=== PATIENT | female | born 1965 | race Caucasian/White ===

== ENCOUNTER 2023-08-24 11:13 | Emergency (ER) | payer MEDICAID, SELFPAY ==
[2023-08-24 11:23] VITALS: BP 154/80; PULSE 85; O2SAT 91
--- NOTE | 2023-08-24 11:42 | ED.GENADULT ---
HPI - General Adult General Chief complaint: Dental/Oral Stated complaint: JAW PAIN Time Seen by Provider: 08/24/23 17:45 History of Present Illness HPI narrative: This is a 57-year-old woman with a past medical history of COPD (on 2 liters/minute supplemental oxygen at home), hypertension, chronic back pain who presents for evaluation of jaw pain and rash. Patient states that pain began 1-2 weeks ago while she was at rehab. She states no trauma. She states that she heard a ?pop in her jaw. She states noting a ?blister? on the right side of the tip of her tongue. She states over the last 1 week she has slowly developed a rash over her right ear, jaw and chin. She states no cough or sore throat. She states no eye pain or vision changes. She states no hearing changes. She states no fevers or chills. She states no chest pain, dyspnea, abdominal pain, nausea, vomiting, change in bowel habits, dysuria or urinary frequency/urgency. Related Data Previous Rx's ?Medication ?Instructions ?Recorded prednisone 20 mg tablet 60 mg (3 x 20 mg) PO DAILY 6 days 08/24/23 #18 tabs valacyclovir 500 mg tablet 1,000 mg (2 x 500 mg) PO TID 7 08/24/23 days #40 tabs Allergies Allergy/AdvReac Type Severity Reaction Status Date / Time bupropion Allergy Unknown Verified 08/24/23 11:50 codeine Allergy Unknown Verified 08/24/23 11:50 diclofenac Allergy Unknown Verified 08/24/23 11:50 divalproex sodium Allergy Unknown Verified 08/24/23 11:50 [From Depakote] doxepin [From Silenor] Allergy Unknown Verified 08/24/23 11:50 famotidine Allergy Unknown Verified 08/24/23 11:50 meloxicam Allergy Unknown Verified 08/24/23 11:50 naproxen Allergy Unknown Verified 08/24/23 11:50 nortriptyline Allergy Unknown Verified 08/24/23 11:50 oxycodone Allergy Unknown Verified 08/24/23 11:50 sertraline Allergy Unknown Verified 08/24/23 11:50 topiramate Allergy Unknown Verified 08/24/23 11:50 Review of Systems Review of Systems: ROS as per HPI [facility] Social History Social History Advance Directives: No Advance Directives Information Provided: No Physical Exam ED Vital Signs: Vital Signs - 24 hr 08/24/23 11:43 08/24/23 16:00 08/24/23 17:42 Temperature 98.3 F 99.9 F Pulse Rate 77 77 Respiratory Rate 18 Blood Pressure 126/74 121/78 Pulse Oximetry 95 91 L 91 L Oxygen Delivery Method Nasal Cannula Nasal Cannula Nasal Cannula Oxygen Flow Rate 2 2 BMI result Body Mass Index 46.2 Gen: NAD, AOx3 HEENT: NCAT, EOMI, normal conjunctiva, vesicular eruption with erythema to right superior auricle extending to right lower face over right V3 dermatome with vesicles to right lingual tip and associated yellow crusting to some of the lesions, external ear canal with mild cerumen without impaction and no appreciable vesicular eruption, TM with +light reflex and without erythema, no lesions to the nose, uvula midline without edema, no posterior oropharynx erythema or exudates, no sublingual edema, no anterior neck brawny appearance, ecchymosis or edema, neck is supple CV: RRR Pulm: CTAB, no increased work of breathing GI: Soft, NTND, no rebound, guarding or rigidity MSK: Full range of motion with active and passive neck flexion/extension Neuro: CN II-XII intact, gross nonfocal Course Course Course Narrative: This is an RME performed by Ben Jiang CNP: Additional HPI, ROS, PE not included below will be deferred to primary provider. Patient is a 57-year-old female who presents emergency department via EMS for evaluation of right jaw pain extending to ear, mouth, lateral neck x 2wks, began while at [facility] she reports no one did anything about it . She has a visible rash to the right lower portion of her face involving the right side of the lip crusting over the lesions. She states that the rash appeared ?just after my jaw popped 2 weeks ago . she is having difficulty eating due to her pain Exam: Vesicular eruption with erythematous face over right V3 dermatome, presence of crusting to some of the lesions, external ear canal with cerumen, possible vesicular eruption within the canal difficult to ascertain in triage, concern for Katerine Brown stindrome. Plan: Placed in waiting room pending bed availability, she reports inability to tolerate p.o. intake, will require to be medicated and p.o. trial Medications Administered Discontinued Medications Generic Name Dose Route Start Last Admin Trade Name Darwin PRN Reason Stop Dose Admin Fluorescein Sodium 1 strip 08/24/23 18:24 08/24/23 19:03 Fluorescein Sodium Strip EYE-BOTH 08/24/23 18:25 1 strip ONCE ONE Administration Fluorescein Sodium 1 strip 08/24/23 18:25 08/24/23 19:03 Fluorescein Sodium Strip EYE-RIGHT 08/24/23 18:26 1 strip ONCE ONE Administration Prednisone 60 mg 08/24/23 18:52 08/24/23 19:07 Prednisone 20 Mg Tablet PO 08/24/23 18:53 60 mg ONCE ONE Administration Tetracaine HCl 1 drop 08/24/23 18:24 08/24/23 19:03 Tetracaine Hcl/Pf 0.5% Oph Shirin 4 Ml Drops EYE-BOTH 08/24/23 18:25 1 drop ONCE ONE Administration Valacyclovir HCl 1,000 mg 08/24/23 18:52 08/24/23 19:07 Valacyclovir Hcl 1,000 Mg Tablet PO 08/24/23 18:53 1,000 mg ONCE ONE Administration Medical Decision Making Medical Decision Making MDM Narrative: Differential diagnosis includes, but is not limited to herpes zoster oticus, herpes zoster ophthalmicus. Patient is afebrile and hemodynamically stable on her home oxygen. Exam as above with notable vesicular eruption with associated faint erythema and yellow crusting. Lower suspicion for herpes zoster ophthalmicus given lack of ocular complaints and lack lesions to the nose and further with distribution of lesions in the V3 facial dermatome. Regardless, patient is examined with fluorescein and Wood's lamp, which demonstrates no dendritic lesions to suggest ocular involvement Considered other etiologies such as acute otitis media, acute otitis externa and cellulitis, but history and examination are much less suggestive of these etiologies and these reasons thought to be less likely. Given high clinical suspicion for herpes zoster ophthalmicus, I will treat it as such. Patient is provided 60 mg p.o. prednisone and 1 g p.o. valacyclovir here in the ED. Urinalysis unremarkable. On re-examination, patient is well-appearing and in no acute distress. ?There is no indication for further emergent evaluation. Patient and daughter at bedside are provided written and verbal instructions, educational materials, recommendations for outpatient follow-up, strict return precautions, prescription for prednisone and valacyclovir, and teach back is performed. ?Patient and daughter state understanding and agreement with plan of care. ?Patient is discharged home in stable and improved condition with her daughter. Lab Data MDM Lab Attestation statement: I reviewed the patient's lab results. Labs: Lab Results 08/24/23 Range/Units 18:07 Urine Color Yellow Urine Appearance Clear Urine pH 6.0 (5.0-9.0) Ur Specific [place] 1.015 (1.005-1.025) Urine Protein Negative (Neg-Trace) mg/dL Urine Glucose (UA) 500 H (Negative) mg/dL Urine Ketones Negative (Negative) mg/dL Urine Blood Negative (Negative) Urine Nitrite Negative (Negative) Ur Leukocyte Esterase Negative (Negative) Discharge Plan Discharge Clinical Impression: Herpes zoster virus infection of face and ear nerves Patient Disposition: Home, Self-Care Instructions: Shingles (ED) Additional Instructions: You were seen and evaluated in the emergency room. You were diagnosed with shingles and started on treatment. You are given a prescription for an antiviral, which he be taken 3 times a day for a total of 7 days. Your next dose of antiviral should be taken tomorrow morning. You were also given a prescription for prednisone, which should be taken once a day for a total of 7 days. Your next dose of prednisone should be taken tomorrow evening. Please follow-up with your primary care doctor in the next 5-7 days. ? Please return to the emergency room if you develop any worsening symptoms including, but not limited to fever, worsening pain, vision changes, hearing changes, chest pain or difficulty breathing. Prescriptions: New prednisone 20 mg tablet 60 mg PO DAILY 6 Days Qty: 18 0RF valacyclovir 500 mg tablet 1,000 mg PO TID 7 Days Qty: 40 0RF Referrals: [facility] [place] [facility]Provider Group] Print Language: Thai
[2023-08-24 11:43] VITALS: BP 126/74; PULSE 77; RESP 18; TEMP 36.8; O2SAT 95; BMI 46.2
[2023-08-24 16:00] VITALS: BP 121/78; PULSE 77; TEMP 37.7; O2SAT 91
[2023-08-24 17:42] VITALS: O2SAT 91
[2023-08-24 18:22] LABS: Appearance Urine Clear; Color Urine Yellow; Glucose Urine UA 500 mg/dL (Negative); Leukocyte Esterase Urine Negative (Negative); Nitrite Urine Negative (Negative); Specific Gravity - Urine 1.015 (1.005-1.025); Urine Blood Negative (Negative); Urine Ketones Negative (Negative); Urine Protein Negative (Neg-Trace)
[2023-08-24] MEDS: Fluorescein Sodium STRIP 1 STRIP EYE-BOTH (19:03)
[2023-08-24] MEDS: Fluorescein Sodium STRIP 1 STRIP EYE-RIGHT (19:03)
[2023-08-24] MEDS: Tetracaine HCl/PF 0.5% Oph Sol 4 ML DROPS 1 DROP EYE-BOTH (19:03)
[2023-08-24] MEDS: valACYclovir HCL 1,000 MG TABLET 1000 MG PO (19:07)
[2023-08-24] MEDS: predniSONE 20 MG TABLET 60 MG PO (19:07)
[2023-08-24 20:00] VITALS: BP 128/65; PULSE 80; TEMP 36.3; O2SAT 95
[2023-08-24 21:03] VITALS: BP 128/65; PULSE 80; RESP 18; TEMP 36.3; O2SAT 95
== END 2023-08-24 22:07 | disposition home or self-care (01) ==
PROVIDERS: Emergency Provider Emergency Medicine
DX: B02.8 Zoster with other complications (principal); R68.84 Jaw pain; J44.9 Chronic obstructive pulmonary disease, unspecified; Z99.81 Dependence on supplemental oxygen
CPT/HCPCS: 81003; 99283

== ENCOUNTER 2024-07-10 10:32 | Inpatient (IN) | payer MEDICAID, SELFPAY ==
[2024-07-10] VITALS (11 sets, daily range): BP systolic 109–162; BP diastolic 52–86; PULSE 70–103; RESP 15–22; TEMP 36.1–36.7; O2SAT 93–99; BMI 50.1
--- NOTE | ~2024-07-10 | CT_ITS ---
CLINICAL HISTORY: GI bleed pt intubated, best images at this timeC- images attached to CT C- Chest beto h[place]. CT abdomen and pelvis with and without contrast Comparison: None Findings: There is diffuse fatty infiltration of the liver. The spleen, adrenal glands, pancreas and kidneys are unremarkable. The gallbladder is absent. There is a enteric tube which terminates in the proximal stomach, side hole is at the GE junction. Stomach is distended with air. Proximal small bowel loops are fluid distended, measuring up to 4.9 cm in diameter. There is a collection of dependent high attenuation material within 1 of the loops of small bowel, within the pelvis, series 22, image 196 which does not change in appearance on multiple phases suggesting this is food material or clot, and not active bleeding. There is an acute transition point in the midline abdomen, within the proximal to mid small bowel, series 22, image 144. Distal small bowel is decompressed. The colon is decompressed. There is no pneumatosis or free air. No ascites. Urinary bladder is decompressed. Posterior fusion of the thoracolumbar spine is present. IMPRESSION: 1. Small-bowel obstruction with transition point in the midabdomen. 2. Enteric tube in the proximal stomach with side hole in the GE junction. Markedly distended stomach. Consider advancing 5-10 cm. 3. Intraluminal high density material in a dilated loop of small bowel is likely food material or clot, not acute hemorrhage given the lack of exchange floor manager time. 4. Hepatic steatosis. This document has been electronically signed by: Donnie Nino MD on 07/12/2024 00:36:27
--- NOTE | ~2024-07-10 | CT_ITS ---
CLINICAL HISTORY: VOMITING, HIGH LACTIC ACID CT chest without contrast Comparison: CR - XR CHEST 1V - 07/11/24 20:36 EDT Findings: The heart size is normal. The visualized thyroid and mediastinum are unremarkable. The tip of the endotracheal tube has advanced and is now 1 cm above the clay. In the right lung there is an ovoid 2.0 cm calcified appearing nodule in the right upper lobe. There also smaller calcified appearing nodules in the right middle lobe indeterminate nodules in the right lung base are difficult to evaluate due to motion artifact, largest appears 10 mm in diameter. There is a 11 mm nodule in the left lower lobe, which appears noncalcified. No focal infiltrate. No effusion or pneumothorax. Please same-day CT abdomen and pelvis for discussion of upper abdomen findings. The enteric tube courses into the stomach, tip not visualized on this study. Partially visualized posterior fusion of the thoracolumbar spine. IMPRESSION: 1. Endotracheal tube tip is 1 cm above the clay 2. Multiple bilateral pulmonary nodules, some of which are calcified. Evaluation of nodules is difficult due to respiratory motion. Largest noncalcified nodule is 11 mm. Consider further follow-up evaluation with chest CT when patient is able to hold breath in the future. This document has been electronically signed by: Donnie Nino MD on 07/11/2024 23:33:27
--- NOTE | ~2024-07-10 | XR_ITS ---
CLINICAL HISTORY: asp? 1 view chest x-ray Comparison: CR/LA/SR - XR CHEST 1V - 07/10/24 13:23 EDT Findings: No pleural effusion. No Consolidation. Multiple nodular densities of the right lung. Prominent interstitial lung markings. Heart size is normal. No acute fracture. Spinal fusion. IMPRESSION: No consolidation. Nodular densities of the right lung. Further evaluation by CT chest as indicated. This document has been electronically signed by: Mariposa Castaneda MD on 07/11/2024 18:44:39
--- NOTE | ~2024-07-10 | XR_ITS ---
CLINICAL HISTORY: NGT placement 1 view chest x-ray Comparison: CR/SR - XR CHEST 1V - 07/15/24 12:[address] - CT GI BLEED ABD PEL WO/W IVCON - 07/11/24 22:27 EDT Findings: Enteric tube courses below the diaphragm and appears to terminate in the proximal stomach. Extensive spinal fusion hardware. Prominence of the interstitium bilaterally with an area of nodularity in the right lower lobe better seen on the prior CT. IMPRESSION: 1. Enteric tube courses below the diaphragm and appears to terminate over the expected location of the proximal stomach. Distal side port not seen but likely at the level of the gastroesophageal junction. Advancement recommended. This document has been electronically signed by: Bessie Moncada MD on 07/16/2024 06:07:14
--- NOTE | ~2024-07-10 | XR_ITS ---
CLINICAL HISTORY: pain 1 view abdomen Comparison: CT - CT GI BLEED ABD PEL WO/W IVCON - 07/11/24 22:27 EDT Findings: No pneumoperitoneum or pneumatosis. There is gaseous distention of both large and small bowel. Small bowel does not appear to be dilated. There is marked gaseous distention of the stomach. No abnormal calcifications. There are spinal fusion rods. No acute fracture. IMPRESSION: 1. Extensive severe gaseous distention of bowel most likely secondary to ileus. 2. There is marked gaseous distention of the stomach. This document has been electronically signed by: Berkley Goddard MD on 07/20/2024 18:42:19
--- NOTE | ~2024-07-10 | XR_ITS ---
CLINICAL HISTORY: ETT OGT placement 1 view chest x-ray Comparison: CR - XR CHEST 1V - 07/11/24 17:54 EDT Findings: Multiple nodular densities in the right lung concerning for pulmonary nodules. Cervical spine fusion. There is an endotracheal tube terminating in the thoracic inlet, with tip located 10 cm above the clay. Heart size is normal. There is an enteric tube with tip seen overlying the lower esophagus. Tip is partially obscured by overlying spinal hardware in the thoracolumbar spine. IMPRESSION: 1. Tip of the endotracheal tube is 10 cm above the clay. Consider advancing 6-8 cm. 2. Enteric tube terminates in the distal esophagus, consider advancing 5-10 cm. 3. Multiple nodular densities again seen in the right lung concerning for pulmonary nodules. This document has been electronically signed by: Donnie Nino MD on 07/11/2024 21:20:31
--- NOTE | ~2024-07-10 | XR_ITS ---
EXAMINATION: XR CHEST CLINICAL INFORMATION: confirm NG tube placement COMPARISON: Chest x-ray 07/11/2024, and CT chest 07/11/2024. TECHNIQUE: Frontal view of the lower chest and upper abdomen was obtained. FINDINGS: NG tube extends into the stomach although the sidehole is likely at the GE junction or slightly above. Lower lungs demonstrate streaky opacities left base, and a right base nodule measuring 2.0 cm in diameter. Refer to the recent dedicated chest CT. Extensive spinal fixation rods noted thoracolumbar spine. XR/XR chest 1V IMPRESSION: 1. Limited exam. NG tube is present with the tip in the stomach although the sidehole is likely at or just above the GE junction. 2. Pulmonary nodule in the right lung base, and streaky opacities in the left lung base. Electronically signed by: Cristino Rodriguez MD 07/15/2024 02:44 PM EDT
--- NOTE | ~2024-07-10 | XR_ITS ---
EXAMINATION: XR CHEST CLINICAL INFORMATION: sob COMPARISON: None available. TECHNIQUE: Frontal view of the chest was obtained. FINDINGS: Prominence of the interstitial lung markings, bilaterally. Round opacity right lower hemithorax. No pneumothorax. No pleural effusion. Cardiomediastinal silhouette size is normal. Metallic hardware in the lower cervical and at the thoracolumbar spine not in the [id number]. Degenerative changes with calcifications in the joint capsule involving the left shoulder. XR/XR chest 1V IMPRESSION: Mild interstitial lung edema versus multifocal pneumonia. Nodular lesion right lower hemithorax. Consider benign versus malignant. Electronically signed by: Colt Watkins MD 07/10/2024 01:47 PM EDT
--- NOTE | ~2024-07-10 | FL_ITS ---
EXAMINATION: FL SMALL BOWEL SERIES CLINICAL INFORMATION: SBO COMPARISON: None available. TECHNIQUE: Following a yardage control clerk image of the abdomen, Gastrografin 50-50 contrast was administered orally, and interval abdominal radiographs were performed to assess for contrast progression through the small bowel. Following contrast transit through the small bowel and into the colon, the patient was placed on the fluoroscopy table, and multiple spot images were obtained. FINDINGS: Mud Mixer Operator image of the abdomen demonstrates there is a dilated colonic and small bowel gas.. There are Watts rods throughout the lumbar and lower dorsal spine as visualized for correction of scoliosis. There is normal transit time of contrast material through the small bowel, with contrast present in the colon by 1 hour 30 minutes. Small bowel loops are of normal caliber throughout the abdomen and pelvis. The jejunal and ileal fold patterns are normal, without evidence of abnormal thickening. No fixed regions of luminal narrowing are seen to suggest stricturing. The terminal ileum demonstrates a normal appearance. FLUOROSCOPY TIME: 0 DOSE AREA PRODUCT: There uGy-m2 (microgray-meter squared) FL/FL small bowel follow through IMPRESSION: Normal small bowel series. No indication for obstruction. Electronically signed by: Jeremie Bergeron MD 07/21/2024 12:56 PM EDT
--- NOTE | ~2024-07-10 | CT_ITS ---
EXAMINATION: CT HEAD WITHOUT CONTRAST (STROKE PROTOCOL) CLINICAL INFORMATION: Change in mental status. Speech disturbances. COMPARISON: None available. TECHNIQUE: Contiguous axial imaging was performed from the skull base to vertex without intravenous administration of contrast. This CT examination was performed using dose optimization techniques as appropriate, variously including the following: *Automated exposure control *Adjustment of mA and/or kV according to patient size (this includes techniques or standardized protocols for targeted exams where dose is matched to indication/reason for exam; i.e. extremities or head) *Use of iterative reconstruction technique DLP: 809 mGy centimeter. FINDINGS: Limited patient's positioning on the CT scanner. No gross intracranial hemorrhage, mass effect, midline shift, hydrocephalus or herniation. Sharp-white matter differentiation is normal. Bilateral multifocal patchy deep periventricular white matter hypodensity involving centrum semiovale and olmedo radiata. There is no dense MCA sign. Prominence of the extra-axial CSF spaces cerebral sulci and ventricles. No acute fracture in the bony calvarium. No air-fluid levels in the paranasal sinuses. Tympanic cavities and mastoid cells are aerated. Edentulous. CT/CT head for STROKE IMPRESSION: No intracranial hemorrhage or acute brain abnormality by CT. This critical result was discussed with Dr. Rasheed Fagan at 10:50 AM hours on July 10, 2024. It was ascertained that the content and urgency of the report was understood at the time of direct communication. Electronically signed by: Colt Watkins MD 07/10/2024 10:54 AM EDT
--- NOTE | ~2024-07-10 | XR_ITS ---
EXAMINATION: XR CHEST 1 VIEW HISTORY: tube placement COMPARISON: Comparison is made with the prior examination dated 07/20/2024. FINDINGS: A single AP portable view of the chest performed at 7:05 AM is submitted. The lung apices are excluded. A right-sided PICC line is unchanged in position. A nasogastric tube terminates below the diaphragm. The visualized portions of the lungs are clear. There is no pleural effusion. The heart is normal in size. Spinal stabilization rods are again noted. XR/XR chest 1V IMPRESSION: The nasogastric tube terminates in the stomach. Electronically signed by: Dano Cole MD 07/21/2024 08:16 AM EDT
--- NOTE | ~2024-07-10 | XR_ITS ---
CLINICAL HISTORY: SOB 1 view chest x-ray Comparison: CR - XR CHEST 1V - 07/16/24 02:[address] - CT CHEST WO IV CON - 07/11/24 22:25 EDT Findings: There are multiple nodular foci within the right lung without change. Small linear focus of atelectasis within the left lower lung. No consolidative process. Heart size is normal. There is a new right-sided PICC catheter within the superior vena cava. The nasogastric tube has been removed. Multifocal spinal fusion. No displaced fracture. IMPRESSION: Mild linear atelectasis within the left lower lung. Multiple right-sided pulmonary nodules without change. This document has been electronically signed by: Berkley Goddard MD on 07/20/2024 18:24:46
--- NOTE | 2024-07-10 10:38 | ED_ITS ---
HPI - General Adult General Chief complaint: Overdose Stated complaint: ?STROKE,LKWT 00:01,R WEAK/-COMMANDS/FAM STS THIN Time Seen by Provider: 07/10/24 10:36 History of Present Illness ED Provider: Rylan HOBSON narrative: The patient is a 58-year-old woman who was brought to the hospital this morning by ambulance after she was found to have an abnormal mental status by her family this morning. Paramedics were concerned that she might have a right facial droop and difficulty speaking and so called her in as a ?code stroke. According to paramedics the patient was last seen in her usual state of health at around 11 PM last night. Initially there was no other history available but the daughter later arrived and said that she had found a suicide note and the daughter believes the patient overdosed on olanzapine (the daughter's olanzapine). The daughter further said that the patient has a history of depression and anxiety. The daughter says that the patient has been on clonazepam [facility]. Additionally the patient has a history of opioid use disorder and is on a buprenorphine patch. The daughter further said that the patient had recently overused her clonazepam and had run out and had not been able to get a new prescription from her provider. The daughter says the the patient has stopped taking clonazepam about 7 days ago. Because the patient was complaining of a lot of anxiety after running out of clonazepam the daughter apparently was giving her olanzapine to try to help the patient's symptoms. The daughter had been prescribed olanzapine, not the patient.. This morning the daughter realized that the bottle of olanzapine was empty. The daughter is not certain how many pills might has been taken last night. The daughter says there were 30 pills in the bottle when she started giving the patient olanzapine 4 or 5 days ago. The daughter thinks the patient might has been taking 2 or 3 tablets per day over the last 5 days. Related Data Previous Rx's ?Medication ?Instructions ?Recorded prednisone 20 mg tablet 60 mg (3 x 20 mg) PO DAILY 6 days 08/24/23 #18 tabs valacyclovir 500 mg tablet 1,000 mg (2 x 500 mg) PO TID 7 08/24/23 days #40 tabs Allergies Allergy/AdvReac Type Severity Reaction Status Date / Time bupropion Allergy Unknown Verified 07/10/24 11:18 codeine Allergy Unknown Verified 07/10/24 11:18 diclofenac Allergy Unknown Verified 07/10/24 11:18 divalproex sodium Allergy Unknown Verified 07/10/24 11:18 [From Depakote] doxepin [From Silenor] Allergy Unknown Verified 07/10/24 11:18 famotidine Allergy Unknown Verified 07/10/24 11:18 meloxicam Allergy Unknown Verified 07/10/24 11:18 naproxen Allergy Unknown Verified 07/10/24 11:18 nortriptyline Allergy Unknown Verified 07/10/24 11:18 oxycodone Allergy Unknown Verified 07/10/24 11:18 sertraline Allergy Unknown Verified 07/10/24 11:18 topiramate Allergy Unknown Verified 07/10/24 11:18 Review of Systems 2 Review of Systems: Yes Unobtainable due to mental status [facility] Social History Social History Smoked in Last 30 Days: Yes Advance Directives: No Advance Directives Information Provided: Yes Physical Exam ED Vital Signs: Vital Signs - 24 hr 07/10/24 11:14 07/10/24 13:28 07/10/24 14:18 Temperature 97.9 F 97.3 F Pulse Rate 89 80 80 Respiratory Rate 20 15 20 Blood Pressure 117/63 120/79 Pulse Oximetry 93 96 Oxygen Delivery Method Room Air Room Air BMI result Body Mass Index 50.1 Const Other: The patient arrived awake but confused. Her speech was difficult to understand. She looks quite chronically ill. There was a suggestion of possible right- sided facial droop but this was not a definite finding. She seemed to be moving her extremities with symmetrical tone. HENMT Other: Possibly some slight facial asymmetry but no definite facial weakness. The tongue was midline. Eyes Other: Pupils are round equal, conjunctivae clear, extraocular movements intact. Neck Other: The neck was supple. No JVD. Resp Other: Mild wheezes and coarse air entry bilaterally. No definite increased work of breathing. Cardio Rate: regular rate Rhythm: regular rhythm Heart sounds: S1 normal heart sound present and S2 normal heart sound present GI Other: The patient has a large abdomen. The abdomen seemed soft and nontender. Skin Other: The skin was pale and dry Neuro Other: The patient was awake but confused. There was a vague suggestion of some facial asymmetry but this was not a definite finding. The tongue is midline. Speech was somewhat thick but not frankly dysarthric. She was confused so it was difficult to say if she was aphasic. She seemed to move her extremities symmetrically. Overall her presentation seemed most consistent with an encephalopathy. Extrem Other: Lower extremities seem chronically mildly edematous. No asymmetry. No pitting edema. Medications Administered Discontinued Medications Generic Name Dose Route Start Last Admin Trade Name Austinq PRN Reason Stop Dose Admin Albuterol/Ipratropium 3 ml 07/10/24 13:10 07/10/24 13:28 Albuterol/Iprat 2.5/0.5mg 3 Ml Ampul.Neb INHALE 07/10/24 13:11 3 ml ONCE ONE Administration Ceftriaxone Sodium 1 gm 07/10/24 14:26 07/10/24 14:57 Ceftriaxone Sodium 1 Gm Vial IVPUSH 07/10/24 14:27 1 gm ONCE ONE Administration Diazepam 2.5 mg 07/10/24 16:32 07/10/24 16:38 Diazepam 10 Mg/2 Ml Cartridge IVPUSH 07/10/24 16:33 2.5 mg STAT STA Administration Magnesium Sulfate/Dextrose 1 gm in 100 mls @ 300 mls/hr 07/10/24 13:19 07/10/24 14:03 Magnesium Sulfate/D5w IV 07/10/24 13:38 Infused ONCE ONE Infusion Lactated Ringer's 1,000 mls @ 999 mls/hr 07/10/24 13:45 07/10/24 14:44 Lr IV 07/10/24 14:45 0 mls/hr .Q1H1M ROBI Infusion Azithromycin 500 mg/ Sodium 250 mls @ 125 mls/hr 07/10/24 14:26 07/10/24 14:57 Chloride IV 07/10/24 16:25 125 mls/hr ONCE ONE Administration Nicotine 21 mg 07/10/24 14:19 07/10/24 14:32 Nicotine 21 Mg Patch.Td24 TRANSDERMA 07/10/24 14:20 21 mg ONCE ONE Administration Medical Decision Making Medical Decision Making MDM Narrative: The patient is a 58-year-old female who arrived by ambulance for concern about altered mental status and confusion. Paramedics had some concern that the patient might be having a stroke. The patient's medication list includes apixaban. The patient's last known well time was yesterday evening at around 11 PM. On arrival the patient's presentation seemed more consistent with an encephalopathic state than a definite acute stroke. Nevertheless the patient was sent for a stat head CT which fortunately showed no acute changes, particularly no acute intracranial hemorrhage. Not long after the patient had arrived in the emergency room her daughter arrived with the additional information that the patient had probably overdosed on olanzapine last night. The patient had left a suicide note. The details of this overdose are not clear. The daughter is quite vague about how many possible tablets the patient might have taken. The daughter says the patient recently ran out of clonazepam. She has been on chronic clonazepam for a long time. She seems to take 2.5 mg of clonazepam daily. This stopped abruptly 1 week ago because she had overused her medication and had finished her prescription ahead of schedule. The patient tests negative for salicylates, acetaminophen, and alcohol. Her urine tox screen is positive for marijuana. She has had several EKGs which did not show any significant interval changes. The poison Center was consulted. They requested that a lactate be checked and also a venous blood gas. Venous blood gas showed a pH of 7.47 with a pCO2 of 39. Lactate came back elevated at 3.0. The lactate has been ordered at the request of the poison Center, not because it seemed likely that the patient was septic. The patient is white count was 9.0 with a normal differential. A rectal temperature was 99.9. Despite the lack of fever elevated white count I ultimately felt it would be prudent to cover the patient with the antibiotics given that she has a history of chronic lung disease and she has some abnormal lung sounds and her chest x- ray had an equivocal reading of a possible multifocal pneumonia. Blood cultures were obtained and she was given ceftriaxone and azithromycin. The patient's mental status cleared slightly while in the emergency room and she intermittently was able to speak coherently. The patient's daughter was very worried that the patient would become anxious because the patient is often very anxious and agitated in hospitals. The patient's daughter was also worried that the patient still may be feeling the effects of benzodiazepine cessation. Therefore the patient was given 2.5 mg of IV diazepam. The poison Center recommended 24 hours of cardiac monitoring. The patient will be admitted to the hospitalist service. Lab Data 07/10/24 11:00 07/10/24 11:56 Labs: Lab Results 04/24/25 04/24/25 04/24/25 Range/Units 10:37 11:00 11:47 WBC 9.0 (4.8-10.8) X10*3/uL RBC 4.00 L (4.20-5.50) X10*6/uL Hgb 13.4 (12.0-16.0) g/dl Hct 40.0 (37.0-47.0) % MCV 100.0 H (80.0-98.0) fL MCH 33.5 H (27.0-33.0) pg MCHC 33.5 (31.0-35.0) g/dl RDW 12.8 (11.0-16.0) % Plt Count 269 (160-400) X10*3/uL MPV 9.1 L (9.4-12.3) fL Immature Gran % (Auto) 0.3 (0.0-0.4) % Neut % (Auto) 67.9 (45-73) % Lymph % (Auto) 23.3 (20-40) % Tate % (Auto) 7.0 (2-11) % Eos % (Auto) 0.9 (0-4) % Baso % (Auto) 0.6 (0-2) % Lymph # (Auto) 2.1 (1.2-4.9) X10*3/uL Tate # (Auto) 0.6 (0.1-1.2) X10*3/uL Eos # (Auto) 0.1 (0.0-0.4) X10*3/uL Baso # (Auto) 0.1 (0.0-0.2) X10*3/uL Abs Immat Gran (auto) 0.03 (0.00-0.03) X10*3/uL Absolute Neuts (auto) 6.1 (2.0-8.3) x10*3/uL Absolute Nucleated RBC 0.000 (0.0-0.012) X10*3/uL Nucleated RBC % (auto) 0.0 (0.0-0.2) /100WBC PT 11.3 (10.9-12.4) SEC Whole Blood PT 12.2 (11.1-13.5) sec INR 1.0 (0.9-1.1) Whole Blood INR 1.0 (0.9-1.1) APTT 24.8 L (26.0-36.8) SEC VBG pH (7.32-7.43) VBG pCO2 mmHg VBG pO2 mmHg VBG HCO3 (22-26) mmol/L VBG O2 Saturation % VBG Base Excess mmol/L Sodium (135-145) mmol/L Potassium (3.3-5.1) mmol/L Chloride (96-108) mmol/L Carbon Dioxide (22-29) mmol/L Anion Gap (12-20) BUN (9-16) mg/dL Creatinine (0.5-1.4) mg/dL Estim Creat Clear Calc Estimated GFR POC Glucose 137 H (60-115) mg/dL Random Glucose (60-115) mg/dL Lactic Acid (0.5-2.0) mmol/L Lactic Acid F/U @ 2Hr (0.5-2.0) mmol/L Calcium (8.4-10.2) mg/dL Magnesium (1.6-2.6) mg/dL Total Bilirubin (0.0-1.0) mg/dL Direct Bilirubin (0.0-0.5) mg/dL AST (5-31) U/L ALT (0-31) U/L Alkaline Phosphatase (39-117) U/L Troponin I High Sens < 2.7 (<3.5-17.0) ng/L B-Natriuretic Peptide 11 (<100) pg/mL Total Protein (6.5-8.0) g/dL Albumin (3.5-5.0) g/dL Triglycerides (<150) mg/dL Cholesterol (<200) mg/dL LDL Cholesterol, Calc (<100) mg/dL HDL Cholesterol (>40) mg/dL Urine Color Urine Appearance Urine pH (5.0-9.0) Ur Specific [place] (1.005-1.025) Urine Protein (Neg-Trace) mg/dL Urine Glucose (UA) (Negative) mg/dL Urine Ketones (Negative) mg/dL Urine Blood (Negative) Urine Nitrite (Negative) Ur Leukocyte Esterase (Negative) Urine RBC (0-2) /HPF Urine WBC (0-5) /HPF Ur Squamous Epith Cells (0-2) /HPF Urine Bacteria (None Seen) Hyaline Casts (0-2) /LPF Urine Test (NEGATIVE) Salicylates (15-30) mg/dL Urine Opiates Screen (Not Detect) Ur Buprenorphine Scrn (Not Detect) ng/mL Ur Oxycodone Screen (Not Detect) ng/mL Urine Methadone Screen (Not Detect) ng/mL Urine Fentanyl Screen (Not Detect) Acetaminophen (<30) mcg/mL Ur Barbiturates Screen (Not Detect) Ur Phencyclidine Scrn (Not Detect) Ur Amphetamines Screen (Not Detect) U Benzodiazepines Scrn (Not Detect) Urine Cocaine Screen (Not Detect) U Marijuana (THC) Screen (Not Detect) Ethyl Alcohol mg/dL 07/10/24 07/10/24 07/10/24 Range/Units 11:56 12:50 12:58 WBC (4.8-10.8) X10*3/uL RBC (4.20-5.50) X10*6/uL Hgb (12.0-16.0) g/dl Hct (37.0-47.0) % MCV (80.0-98.0) fL MCH (27.0-33.0) pg MCHC (31.0-35.0) g/dl RDW (11.0-16.0) % Plt Count (160-400) X10*3/uL MPV (9.4-12.3) fL Immature Gran % (Auto) (0.0-0.4) % Neut % (Auto) (45-73) % Lymph % (Auto) (20-40) % Tate % (Auto) (2-11) % Eos % (Auto) (0-4) % Baso % (Auto) (0-2) % Lymph # (Auto) (1.2-4.9) X10*3/uL Tate # (Auto) (0.1-1.2) X10*3/uL Eos # (Auto) (0.0-0.4) X10*3/uL Baso # (Auto) (0.0-0.2) X10*3/uL Abs Immat Gran (auto) (0.00-0.03) X10*3/uL Absolute Neuts (auto) (2.0-8.3) x10*3/uL Absolute Nucleated RBC (0.0-0.012) X10*3/uL Nucleated RBC % (auto) (0.0-0.2) /100WBC PT (10.9-12.4) SEC Whole Blood PT (11.1-13.5) sec INR (0.9-1.1) Whole Blood INR (0.9-1.1) APTT (26.0-36.8) SEC VBG pH 7.47 H (7.32-7.43) VBG pCO2 39 mmHg VBG pO2 72 mmHg VBG HCO3 28 H (22-26) mmol/L VBG O2 Saturation 97.0 % VBG Base Excess 4.9 mmol/L Sodium 141 (135-145) mmol/L Potassium 4.3 (3.3-5.1) mmol/L Chloride 106 (96-108) mmol/L Carbon Dioxide 27 (22-29) mmol/L Anion Gap 12 (12-20) BUN 9 (9-16) mg/dL Creatinine 0.60 (0.5-1.4) mg/dL Estim Creat Clear Calc 161.4 Estimated GFR > 60 POC Glucose (60-115) mg/dL Random Glucose 136 H (60-115) mg/dL Lactic Acid 3.0 H* (0.5-2.0) mmol/L Lactic Acid F/U @ 2Hr (0.5-2.0) mmol/L Calcium 9.1 (8.4-10.2) mg/dL Magnesium 1.8 (1.6-2.6) mg/dL Total Bilirubin 0.4 (0.0-1.0) mg/dL Direct Bilirubin 0.2 (0.0-0.5) mg/dL AST 31 (5-31) U/L ALT 26 (0-31) U/L Alkaline Phosphatase 59 (39-117) U/L Troponin I High Sens (<3.5-17.0) ng/L B-Natriuretic Peptide (<100) pg/mL Total Protein 6.4 L (6.5-8.0) g/dL Albumin 3.7 (3.5-5.0) g/dL Triglycerides 110 (<150) mg/dL Cholesterol 134 (<200) mg/dL LDL Cholesterol, Calc 57 (<100) mg/dL HDL Cholesterol 55 (>40) mg/dL Urine Color Urine Appearance Urine pH (5.0-9.0) Ur Specific [place] (1.005-1.025) Urine Protein (Neg-Trace) mg/dL Urine Glucose (UA) (Negative) mg/dL Urine Ketones (Negative) mg/dL Urine Blood (Negative) Urine Nitrite (Negative) Ur Leukocyte Esterase (Negative) Urine RBC (0-2) /HPF Urine WBC (0-5) /HPF Ur Squamous Epith Cells (0-2) /HPF Urine Bacteria (None Seen) Hyaline Casts (0-2) /LPF Urine Test (NEGATIVE) Salicylates < 5.0 L (15-30) mg/dL Urine Opiates Screen (Not Detect) Ur Buprenorphine Scrn (Not Detect) ng/mL Ur Oxycodone Screen (Not Detect) ng/mL Urine Methadone Screen (Not Detect) ng/mL Urine Fentanyl Screen (Not Detect) Acetaminophen < 3 (<30) mcg/mL Ur Barbiturates Screen (Not Detect) Ur Phencyclidine Scrn (Not Detect) Ur Amphetamines Screen (Not Detect) U Benzodiazepines Scrn (Not Detect) Urine Cocaine Screen (Not Detect) U Marijuana (THC) Screen (Not Detect) Ethyl Alcohol < 10 mg/dL 07/10/24 07/10/24 Range/Units 13:06 14:50 WBC (4.8-10.8) X10*3/uL RBC (4.20-5.50) X10*6/uL Hgb (12.0-16.0) g/dl Hct (37.0-47.0) % MCV (80.0-98.0) fL MCH (27.0-33.0) pg MCHC (31.0-35.0) g/dl RDW (11.0-16.0) % Plt Count (160-400) X10*3/uL MPV (9.4-12.3) fL Immature Gran % (Auto) (0.0-0.4) % Neut % (Auto) (45-73) % Lymph % (Auto) (20-40) % Tate % (Auto) (2-11) % Eos % (Auto) (0-4) % Baso % (Auto) (0-2) % Lymph # (Auto) (1.2-4.9) X10*3/uL Tate # (Auto) (0.1-1.2) X10*3/uL Eos # (Auto) (0.0-0.4) X10*3/uL Baso # (Auto) (0.0-0.2) X10*3/uL Abs Immat Gran (auto) (0.00-0.03) X10*3/uL Absolute Neuts (auto) (2.0-8.3) x10*3/uL Absolute Nucleated RBC (0.0-0.012) X10*3/uL Nucleated RBC % (auto) (0.0-0.2) /100WBC PT (10.9-12.4) SEC Whole Blood PT (11.1-13.5) sec INR (0.9-1.1) Whole Blood INR (0.9-1.1) APTT (26.0-36.8) SEC VBG pH (7.32-7.43) VBG pCO2 mmHg VBG pO2 mmHg VBG HCO3 (22-26) mmol/L VBG O2 Saturation % VBG Base Excess mmol/L Sodium (135-145) mmol/L Potassium (3.3-5.1) mmol/L Chloride (96-108) mmol/L Carbon Dioxide (22-29) mmol/L Anion Gap (12-20) BUN (9-16) mg/dL Creatinine (0.5-1.4) mg/dL Estim Creat Clear Calc Estimated GFR POC Glucose (60-115) mg/dL Random Glucose (60-115) mg/dL Lactic Acid (0.5-2.0) mmol/L Lactic Acid F/U @ 2Hr 3.3 H* (0.5-2.0) mmol/L Calcium (8.4-10.2) mg/dL Magnesium (1.6-2.6) mg/dL Total Bilirubin (0.0-1.0) mg/dL Direct Bilirubin (0.0-0.5) mg/dL AST (5-31) U/L ALT (0-31) U/L Alkaline Phosphatase (39-117) U/L Troponin I High Sens (<3.5-17.0) ng/L B-Natriuretic Peptide (<100) pg/mL Total Protein (6.5-8.0) g/dL Albumin (3.5-5.0) g/dL Triglycerides (<150) mg/dL Cholesterol (<200) mg/dL LDL Cholesterol, Calc (<100) mg/dL HDL Cholesterol (>40) mg/dL Urine Color Yellow Urine Appearance Turbid Urine pH 7.0 (5.0-9.0) Ur Specific [place] 1.010 (1.005-1.025) Urine Protein Trace (Neg-Trace) mg/dL Urine Glucose (UA) 500 H (Negative) mg/dL Urine Ketones Negative (Negative) mg/dL Urine Blood Small (1+) H (Negative) Urine Nitrite Negative (Negative) Ur Leukocyte Esterase Moderate (2+) H (Negative) Urine RBC 0-2 (0-2) /HPF Urine WBC 0-5 (0-5) /HPF Ur Squamous Epith Cells 11-20 (0-2) /HPF Urine Bacteria 3+ (None Seen) Hyaline Casts 0-2 (0-2) /LPF Urine Test NEGATIVE (NEGATIVE) Salicylates (15-30) mg/dL Urine Opiates Screen Not Detected (Not Detect) Ur Buprenorphine Scrn Not Detected (Not Detect) ng/mL Ur Oxycodone Screen Not Detected (Not Detect) ng/mL Urine Methadone Screen Not Detected (Not Detect) ng/mL Urine Fentanyl Screen Not Detected (Not Detect) Acetaminophen (<30) mcg/mL Ur Barbiturates Screen Not Detected (Not Detect) Ur Phencyclidine Scrn Not Detected (Not Detect) Ur Amphetamines Screen Not Detected (Not Detect) U Benzodiazepines Scrn Not Detected (Not Detect) Urine Cocaine Screen Not Detected (Not Detect) U Marijuana (THC) Screen POSITIVE H (Not Detect) Ethyl Alcohol mg/dL Critical Care Time Critical Care Time Critical Care Time: Yes Total Critical Care Time: 35 Attestation: The patient was critically ill with a high probability of imminent or life- threatening deterioration. ?I spent greater than 30 minutes of discontinuous time evaluating the patient, delivering critical care at the bedside, discussing evaluating data with consultants. ?Critical care time does not include time spent performing separately billable procedures or teaching. ?Time spent performing critical care with 35 minutes. Discharge Plan Discharge Clinical Impression: Intentional olanzapine overdose, Altered mental status Patient Disposition: Admitted As Inpatient Print Language: Azerbaijani
--- NOTE | 2024-07-10 10:39 | ECG_ITS ---
Test Reason : OD Blood Pressure : */* mmHG Vent. Rate : 82 BPM Atrial Rate : 82 BPM P-R Int : 140 ms QRS Dur : 82 ms QT Int : 384 ms P-R-T Axes : 42 55 92 degrees QTcB Int : 448 ms Normal sinus rhythm Normal ECG No previous ECGs available Referred By: Rasheed Fagan Electronically Signed By: NIKKI BUSTILLO
[2024-07-10 11:06] LABS: MANUAL DIFF FLAG NO
[2024-07-10 11:07] LABS: Basophils Absolute Auto 0.1 X10*3/uL (0.0-0.2); Basophils Percent Auto 0.6 % (0-2); Eosinophils Absolute Auto 0.1 X10*3/uL (0.0-0.4); Eosinophils Percent Auto 0.9 % (0-4); Hemoglobin 13.4 g/dl (12.0-16.0); Imm Gran Abs Auto 0.03 X10*3/uL (0.00-0.03); Imm Gran Pct Auto 0.3 % (0.0-0.4); Lymphocytes Absolute Auto 2.1 X10*3/uL (1.2-4.9); Lymphocytes Percent Auto 23.3 % (20-40); Mean Corpuscular HGB Conc 33.5 g/dl (31.0-35.0); Mean Corpuscular Hemoglobin 33.5 pg (27.0-33.0); Mean Platelet Volume 9.1 fL (9.4-12.3); Monocytes Absolute Auto 0.6 X10*3/uL (0.1-1.2); Neutrophils Absolute Auto 6.1 x10*3/uL (2.0-8.3); Neutrophils Percent Auto 67.9 % (45-73); Platelet Count 269 X10*3/uL (160-400); Red Cell Distribution Width 12.8 % (11.0-16.0)
[2024-07-10 11:14] LABS: Prothrombin Time 11.3 SEC (10.9-12.4)
[2024-07-10 11:16] LABS: Partial Thromboplastin Time 24.8 SEC (26.0-36.8)
[2024-07-10 11:22] LABS: Stroke Lab Use COMPLETE
[2024-07-10 11:32] LABS: Troponin-I High Sensitivity < 2.7 ng/L (<3.5-17.0)
[2024-07-10 11:51] LABS: Prothrombin Time Whole Bld POC 12.2 sec (11.1-13.5)
[2024-07-10 12:19] LABS: Acetaminophen LAB < 3 mcg/mL (<30); Salicylate < 5.0 mg/dL (15-30)
[2024-07-10 12:20] LABS: Anion Gap 12 (12-20); Blood Urea Nitrogen 9 mg/dL (9-16); Calcium 9.1 mg/dL (8.4-10.2); Carbon Dioxide 27 mmol/L (22-29); Chloride 106 mmol/L (96-108); Cholesterol 134 mg/dL (<200); Creatinine Clr Calc Pharmacy 161.4; Estimated Glomerular Filt Rate > 60; Ethanol < 10 mg/dL; Glucose Random 136 mg/dL (60-115); HDL Cholesterol 55 mg/dL (>40); LDL Cholesterol Calculated 57 mg/dL (<100); Potassium 4.3 mmol/L (3.3-5.1); Sodium 141 mmol/L (135-145); Triglycerides 110 mg/dL (<150)
[2024-07-10 12:49] LABS: Magnesium 1.8 mg/dL (1.6-2.6)
--- NOTE | 2024-07-10 12:51 | PC.NURSE ---
poison control contacted d/t ?overdose on medications per the daughter, recommend VBG and lactic acid, potassium to remain at a minimum of 4, mag at 2. for hypotension, recommend fluids - levo if needed. repeat EKG in q2hr x3. will return call, potentially observing overnight prior to medical clearance. labs obtained. patient incontinent of urine, linens changed. patient remains alert to verbal and painful stimuli, alert and oriented to self.
[2024-07-10 13:02] LABS: VBG Base Excess 4.9 mmol/L; VBG HCO3 28 mmol/L (22-26); VBG pCO2 39 mmHg; VBG pH 7.47 (7.32-7.43); VBG pO2 72 mmHg
[2024-07-10 13:04] LABS: Venous Blood Gas Refer to POC result
[2024-07-10 13:17] LABS: Appearance Urine Turbid; Color Urine Yellow; Glucose Urine UA 500 mg/dL (Negative); Leukocyte Esterase Urine Moderate (2+) (Negative); Nitrite Urine Negative (Negative); UMIC TRIGGER UACC YES; Urine Blood Small (1+) (Negative); Urine Ketones Negative (Negative); Urine Protein Trace mg/dL (Neg-Trace)
[2024-07-10 13:18] LABS: UPreg QC Valid YES; Urine Pregnancy NEGATIVE (NEGATIVE)
--- NOTE | 2024-07-10 13:23 | ECG_ITS ---
Test Reason : CHECK QT INTERVAL Blood Pressure : */* mmHG Vent. Rate : 73 BPM Atrial Rate : 73 BPM P-R Int : 144 ms QRS Dur : 78 ms QT Int : 400 ms P-R-T Axes : 36 27 75 degrees QTcB Int : 440 ms Normal sinus rhythm Normal ECG When compared with ECG of 10-Jul-2024 11:15, No significant change was found Referred By: Rasheed Fagan Electronically Signed By: NIKKI BUSTILLO
[2024-07-10 13:24] LABS: Amphetamine Screen Urine Not Detected (Not Detect); Barbiturates, Urine Not Detected (Not Detect); Benzodiazepines Screen Urine Not Detected (Not Detect); Buprenorphine Scr Not Detected (Not Detect); Cannabinoid Screen Urine POSITIVE (Not Detect); Cocaine Screen Urine Not Detected (Not Detect); Fentanyl, urine Not Detected (Not Detect); Methadone Screen, Urine Not Detected (Not Detect); Opiate Screen Urine Not Detected (Not Detect); Oxycodone Screen Urine Not Detected (Not Detect); Phencyclidine Screen Urine Not Detected (Not Detect)
[2024-07-10 13:24] LABS: Glucose, Whole Blood 137 mg/dL (60-115)
[2024-07-10] MEDS: Albuterol/Iprat 2.5/0.5MG 3 ML AMPUL.NEB INHALE (13:28)
[2024-07-10 13:40] LABS: Bacteria Urine 3+ (None Seen); Hyaline Casts Urine 0-2 /LPF (0-2); RBC Urine 0-2 /HPF (0-2); UACC Culture Trigger YES; WBC Urine 0-5 /HPF (0-5)
[2024-07-10] MEDS: Magnesium Sulfate/D5W 1 GM/100 ML PIGGYBACK IV (13:43)
[2024-07-10] MEDS: Lactated Ringers 1,000 ML 999 ML IV ×2 (13:44→19:57)
--- OUTSIDE RECORDS SUMMARY | 2024-07-10 14:11 | XMS_ITS | Patient Health Record ---
Author Organization [facility] Address [address] [place], [place] [id number] Care Team Providers Care Corporate Compliance Manager Name Role Phone Jyoti Sandoval Primary Care Provider Unavailmelia e Marley Hu Unavailable [phone] Jyoti Sandoval Unavailable Unavailable Allergies Allergen (clinical drug ingredient) Drug/Non Drug Allergy documented on EMR Reaction Allergy Type Onset Date Status valproate Divalproex Sodium suicidal ideation Drug Allergy Active doxepin Doxepin HCl coma like symptoms Drug Allergy Active meloxicam Meloxicam numbness Drug Allergy Active naproxen Naproxen GI distress Drug Allergy Activ e nortriptyline Nortriptyline HCl suicidal ideation Drug Allergy Active oxycodone Oxycodone HCl anxiety Drug Allergy Act la famotidine Pepcid GI distress Drug Allergy Acti ve Sertraline HCl GI distress Drug Allergy Active topiramate Topamax GI distress Drug Allergy Acti ve trimethoprim Trimethoprim migraine Drug Allergy A ctive sulfamethoxazole migraine Drug Allergy Active Diclofenac numbness Drug Allergy Active Reason For Referral No Information Medications Medication SIG (Take, Route, Frequency, Duration) Notes Start Date End Date Status Biotin Ultra Strength 00952 1 tab orally once a day Active Flaxseed Oil 1000 MG Orally Active Methocarbamol 500 MG 1 tablets Orally 3 times a day Active ZOLMitriptan 5 MG 1 tablet as needed o ne time Orally Once a day Active Tylenol 8 Hour Arthritis Pain 650 MG 2 tablets as needed Orally every 8 hrs Active Lyrica 300 MG 1 capsule Orally Thr ee times a day Active Flomax 0.4 MG 1 capsule Orally Onc e a day for 30 day(s) 12/23/2019 Not-Taking LaMICtal 100 MG 2 tablet Orally Once a day Active KlonoPIN 1 MG 1 tablet Orally Thre e times a day Active CPAP* DX: LEN G47.33 as directed SETTING S: SIG DATE: During sleep nightly for the treatment of sleep apnea for lifetime Active Krill Oil [place]-3 300 MG Orally Active Vitamin D 2000 UNIT 1 capsule Orally Onc e a day Not-Taking Furosemide 20 MG TAKE 1 TABLET BY CEDRICK TH EVERY DAY Oral for 30 Active traZODone HCl 100 MG 2 tablets at bedtim e Orally Once a day Active oxyBUTYnin Chloride 5 MG 1 tablet Orally Twice a day Active Cymbalta 60 MG 1 capsule Orally Twi ce a day Active Rexulti 1 MG 1 tablet Orally Once a day Active Flonase 50 MCG/ACT 1 spray in each nostril Nasally Once a day Active Immunizations Vaccine Route Administration Date Status Comme nts Flucelvax Quadrivelant (Medicare) Unknown 03/17/2020 Ad ministered PCP Problems Problem Type SNOMED Code ICD Code Onset Dates Problem Status W/U Status Risk Notes Problem 34945149 LEN (obstructive sleep apnea) (G47.33) Active confirmed Problem 92258017 Hypersomnia (G47.10) Active confirmed Problem 74651979 Tobacco dependence (F17.200) Active confirmed In early remission Problem 642510425 Insomnia, unspecified type (G47.00) Active confirmed Problem Obesity (487773780) Obesity, unspecified classification, unspecified obesity type, unspecified whether serious comorbidity present (E66.9) Active confirmed Plan Of Treatment No Information Insurance Providers Payer Name Payer Address Payer Phone Subscriber Number Group Number Insured Name Patient Relationship to Insured Coverage Start Date Coverage End Date Medicaid [address] [place] [phone] [id number] Zeenat Mcnamara Self - patient is the insured Medical (General) History Medical History History ICD Code Fibromyalgia Migraine headache Esophageal reflux Kyphosis Depression Surgical History Surgery Date(Month/Year) Spinal fusion
--- OUTSIDE RECORDS SUMMARY | 2024-07-10 14:11 | XMS_ITS | Data Portability ---
Author Organization [place] - 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 Plan of Treatment Reminders Order Date Submit Date Provider Last Modified By Organization Details Last Modified Time Details Appointments Follow up 2024 10:15A ALF WRIGHT Not available Not available Not available Follow up 2024 12:10P Kylie Thrasher MD Not available Not available Not available Lab None recorded. Referral None recorded. Procedures None recorded. Surgeries None recorded. Imaging None recorded. Medication Orders Neurontin 800 mg tablet 2024 025 [facility]armacy #[id number], [address] [place], [address], 06/25/2024 14:57:17 Butrans 20 mcg/hour transderm al patch 2024 025 [facility]/Pharmacy #0373, [address] [place], [address], 06/25/2024 14:57:18 tizanidin e 4 mg tablet 2024 025 [facility]/Pharmacy #0373, [address] [place], [address], 06/25/2024 14:57:17 Narcan 4 mg/actuat ion nasal spray 2024 025 [facility]/Pharmacy #0373, [address] [place], [address], 06/25/2024 15:24:53 Neurontin 800 mg tablet 2024 025 [facility]/Pharmacy #0373, [address] [place], [address], 06/03/2024 10:36:48 methocarb byron 750 mg tablet 2024 025 [facility]/Pharmacy #0373, [address] [place], [address], 06/03/2024 10:36:47 Belbuca 300 mcg buccal film 2024 025 [facility] [address] [place], [address], 06/03/2024 10:37:00 Neurontin 800 mg tablet 2024 025 [facility]/Pharmacy #0373, [address] [place], [address], 05/06/2024 09:07:33 Butrans 20 mcg/hour transderm al patch 2024 025 [facility]/Pharmacy #0373, [address] [place], [address], 05/06/2024 09:07:35 baclofen 10 mg tablet 2024 025 [facility]/Pharmacy #0373, [address] [place], [address], 05/06/2024 09:07:33 Neurontin 800 mg tablet 2023 024 [facility]/Pharmacy #0373, [address] [place], [address], 03/04/2024 10:23:38 Butrans 20 mcg/hour transderm al patch 122023 [facility]/Pharmacy #0373, [address] [place], [address], 03/04/2024 10:23:39 baclofen 10 mg tablet 2023 024 [facility]armacy #0373, [address] [place], [address], 03/04/2024 10:23:38 Patient TargetsNo targets recorded. Patient Instructions Encounter Date Encounter Id Patient Instructions Last Modified By Organization Details Last Modified Time 03/04/2024 [id number] 1. PHYSICAL THERAPY: pt encouraged to stay active. home exercises 2. BEHAVIORAL THERAPY: stable controlled depression/psych issues 3. MEDICATIONS: failed vicodin and celebrex . continue baclofen (will increase), butrans, cymbalta and neurontin 4. INTERVENTIONS: none 5. FUNCTION: pain moderately impairs her function- improved w meds 6. PAIN ASSESSMENT: some improvement w meds , recent flare up 7. COMPLIANCE: no issues. mpat verified. no signs of aberrant behavior 8. WEIGHT LOSS/DIET/SMOKING CESSATION: counseled 9. RADIOLOGY: 2019 L spine x rays reviewed . CT L spine - large left L4-5 disc osteophyte complex compressing the left L4 11. REFERRALS : none . surgery was not recommended . 10. FOLLOW UP: 8 weeks 12. OPIOID RISK ASSESSMENT: MOD to high -thc pt w chronic lower back pain radiating into left LE w difficulty walking and bl LE weakness. h/o [place] bob placement and L1-5 laminectomy w fusion from thoracic spine to S1 kkalava Not available 03/04/2024 10:23:55 05/06/2024 [id number] 1. PHYSICAL THERAPY: pt encouraged to stay active. home exercises 2. BEHAVIORAL THERAPY: stable controlled depression/psych issues 3. MEDICATIONS: failed vicodin and celebrex . continue baclofen, butrans, cymbalta and neurontin 4. INTERVENTIONS: none 5. FUNCTION: pain moderately impairs her function- improved w meds 6. PAIN ASSESSMENT: some improvement w current regimen 7. COMPLIANCE: no issues. mpat verified. no signs of aberrant behavior 8. WEIGHT LOSS/DIET/SMOKING CESSATION: counseled 9. RADIOLOGY: 2019 L spine x rays reviewed . CT L spine - large left L4-5 disc osteophyte complex compressing the left L4 11. REFERRALS : none . surgery was not recommended . 10. FOLLOW UP: 4 weeks 12. OPIOID RISK ASSESSMENT: MOD to high -thc pt w chronic lower back pain radiating into left LE w difficulty walking and bl LE weakness. h/o [place] bob placement and L1-5 laminectomy w fusion from thoracic spine to S1 i agree - kk kkalava Not available 05/06/2024 09:43:52 06/03/2024 [id number] 1. PHYSICAL THERAPY: pt encouraged to stay active. home exercises 2. BEHAVIORAL THERAPY: stable controlled depression/psych issues 3. MEDICATIONS: failed vicodin and celebrex , baclofen, try methocarbamol, d/c butrans try belbuca, cont cymbalta (Psych) and neurontin 4. INTERVENTIONS: none 5. FUNCTION: pain moderately impairs her function- improved w meds 6. PAIN ASSESSMENT: some improvement w current regimen 7. COMPLIANCE: no issues. mpat verified. no signs of aberrant behavior 8. WEIGHT LOSS/DIET/SMOKING CESSATION: counseled 9. RADIOLOGY: 2019 L spine x rays reviewed . CT L spine - large left L4-5 disc osteophyte complex compressing the left L4 UDS next visit, patient unable to provide sample today 11. REFERRALS : none . surgery was not recommended . 10. FOLLOW UP: 2 weeks 12. OPIOID RISK ASSESSMENT: MOD to high -thc pt w chronic lower back pain radiating into b/l LE w difficulty walking and bl LE weakness. h/o [place] bob placement and L1-5 laminectomy w fusion from thoracic spine to S1 i agree - kk kkalava Not available 06/03/2024 11:27:36 06/25/2024 [id number] 1. PHYSICAL THERAPY: pt encouraged to stay active. home exercises 2. BEHAVIORAL THERAPY: stable controlled depression/psych issues 3. MEDICATIONS: failed vicodin and celebrex , baclofen, try methocarbamol, plan to d/c butrans and try belbuca but insurance PA still pending and in progress for approval cont cymbalta (Psych) and neurontin 4. INTERVENTIONS: none 5. FUNCTION: pain moderately impairs her function- improved w meds 6. PAIN ASSESSMENT: some improvement w current regimen 7. COMPLIANCE: no issues. mpat verified. no signs of aberrant behavior 8. WEIGHT LOSS/DIET/SMOKING CESSATION: counseled 9. RADIOLOGY: 2019 L spine x rays reviewed . CT L spine - large left L4-5 disc osteophyte complex compressing the left L4 UDS next visit, patient unable to provide sample today 11. REFERRALS : none . surgery was not recommended . 10. FOLLOW UP: 4 weeks 12. OPIOID RISK ASSESSMENT: MOD to high -thc pt w chronic lower back pain radiating into b/l LE w difficulty walking and bl LE weakness. h/o [place] bob placement and L1-5 laminectomy w fusion from thoracic spine to S1 i agree - kk kkalava Not available 06/25/2024 15:25:00 Reason for Referral None Reported. Results Created Date Observation Date Name Description Value Unit Range Abnormal Flag Note LastModifiedBy Organization Detail LastModifiedTime 01/23/20 24 01/22/2024 XR, shoul jan, 2 or more view Greyson restrepo [facility] [address] [place] [address] XRay Report Signed Parveen t: Rhona Mcnamara MR#: [id number] : 1965 Acct:H [id number] Age/Se x: 58 / F ADM Date: Loc: [facility] R Attend ing Dr: Yadiel kumar PA-C Orderi Physic nemo: Yadiel kumar PA-C Date of Servic e: Proced ure(s) : XR should er RT min 2V Access ion Number (s): [id number] H cc: Yareli Desouza NP Study: XR should er RT min 2V HISTOR Y: pain in right should er Age: 58 years Gender : Female Compar monalisa: CT chest 022. Additi onal inform ation: 3 images . Specif ic views reques cornelius (if any): Findin gs: No acute fractu re is seen. No should er disloc ation. Serpen gabrielle sclero sis within the right rob l head, avascu lar necros is. Partia lly calcif ied nodula r opacit ies within the right lung. Please also refer to CT chest 022. Electr onical ly Signed in Taylor cribe By Janie in Fabricio leyva MD 054 XR/XR should er RT min 2V Impres doris: No fractu re seen. No right should er disloc ation. Avascu lar necros is within the right rob l head. See body of report . Dictat ed By: Janie in Fabricio leyva MD Signed By: 1148 DD/DT: 1022 TD/TT: 1022 Transc riptio nist: BF [email or web address] [facility] [address] [facility], [place], [address], 01/23/2024 14:19:09 01/23/2001/22/2024 XR, shoul jan, 2 or more view Heywoo d [facility] [address] [facility] [place] [address] XRay Report Signed Parveen t: Rhona Mcnamara J MR#: [id number] : 1965 Acct:H [id number] Age/Se x: 58 / F ADM Date: Loc: HE.[facility] R Attend ing Dr: Yadiel kumar PA-C Orderi Physic nemo: Yadiel kumar PA-C Date of Servic e: Proced ure(s) : XR should er LT min 2V Access ion Number (s): [id number] H cc: Yareli Desouza [employer]ILD[employer] DISM[employer] Study: XR should er LT min 2V HISTOR Y: pain in left should er Age: 58 years Gender : Female Compar monalisa: CT chest 022. Additi onal inform ation: 3 images . Specif ic views reques cornelius (if any): Findin gs: No acute fractu re is seen. No should er disloc ation. Serpen gabrielle sclero sis within the left rob l head, avascu lar necros is. Subjec tively modera te-sev ere osteoa rthrit ic change s within the left glenoh umeral joint. Calcif icatio n(s) superi or to the rob l head, most likely relate d to calcif ic tendin itis (depos ition of calciu m hydrox yapati te within tendon s). Partia lly calcif ied nodula r opacit ies within the right lung. Please also refer to CT chest 022. Electr onical ly Signed in [place] cribe By Janie leyva MD 055 XR/XR should er LT min 2V Impres doris: No fractu re seen. No should er disloc ation. Degene rative change s within the left should er joint. Avascu lar necros is within the rob l head. See body of report . Dictat ed By: Janie leyva MD Signed By: 1149 DD/DT: 1022 TD/TT: 1022 Transc riptio nist: BF [email or web address] [facility] [address] [place] [address], [address], 01/23/2024 14:19:09 01/24/20 24 01/22/2024 XR, shoul jan, 2 or more view No observ ation record ed. [facility] [address] [place] [address] [place], [address], 01/25/2024 08:00:34 01/24/20 24 01/22/2024 XR, shoul jan, 2 or more view No observ ation record ed. [facility] [address] [place] [address], [address], 01/25/2024 08:00:34 Result Notes None recorded. Problems Name Problem SNOMED Code Status Onset Date Resolution Date Notes Provider Name and Address Organization Details Recorded Time Anxiety 82385574 Active 2019 KARLO Gunderson, [facility] 0 12:18:59 Depressive disorder 85929976 Active 2019 KARLO Gunderson [facility] 0 12:19:05 Insomnia 108175636 Active 2019 KARLO Gunderson [facility] 0 12:19:21 Amnesia 97637067 Completed 201907/09/2019 ALF Robertson [address] [facility] [place], [address], [facility] 0 11:40:15 Low back pain 916362148 Active 2019 Zaynab Macias CMA null, [facility] 0 12:19:53 Headache 95534758 Completed 201903/24/2020 AL[facility] SOTELO [address] [facility] [place], [address], [facility] 1 15:56:50 Fibromyalgi a 263624356 Active 2019 Zaynab Macias CMA null, [facility] 0 12:20:18 Edema of lower extremity 864657796 Active 2019 Zaynab Macias CMA null, [facility] 0 13:33:17 Acquired kyphosis 452416924 Active 2019 Zaynab Macias CMA null, [facility] 0 13:35:10 Vaginal wall prolapse 702187277 Active 2019 Zaynab Macias CMA null, [facility] 0 13:35:25 Obstructive sleep apnea syndrome 06274015 Active 2019 [facility] Robertson [address] [place] [address] [place], [address], [facility] 0 13:40:41 Gastroesoph ageal reflux disease 081447676 Active 2019 [facility] Robertson [address] [place] [address] [place], [address], [facility] 0 13:40:46 Migraine 12391735 Active 2020 ALF SOTELO [address] [facility] [place], [address], [facility] 15:56:54 Tobacco dependence syndrome 48085101 Active 2020 [facility] [address] [facility] [place], [address], [facility] 16:10:14 Urinary incontinenc e 657150144 Active 2020 AL[facility] SOTELO [address] [place], [place] [address], [address], [facility] 16:12:53 Lumbar post-roselyn ctomy syndrome 495809415 Active 2021 Gisele Johansen MD [address] [place], [place] [address], [address], [facility] 2 10:24:12 Problem Notes None recorded. Procedures Surgical History Date Name Laterality Status Provider Name and Address Organization Details Recorded Time 01/22/20 24 Corticosteroid Injection - SHOULDER completed ALF PINA [address] [place], [place] [address], [address], [facility] 01/22/2024 17:04:04 02/23/20 23 Telemedicine Documentation completed Ahmet Holcomb MD [address] [place], [place] [address], [address], [facility] 02/22/2023 10:04:11 03/23/19 23 Telemedicine Documentation completed Ahmet Holcomb MD [address] [place], [place] [address], [address], [facility] 03/23/2022 10:17:12 12/23/19 22 Telemedicine Documentation completed Ahmet Holcomb MD [address] [place], [place] [address], [address], [facility] 12/22/2021 09:31:02 12/06/19 22 extraction of cataract completed Suellen Connelly CMA [facility] 05/18/2022 15:12:27 07/07/19 22 Date of Last Mammogram completed Vanessa lee MA [facility] 07/07/2021 08:57:38 04/29/19 22 PHQ-9 Patient Health Questionnaire completed Anastasiia Loernzo [facility] 04/29/2021 09:21:49 04/06/19 21 PHQ-9 Patient Health Questionnaire completed Dariana Diaz, [facility] 04/06/2020 12:21:57 04/06/19 21 Date of Last Pap Smear completed Diana Ferro [employer] [facility] 06/08/2021 10:00:57 07/09/19 20 PHQ-9 Patient Health Questionnaire completed Zaynab Macias [facility] 07/09/2019 11:33:45 cholectstectomy, lap completed Zaynab Macias [facility] 06/12/2019 12:14:08 bone graft completed Zaynab Macias [facility] 06/12/2019 12:15:37 Appendectomy completed Zaynab Macias [facility] 06/12/2019 13:31:46 cervical biopsy completed Zaynab Macias [facility] 06/12/2019 13:32:06 Imaging Results Imaging Date Name Status LastModified by Organiz ation Details LastModified Time 01/22/2024 XR, shoulder, 2 or more view completed [email or web address] [facility] [address] [place], [place] [address], [address], 01/23/2024 14:19:09 01/22/2024 XR, shoulder, 2 or more view completed [email or web address] [facility] [address] [place], [place] [address], [address], 01/23/2024 14:19:09 01/22/2024 XR, shoulder, 2 or more view completed [facility] [address] [place], [place] [address], [address], 01/25/2024 08:00:34 01/22/2024 XR, shoulder, 2 or more view completed [facility] [address] [place], [place] [address], [address], 01/25/2024 08:00:34 Procedure Notes None recorded. Medical Equipment None Reported. Allergies Allergen ID Allergen Name Allergen Category Reaction Reaction Severity Criticality Documentation Date Start Date Code Code System Note Provider Name and Address Organization Details Recorded Time [id number] diclofena c Not available Not available Not available Not available 06/12/2019 3355 RxNorm Zaynab Macias, KARLO null, [facility] 0 12:11:10 217848 nortripty line medicatio n Not available Not available Not available 06/12/2019 7531 RxNorm Zaynab Macias, INSTRUCTIONAL FACILITATOR null, [facility] 0 12:11:38 103181 Bactrim medicatio n Not available Not available Not available 06/12/2019 02623 9 RxNorm Zaynabursula Macias, KARLO null, [facility] 0 12:11:45 804721 meloxicam medicatio n Not available Not available Not available 06/12/2019 27909 RxNorm Zaynabursula Macias, KARLO null, [facility] 0 12:11:57 696266 acetamino phen / oxycodone medicatio n Not available Not available Not available 06/12/2019 94723 3 RxNorm Zaynabursula Macias, KARLO null, [facility] 0 12:12:06 456431 Topamax medicatio n Not available Not available Not available 06/12/2019 67919 3 RxNorm Zaynab Macias, KARLO null, [facility] 0 12:13:02 083917 Zoloft medicatio n Not available Not available Not available 06/12/2019 86511 RxNorm Zaynab Macias, INSTRUCTIONAL FACILITATOR null, [facility] 0 12:13:13 724451 Substance with sulfonami de structure and antibacte rial mechanism of action (substanc e) medicatio n Not available Not available Not available 06/12/2019 93145 8003 SNOMED Zaynab Macias, INSTRUCTIONAL FACILITATOR null, [facility] 0 12:13:22 098979 divalproe x sodium medicatio n Not available Not available Not available 06/12/2019 40255 6 RxNorm Zaynab Macias, KARLO null, [facility] 0 12:13:33 082290 Naprosyn medicatio n Not available Not available Not available 06/12/2019 2 RxNorm Zaynab Macias, KARLO null, [facility] 0 13:21:22 972236 Wellbutri n medicatio n Not available Not available Not available 06/12/2019 70195 RxNorm Zaynab Macias CMA null, [facility] 0 13:21:39 787690 doxepin medicatio n Not available Not available Not available 06/12/2019 3638 RxNorm Zaynab Macias CMA null, [facility] 0 13:21:59 346559 Pepcid medicatio n Not available Not available Not available 07/09/2019 00867 8 RxNorm Anastasiia Lorenzo, KARLO null, [facility] 0 11:48:02 007946 codeine medicatio n anaphylax is Not available Not available 04/29/2021 2670 RxNorm Anastasiia Lorenzo, KARLO null, [facility] 2 14:07:52 272495 Lidoderm medicatio n Not available Not available Not available 03/24/2022 23968 5 RxNorm blist ers, itchi ng, incre ased pain Kristina Iraheta RN null, [facility] 3 10:58:32 896676 gabapenti n medicatio n Not available Not available Not available 05/09/2022 70567 RxNorm incre ased pain, weak legs Kristina Iraheta RN null, [facility] 3 13:11:03 Medications Name Sig Start Date Stop Date Status Note LastModified by Organization Details LastModified Time Prescript ion - Renewal active Not Available Not Available Not Available Prescript ion - Prior Authoriza tion Request active added info to yamilka PA Not Available Not Available Not Available celecoxib 200 mg capsule Take 1 capsule twice a day by oral route as needed for 30 days. 04/29 completed Not Available Not Available Not Available cyclobenz aprine 10 mg tablet TAKE 1 TABLET BY MOUTH THREE TIMES DAILY 03/24 completed pt not taking Not Available Not Available Not Available methocarb byron 500 mg tablet TAKE 2 TABLETS BY MOUTH THREE TIMES DAILY 08/24 completed Not Available Not Available Not Available lamotrigi ne 150 mg tablet TAKE 1 TABLET BY MOUTH TWICE A DAY active Not Available Not Available No t Available gabapenti n 600 mg tablet Take 1 tablet twice a day by oral route as directed for 24 days. 11/17 completed mas pat verified Not Available Not Available Not Available doxycycli ne hyclate 100 mg capsule TAKE 1 CAPSULE BY MOUTH TWICE A DAY FOR 3 WEEKS active pt states no longer taking 11/13/23 CE Not Available Not Available Not Available atorvasta tin 20 mg tablet TAKE 1 TABLET BY MOUTH IN THE MORNING EVERY DAY active Not Available Not Available No t Available tizanidin e 2 mg tablet TAKE 1 TABLET BY MOUTH EVERY 12 HOURS FOR 7 DAYS active Not Available Not Available No t Available loperamid e 2 mg capsule PLEASE SEE ATTACHED FOR DETAILED DIRECTIO NS active Not Available Not Available No t Available oxybutyni n chloride ER 10 mg tablet,ex tended release 24 hr TAKE 1 TABLET BY MOUTH EVERY DAY active Not Available Not Available No t Available aspirin 325 mg tablet Take 1 tablet every day by oral route. 03/24 completed Pt is no longer taking.- DT Not Available Not Available Not Available ibuprofen 800 mg tablet TAKE 1 TABLET BY MOUTH EVERY 8 HOURS NEEDED FOR PAIN WITH FOOD 02/08 completed Not Available Not Available Not Available tizanidin e 4 mg tablet TAKE 1 TABLET BY MOUTH EVERY 6 HOURS FOR 30 DAYS active Not Available Not Available No t Available valacyclo vir 1 gram tablet TAKE 1 TABLET (1,000 MG) BY MOUTH 3 TIMES DAILY FOR 5 DAYS. active pt states no longer taking 11/13/23 CE Not Available Not Available Not Available ranitidin e 300 mg tablet TAKE 1/2 TABLET BY MOUTH TWICE DAILY 03/24 completed pt. not taking Not Available Not Available Not Available hydrocodo ne 5 mg-acetam inophen 325 mg tablet TAKE 1 TABLET BY MOUTH THREE TIMES DAILY FOR 5 DAYS NEEDED FOR PAIN 02/08 completed Not Available Not Available Not Available clotrimaz ole-betam ethasone 1 %-0.05 % lotion APPLY TO AFFECTED AREA TWICE A DAY active Not Available Not Available No t Available prednison e 20 mg tablet TAKE 2 TABLETS (40 MG) BY MOUTH ONCE PER DAY FOR 5 DAYS. active pt states not taking 06/03/24 JM Not Available Not Available Not Available clonazepa m 1 mg tablet TAKE 1 TABLET (1 MG) BY ORAL ROUTE 2 TIMES PER DAY AND 1/2 TABLET (0.5MG) AT NIGHT active Not Available Not Available No t Available niacin ER 500 mg tablet,ex tended release 24 hr TAKE 2 TABLETS BY MOUTH AT BEDTIME 03/24 completed Not Available Not Available Not Available Neurontin 800 mg tablet Take 1 tablet 3 times a day by oral route as directed for 30 days. 2024 active Not Available Not Available Not Avai lable clindamyc in HCl 150 mg capsule TAKE 3 CAPSULES BY MOUTH EVERY 8 HOURS FOR 5 DAYS active pt states no longer taking 11/13/23 CE Not Available Not Available Not Available acetamino phen 300 mg-codein e 30 mg tablet TAKE 1 TABLET BY MOUTH THREE TIMES DAILY NEEDED FOR PAIN FOR 7 DAYS 02/08 completed Not Available Not Available Not Available hydrocodo ne 10 mg-acetam inophen 325 mg tablet Take 1 tablet every 6 hours by oral route as needed for 21 days. 04/11 completed Not Available Not Available Not Available tramadol 50 mg tablet TAKE 1 TABLET BY MOUTH EVERY SIX HOURS 02/08 completed Not Available Not Available Not Available zolmitrip raya 5 mg tablet Take by oral route. 02/08 completed Not Available Not Available Not Available spironola ctone 25 mg tablet TAKE 1 TABLET BY MOUTH EVERY DAY active Not Available Not Available No t Available flaxseed oil 1,000 mg capsule Take by oral route. active pt states no longer taking 11/13/23 CE Not Available Not Available Not Available methocarb byron 750 mg tablet TAKE 1 TABLET BY MOUTH THREE TIMES A DAY FOR 30 DAYS INS WONT PAY FOR CERTAIN MANFR active Not Available Not Available No t Available aspirin 325 mg tablet,de layed release TAKE 1 TABLET BY MOUTH EVERY DAY 03/24 completed pt not taking Not Available Not Available Not Available Lidoderm 5 % topical patch APPLY 2 PATCH BY TOPICAL ROUTE ONCE DAILY (MAY WEAR UP TO 12 HOURS.) 03/24 completed Not Available Not Available Not Available tamsulosi n 0.4 mg capsule TAKE 1 CAPSULE (0.4 MG TOTAL) BY MOUTH AT BEDTIME. 03/24 completed not taking Not Available Not Available Not Available trazodone 100 mg tablet TAKE 2 AND 1/2 TABLETS BY MOUTH AT BEDTIME active pt states no longer taking 11/13/23 CE Not Available Not Available Not Available baclofen 10 mg tablet TAKE 1 TABLET BY MOUTH TWICE A DAY NEEDED active Not Available Not Available No t Available cephalexi n 500 mg capsule TAKE 1 CAPSULE BY MOUTH 4 TIMES A DAY FOR 5 DAYS active pt states no longer taking 11/13/23 CE Not Available Not Available Not Available ranitidin e 150 mg tablet TAKE 1 TABLET BY MOUTH TWICE DAILY 03/24 completed Not Available Not Available Not Available buspirone 10 mg tablet TAKE 1 TABLET BY MOUTH TWICE DAILY 06/09 completed Not Available Not Available Not Available clotrimaz ole-betam ethasone 1 %-0.05 % topical cream APPLY TOPICALL Y TO AFFECTED AREA 2 TIMES DAILY active pt states no longer taking 11/13/23 CE Not Available Not Available Not Available betametha sone dipropion ate 0.05 % topical cream APPLY SPARINGL Y TO REDDENED AREA & PERIWOUN D SKIN OF THE LEFT LEG WITH DRESSING CHANGES DIRECTED active Not Available Not Available No t Available omeprazol e 20 mg capsule,d elayed release TAKE 1 CAPSULE BY MOUTH EVERY DAY active Not Available Not Available No t Available ranitidin e 150 mg capsule Take 1 capsule every day by oral route. 03/24 completed Not Available Not Available Not Available lisinopri l 5 mg tablet TAKE 1 TABLET BY MOUTH EVERY DAY IN THE MORNING active Not Available Not Available No t Available furosemid e 20 mg tablet TAKE 1 TABLET BY MOUTH EVERY DAY active Not Available Not Available No t Available metoprolo l succinate ER 25 mg tablet,ex tended release 24 hr TAKE 2 TABLETS (50 MG) BY MOUTH ONCE PER DAY. DO NOT CRUSH OR CHEW. active Not Available Not Available No t Available estradiol 0.01% (0.1 mg/gram) vaginal cream Insert 2 g 3 times a week by vaginal route. 02/08 completed Not Available Not Available Not Available oxybutyni n chloride 5 mg tablet TAKE 1 TABLET BY MOUTH AT BEDTIME 2022 active pt states no longer taking 11/13/23 CE Not Available Not Available Not Available fluticaso ne propionat e 50 mcg/actua tion nasal spray,raul pension [place] 1 spray twice a day by intranas al route. active pt states no longer taking 11/13/23 CE Not Available Not Available Not Available clotrimaz ole 1 % topical cream APPLY TOPICALL Y 2 TIMES DAILY FOR 28 DAYS. active Not Available Not Available No t Available lamotrigi ne 100 mg tablet TAKE 2 AND 1/2 TABLETS BY MOUTH EVERY DAY 10/25 completed dose change apollo aguila to [facility] Desai [facility] med list fax. Not Available Not Available Not Available Ventolin HFA 90 mcg/actua tion aerosol inhaler INHALE 2 PUFFS BY MOUTH 4 TIMES A DAY NEEDED FOR WHEEZE active Not Available Not Available No t Available magnesium 250 mg (as magnesium oxide) tablet Take by oral route. 03/24 completed Pt is no longer taking.- DT Not Available Not Available Not Available duloxetin e 60 mg capsule,d elayed release TAKE 1 CAPSULE BY MOUTH TWICE A DAY active Not Available Not Available No t Available 8 Hour Pain Reliever 650 mg tablet,ex tended release TAKE 1 TABLET BY MOUTH EVERY 8 HOURS 11/04 completed Not Available Not Available Not Available pregabali n 300 mg capsule pt states she takes BID 06/17 completed Not Available Not Available Not Available biotin 06/09 completed Not Available Not Available Not Available zolmitrip raya active pt states no longer taking 11/13/23 CE Not Available Not Available Not Available loperamid e active Not Available Not Available Not Available Vitamin D3 2,000 unit capsule 1 x daily 03/24 completed Not Available Not Available Not Available cholecalc iferol (vitamin D3) 50 mcg (2,000 unit) capsule TAKE 1 CAPSULE BY MOUTH EVERY DAY active Not Available Not Available No t Available Calmosept ine 0.44 %-20.6 % topical ointment Apply 1 applicat ion every day by topical route as needed for 30 days. 2022 active pt states not taking 01/08/24 JM Not Available Not Available Not Available Butrans 10 mcg/hour transderm al patch Apply 1 patch every week by transder mal route as directed for 28 days. 03/24 completed Not Available Not Available Not Available buprenorp corrie 20 mcg/hour weekly transderm al patch APPLY 1 PATCH TO THE SKIN EVERY WEEK DIRECTED FOR 28 DAYS active Not Available Not Available No t Available krill oil 500 mg capsule Take by oral route. active pt states no longer taking 11/13/23 CE Not Available Not Available Not Available niacin ER 500 mg tablet,ex tended release Take 2 tablets every day by oral route at bedtime. 11/30 completed unsure if taking Not Available Not Available Not Available Eliquis 5 mg tablet TAKE 1 TABLET BY MOUTH TWICE A DAY active Not Available Not Available No t Available Bifidobac terium infantis 1.5 billion cell capsule Take by oral route. active pt unsure 11/13/23 CE Not Available Not Available Not Available Butrans 15 mcg/hour transderm al patch Apply 1 patch every week by transder mal route as needed for 28 days. 03/24 completed Not Available Not Available Not Available Farxiga 10 mg tablet TAKE 1 TABLET BY MOUTH ONCE DAILY active Not Available Not Available No t Available Anoro Ellipta 62.5 mcg-25 mcg/actua tion powder for inhalatio n INHALE 1 PUFF BY MOUTH DAILY active Not Available Not Available No t Available Rexulti 1 mg tablet TAKE 1.5 TABLET BY MOUTH EVERY DAY active Not Available Not Available No t Available Belbuca [address] 1 film twice a day by buccal route for 7 days. 2024 active Not Available Not Available Not Avai lable naloxone 4 mg/actuat ion nasal spray USE DIRECTED IF NEEDED active Not Available Not Available No t Available baclofen 5 mg tablet TAKE 1 TABLET BY MOUTH THREE TIMES A DAY NEEDED FOR 30 DAYS active pt states not taking 06/03/24 JM Not Available Not Available Not Available Vitals Date Recorded Body height Heart rate Systolic blood pressure Diastolic blood pressure Provider Name and Address Organization Details Last Updated DateTime 03/04/2024 161.29 cm 76 /min 117 mm[Hg] 77 mm[Hg] Dorothea Chávez CNA [facility] 03/04/2024 10:03:01 Date Recorded Body height Heart rate Systolic blood pressure Diastolic blood pressure Provider Name and Address Organization Details Last Updated DateTime 05/06/2024 161.29 cm 65 /min 132 mm[Hg] 84 mm[Hg] Dorothea Chávez CNA [facility] 05/06/2024 08:30:17 Date Recorded Body height Systolic blood pressure Diastolic blood pressure Provider Name and Address Organization Details Last Updated DateTime 06/03/2024 161.29 cm 126 mm[Hg] 82 mm[Hg] Samantha Singh [facility] 06/03/2024 10:09:57 Date Recorded Body height Heart rate Systolic blood pressure Diastolic blood pressure Provider Name and Address Organization Details Last Updated DateTime 06/25/2024 161.29 cm 71 /min 120 mm[Hg] 79 mm[Hg] Ruma Romero [facility] 06/25/2024 14:22:03 Social History Question Answer Notes LastModified by Organizat ion Details LastModified Time Tobacco Smoking Status Current Every Day Smoker KARLO Gunderson, [facility] 06/12/2019 13:57:48 Do You Have An Advance Directive? Yes HCP: Olayinka Gates Information not available 07/09/2019 What Is Your Level Of Alcohol Consumption? None Once Or Twice A Year [email or web address] Information not available 04/06/2020 What Is Your Level Of Caffeine Consumption? Heavy 1-5 Cups Of Coffee Daily Information not available 07/09/2019 How Much Tobacco Do You Chew? None Information not available 07/09/2019 What Type Of Diet Are You Following? DIABETIC Information not available 06/12/2019 Which Illicit Or Recreational Drugs Have You Used? Denies Smokes MJ Information not available 07/09/2019 Do You Or Have You Ever Used E-cigarettes Or Vape? Never Used Electronic Cigarettes Information not available 07/09/2019 What Is Your Occupation? Disabled Information not available 06/12/2019 Which Of Your Hands Is Dominant? Right Information not available 06/12/2019 Tobacco Use (smoking, Smokeless Tobacco) Yes Information not available 07/09/2019 Date Of Tobacco Screen 04/06/2020 Information not available 04/06/2020 Members Of Household 2 Information not available 07/09/2019 [employer] Information no t available 06/12/2019 Marital Status Domestic Partner Information not available 06/12/2019 What Was The Date Of Your Most Recent Tobacco Screening? 04/06/2020 Information not available 04/06/2020 How Many Children Do You Have? 2 Information not available 07/09/2019 At What Age Did You Start Smoking Tobacco? 11 Information not available 06/12/2019 Do You Or Have You Ever Used Smokeless Tobacco? Never Used Smokeless Tobacco Information not available 07/09/2019 How Much Tobacco Do You Smoke? 1 PPD [email or web address] Information not available 04/06/2020 How Many Years Have You Smoked Tobacco? 42 Information not available 06/12/2019 Sex: Unknown Functional Status Question Answer Note LastModified by Organizat ion Details LastModified Time What is your exercise level? Moderate 2-3 x week Information not available 06/12/2019 Mental Status None recorded. Family History Relationship Description Onset Age of this Age Resolved Age Notes LastModified by Organization Details LastModified Time Unspecified Relation Asthma 2 childr en Not available 06/12/2019 14:16:58 Unspecified Relation Mental disorder Child x 2 Not available 07/09/2019 11:24:14 Unspecified Relation Sleep apnea child Not available 05/18 14:26:21 Paternal Grandfather Malignant tumor of colon Not available 2019 14:17:17 Maternal Grandmother Family history of malignant neoplasm of ovary Not available 2019 14:17:51 Maternal Grandmother Family history of malignant neoplasm Not available 2019 14:18:17 Father Family history of malignant neoplasm Not available 2019 14:18:17 Maternal Grandfather Diabetes mellitus Not available 2019 14:18:35 Mother Disorder of eye Not available 2019 14:25:11 Paternal Grandmother Disorder of eye Not available 2019 14:25:11 Sister Mental disorder Not available 2019 11:24:08 Maternal Uncle Mental disorder Not available 2019 14:25:59 Medical History Condition Response arthritis Y other chickenpox Y anxiety disorder Y blood transfusion(s) Y frequent headaches/migraines Y problems with eyes/vision Y depression Y chronic or recurrent skin problems (acne /eczema) Y Gynecological History Statement/Question Response Breast Biopsy N Gynecologic procedures/surgery yes - cer vical biopsy 2000 Date of Last Mammogram 07/06/2021 Date of LMP Term births 2 Living children 2 History of abnormal pap yes in 2000 Ovarian Cysts N D & C N History of STD N Menopause yes at age 51 Age at Menarche 15 3 Abortions none Contraception None Genital Herpes N Fibroids N Para 2 Gonorrhea/Chlamydia N Date of Last Pap Smear 04/06/2020 Obstetrics History GPAL:G 3 P 2 0 1 2 Type Value Full Term 2 Spontaneous 1 Living 2 Total 3 Immunizations Vaccine Type Date Status Note Provider Nam e and Address Organization Details Recorded Time Tdap 9 completed CHINYERE GEORGE NP [address] [place] [address] [place], [address], [facility] 12/07/2021 19:51:16 influenza, intradermal, quadrivalent, preservative free 0 completed CHINYERE GEORGE NP [address] [place] [address] [place], [address], [facility] 12/07/2021 19:51:05 COVID-19, mRNA, LNP-S, PF, 30 mcg/0.3 mL dose 1 completed CHINYERE GEORGE NP [address] [facility] [place], [address], [facility] 12/07/2021 19:51:16 COVID-19, mRNA, LNP-S, PF, 30 mcg/0.3 mL dose 1 completed CHINYERE GEORGE NP [address] [place] [address] [place], [address], [facility] 12/07/2021 19:51:16 MMR 9 completed CHINYERE ARIEL, [employer] [address] [facility], [place], [address], [facility] 12/07/2021 19:51:16 Influenza, split virus, quadrivalent, PF 0 completed CHINYERE GEORGE, [employer]ILDING [employer] [address] [facility], [place], [address], [facility] 12/07/2021 19:51:16 Influenza, split virus, trivalent, preservative 0 completed CHINYEREPRESTON GEORGE, [employer]ILD[employer]ER [address] [facility], [place], [address], [facility] 12/07/2021 19:51:16 Influenza, split virus, trivalent, preservative 9 completed CHINYEREPRESTON GEORGE, BUILDING [employer] [address] [facility], [place], [address], [facility] 12/07/2021 19:51:16 Influenza, split virus, trivalent, preservative 2 completed CHINYERE GEORGE, [employer]ILD[employer] [address] [facility], [place], [address], [facility] 12/07/2021 19:51:16 Influenza, split virus, quadrivalent, preservative 9 completed CHINYERE GEORGE, [employer]ILDING [employer] [address] [facility], [place], [address], [facility] 12/07/2021 19:51:16 Tdap 1 completed CHINYERE GEORGE, BUILDING [employer] [address] [facility], [place], [address], [facility] 12/07/2021 19:51:16 Influenza, split virus, quadrivalent, PF 6 completed CHINYERE GEORGE, BUILDING [employer] [address] [facility], [place], [address], [facility] 12/07/2021 19:51:16 Influenza, split virus, quadrivalent, preservative 8 completed CHINYERE GEORGE NP [address] [facility], [place], [address], [facility] 12/07/2021 19:51:16 Past Encounters Encounter ID Performer Location Encounter Start Date Encounter Closed Date Diagnosis/Indication Diagnosis SNOMED-CT Code Diagnosis ICD10 Code Diagnosis Note [id number] Gisele Johansen MD [facility] [address] [address] 07/09/2019 11:10:19 07/10/2019 11:05:39 Anxiety 91534051 F41.[address] Heart and therapist Luisana Dorsey [facility] ; Zeenat feels symptoms are well managed with duloxetine , brexpipraz ole, klonopin, lamictal, trazodone for sleep. Denies SI. Depressive disorder 8428 9007 F32.9 see above Low back pain 834580127 M54.5 Hx of several surgeries at [facility]; uses flexeril and lyrica for her fibromyalg ia and chronic back pain; she reports these are prescribed by her neurologis t (below). Has been using tramadol at one point PRN but reports she is no longer taking this. Headache 13837226 R51 Followed by neurology Mary Ramos for her migraines , fibro and RLS. Migraines are well managed with zolmitipta n PRN. Urinary incontinence 165 709675 R32 Followed by [facility]; pt reports she is RX'ed furosemide , oxybutinin and spironolac tone all for her incontinen ce. Denies CHF or HTN. Past medical records indicate no HTN. She does have some edema on exam. Records from prev PCP indicate that lasix was started for edema after she has US of LLE to r/o clot and echo. Echo demonstrat ed: EF 55% LV normal size and thickness. Gastroesop hageal reflux disease 493226556 K21.9 Zeenat is a 53 YO F with hx of anxiety, depression , low back pain, fibromyalg ia, migraines, chronic urinary incontinen ce, and GERD here today to establish care. Using ranitidine daily for GERD; tolerating well; rare symptoms . Recent ranitidine recall. Pt reports she cannot tolerate cimetidine or famotidine d/t vomiting. Will send omeprazole Edema of cortney ower extremity [id number] R60.0 See above. She declines labs today but will have them done next month at her CPE Memory impairment 821265 006 R41.3 Zeenat has had some issues with short term memory which were investigat ed by her previous PCP with labs including B12, TSH, RPR, VIOLET. Pt was started on B12 with noticeable improvemen t; no longer taking. Needs B12 checked Hyperlipidemia 45098253 E78.5 Needs lipid pannel at upcoming CPE; managed with niacin in the past which she questions if she did not tolerate d/t itching but unsure if still taking; bring meds to next appt [id number] Gisele Johansen MD [facility] [address] [place] [address] [place] [address] 12/01/2019 11:32:03 12/01/2019 12:51:21 Pruritic rash 10547099 L28.2 Keep skin clean and dry; as well cream Rx and See if better with Tx monitor s/s ;let us know Low back pain 841723034 M54.5 PT with Hx of back problems Will Do Xray and MEds trial Rx Pt agreed for PT tx and monitor s.s. ; call clinic of any question or concerns [id number] Gisele Johansen MD [facility] [address] [place] [address] [place] [address] 01/20/2020 15:16:30 01/20/2020 15:48:08 Low back pain 651961856 M54.5 will cont care and cont PT Tx Pt aware we have spec available if needed NO overuse meds; take pRN only and MOnitor sympotsm ; better with current regiment Immunization due 8684103 08 Z28.3 Interested in FLu shot Nicotine dependence 5629 4008 F17.200 NO smoking advised Cutting down on her own [id number] Gisele Johansen MD [facility] [address] [place] [address] [place] [address] 03/24/2020 15:35:44 03/24/2020 16:11:01 Administration of diphtheria and tetanus vaccine 61865116 Z23 TDAP vaccine administer ed in office. Fibromyalgia 096186396 M 79.7 Fibromyalg ia managed well with medication s as below: Pregabalin 300mg TID Methocarba mol 1,000mg every 8 hours Tylenol arthritis 650mg TID prn Refills provided today. Follow up as scheduled for CPE. Tobacco de pendence syndrome 47443895 F17.200 Patient has cut down to 1-1.5 packs per day. We have discussed tobacco use in detail today and we have reviewed the health benefits of quitting. We have also reviewed a variety of strategies to help with quitting. After discussion , our plan for today is: attempting to cut down on her own. She has trialed Chantix and patches w/o effects. Unable to take Wellbutrin d/t side effects. [id number] Gisele Johansen MD [facility] [address] [place] [address] 04/06/2020 12:00:54 04/06/2020 13:21:15 Adult health examination 751473956 Z00.00 Patient should discuss medical decisions with [facility]. Recommende d screenings included colonoscop y screening age 50, earlier based on family history/ri sk factors; annual mammogram age 50, unless earlier based on risk factors and discussion with patient; bone density age 65, unless risk factors for earlier screening; one time screen for hepatitis C if born between 6837-6387 or has risk factors. Reviewed vaccines and current recommenda tions. Basic health topics include aerobic exercise, importance of healthy/ba lanced diet and minimizing caffeine and alcohol. Check labs: CBC, CMP, Lipids, and UA w/ reflex culture and follow up with results. Screening mammography 24 721213 Z12.31 Due for mammo. Screening for malignant neoplasm of colon 389243813 Z12.11 Patient declines colonoscop y at this time although she is agreeable to FOBT x3. Stool cards given. Decreased estrogen level 326289512 E28.39 Check bone density and treat based on results. Screening for malignant neoplasm of cervix 530028210 Z12.4 Pap smear done in office today - patient tolerated well. Will contact with results. Viral screening 48289188 4 Z11.59 One time screen based on date between 9414-1463 and/or high risk for disease. Smoking mo nitoring status 429691872 Z87.891 Recommend annual low-dose CT scan screening for high-risk individual s ages 55 to 77 years with 30 pack-year history of smoking and current smoker or quit within past 15 years. I have used a decision aid to share decision making with the patient about interventi ons to reduce the risk of dying from lung cancer, including quitting smoking and annual lung cancer screening. The patient is eligible for screening based on age, smoking history, and the absence of signs of symptoms of lung cancer. We discussed the potential harms of screening, including: false positives, follow-up diagnostic testing, overtreatm ent, and total radiation exposure. We provided the patient informatio n about the importance of adherence to annual LDCT screening, the impact of comorbidit ies, and the ability/wi llingness to undergo diagnosis and treatment. After considerin g the patient's unique circumstan nighat, and the pros and cons of the alternativ es, the patient has decided {{to be screened* not to be screened}} . Tobacco de pendence syndrome 90413146 F17.200 Patient has cut down to 1 PPD. We have discussed tobacco use in detail today and we have reviewed the health benefits of quitting. We have also reviewed a variety of strategies to help with quitting. After discussion , our plan for today is: working hard at cutting down on her own w/o assistance . She has trialed Chantix and patches w/o effects. Unable to take Wellbutrin d/t side effects. Body mass index 40+ - severely obese 672717553 Z68.42 BMI 45.3. We have discussed the adverse health consequenc es of obesity today as well the benefits of weight loss. We have focused on both diet and exercise management strategies in our discussion today. Will continue to monitor and assess. Check TSH and A1c and f/u with results. Onychomyco sis of toenails 877721740 B35.1 Noted onychomyco sis of toenails - will refer to podiatry for proper treatment. Vitamin D deficiency 347 46189 E55.9 History of Vitamin D deficiency managed on Vitamin D3 2,000 Units daily. Will check levels today and provide refills as indicated. Depression screening 171 696652 Z13.31 PHQ-9 Score: 8 - consistent with mild depression . Denies any SI/HI. Managed on Rexulti 1mg tab daily and Lamotrigin e 250mg daily. [facility] with [facility] in [place], [place] with Dr. Siegel who prescribes psych meds. Also receiving counseling 1x/month. Fibromyalgia 430093637 M 79.7 Fibromyalg ia/low back pain managed well with medication s as below: Pregabalin 300mg TID Methocarba mol 1,000mg every 8 hours Tylenol arthritis 650mg TID prn Refills provided today. Candidal intertrigo 2661 60508 B37.2 Managed well with topical antifungal - refill provided. [id number] Reza Thrasher MD [facility] [address] [place] [address] [place] [address] 02/08/2021 10:59:38 02/08/2021 11:52:10 Chronic pain 67887165 G89.29 Lumbar spondylosis 02362 0009 M47.896 Lumbar post-laminectomy syndrome 710027354 M96.1 Lumbar radiculopathy 128 883851 M54.16 Prolapsed lumbar intervertebral disc 713208404 M51.26 left L4-5 [id number] Reza Thrasher MD [facility] [address] [place] [address] [place] [address] 04/11/2021 10:01:58 04/11/2021 11:08:29 Chronic pain 69298591 G89.29 Lumbar spondylosis 47729 0009 M47.896 Lumbar post-laminectomy syndrome 043361770 M96.1 Lumbar radiculopathy 128 530619 M54.16 Prolapsed lumbar intervertebral disc 137373573 M51.26 left L4-5 [id number] Gisele Johansen MD [facility] [address] [place] [address] 04/29/2021 13:47:31 04/29/2021 14:31:43 Abnormality of nail of toe 810899046 L60.8 PT interested in to talk to Podiatry - no acute issues Ophthalmic examination and evaluation 97107695 Z01.00 due for Eye Gynecologtom c examination 77387162 Z01.419 due for GLUE MAKER alexander Body mass index 40+ - severely obese 608059024 Z68.42 reviewed healhty meal and hydration and portion cotroillPt staying trying on her own to cut does on sweets & fatty food Nicotine dependence 5626 2768 F17.200 NO smoking advised Cutting down on her own Smoking mo nitoring status 939610721 Z87.891 Recommend annual low-dose CT scan screening for high-risk individual s ages 55 to 77 years with 30 pack-year history of smoking and current smoker or quit within past 15 years. I have used a decision aid to share decision making with the patient about interventi ons to reduce the risk of dying from lung cancer, including quitting smoking and annual lung cancer screening. The patient is eligible for screening based on age, smoking history, and the absence of signs of symptoms of lung cancer. We discussed the potential harms of screening, including: false positives, follow-up diagnostic testing, overtreatm ent, and total radiation exposure. We provided the patient informatio n about the importance of adherence to annual LDCT screening, the impact of comorbidit ies, and the ability/wi llingness to undergo diagnosis and treatment. After considerin g the patient's unique circumstan nighat, and the pros and cons of the alternativ es, the patient has decided {{to be screened n ot to be screened}} . [id number] Reza Thrasher MD [facility] [address] [place], [place] [address] 05/06/2021 10:54:13 05/06/2021 11:26:31 Chronic pain 03864206 G89.29 Lumbar spondylosis 31839 0009 M47.896 Lumbar post-laminectomy syndrome 613419537 M96.1 Lumbar radiculopathy 128 176295 M54.16 b/l Prolapsed lumbar intervertebral disc 570410447 M51.26 left L4-5 [id number] Darryn Beltran MD [facility] [address], [address] [place], [place] [address] 06/09/2021 13:44:10 06/09/2021 14:45:24 Specialized medical examination [id number] Z01.419 Reinforced healthy diet, lifestyle, and exercise Patient reminded to report postmenopa usal bleeding Patient counseled regarding self breast exams Patient counseled regarding osteoporos is prevention Patient counseled regarding need for screening colonoscop y and recommende d pt contact PCP regarding referral for colonoscop y. Patient counseled regarding Sexual health Screening mammography 24 [id number] Z12.31 [id number] Reza Thrasher MD [facility] [address] [place] [address] [address] 06/29/2021 10:41:33 06/29/2021 11:44:54 Chronic pain 84367754 G89.29 Lumbar spondylosis 51530 0009 M47.896 Lumbar post-laminectomy syndrome 078167844 M96.1 Lumbar radiculopathy 128 619875 M54.16 b/l Prolapsed lumbar intervertebral disc 782668764 M51.26 left L4-5 [id number] Gisele Johansen MD [facility] [address] [place] [address] 08/02/2021 11:53:20 08/02/2021 12:46:52 Low back pain 687231332 M54.50 has care teamadvise d on PT Tx;will try wheelchair Rxlet us know if any issues Edema of l ower extremity 935506859 R60.0 Pt has B/L LE swellingel evated advised = does not like itwill try 40 lasix for 3 x week Urinary incontinence 165 621115 R32 worries with urine incontinen ce with lasix increase trialwill take 10 mg oxybutynin Pt gets meds PRN constipati onwell hydratedmo nitor [id number] Reza Thrasher MD [facility] [address] [place] [address] [address] 08/24/2021 09:56:42 08/24/2021 10:27:11 Chronic pain 34224901 G89.29 Lumbar spondylosis 91107 0009 M47.896 Lumbar post-laminectomy syndrome 337199165 M96.1 Lumbar radiculopathy 128 360414 M54.16 b/l Prolapsed lumbar intervertebral disc 640902045 M51.26 left L4-5 [id number] Ahmet Holcomb MD [facility] [address] [facility] [address] [place] [address] 11/04/2021 14:13:29 11/04/2021 15:33:41 Overactive urinary bladder 507017441 N32.81 [id number] Gisele Johansen MD [facility] [address] [place] [address] 11/07/2021 09:58:16 11/07/2021 10:27:30 Pre-surgery evaluation 814812503 Z01.818 NO acute C/O / Pt stableLabs EKG orderedF/u p report Lumbar post-laminectomy syndrome 912875290 M96.1 Pt no drivingask ed for RMV form disability filled [id number] MD [facility] [address] [address] 11/25/2021 11:41:52 11/25/2021 12:29:44 Chronic pain 05012083 G89.29 Lumbar spondylosis 66162 0009 M47.896 Lumbar post-laminectomy syndrome 046468862 M96.1 Lumbar radiculopathy 128 540090 M54.16 b/l Prolapsed lumbar intervertebral disc 430862853 M51.26 left L4-5 [id number] Gisele Johansen MD [facility] [address] [place] [address] 11/30/2021 09:00:46 11/30/2021 09:40:23 Pain in lower limb 98413014 M79.669 Per PT on PO Antib from ERlocal care revieweddo ing legs elevated at homewould care opinion advisednadine Powell has meds local care Meds list given to talk about cut back [facility] [id number] MD [facility] [address] [facility] [address] [place] [address] 12/22/2021 07:56:02 12/22/2021 10:59:45 Mixed urinary incontinence 629695656 N39.46 [id number] MD [facility] [address] [place] [address] [address] 01/20/2022 11:30:36 01/20/2022 12:54:25 Chronic pain 37455405 G89.29 Lumbar spondylosis 17880 0009 M47.896 Lumbar post-laminectomy syndrome 606706611 M96.1 Lumbar radiculopathy 128 390325 M54.16 b/l Prolapsed lumbar intervertebral disc 933448311 M51.26 left L4-5 [id number] MD [facility] [address] [place] [address] [place] [address] 02/16/2022 11:01:50 02/16/2022 11:35:42 Chronic pain 16190379 G89.29 Lumbar spondylosis 54417 0009 M47.896 Lumbar post-laminectomy syndrome 443314213 M96.1 Lumbar radiculopathy 128 188407 M54.16 b/l Prolapsed lumbar intervertebral disc 874585538 M51.26 left L4-5 [id number] MD [facility] [address] [place] [address] 03/23/2022 07:27:46 03/23/2022 12:49:42 Overactive urinary bladder 189684889 N32.81 [id number] MD [facility] [address] [place] [address] [place] [address] 03/16/2022 11:22:37 03/16/2022 12:40:17 Chronic pain 37849765 G89.29 Lumbar spondylosis 20868 0009 M47.896 Lumbar post-laminectomy syndrome 656041742 M96.1 Lumbar radiculopathy 128 273556 M54.16 b/l Prolapsed lumbar intervertebral disc 200612234 M51.26 left L4-5 [id number] MD [facility] [address] [place] [address] [place] [address] 05/29/2022 14:29:59 05/29/2022 15:40:39 Chronic pain 69638257 G89.29 Lumbar spondylosis 04608 0009 M47.896 Lumbar post-laminectomy syndrome 023889100 M96.1 Lumbar radiculopathy 128 940677 M54.16 b/l Prolapsed lumbar intervertebral disc 228185629 M51.26 left L4-5 Open wound 345223415 T14 .8XXD [id number] MD [facility] [address] [place] [address] 104 [place] [address] 11/17/2022 10:54:12 11/17/2022 11:33:13 Overactive urinary bladder 079252350 N32.81 [id number] MD [facility] [address] [place] [address] [place] [address] 09/22/2022 16:03:15 09/22/2022 16:26:30 Chronic pain 11522730 G89.29 Lumbar spondylosis 20668 0009 M47.896 Lumbar post-laminectomy syndrome 681828912 M96.1 Lumbar radiculopathy 128 580826 M54.16 b/l Prolapsed lumbar intervertebral disc 517960228 M51.26 left L4-5 [id number] MD [facility] [address] [place] [address] [place] [address] 11/17/2022 11:31:31 11/17/2022 12:30:34 Chronic pain 75613095 G89.29 Lumbar spondylosis 05615 0009 M47.896 Lumbar post-laminectomy syndrome 336734771 M96.1 Lumbar radiculopathy 128 452260 M54.16 b/l Prolapsed lumbar intervertebral disc 783337108 M51.26 left L4-5 [id number] MD [facility] [address] [place] [address] [place] [address] 04/24/2023 13:03:09 04/24/2023 14:00:40 Chronic pain 39777256 G89.29 Lumbar spondylosis 51887 0009 M47.896 Lumbar post-laminectomy syndrome 175478545 M96.1 Lumbar radiculopathy 128 384519 M54.16 b/l Prolapsed lumbar intervertebral disc 451434884 M51.26 left L4-5 Thoracic post-laminectomy syndrome 619084799 M96.1 [id number] MD [facility] - [address] [place] [address] 02/22/2023 08:26:15 02/22/2023 10:26:57 Increased frequency of urination 841787234 R35.0 [id number] MD [facility] [address] [place] [address] [place] [address] 09/18/2023 13:00:23 09/18/2023 13:40:14 Chronic pain 06802280 G89.29 Lumbar spondylosis 02356 0009 M47.896 Lumbar post-laminectomy syndrome 396118184 M96.1 Lumbar radiculopathy 128 163905 M54.16 b/l Prolapsed lumbar intervertebral disc 988253495 M51.26 left L4-5 Thoracic post-laminectomy syndrome 042645570 M96.1 [id number] Reza Thrasher MD [facility] [address] [place] [address] [place] [address] 11/13/2023 11:12:44 11/13/2023 12:23:21 Chronic pain 04630942 G89.29 Lumbar spondylosis 20087 0009 M47.896 Lumbar post-laminectomy syndrome 057409901 M96.1 Lumbar radiculopathy 128 832947 M54.16 b/l Prolapsed lumbar intervertebral disc 656862907 M51.26 left L4-5 Thoracic post-laminectomy syndrome 780496318 M96.1 [id number] Reza Thrasher MD [facility] [address] [place] [address] [place] [address] 01/08/2024 10:04:41 01/08/2024 11:11:08 Chronic pain 80354646 G89.29 Lumbar spondylosis 46324 0009 M47.896 Lumbar post-laminectomy syndrome 930301165 M96.1 Lumbar radiculopathy 128 361234 M54.16 b/l Prolapsed lumbar intervertebral disc 696298949 M51.26 left L4-5 Thoracic post-laminectomy syndrome 698824055 M96.1 Bilateral shoulder joint pain 1808150919 7089746 M25.511 M25.380 [id number] [facility] [address], [address] [place] [address] 01/22/2024 09:59:52 01/22/2024 10:57:58 Osteoarthritis of joint of left shoulder region 1456092900 07016 M19.012 58-year-ol d right-hand -dominant female smoker presents today with chronic left shoulder pain. X-rays demonstrat e glenohumer al and AC joint DJD, calcific foci adjacent to the humeral head, and ?AVN. Range of motion is limited to roughly 120 degrees of forward flexion. She has discomfort with all provocativ e shoulder movements with GH crepitus. She underwent spine surgery and does not want to have shoulder surgery at this time. We agreed to proceed with a glenohumer al cortisone injection today. She will monitor symptoms and follow-up on an as-needed basis. Calcific t endinitis of left shoulder 8766088547 95753 M75.32 [id number] Reza Thrasher MD [facility] [address] [place] [address] [place] [address] 03/04/2024 09:30:34 03/04/2024 10:24:28 Chronic pain 93137058 G89.29 Lumbar spondylosis 50276 0009 M47.896 Lumbar post-laminectomy syndrome 037792053 M96.1 Lumbar radiculopathy 128 M54.16 b/l Prolapsed lumbar intervertebral disc 594301259 M51.26 left L4-5 Thoracic post-laminectomy syndrome 640365255 M96.1 [id number] Reza Thrasher MD [facility] [address] [place] [address] [place] [address] 05/06/2024 08:14:46 05/06/2024 09:35:01 Chronic pain 43165307 G89.29 Lumbar spondylosis 59690 0009 M47.896 Lumbar post-laminectomy syndrome 800334486 M96.1 Lumbar radiculopathy 128 M54.16 b/l Prolapsed lumbar intervertebral disc 351696340 M51.26 left L4-5 Thoracic post-laminectomy syndrome 648201349 M96.1 [id number] Reza Thrasher MD [facility] [address] [place] [address] [place] [address] 06/03/2024 09:55:14 06/03/2024 10:42:32 Chronic pain 24294926 G89.29 Lumbar spondylosis 64363 0009 M47.896 Lumbar post-laminectomy syndrome 042801064 M96.1 Lumbar radiculopathy 128 482594 M54.16 b/l Prolapsed lumbar intervertebral disc 465333638 M51.26 left L4-5 Thoracic post-laminectomy syndrome 702055862 M96.1 [id number] Reza Thrasher MD [facility] [address] [place] [address] in Entrance [place] [address] 06/25/2024 14:06:31 06/25/2024 15:08:07 Chronic pain 27593816 G89.29 Lumbar spondylosis 43862 0009 M47.896 Lumbar post-laminectomy syndrome 955156176 M96.1 Lumbar radiculopathy 128 827188 M54.16 b/l Prolapsed lumbar intervertebral disc 116804320 M51.26 left L4-5 Thoracic post-laminectomy syndrome 915142228 M96.1 Health Concerns Section Related Observation LastModified by Organization Detai ls LastModified Time None Recorded Concern Status LastModified by Organization Details LastModified Time None Recorded Advance Directives Directive Y: HCP: Olayinka Gates Payers Encounter Date Sequence Insurance Name Policy Number Policy Jennings Covered Member ID Jennings Member ID Guarantor Name 01/22/2024 1 [place] Zeenat J Mcnamara [id number] Zeenat Mcnamara 03/04/2024 1 [place] Zeenat J Mcnamara [id number] Zeenta Mcnamara 05/06/2024 1 [place] Zeenat J Mcnamara [id number] Zeenat Mcnamara 06/03/2024 1 [place] Zeenat J Mcnamara [id number] Zeenat Mcnamara 06/25/2024 1 [place] Zeenat J Mcnamara [id number] Zeenat Mcnamara Notes Date Note Type Note Provider Name and Address Organization Details Recorded Time text/html OrthopedicsReported bypatient.Location:[facility]; Shoulder Quality:Constant;Throbbi ng Severity:Mild-Moderate Onset/Timing:Gradual Duration:months Context:No change Aggravating Factors:Worse at Night;Activity ImagingX-ray (01/22/24) [facility] [address] [place] [address], [place], [address], [facility] 01/22/2024 17:07:36 4 text/html Pain Management: Follow-upReported bypatient.Location:lower back radiates down into Lt leg -same pain right low back pain flared up recently , no precipitating event Quality:shooting;throbbi ng; intense Severity:what number on the pain scale best describe your pain right now?: 9; what number on the pain scale best describes your least pain? : 7; what number on the pain scale best describes your worst pain?: 10 worst pain; what number on the pain scale best describes your averge pain over the last month?: 8 Duration:present for >12 months (over 20 years) Timing:constant Progression:increased (getting worse) Alleviating Factors:nothing helps Aggravating Factors:standing; sitting (worse); walking; just hurts no matter what Associated Symptoms:no fever; no weak limbs; no tingling; no numbness of the legs/feet; no incontinence ADL (Activities of Daily Living):improve with medication Pain Relief With Current Medications:(<25%); no side effects from medication; butrans, baclofen, neurontin Reza Thrasher MD [address] [place], [address], [facility] 03/04/2024 10:24:12 5 text/html Pain Management: Follow-upReported bypatient.Location:chron ic lower back pain radiating into left LE Quality:shooting;throbbi ng; intense Severity:what number on the pain scale best describe your pain right now?: 6; what number on the pain scale best describes your least pain? : 7; what number on the pain scale best describes your worst pain?: 10 worst pain; what number on the pain scale best describes your averge pain over the last month?: 5 Duration:present for >12 months (over 20 years) Timing:constant Progression:no change Alleviating Factors:ice, tiger balm Aggravating Factors:standing; sitting; walking Associated Symptoms:no fever; no weak limbs; no tingling; no numbness of the legs/feet; no incontinence Pain Relief With Current Medications:50%; no side effects from medication; butrans, baclofen, neurontinNotes:no changes or concerns Reza Thrasher MD [address] [facility] [place], [address], [facility] 05/06/2024 09:43:59 5 text/html Pain Management: Follow-upReported bypatient.Location:chron ic lower back pain radiating into b/l LE Quality:stabbing;spasms; throbbing; agonizing Severity:what number on the pain scale best describe your pain right now?: 8; what number on the pain scale best describes your least pain? : 0 no pain; what number on the pain scale best describes your worst pain?: 10 worst pain; what number on the pain scale best describes your averge pain over the last month?: 8 Duration:present for >12 months Timing:constant Progression:no change Alleviating Factors:medication; ice packs Aggravating Factors:standing; sitting; walking; lying down (sleeping on left side will make left leg numb); movement Associated Symptoms:numbness of the legs/feet ADL (Activities of Daily Living):improve with medication Pain Relief With Current Medications:50%; no side effects from medicationNotes:b/l low back pain flare up Reza Tharsher MD [address] [facility] [place], [address], [facility] 06/03/2024 11:27:40 5 text/html Pain Management: Follow-upReported bypatient.Location:chron ic lower back pain radiating into b/l LE Quality:stabbing;spasms; throbbing; agonizing Severity:what number on the pain scale best describe your pain right now?: 4; what number on the pain scale best describes your least pain? : 0 no pain; what number on the pain scale best describes your worst pain?: 10 worst pain; what number on the pain scale best describes your averge pain over the last month?: 5 Duration:present for >12 months Timing:constant Progression:no change Alleviating Factors:medication; ice packs Aggravating Factors:standing; sitting; walking; lying down (sleeping on left side will make left leg numb); movement ADL (Activities of Daily Living):improve with medication; methocarbamol, belbuca, neurontin Pain Relief With Current Medications:50%; no side effects from medication; methocarbamol, belbuca, neurontinNotes:no changes Reza Thrasher MD [address] [place] [address], [phone], [facility] 06/25/2024 15:25:05 OBGyn Episode No OBEpisode recorded.
--- NOTE | 2024-07-10 14:13 | PC.NURSE ---
Poison control called and spoke with MERI Andujar and poison control was updated on patients current status with no further recommendations and will check back again later.
[2024-07-10 14:21] LABS: Alanine Aminotransferase 26 U/L (0-31); Albumin Level 3.7 g/dL (3.5-5.0); Alkaline Phosphatase 59 U/L (39-117); Aspartate Amino Transferase 31 U/L (5-31); Bilirubin Direct 0.2 mg/dL (0.0-0.5); Bilirubin Total 0.4 mg/dL (0.0-1.0); Total Protein 6.4 g/dL (6.5-8.0)
[2024-07-10] MEDS: Nicotine 21 MG PATCH.TD24 TRANSDERMA (14:32)
[2024-07-10 14:39] LABS: B Type Natriuretic Peptide 11 pg/mL (<100)
--- NOTE | 2024-07-10 14:53 | PC.NURSE ---
patient difficult stick, blood cultures obtained at this time and being sent to the lab. patient continues to be altered, awake, responding to verbal.
[2024-07-10 14:55] LABS: Reflex Lactate? Lactic Acid Added
[2024-07-10] MEDS: cefTRIAXone sodium 1 GM VIAL IVPUSH (14:57)
[2024-07-10] MEDS: Azithromycin 500 MG in 0.9 % Sodium Chloride 250 ML 125 MG IV (14:57)
[2024-07-10 15:28] LABS: ~Lactic Acid-LAB USE ONLY 3.3 mmol/L (0.5-2.0)
--- NOTE | 2024-07-10 15:31 | ECG_ITS ---
Test Reason : CHECK QT INTERVALS Blood Pressure : */* mmHG Vent. Rate : 80 BPM Atrial Rate : 80 BPM P-R Int : 146 ms QRS Dur : 82 ms QT Int : 394 ms P-R-T Axes : 31 32 66 degrees QTcB Int : 454 ms Normal sinus rhythm Normal ECG When compared with ECG of 10-Jul-2024 13:37, No significant change was found Referred By: Rasheed Fagan Electronically Signed By: NIKKI BUSTILLO
[2024-07-10] MEDS: diazePAM 10 MG/2 ML CARTRIDGE 2.5 MG IVPUSH (16:38)
[2024-07-10 17:10] LABS: Reflex Lactate? 2 Y
--- NOTE | 2024-07-10 17:18 | ECG_ITS ---
Test Reason : QT INTERVAL Blood Pressure : */* mmHG Vent. Rate : 79 BPM Atrial Rate : 79 BPM P-R Int : 142 ms QRS Dur : 84 ms QT Int : 402 ms P-R-T Axes : 44 44 69 degrees QTcB Int : 460 ms Normal sinus rhythm Normal ECG When compared with ECG of 10-Jul-2024 16:09, No significant change was found Referred By: Rasheed Fagan Electronically Signed By: NIKKI BUSTILLO
--- NOTE | 2024-07-10 17:18 | PC.NURSE ---
IV infiltrated, new 18IV placed in LAC. patient observer at bedside, intermittently sleeping and calling out for help. multiple episodes of incontinence, multiple bed changes. patient remains confused, alert to self - alert to verbal however cannot follow commands.
--- NOTE | 2024-07-10 17:37 | PM.IMHP ---
History of Present Illness Date of Service: 07/10/24 Attending physician on admission: Kamari Cox Chief Complaint: Intentional overdose Pt is a 58-year-old female with a PMH significant for?PE on Eliquis, chronic hypercarbic respiratory failure on home 2 L O2 at night, HTN, chronic back pain, fibromyalgia, venous insufficiency, current smoker with 40 year pack hx, opioid use disorder on buprenorphine, anxiety and depression who presents to the ED for evaluation of altered mental status after presumed intentional olanzapine overdose. Pt is acutely altered and agitated at time of interview and exam. HPI is instead obtained from chart and provider review. Pt was found by family this morning at 09:00 with altered mental status, difficulty speaking, with her walker knocked over and laying sideways in bed. EMS arrived and initially called a stroke alert upon presentation to the ED out of concern for right-sided facial droop and difficulty speaking. Daughter reports pt ran out of clonazepam approximately 1 week ago due to overuse. Daughter had a prescription for olanzapine which she was not using, so provided to the pt with 2-3 tablets per day for the past 5 days to alleviate pt's anxiety. This morning daughter noticed her mother had left a suicide note and the olazapine bottle was empty. She estimates the pt could have taken 15-20 tablets of olazapine sometime last night. ED clinician contacted poison control Center who requested lactic acid and suggested pt being admitted for 24 hour cardiac monitoring. In the ED pt's vitals stable and WNL, satting at 96% on RA.. Labs were significant for lactic acid 3.0 with repeat 3.3, otherwise grossly unremarkable and around baseline for pt. No leukocytosis. Stable H&H. No significant electrolyte abnormalities. Renal and hepatic function WNL. Troponin negative. BNP 11. Lipid panel WNL. CXR showed mild interstitial lung edema vs multifocal pneumonia with nodular lesion of right lower hemithorax, consider benign vs malignant. CT of head without intracranial hemorrhage or acute brain abnormality. EKG x3 showing normal sinus rhythm without significant ischemic changes and QTc WNL. Pt was treated in the ED with DuoNebs, Mag sulfate, IVF, nicotine, diazepam, ceftriaxone, and azithromycin. Pt is admitted to the hospital for treatment and further evaluation of acute metabolic encephalopathy in the setting of increasing depression with suicide attempt from intentional olanzapine overdose. Review of Systems Review of Systems: Negative except for that which is stated in the HPI. PMFSH Social History Smoked in Last 30 Days: Yes Advance Directives: No Advance Directives Information Provided: Yes Meds Allergies Allergy/AdvReac Type Severity Reaction Status Date / Time bupropion Allergy Unknown Verified 07/10/24 11:18 codeine Allergy Unknown Verified 07/10/24 11:18 diclofenac Allergy Unknown Verified 07/10/24 11:18 divalproex sodium Allergy Unknown Verified 07/10/24 11:18 [From Depakote] doxepin [From Silenor] Allergy Unknown Verified 07/10/24 11:18 famotidine Allergy Unknown Verified 07/10/24 11:18 meloxicam Allergy Unknown Verified 07/10/24 11:18 naproxen Allergy Unknown Verified 07/10/24 11:18 nortriptyline Allergy Unknown Verified 07/10/24 11:18 oxycodone Allergy Unknown Verified 07/10/24 11:18 sertraline Allergy Unknown Verified 07/10/24 11:18 topiramate Allergy Unknown Verified 07/10/24 11:18 Home Medications ?Medication ?Instructions ?Recorded ?Confirmed ?Last Taken ?Type albuterol sulfate 90 mcg/actuation 2 puff inhalation QID PRN wheezing 07/10/24 Unknown History aerosol inhaler (Ventolin HFA) apixaban 5 mg tablet (Eliquis) 5 mg PO BID 07/10/24 Unknown History atorvastatin 20 mg tablet 20 mg PO QAM 07/10/24 Unknown History baclofen 10 mg tablet 10 mg PO BID PRN Pain 07/10/24 Unknown History brexpiprazole 1 mg tablet (Rexulti) 1.5 mg PO DAILY 07/10/24 Unknown History buprenorphine 20 mcg/hour weekly 1 patch topical QWEEK 07/10/24 Unknown History transdermal patch clonazepam 1 mg tablet 0.5 mg PO BEDTIME 07/10/24 Unknown History clonazepam 1 mg tablet 1 mg PO BID 07/10/24 Unknown History clotrimazole 1 % topical cream appl topical BID 07/10/24 Unknown History duloxetine 60 mg capsule,delayed 60 mg PO BID 07/10/24 Unknown History release furosemide 20 mg tablet 20 mg PO DAILY 07/10/24 Unknown History gabapentin 800 mg tablet 800 mg PO TID 07/10/24 Unknown History lamotrigine 150 mg tablet 150 mg PO BID 07/10/24 Unknown History lisinopril 5 mg tablet 5 mg PO QAM 07/10/24 Unknown History methocarbamol 750 mg tablet 750 mg PO TID 07/10/24 Unknown History metoprolol succinate 25 mg mg PO 07/10/24 Unknown History tablet,extended release 24 hr naloxone 4 mg/actuation nasal spray intranasal 07/10/24 Unknown History omeprazole 20 mg capsule,delayed 20 mg PO DAILY 07/10/24 Unknown History release oxybutynin chloride 10 mg 10 mg PO DAILY 07/10/24 Unknown History tablet,extended release 24 hr tizanidine 2 mg tablet 2 mg PO Q12H 07/10/24 Unknown History tizanidine 4 mg tablet 4 mg PO Q6H 07/10/24 Unknown History umeclidinium 62.5 mcg-vilanterol 1 ea inhalation DAILY 07/10/24 Unknown History 25 mcg/actuation powdr for inhalation (Anoro Ellipta) Physical Exam Vital Signs and Narrative: Vital Signs: Last Vital Signs Temp 97.3 F 07/10/24 14:18 Pulse 80 07/10/24 14:18 Resp 20 07/10/24 14:18 BP 120/79 07/10/24 14:18 Pulse Ox 96 07/10/24 14:18 O2 Del Method Room Air 07/10/24 14:18 BMI result Body Mass Index 50.1 General: Awake and alert to person only, not to place, time, or situation. Not following all commands or answering appropriately. In no acute distress Resp: Coarse and rhonchus breath sounds CVS: S1, S2, RRR GI: +BS, NT, no distention Skin: Warm, dry Neuro: Motor grossly intact bilaterally. Slurred speech, difficult to understand. No clear unilateral deficits noted. Extremities: No edema. Bilateral chronic venous stasis dermatitis. See picture below. Psych: Confused and occasionally agitated. Results Labs 07/10/24 11:00 07/10/24 11:56 Labs: Laboratory Results - last 24 hr 07/10/24 07/10/24 07/10/24 10:37 11:00 11:47 MCV 100.0 H MCH 33.5 H MCHC 33.5 RDW 12.8 Plt Count 269 MPV 9.1 L Immature Gran % (Auto) 0.3 Neut % (Auto) 67.9 Lymph % (Auto) 23.3 Graves % (Auto) 7.0 Eos % (Auto) 0.9 Baso % (Auto) 0.6 Lymph # (Auto) 2.1 Graves # (Auto) 0.6 Eos # (Auto) 0.1 Baso # (Auto) 0.1 Abs Immat Gran (auto) 0.03 Absolute Neuts (auto) 6.1 Absolute Nucleated RBC 0.000 Nucleated RBC % (auto) 0.0 PT 11.3 Whole Blood PT 12.2 INR 1.0 Whole Blood INR 1.0 APTT 24.8 L VBG pH VBG pCO2 VBG pO2 VBG HCO3 VBG O2 Saturation VBG Base Excess Anion Gap Estim Creat Clear Calc Estimated GFR POC Glucose 137 H Random Glucose Lactic Acid Lactic Acid F/U @ 2Hr Calcium Magnesium Total Bilirubin Direct Bilirubin AST ALT Alkaline Phosphatase B-Natriuretic Peptide 11 Total Protein Albumin Triglycerides Cholesterol LDL Cholesterol, Calc HDL Cholesterol Urine Color Urine Appearance Urine pH Ur Specific [place] Urine Protein Urine Glucose (UA) Urine Ketones Urine Blood Urine Nitrite Ur Leukocyte Esterase Urine RBC Urine WBC Ur Squamous Epith Cells Urine Bacteria Hyaline Casts Urine Test Salicylates Urine Opiates Screen Ur Buprenorphine Scrn Ur Oxycodone Screen Urine Methadone Screen Urine Fentanyl Screen Acetaminophen Ur Barbiturates Screen Ur Phencyclidine Scrn Ur Amphetamines Screen U Benzodiazepines Scrn Urine Cocaine Screen U Marijuana (THC) Screen Ethyl Alcohol 07/10/24 07/10/24 07/10/24 11:56 12:50 12:58 MCV MCH MCHC RDW Plt Count MPV Immature Gran % (Auto) Neut % (Auto) Lymph % (Auto) Graves % (Auto) Eos % (Auto) Baso % (Auto) Lymph # (Auto) Graves # (Auto) Eos # (Auto) Baso # (Auto) Abs Immat Gran (auto) Absolute Neuts (auto) Absolute Nucleated RBC Nucleated RBC % (auto) PT Whole Blood PT INR Whole Blood INR APTT VBG pH 7.47 H VBG pCO2 39 VBG pO2 72 VBG HCO3 28 H VBG O2 Saturation 97.0 VBG Base Excess 4.9 Anion Gap 12 Estim Creat Clear Calc 161.4 Estimated GFR > 60 POC Glucose Random Glucose 136 H Lactic Acid 3.0 H* Lactic Acid F/U @ 2Hr Calcium 9.1 Magnesium 1.8 Total Bilirubin 0.4 Direct Bilirubin 0.2 AST 31 ALT 26 Alkaline Phosphatase 59 B-Natriuretic Peptide Total Protein 6.4 L Albumin 3.7 Triglycerides 110 Cholesterol 134 LDL Cholesterol, Calc 57 HDL Cholesterol 55 Urine Color Urine Appearance Urine pH Ur Specific [place] Urine Protein Urine Glucose (UA) Urine Ketones Urine Blood Urine Nitrite Ur Leukocyte Esterase Urine RBC Urine WBC Ur Squamous Epith Cells Urine Bacteria Hyaline Casts Urine Test Salicylates < 5.0 L Urine Opiates Screen Ur Buprenorphine Scrn Ur Oxycodone Screen Urine Methadone Screen Urine Fentanyl Screen Acetaminophen < 3 Ur Barbiturates Screen Ur Phencyclidine Scrn Ur Amphetamines Screen U Benzodiazepines Scrn Urine Cocaine Screen U Marijuana (THC) Screen Ethyl Alcohol < 10 07/10/24 07/10/24 13:06 14:50 MCV MCH MCHC RDW Plt Count MPV Immature Gran % (Auto) Neut % (Auto) Lymph % (Auto) Graves % (Auto) Eos % (Auto) Baso % (Auto) Lymph # (Auto) Graves # (Auto) Eos # (Auto) Baso # (Auto) Abs Immat Gran (auto) Absolute Neuts (auto) Absolute Nucleated RBC Nucleated RBC % (auto) PT Whole Blood PT INR Whole Blood INR APTT VBG pH VBG pCO2 VBG pO2 VBG HCO3 VBG O2 Saturation VBG Base Excess Anion Gap Estim Creat Clear Calc Estimated GFR POC Glucose Random Glucose Lactic Acid Lactic Acid F/U @ 2Hr 3.3 H* Calcium Magnesium Total Bilirubin Direct Bilirubin AST ALT Alkaline Phosphatase B-Natriuretic Peptide Total Protein Albumin Triglycerides Cholesterol LDL Cholesterol, Calc HDL Cholesterol Urine Color Yellow Urine Appearance Turbid Urine pH 7.0 Ur Specific [place] 1.010 Urine Protein Trace Urine Glucose (UA) 500 H Urine Ketones Negative Urine Blood Small (1+) H Urine Nitrite Negative Ur Leukocyte Esterase Moderate (2+) H Urine RBC 0-2 Urine WBC 0-5 Ur Squamous Epith Cells 11-20 Urine Bacteria 3+ Hyaline Casts 0-2 Urine Test NEGATIVE Salicylates Urine Opiates Screen Not Detected Ur Buprenorphine Scrn Not Detected Ur Oxycodone Screen Not Detected Urine Methadone Screen Not Detected Urine Fentanyl Screen Not Detected Acetaminophen Ur Barbiturates Screen Not Detected Ur Phencyclidine Scrn Not Detected Ur Amphetamines Screen Not Detected U Benzodiazepines Scrn Not Detected Urine Cocaine Screen Not Detected U Marijuana (THC) Screen POSITIVE H Ethyl Alcohol Imaging Radiologist's Impressions: Impressions Head CT 07/10/24 10:36 IMPRESSION: No intracranial hemorrhage or acute brain abnormality by CT. This critical result was discussed with Dr. Rasheed Fagan at 10:50 AM hours on July 10, 2024. It was ascertained that the content and urgency of the report was understood at the time of direct communication. Electronically signed by: Cotl Watkins MD 07/10/2024 10:54 AM EDT RP Chest X-Ray 07/10/24 13:20 IMPRESSION: Mild interstitial lung edema versus multifocal pneumonia. Nodular lesion right lower hemithorax. Consider benign versus malignant. Electronically signed by: Colt Watkins MD 07/10/2024 01:47 PM EDT RP Assessment and Plan (1) Intentional olanzapine overdose: Status: Acute (2) Altered mental status: Status: Acute Plan Pt is a 58-year-old female with a PMH significant for?COPD on home 2 L O2 p.r.n., HTN, chronic back pain, opioid use disorder on buprenorphine, anxiety and depression who presents to the ED for evaluation of altered mental status after presumed intentional olanzapine overdose. Pt is admitted to the hospital for treatment and further evaluation of acute metabolic encephalopathy in the setting of increasing depression with suicide attempt from intentional olanzapine overdose. Acute metabolic encephalopathy in the setting of intentional olanzapine overdose Pt confused, agitated, not following all commands or responding appropriately to all questions Pt left suicide note and likely ingested 15-20 olanzapine tablets Poison center contacted, suggested supportive care and cardiac monitoring Pt received IVF in the ED Monitor on telemetry One-to-one sitter Care team consult once medically cleared Concern for aspiration pneumonia Pt altered, breath sounds course/rhonchus CXR showing mild interstitial lung edema vs multifocal pneumonia No sepsis: Tachycardia secondary to agitation; no fever or leukocytosis Pt was given IVF and started on broad-spectrum antibiotics in the ED Will treat with Zosyn, started 07/11/2024 Monitor respiratory status Acute lactic acidosis Initial lactic acid 3.0 with repeat 3.3 Pt being treated with IVF and broad-spectrum abx We will give additional 1 L IVF Follow lactic acid Abnormal CXR Incidental finding of nodular lesion in right lower hemithorax Concerning for benign vs malignant etiologies Follow up outpatient HTN Continue lisinopril, metoprolol Hx of PE Continue Eliquis Mood disorder Continue home mood stabilizers Full Code Attending:?Dr. Cox DVT Prophylaxis: On Eliquis Pt will require a hospitalization of at least two nights for treatment of?acute metabolic encephalopathy in the setting of intentional olanzapine overdose as well as concern for aspiration pneumonia. Pt will require close cardiac monitoring and administration of IV antibiotics. Quality Stroke Does the patient have a stroke diagnosis?: No VTE Prior VTE?: No VTE Risk Level:: Medical - moderate - high VTE Device Contraindication: Treatment Not Indicated VTE Drug Contraindication: N/A - Med Ordered
--- NOTE | 2024-07-10 19:10 | PC.NURSE ---
temp sensing shea in place at this time w/ 400mL output upon insertion. patient tolerated well. patient observer remains at bedside. patient remains altered, unable to follow directions. hospitalist at bedside previously for admission
--- NOTE | 2024-07-10 20:05 | MHC.EDTECH ---
This pct assumed care of Patient at 1900 ,vitals taken ,Patient was change into green gown and Patient belongings list done ,Patient Observer at bedside ,Per Provider Anmol not to draw repeated lactic acid until fluid is given .RN aware .
--- NOTE | 2024-07-10 20:54 | PC.NURSE ---
per ALF Robbins, draw next lactic when LR bolus finishes
--- NOTE | 2024-07-10 21:15 | PHA.MEDREC ---
Addendum entered by Rios Durant [facility] 07/10/24 22:54: MED REC CHECKED BY [facility] Original Note: Pharmacy Consult ? Medication Reconciliation Pharmacy has completed the medication reconciliation. Spoke to patients daughter to confirm med list. Daughter states patient is not taking Baclofen 10 mg, Methocarbamol 750, Prednisone. Patient states patient takes Rexulti 1 mg ,even though patient is suppose to take 1.5 mg. Daughter states patient can cut pills in half. daughter confirmed Buprenorphine 20 mcg ever Sunday, last change was yesterday. Daughter states patient ran out of clonazapam . Patient should be taking Clonazepam 1 mg BID and 0.5 mg at bedtime however patient has been taking up to 4 tablets per day due to her increase in anxiety. Daughter says patient was taking to her dr to increase her done.
[2024-07-10] MEDS: Piperacillin Sodium/Tazobactam 4.5 GM in 0.9 % Sodium Chloride 100 ML IV (23:15)
[2024-07-10] MEDS: diazePAM 10 MG/2 ML CARTRIDGE 5 MG IVPUSH (23:53)
[2024-07-11] VITALS (22 sets, daily range): BP systolic 94–176; BP diastolic 58–101; PULSE 81–149; RESP 18–37; TEMP 32–38.8; O2SAT 65–100; BMI 49.6
--- NOTE | 2024-07-11 | ECG_ITS ---
Test Reason : tachycardia Blood Pressure : */* mmHG Vent. Rate : 152 BPM Atrial Rate : 152 BPM P-R Int : 112 ms QRS Dur : 76 ms QT Int : 332 ms P-R-T Axes : 62 72 78 degrees QTcB Int : 527 ms Sinus tachycardia Nonspecific ST and T wave abnormality Abnormal ECG When compared with ECG of 10-Jul-2024 17:44, Vent. rate has increased by 73 bpm Referred By: Renata Bonds Electronically Signed By: NIKKI BUSTILLO
--- NOTE | 2024-07-11 01:56 | PC.NURSE ---
patient trying to remove rings and swallow them, all 8 rings removed from hands and placed in sealed cup and placed with belongings, sitter remains at bedside
[2024-07-11] MEDS: diazePAM 10 MG/2 ML CARTRIDGE 5 MG IVPUSH (02:56)
[2024-07-11] MEDS: 0.9 % Sodium Chloride Flush 3 ML SYRINGE IVFLUSH ×2 (02:59→09:31)
[2024-07-11] MEDS: Acetaminophen Supp 650 MG SUPP.RECT PR (03:17)
[2024-07-11] MEDS: Piperacillin Sodium/Tazobactam 4.5 GM in 0.9 % Sodium Chloride 100 ML IV ×3 (04:14→14:53)
[2024-07-11 04:27] LABS: Lactic Acid 4.3 mmol/L (0.5-2.0)
[2024-07-11] MEDS: Lactated Ringers 1,000 ML 150 ML IVCONT ×2 (04:48→14:56)
[2024-07-11 05:42] LABS: Reflex Lactate? Lactic Acid Added
[2024-07-11] MEDS: Lactated Ringers 1,000 ML 999 ML IV (06:20)
[2024-07-11] MEDS: Albuterol/Iprat 2.5/0.5MG 3 ML AMPUL.NEB INHALE (06:33)
[2024-07-11 07:17] LABS: Hematocrit 40.1 % (37.0-47.0); Hemoglobin 13.7 g/dl (12.0-16.0); Mean Corpuscular HGB Conc 34.2 g/dl (31.0-35.0); Mean Corpuscular Hemoglobin 33.3 pg (27.0-33.0); Mean Corpuscular Volume 97.6 fL (80.0-98.0); Platelet Count 284 X10*3/uL (160-400); Red Blood Count 4.11 X10*6/uL (4.20-5.50); Red Cell Distribution Width 12.9 % (11.0-16.0); White Blood Count 11.2 X10*3/uL (4.8-10.8)
[2024-07-11 07:21] LABS: Alanine Aminotransferase 29 U/L (0-31); Alkaline Phosphatase 62 U/L (39-117); Anion Gap 16 (12-20); Aspartate Amino Transferase 47 U/L (5-31); Bilirubin Total 0.8 mg/dL (0.0-1.0); Blood Urea Nitrogen 10 mg/dL (9-16); Calcium 9.5 mg/dL (8.4-10.2); Carbon Dioxide 26 mmol/L (22-29); Chloride 104 mmol/L (96-108); Creatinine Clr Calc Pharmacy 143.6; Estimated Glomerular Filt Rate > 60; Glucose Random 134 mg/dL (60-115); Potassium 3.9 mmol/L (3.3-5.1); Sodium 142 mmol/L (135-145)
[2024-07-11 07:29] LABS: ~Lactic Acid-LAB USE ONLY 3.1 mmol/L (0.5-2.0)
[2024-07-11 07:35] LABS: Cancel Lactic Acid Canceled
[2024-07-11] MEDS: ondansetron HCL 4 MG/2 ML VIAL IVPUSH ×2 (07:44→16:48)
--- NOTE | 2024-07-11 08:49 | MHC.CM.PN ---
S/P OD 1:[address] Lives on 1st floor of 2 family house. Dtr lives upstairs. She requires assistance with all functional mobility. 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 DME cane walker O2 NOC 2L [facility] CARE Team, Addiction medicine and Psych eval are pending medical clearance. DP pending Psych eval + PT eval [facility] vs STR vs home with services. Patient will arrange for transportation home.
[2024-07-11] MEDS: diazePAM 10 MG/2 ML CARTRIDGE 2.5 MG IVPUSH ×2 (09:36→18:31)
[2024-07-11] MEDS: Metoprolol Tartrate 5 MG/5 ML VIAL IVPUSH (09:41)
[2024-07-11] MEDS: diphenhydrAMINE HCL 50 MG/ML VIAL 25 MG IVPUSH (09:52)
--- NOTE | 2024-07-11 09:52 | P.PNIM_ITS ---
Subjective Subjective Date of Service: 07/11/24 Interval History: n/v, fever overnight Physical Exam 2 Vital Signs: Vital Signs: Last Vital Signs Temp 98.3 F 07/11/24 07:29 Pulse 123 H 07/11/24 08:51 Resp 20 07/11/24 08:51 BP 150/90 H 07/11/24 09:41 Pulse Ox 93 07/11/24 08:51 O2 Del Method Nasal Cannula 07/11/24 08:51 O2 Flow Rate 2 07/11/24 08:51 BMI result Body Mass Index 49.6 lethargic, oriented times 3, ill appearing, nauseous, abd soft, diminshed lung sounds, suicidal Objective Data Active Medications Acetaminophen (Acetaminophen 325 Mg Tablet) 650 mg PO Q6H PRN PRN Reason: Pain, Mild 1-3,fever,headache Albuterol Sulfate (Albuterol Sulfate 90 Mcg 8 Gm Inhaler) 2 puff INHALE QID PRN PRN Reason: wheezing Albuterol/Ipratropium (Albuterol/Iprat 2.5/0.5mg 3 Ml Ampul.Neb) 3 ml INHALE RQ4H WHILE AWAKE PRN PRN Reason: Shortness of Breath Last Admin: 07/11/24 06:33 Dose: 3 ml Documented By: ARACELIS Apixaban (Apixaban 5 Mg Tablet) 5 mg PO BID [facility] Last Admin: 07/11/24 09:47 Dose: Not Given Documented By: MARYURI Non-Admin Reason: vomitting Atorvastatin Calcium (Atorvastatin Calcium 20 Mg Tablet) 20 mg PO DAILY [facility] Last Admin: 07/11/24 09:47 Dose: Not Given Documented By: MARYURI Non-Admin Reason: vomitting Brexpiprazole (Brexpiprazole 1 Mg Tablet) 1 mg PO DAILY [facility] Last Admin: 07/11/24 09:47 Dose: Not Given Documented By: MARUYRI Non-Admin Reason: vomitting Calcium Carbonate (Calcium Carbonate 750 Mg Tab.Chew) 750 mg PO Q4H PRN PRN Reason: Heartburn Clonazepam (Clonazepam 0.5 Mg Tablet) 0.5 mg PO BEDTIME [facility] Clonazepam (Clonazepam 1 Mg Tablet) 1 mg PO BID [facility] Last Admin: 07/11/24 09:47 Dose: Not Given Documented By: MARYURI Non-Admin Reason: vomitting Diazepam (Diazepam 10 Mg/2 Ml Cartridge) 2.5 mg IVPUSH Q8H PRN PRN Reason: Anxiety Last Admin: 07/11/24 09:36 Dose: 2.5 mg Documented By: MARYURI Duloxetine HCl (Duloxetine Hcl 60 Mg Capsule.Dr) 60 mg PO BID [facility] Last Admin: 07/11/24 09:48 Dose: Not Given Documented By: MARYURI Non-Admin Reason: vomitting Furosemide (Furosemide 20 Mg Tablet) 20 mg PO DAILY [facility]; Protocol Last Admin: 07/11/24 09:48 Dose: Not Given Documented By: MARYURI Non-Admin Reason: vomitting Gabapentin (Gabapentin 400 Mg Capsule) 800 mg PO TID [facility] Last Admin: 07/11/24 09:48 Dose: Not Given Documented By: MARYURI Non-Admin Reason: vomitting Piperacillin Sod/Tazobactam (Sod 4.5 gm/ Sodium Chloride) 100 mls @ 200 mls/hr IV Q6H ROBI Last Admin: 07/11/24 09:23 Dose: 200 mls/hr Documented By: MARYURI Lactated Ringer's (Lr) 1,000 mls @ 150 mls/hr IVCONT .Q6H40M [facility] Last Infusion: 07/11/24 07:31 Dose: 150 mls/hr Documented By: JANEY Lamotrigine (Lamotrigine 25 Mg Tablet) 150 mg PO BID [facility] Last Admin: 07/11/24 09:48 Dose: Not Given Documented By: MARYURI Non-Admin Reason: vomitting Lisinopril (Lisinopril 5 Mg Tablet) 5 mg PO DAILY [facility]; Protocol Last Admin: 07/11/24 09:48 Dose: Not Given Documented By: MARYURI Non-Admin Reason: vomitting Magnesium Hydroxide (Milk Of Magnesia 30 Ml Oral.Susp) 30 ml PO DAILY PRN PRN Reason: Constipation Melatonin (Melatonin 3 Mg Tablet) 6 mg PO BEDTIME PRN PRN Reason: Insomnia Metoprolol Succinate (Metoprolol Succinate Er 50 Mg Tab.Er.24h) 50 mg PO DAILY [facility]; Protocol Last Admin: 07/11/24 09:48 Dose: Not Given Documented By: MARYURI Non-Admin Reason: vomitting Metoprolol Tartrate (Metoprolol Tartrate 5 Mg/5 Ml Vial) 5 mg IVPUSH Q6H PRN; Protocol PRN Reason: hr>90 Last Admin: 07/11/24 09:41 Dose: 5 mg Documented By: MARYURI Non-Formulary Medication (Umeclidinium-Vilanterol [Anoro Ellipta]) 1 each INHALE DAILY [facility] Omeprazole (Omeprazole 20 Mg Capsule.Dr) 20 mg PO DAILY@0630 [facility] Last Admin: 07/11/24 04:52 Dose: Not Given Documented By: JANEY Non-Admin Reason: NPO Ondansetron HCl (Ondansetron Hcl 4 Mg/2 Ml Vial) 4 mg IVPUSH Q8H PRN PRN Reason: Nausea and Vomiting Last Admin: 07/11/24 07:44 Dose: 4 mg Documented By: MARYURI Oxybutynin Chloride (Oxybutynin Chloride Er 5 Mg Tab.Er.24) 10 mg PO DAILY [facility] Last Admin: 07/11/24 09:48 Dose: Not Given Documented By: MARYURI Non-Admin Reason: vomitting Sodium Chloride (0.9 % Sodium Chloride Flush 3 Ml Syringe) 3 ml IVFLUSH QSHIFT [facility] Last Admin: 07/11/24 09:31 Dose: 3 ml Documented By: MARYURI Tizanidine HCl (Tizanidine Hcl 4 Mg Tablet) 4 mg PO Q6H [facility] Last Admin: 07/11/24 04:18 Dose: Not Given Documented By: JANEY Non-Admin Reason: NPO Labs 07/11/24 06:53 07/11/24 06:53 Labs: Laboratory Results - last 24 hr 07/10/24 07/10/24 07/10/24 10:37 11:00 11:47 MCV 100.0 H MCH 33.5 H MCHC 33.5 RDW 12.8 Plt Count 269 MPV 9.1 L Immature Gran % (Auto) 0.3 Neut % (Auto) 67.9 Lymph % (Auto) 23.3 [place] % (Auto) 7.0 Eos % (Auto) 0.9 Baso % (Auto) 0.6 Lymph # (Auto) 2.1 [place] # (Auto) 0.6 Eos # (Auto) 0.1 Baso # (Auto) 0.1 Abs Immat Gran (auto) 0.03 Absolute Neuts (auto) 6.1 Absolute Nucleated RBC 0.000 Nucleated RBC % (auto) 0.0 PT 11.3 Whole Blood PT 12.2 INR 1.0 Whole Blood INR 1.0 APTT 24.8 L VBG pH VBG pCO2 VBG pO2 VBG HCO3 VBG O2 Saturation VBG Base Excess Anion Gap Estim Creat Clear Calc Estimated GFR POC Glucose 137 H Random Glucose Lactic Acid Lactic Acid F/U @ 2Hr Calcium Magnesium Total Bilirubin Direct Bilirubin AST ALT Alkaline Phosphatase B-Natriuretic Peptide 11 Total Protein Albumin Triglycerides Cholesterol LDL Cholesterol, Calc HDL Cholesterol Urine Color Urine Appearance Urine pH Ur Specific [place] Urine Protein Urine Glucose (UA) Urine Ketones Urine Blood Urine Nitrite Ur Leukocyte Esterase Urine RBC Urine WBC Ur Squamous Epith Cells Urine Bacteria Hyaline Casts Urine Test Salicylates Urine Opiates Screen Ur Buprenorphine Scrn Ur Oxycodone Screen Urine Methadone Screen Urine Fentanyl Screen Acetaminophen Ur Barbiturates Screen Ur Phencyclidine Scrn Ur Amphetamines Screen U Benzodiazepines Scrn Urine Cocaine Screen U Marijuana (THC) Screen Ethyl Alcohol 07/10/24 07/10/24 07/10/24 11:56 12:50 12:58 MCV MCH MCHC RDW Plt Count MPV Immature Gran % (Auto) Neut % (Auto) Lymph % (Auto) [place] % (Auto) Eos % (Auto) Baso % (Auto) Lymph # (Auto) [place] # (Auto) Eos # (Auto) Baso # (Auto) Abs Immat Gran (auto) Absolute Neuts (auto) Absolute Nucleated RBC Nucleated RBC % (auto) PT Whole Blood PT INR Whole Blood INR APTT VBG pH 7.47 H VBG pCO2 39 VBG pO2 72 VBG HCO3 28 H VBG O2 Saturation 97.0 VBG Base Excess 4.9 Anion Gap 12 Estim Creat Clear Calc 161.4 Estimated GFR > 60 POC Glucose Random Glucose 136 H Lactic Acid 3.0 H* Lactic Acid F/U @ 2Hr Calcium 9.1 Magnesium 1.8 Total Bilirubin 0.4 Direct Bilirubin 0.2 AST 31 ALT 26 Alkaline Phosphatase 59 B-Natriuretic Peptide Total Protein 6.4 L Albumin 3.7 Triglycerides 110 Cholesterol 134 LDL Cholesterol, Calc 57 HDL Cholesterol 55 Urine Color Urine Appearance Urine pH Ur Specific [place] Urine Protein Urine Glucose (UA) Urine Ketones Urine Blood Urine Nitrite Ur Leukocyte Esterase Urine RBC Urine WBC Ur Squamous Epith Cells Urine Bacteria Hyaline Casts Urine Test Salicylates < 5.0 L Urine Opiates Screen Ur Buprenorphine Scrn Ur Oxycodone Screen Urine Methadone Screen Urine Fentanyl Screen Acetaminophen < 3 Ur Barbiturates Screen Ur Phencyclidine Scrn Ur Amphetamines Screen U Benzodiazepines Scrn Urine Cocaine Screen U Marijuana (THC) Screen Ethyl Alcohol < 10 07/10/24 07/10/24 07/11/24 13:06 14:50 03:39 MCV MCH MCHC RDW Plt Count MPV Immature Gran % (Auto) Neut % (Auto) Lymph % (Auto) [place] % (Auto) Eos % (Auto) Baso % (Auto) Lymph # (Auto) [place] # (Auto) Eos # (Auto) Baso # (Auto) Abs Immat Gran (auto) Absolute Neuts (auto) Absolute Nucleated RBC Nucleated RBC % (auto) PT Whole Blood PT INR Whole Blood INR APTT VBG pH VBG pCO2 VBG pO2 VBG HCO3 VBG O2 Saturation VBG Base Excess Anion Gap Estim Creat Clear Calc Estimated GFR POC Glucose Random Glucose Lactic Acid 4.3 H* Lactic Acid F/U @ 2Hr 3.3 H* Calcium Magnesium Total Bilirubin Direct Bilirubin AST ALT Alkaline Phosphatase B-Natriuretic Peptide Total Protein Albumin Triglycerides Cholesterol LDL Cholesterol, Calc HDL Cholesterol Urine Color Yellow Urine Appearance Turbid Urine pH 7.0 Ur Specific [place] 1.010 Urine Protein Trace Urine Glucose (UA) 500 H Urine Ketones Negative Urine Blood Small (1+) H Urine Nitrite Negative Ur Leukocyte Esterase Moderate (2+) H Urine RBC 0-2 Urine WBC 0-5 Ur Squamous Epith Cells 11-20 Urine Bacteria 3+ Hyaline Casts 0-2 Urine Test NEGATIVE Salicylates Urine Opiates Screen Not Detected Ur Buprenorphine Scrn Not Detected Ur Oxycodone Screen Not Detected Urine Methadone Screen Not Detected Urine Fentanyl Screen Not Detected Acetaminophen Ur Barbiturates Screen Not Detected Ur Phencyclidine Scrn Not Detected Ur Amphetamines Screen Not Detected U Benzodiazepines Scrn Not Detected Urine Cocaine Screen Not Detected U Marijuana (THC) Screen POSITIVE H Ethyl Alcohol 07/11/24 07/11/24 06:51 06:53 MCV 97.6 MCH 33.3 H MCHC 34.2 RDW 12.9 Plt Count 284 MPV 9.0 L Immature Gran % (Auto) Neut % (Auto) Lymph % (Auto) [place] % (Auto) Eos % (Auto) Baso % (Auto) Lymph # (Auto) [place] # (Auto) Eos # (Auto) Baso # (Auto) Abs Immat Gran (auto) Absolute Neuts (auto) Absolute Nucleated RBC 0.000 Nucleated RBC % (auto) 0.0 PT Whole Blood PT INR Whole Blood INR APTT VBG pH VBG pCO2 VBG pO2 VBG HCO3 VBG O2 Saturation VBG Base Excess Anion Gap 16 Estim Creat Clear Calc 143.6 Estimated GFR > 60 POC Glucose Random Glucose 134 H Lactic Acid Lactic Acid F/U @ 2Hr 3.1 H* Calcium 9.5 Magnesium Total Bilirubin 0.8 Direct Bilirubin AST 47 H ALT 29 Alkaline Phosphatase 62 B-Natriuretic Peptide Total Protein 7.0 Albumin 4.0 Triglycerides Cholesterol LDL Cholesterol, Calc HDL Cholesterol Urine Color Urine Appearance Urine pH Ur Specific [place] Urine Protein Urine Glucose (UA) Urine Ketones Urine Blood Urine Nitrite Ur Leukocyte Esterase Urine RBC Urine WBC Ur Squamous Epith Cells Urine Bacteria Hyaline Casts Urine Test Salicylates Urine Opiates Screen Ur Buprenorphine Scrn Ur Oxycodone Screen Urine Methadone Screen Urine Fentanyl Screen Acetaminophen Ur Barbiturates Screen Ur Phencyclidine Scrn Ur Amphetamines Screen U Benzodiazepines Scrn Urine Cocaine Screen U Marijuana (THC) Screen Ethyl Alcohol Assessment and Plan (1) Intentional olanzapine overdose: Status: Acute Plan 58F PMH chronic hypoxic and hypercapnic respiratory failure on 2 L due to COPD, hypertension, chronic back pain, opiate dependence, mood disorder presented with altered mental status after intentional olanzapine overdose Acute toxic metabolic encephalopathy due to intentional olanzapine overdose due to mood disorder with suicide ideation Monitoring on tele, mental status slowly improving, Valium p.r.n. Care team once medically cleared Continue 1:1 Sepsis and acute hypoxic respiratory failure due to aspiration pneumonia Not severe sepsis, acute lactic acidosis due to drug overdose not infection Continue Zosyn, follow up cultures Wean O2 as tolerated Nodular lesion on chest x-ray Outpatient follow up Hypertension Lisinopril, metoprolol History of PE Continue Eliquis Full Code reason for continued hospitalization: Hypoxia, fevers Quality Stroke Does the patient have a stroke diagnosis?: No VTE Prior VTE?: No VTE Risk Level:: Medical - moderate - high VTE Device Contraindication: Treatment Not Indicated VTE Drug Contraindication: N/A - Med Ordered
--- NOTE | 2024-07-11 11:06 | MHC.SLORD ---
Addendum entered and electronically signed by Britta Henry MA, CCC-FOLEY ARTIST 07/11/24 16:48: Per RN, still not appropriate for swallow eval at this time. Original Note: Addendum entered and electronically signed by Britta eHnry MA, CCC-FOLEY ARTIST 07/11/24 13:56: Per RN, patient continues to vomit. FOLEY ARTIST to check in again before the end of shift. Original Note: Speech Language Pathology Order Status: FOLEY ARTIST arrived for bedside swallow. RN reports patient is not appropriate at this time as she is constantly vomiting. Plan to re-attempt later this afternoon.
[2024-07-11 18:15] LABS: ABG Base Excess 0.8 mmol/L; ABG HCO3 27 mmol/L (22-26); ABG pCO2 52 mmHg (32-45); ABG pH 7.32 (7.35-7.45); ABG pO2 111 mmHg (83-108)
--- NOTE | 2024-07-11 18:41 | P.EN_ITS ---
Event Note Date of Service: 07/11/24 Event Note: A stat RN call was made for the patient who experienced an episode of vomiting followed by hematemesis and a significant drop in oxygen saturation into the 60s?70s. She was noted to have new stridor and increased work of breathing. Her oxygen support was increased to the maximum setting, resulting in improvement in oxygen saturation to the high 90s and return of normal skin color.A stat chest X-ray showed interstitial edema versus pneumonia, with no significant change from earlier imaging. The patient is currently on antibiotics for possible aspiration. She remains confused and encephalopathic, likely due to a toxic overdose of Zyprexa and possibly other sedating medications. Her medication regimen includes multiple CONSTRUCTION SAFETY CONSULTANT depressants such as Klonopin, Valium, Gabapentin, Flexeril, and Benadryl.She is started on IV Protonix for coffee-ground emesis. Repeat CBC and BNP are ordered. One dose of IV Lasix was given as she is currently 3.6 liters fluid positive. Some psychiatric medications have been reduced due to concern for over-sedation. After discussion with the skein winding operator, given the concern for aspiration events, increased work of breathing, and high risk for decompensation, the decision was made to transfer the patient to the ICU for close monitoring. She has otherwise been hemodynamically stable. Time Spent With Patient Time: Total time managing care of this patient today _55___ minutes.
[2024-07-11 19:06] LABS: Hematocrit 44.4 % (37.0-47.0); Mean Corpuscular HGB Conc 33.8 g/dl (31.0-35.0); Mean Corpuscular Hemoglobin 33.4 pg (27.0-33.0); Mean Corpuscular Volume 98.9 fL (80.0-98.0); Mean Platelet Volume 9.2 fL (9.4-12.3); Platelet Count 328 X10*3/uL (160-400); Red Blood Count 4.49 X10*6/uL (4.20-5.50); White Blood Count 19.4 X10*3/uL (4.8-10.8)
--- NOTE | 2024-07-11 19:10 | PC.NURSE ---
Pt had been vomiting light brown/bile throughout the day. At 1730 while assessing patient, pt had another episode of vomiting- noted to now be a coffee ground emesis, junky cough was increased, foamy emesis coming out, RN attempting to suction out but pt fighting it. Pt sounded like she was choking. notified and provider to room to assess pt. Pt was on 2 L O2 today - pt was then satting 60s on pulseox (other VSS) - turned up o2 resp called to room- maxed out on oxymask then sat 90s. CXR taken. ABGS taken. (see results). Pt RR 30. Hear rate increasing to 130s. Pt uncooperative, very confused, talking nonsensical. Increased effort but sat 90s. Able to turn O2 down to 8L oxymask mantaining sat 90s. Pt still increased resp effort, gasping at times. HR still increased 130s. ICU called and accepted patient. Transfered to ICU. PRN Valium given in ICU to gas fitter helper patient while getting additional IV access. Reported off to JOB DEVELOPER
[2024-07-11 19:27] LABS: B Type Natriuretic Peptide 79 pg/mL (<100)
[2024-07-11] MEDS: dexmedeTOMIDine HCL/NS 400 MCG/100 ML PLAST..BAG 38.08 MCG IVCONT ×2 (19:55→22:00)
[2024-07-11] MEDS: propofoL 200 MG/20 ML VIAL IVPUSH (20:20)
[2024-07-11] MEDS: propofoL 1,000 MG/100 ML VIAL 45.69 MG IVCONT ×2 (20:20→22:01)
--- NOTE | 2024-07-11 20:50 | W.PM.CCHP ---
Procedures Date of Service Date of Service: 07/11/24 Intubation Intubation Comments: Began vomiting large amount brown liquid emesis. She likely aspirated. She became tachypneic with respiratory rate mid to high 40s, heart rate 140s, BP 170s/100s. Once intubated, voluminous dark brown secretions filled the ET tube and were removed with a suction catheter. Large volume was also suctioned through the OG tube. Consent for Procedure: Emergent-no informed consent obtained Time out performed: Yes Sedative: propofol Mg given: 200 Laryngoscope: fiber optic video scope ET tube size: 7.5 ET tube uncuffed: Yes Tube secured depth (cm): 23 Tube secured location: lips Tube placement confirmation: visualized tube passing through cords, equal breath sounds bilaterally, no breath sounds over epigastrium and confirmation by capnometry Patient tolerated procedure: well and no complications Intubation complications: none
[2024-07-11] MEDS: Furosemide 40 MG/4 ML VIAL IVPUSH (20:55)
[2024-07-11] MEDS: Pantoprazole Sodium 40 MG/10 ML VIAL IVPUSH (20:55)
[2024-07-11 21:23] LABS: Hematocrit 43.9 % (37.0-47.0); Hemoglobin 14.5 g/dl (12.0-16.0); Mean Corpuscular Volume 99.8 fL (80.0-98.0); Mean Platelet Volume 9.1 fL (9.4-12.3); Platelet Count 274 X10*3/uL (160-400); Red Cell Distribution Width 13.1 % (11.0-16.0); White Blood Count 19.1 X10*3/uL (4.8-10.8)
[2024-07-11 21:32] LABS: VBG pH 7.47 (7.32-7.43)
[2024-07-11 21:33] LABS: VBG Base Excess 1.3 mmol/L; VBG HCO3 24 mmol/L (22-26); VBG pCO2 32 mmHg; VBG pO2 71 mmHg
[2024-07-11 21:43] LABS: Acetaminophen LAB < 3 mcg/mL (<30)
[2024-07-11 21:50] LABS: Reflex Lactate? Lactic Acid Added
[2024-07-11 22:35] LABS: ~Lactic Acid-LAB USE ONLY 3.5 mmol/L (0.5-2.0)
[2024-07-11] MEDS: iohexoL 350 MG/ML 100 ML INFUS..BTL 80 ML IV (22:59)
[2024-07-12] VITALS (41 sets, daily range): BP systolic 92–140; BP diastolic 39–75; PULSE 45–102; RESP 18–27; TEMP 32–38; O2SAT 91–99
[2024-07-12] MEDS: Piperacillin Sodium/Tazobactam 4.5 GM in 0.9 % Sodium Chloride 100 ML IV ×5 (00:01→23:52)
[2024-07-12] MEDS: Norepinephrine Bitartrate/D5W 8 MG/250 ML PLAST..BAG 14.28 MG IVCONT (00:02)
[2024-07-12 00:09] LABS: Venous Blood Gas Refer to POC result
[2024-07-12] MEDS: propofoL 1,000 MG/100 ML VIAL 45.69 MG IVCONT ×12 (00:09→23:43)
[2024-07-12] MEDS: 0.9 % Sodium Chloride Flush 3 ML SYRINGE IVFLUSH ×4 (00:13→23:47)
[2024-07-12 00:14] LABS: Reflex Lactate? 2 Y
[2024-07-12 00:34] LABS: Hematocrit 39.3 % (37.0-47.0); Hemoglobin 13.5 g/dl (12.0-16.0); Mean Corpuscular HGB Conc 34.4 g/dl (31.0-35.0); Mean Corpuscular Hemoglobin 34.3 pg (27.0-33.0); Mean Corpuscular Volume 99.7 fL (80.0-98.0); Mean Platelet Volume 9.2 fL (9.4-12.3); Platelet Count 273 X10*3/uL (160-400); Red Blood Count 3.94 X10*6/uL (4.20-5.50)
[2024-07-12 00:49] LABS: ~Lactic Acid-LAB USE ONLY 1.9 mmol/L (0.5-2.0)
[2024-07-12] MEDS: dexmedeTOMIDine HCL/NS 400 MCG/100 ML PLAST..BAG 38.08 MCG IVCONT ×6 (00:55→14:41)
[2024-07-12 05:21] LABS: VBG Base Excess 11.5 mmol/L; VBG HCO3 35 mmol/L (22-26); VBG pCO2 43 mmHg; VBG pH 7.52 (7.32-7.43); VBG pO2 55 mmHg
[2024-07-12 05:22] LABS: Venous Blood Gas Refer to POC result
[2024-07-12 05:36] LABS: Basophils Absolute Auto 0.1 X10*3/uL (0.0-0.2); Basophils Percent Auto 0.3 % (0-2); Hematocrit 40.2 % (37.0-47.0); Hemoglobin 13.8 g/dl (12.0-16.0); Imm Gran Pct Auto 0.6 % (0.0-0.4); Lymphocytes Absolute Auto 1.6 X10*3/uL (1.2-4.9); Lymphocytes Percent Auto 8.9 % (20-40); MANUAL DIFF FLAG SCAN; Mean Corpuscular HGB Conc 34.3 g/dl (31.0-35.0); Mean Corpuscular Hemoglobin 33.3 pg (27.0-33.0); Mean Corpuscular Volume 97.1 fL (80.0-98.0); Monocytes Absolute Auto 1.8 X10*3/uL (0.1-1.2); Monocytes Percent Auto 10.2 % (2-11); Neutrophils Absolute Auto 14.2 x10*3/uL (2.0-8.3); PLT CLUMP 1; Red Blood Count 4.14 X10*6/uL (4.20-5.50); Red Cell Distribution Width 13.1 % (11.0-16.0); SCAN SMEAR FLAG 1
[2024-07-12 05:39] LABS: White Blood Count 17.7 X10*3/uL (4.8-10.8)
[2024-07-12 05:48] LABS: Albumin Level 3.8 g/dL (3.5-5.0); Anion Gap 19 (12-20); Blood Urea Nitrogen 22 mg/dL (9-16); Carbon Dioxide 26 mmol/L (22-29); Chloride 103 mmol/L (96-108); Estimated Glomerular Filt Rate 48; Glucose Random 188 mg/dL (60-115); Phosphorus 4.3 mg/dL (2.7-4.5); Potassium 4.1 mmol/L (3.3-5.1); Sodium 144 mmol/L (135-145)
[2024-07-12 05:59] LABS: Mean Platelet Volume 9.9 fL (9.4-12.3); Platelet Count 200 X10*3/uL (160-400)
[2024-07-12 06:00] LABS: SLIDE REVIEW VERIFIED
[2024-07-12] MEDS: Pantoprazole Sodium 40 MG/10 ML VIAL IVPUSH ×2 (06:25→15:53)
--- NOTE | 2024-07-12 07:19 | PC.NURSE ---
Neuro: Patient agitated at begining of shift pulling at lines and attempting to eat medical devices, sitter at bedside, redirectable at times Resp: increased respiratory effort and unable to follow commands, intubated at 2019, tolerated well with 200mg total of propofol, 7.5 ETT placed at 23 at the lip, later advanced to 26 at the lip, 50% Fio2 able to decrease to 40% later in shift, desats with repositioning.? Cardiac: ST to SR, Levophed started for decreased BP and MAP per provider, titrated per provider x1, see [facility]/: Alexsander NPO, OG placed per provider, drained total of 2250 this shift, dark brown emesis Integumentary/Musculoskeletal: bruising to arms bilaterally, redness to legs noted bilaterally, small gluteal slit tear noted, blanchable redness to buttocks noted
[2024-07-12] MEDS: Chlorhexidine Gluc Oral Rinse 15 ML MOUTHWASH BUCCAL ×3 (08:19→19:56)
--- NOTE | 2024-07-12 10:30 | P.CONGS_ITS ---
History of Present Illness Consult details Consult date: 07/12/24 Narrative: 58-year-old female with multiple medical problems including chronic hypercarbic respiratory failure, on home O2, anxiety, fibromyalgia, admitted on 07/10/2024 because of intentional olanzapine overdose. She was being managed the hospitalist service. However, yesterday she had worsening confusion and was seen to be trying to ingest foreign bodies in the room. She then had vomiting and became short of breath thereafter and hypoxic. She was therefore transferred to the intensive care unit and was intubated. She has been on the ventilator since last night therefore. She had been diagnosed to have aspiration pneumonia as well. She had a CAT scan last night because of her vomiting and this showed some dilated small bowel loops in the mid abdomen with an area suggestive of partial small-bowel obstruction She had an NG-tube since intubated last night and apparently had about 2 L of output overnight. According to the hospitalist service so was take care of her in the med surge unit, she did not complain of any abdominal pain. She remains on the ventilator and is currently sedated. Review of Systems 2 Review of Systems: Yes unobtainable due to endotracheal tube PMFSH Past Medical History Medical History (Updated 07/12/24 @ 11:49 by Dov Simpson MD) Partial small bowel obstruction Social History Social History Household Members: Children Housing: Apartment Comment: 1:1 supervision at bedside Patient Tobacco Use Status: Tobacco use Unknown service: No Meds Allergies Allergy/AdvReac Type Severity Reaction Status Date / Time bupropion Allergy Unknown Verified 07/10/24 11:18 codeine Allergy Unknown Verified 07/10/24 11:18 diclofenac Allergy Unknown Verified 07/10/24 11:18 divalproex sodium Allergy Unknown Verified 07/10/24 11:18 [From Depakote] doxepin [From Silenor] Allergy Unknown Verified 07/10/24 11:18 famotidine Allergy Unknown Verified 07/10/24 11:18 meloxicam Allergy Unknown Verified 07/10/24 11:18 naproxen Allergy Unknown Verified 07/10/24 11:18 nortriptyline Allergy Unknown Verified 07/10/24 11:18 oxycodone Allergy Unknown Verified 07/10/24 11:18 sertraline Allergy Unknown Verified 07/10/24 11:18 topiramate Allergy Unknown Verified 07/10/24 11:18 Active Medications: Current Medications Chlorhexidine Gluconate (Chlorhexidine Gluc Oral Rinse 15 Ml Mouthwash) 15 ml BUCCAL TID [facility] Last Admin: 07/12/24 08:19 Dose: 15 ml Dexmedetomidine HCl (Precedex) 400 mcg in 100 mls @ 0 mls/hr IVCONT .Q0M [facility]; Protocol Last Admin: 07/12/24 09:09 Dose: 1 mcg/kg/hr, 38.08 mls/hr Propofol (Diprivan) 1,000 mg in 100 mls @ 0 mls/hr IVCONT .Q0M [facility]; Protocol Last Admin: 07/12/24 08:28 Dose: 50 mcg/kg/min, 45.69 mls/hr Norepinephrine Bitartrate (Levophed) 8 mg in 250 mls @ 0 mls/hr IVCONT .Q0M [facility]; Protocol Last Titration: 07/12/24 05:20 Dose: 0.02 mcg/kg/min, 5.71 mls/hr Piperacillin Sod/Tazobactam (Sod 4.5 gm/ Sodium Chloride) 100 mls @ 200 mls/hr IV Q6H [facility] Last Infusion: 07/12/24 05:55 Dose: Infused Melatonin (Melatonin 3 Mg Tablet) 6 mg PO BEDTIME PRN PRN Reason: Insomnia Metoprolol Tartrate (Metoprolol Tartrate 5 Mg/5 Ml Vial) 5 mg IVPUSH Q6H PRN; Protocol PRN Reason: hr>90 Last Admin: 07/11/24 09:41 Dose: 5 mg Non-Formulary Medication (Umeclidinium-Vilanterol [Anoro Ellipta]) 1 each INHALE DAILY [facility] Ondansetron HCl (Ondansetron Hcl 4 Mg/2 Ml Vial) 4 mg IVPUSH Q8H PRN PRN Reason: Nausea and Vomiting Last Admin: 07/11/24 16:48 Dose: 4 mg Pantoprazole Sodium (Pantoprazole Sodium 40 Mg/10 Ml Vial) 40 mg IVPUSH BID@0630,1630 [facility] Last Admin: 07/12/24 06:25 Dose: 40 mg Sodium Chloride (0.9 % Sodium Chloride Flush 3 Ml Syringe) 3 ml IVFLUSH QSHIFT [facility] Last Admin: 07/12/24 08:19 Dose: 3 ml Home Medications ?Medication ?Instructions ?Recorded ?Confirmed ?Last Taken ?Type Lactobacillus rhamnosus GG 10 1 cap PO DAILY 07/10/24 07/10/24 Unknown History billion cell capsule (Culturelle) acetaminophen 325 mg tablet 650 mg PO BID PRN Pain 07/10/24 07/10/24 Unknown History albuterol sulfate 90 mcg/actuation 2 puff inhalation QID PRN wheezing 07/10/24 07/10/24 Unknown History aerosol inhaler (Ventolin HFA) apixaban 5 mg tablet (Eliquis) 5 mg PO BID 07/10/24 07/10/24 Unknown History atorvastatin 20 mg tablet 20 mg PO DAILY 07/10/24 07/10/24 Unknown History brexpiprazole 1 mg tablet (Rexulti) 1 mg PO DAILY 07/10/24 07/10/24 Unknown History buprenorphine 20 mcg/hour weekly 1 patch topical WE 07/10/24 07/10/24 07/09/24 History transdermal patch clonazepam 1 mg tablet 0.5 mg PO BEDTIME 07/10/24 07/10/24 Unknown History clonazepam 1 mg tablet 1 mg PO BID 07/10/24 07/10/24 Unknown History clotrimazole 1 % topical cream 1 appl topical BID PRN Rash 07/10/24 07/10/24 Unknown History dapagliflozin propanediol 10 mg 10 mg PO DAILY 07/10/24 07/10/24 Unknown History tablet (Farxiga) docusate calcium 240 mg capsule 480 mg PO BID 07/10/24 07/10/24 Unknown History (Kaopectate (docusate calcium)) duloxetine 60 mg capsule,delayed 60 mg PO BID 07/10/24 07/10/24 Unknown History release furosemide 20 mg tablet 20 mg PO DAILY 07/10/24 07/10/24 Unknown History gabapentin 800 mg tablet 800 mg PO TID 07/10/24 07/10/24 Unknown History lamotrigine 150 mg tablet 150 mg PO BID 07/10/24 07/10/24 Unknown History lisinopril 5 mg tablet 5 mg PO DAILY 07/10/24 07/10/24 Unknown History metoprolol succinate 25 mg 50 mg PO DAILY 07/10/24 07/10/24 Unknown History tablet,extended release 24 hr omeprazole 20 mg capsule,delayed 20 mg PO DAILY@0630 07/10/24 07/10/24 Unknown History release oxybutynin chloride 10 mg 10 mg PO DAILY 07/10/24 07/10/24 Unknown History tablet,extended release 24 hr tizanidine 4 mg tablet 4 mg PO Q6H 07/10/24 07/10/24 Unknown History umeclidinium 62.5 mcg-vilanterol 1 ea inhalation DAILY 07/10/24 07/10/24 Unknown History 25 mcg/actuation powdr for inhalation (Anoro Ellipta) Physical Exam 2 Vital Signs: Vital Signs: Last Vital Signs Temp 99.9 F 07/12/24 10:00 Pulse 61 07/12/24 10:00 Resp 25 H 07/12/24 10:00 BP 106/55 L 07/12/24 10:00 Pulse Ox 96 07/12/24 10:00 O2 Del Method Mechanical Ventil ation 07/12/24 10:00 O2 Flow Rate 9 07/11/24 19:00 FiO2 50 07/12/24 10:00 BMI result Body Mass Index 49.6 Const: Other: Morbidly obese, intubated, on ventilator support Resp: Other: On ventilator with adequate O2 sats currently Cardio: Rate: regular rate GI: Palpation (GI): Soft to palpation, not firm, no guarding and not rigid Results Labs 07/15/24 05:09 07/15/24 05:09 Labs: Abnormal lab results 07/11/24 07/11/24 07/11/24 Range/Units 18:12 18:52 19:40 WBC 19.4 H (4.8-10.8) X10*3/uL RBC (4.20-5.50) X10*6/uL MCV 98.9 H (80.0-98.0) fL MCH 33.4 H (27.0-33.0) pg MPV 9.2 L (9.4-12.3) fL Immature Gran % (Auto) (0.0-0.4) % Neut % (Auto) (45-73) % Lymph % (Auto) (20-40) % Carbon # (Auto) (0.1-1.2) X10*3/uL Abs Immat Gran (auto) (0.00-0.03) X10*3/uL Absolute Neuts (auto) (2.0-8.3) x10*3/uL ABG pH at Pt Temp 7.32 L (7.35-7.45) ABG pCO2 at Pt Temp 52 H (32-45) mmHg ABG pO2 at Pt Temp 111 H (83-108) mmHg ABG HCO3 27 H (22-26) mmol/L VBG pH (7.32-7.43) VBG HCO3 (22-26) mmol/L BUN (9-16) mg/dL Random Glucose (60-115) mg/dL Lactic Acid 7.0 H* (0.5-2.0) mmol/L Lactic Acid F/U @ 2Hr (0.5-2.0) mmol/L 07/11/24 07/11/24 07/12/24 Range/Units 21:15 22:10 00:28 WBC 19.1 H 21.0 H (4.8-10.8) X10*3/uL RBC 3.94 L (4.20-5.50) X10*6/uL MCV 99.8 H 99.7 H (80.0-98.0) fL MCH 34.3 H (27.0-33.0) pg MPV 9.1 L 9.2 L (9.4-12.3) fL Immature Gran % (Auto) (0.0-0.4) % Neut % (Auto) (45-73) % Lymph % (Auto) (20-40) % Carbon # (Auto) (0.1-1.2) X10*3/uL Abs Immat Gran (auto) (0.00-0.03) X10*3/uL Absolute Neuts (auto) (2.0-8.3) x10*3/uL ABG pH at Pt Temp (7.35-7.45) ABG pCO2 at Pt Temp (32-45) mmHg ABG pO2 at Pt Temp (83-108) mmHg ABG HCO3 (22-26) mmol/L VBG pH 7.47 H (7.32-7.43) VBG HCO3 (22-26) mmol/L BUN (9-16) mg/dL Random Glucose (60-115) mg/dL Lactic Acid (0.5-2.0) mmol/L Lactic Acid F/U @ 2Hr 3.5 H* (0.5-2.0) mmol/L 07/12/24 Range/Units 05:18 WBC 17.7 H (4.8-10.8) X10*3/uL RBC 4.14 L (4.20-5.50) X10*6/uL MCV (80.0-98.0) fL MCH 33.3 H (27.0-33.0) pg MPV (9.4-12.3) fL Immature Gran % (Auto) 0.6 H (0.0-0.4) % Neut % (Auto) 80.0 H (45-73) % Lymph % (Auto) 8.9 L (20-40) % Carbon # (Auto) 1.8 H (0.1-1.2) X10*3/uL Abs Immat Gran (auto) 0.10 H (0.00-0.03) X10*3/uL Absolute Neuts (auto) 14.2 H (2.0-8.3) x10*3/uL ABG pH at Pt Temp (7.35-7.45) ABG pCO2 at Pt Temp (32-45) mmHg ABG pO2 at Pt Temp (83-108) mmHg ABG HCO3 (22-26) mmol/L VBG pH 7.52 H (7.32-7.43) VBG HCO3 35 H (22-26) mmol/L BUN 22 H (9-16) mg/dL Random Glucose 188 H (60-115) mg/dL Lactic Acid (0.5-2.0) mmol/L Lactic Acid F/U @ 2Hr (0.5-2.0) mmol/L Short CBC 07/11/24 07/11/24 07/12/24 Range/Units 18:52 21:15 00:28 WBC 19.4 H 19.1 H 21.0 H (4.8-10.8) X10*3/uL Hgb 15.0 14.5 13.5 (12.0-16.0) g/dl Hct 44.4 43.9 39.3 (37.0-47.0) % Plt Count 328 274 273 (160-400) X10*3/uL 07/12/24 Range/Units 05:18 WBC 17.7 H (4.8-10.8) X10*3/uL Hgb 13.8 (12.0-16.0) g/dl Hct 40.2 (37.0-47.0) % Plt Count 200 D (160-400) X10*3/uL BMP 07/12/24 05:18 Sodium 144 Potassium 4.1 Chloride 103 Carbon Dioxide 26 BUN 22 H Creatinine 1.16 Calcium 9.0 Liver Function 07/12/24 Range/Units 05:18 Albumin 3.8 (3.5-5.0) g/dL Urine 07/10/24 Range/Units 13:06 Urine Color Yellow Urine Appearance Turbid Urine pH 7.0 (5.0-9.0) Ur Specific [place] 1.010 (1.005-1.025) Urine Protein Trace (Neg-Trace) mg/dL Urine Glucose (UA) 500 H (Negative) mg/dL Urine Test NEGATIVE (NEGATIVE) All other labs normal. Imaging Abdomen CT scan report/results: report reviewed and image reviewed CT scan - pelvis: report reviewed and image reviewed Additional studies: IMPRESSION: 1. Small-bowel obstruction with transition point in the midabdomen. 2. Enteric tube in the proximal stomach with side hole in the GE junction. Markedly distended stomach. Consider advancing 5-10 cm. 3. 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 4. Hepatic steatosis. Assessment and Plan (1) Partial small bowel obstruction: Status: Acute She was admitted for intentional overdose of olanzapine. She vomited last night and had to be intubated. She was now being treated for aspiration pneumonia I have reviewed her CAT scan and this does show some dilated small bowel loops proximally with a transition point in the mid abdomen. It was suggestive of partial small-bowel obstruction . This is likely from adhesions from a previous abdominal surgery as she has a long laparotomy scar in the midline. She has an NG tube in place. Her abdominal exam is benign at this time. According to nursing staff, she was distended last night and this seems to have resolved with the NG tube in place I would recommend keeping the NG tube in place for now. She may need a Gastrografin study down the line to define this. She is currently being treated for respiratory failure with aspiration pneumonia. I will follow along closely. Procedures Date of Service Date of Service: 07/15/24
--- NOTE | 2024-07-12 11:33 | P.PNCC_ITS ---
Subjective Subjective Date of Service: 07/12/24 Interval History: 58-year-old lady with underlying P on apixaban, obesity with likely obesity hypoventilation syndrome, substance abuse admitted on 07/11/2024 with alteration of mental status deemed to be secondary to intentional olanzapine overdose patient was admitted to telemetry who cruise monitoring. Hospital course significant for development of emesis and pulmonary aspiration resulting in respiratory distress requiring transfer to the intensive care unit and intubation. After placement of OG tube are paroxysmally 2 L drained from patient's stomach. Follow-up CT chest/abdomen/pelvis demonstrated small bowel obstruction. General surgery was consulted and elected to proceed with conservative nonoperative management. Events overnight as above. Critical Care Time (minutes): 60 Physical Exam 2 Vital Signs: Vital Signs: Last Vital Signs Temp 99.9 F 07/12/24 10:00 Pulse 61 07/12/24 10:00 Resp 25 H 07/12/24 10:00 BP 106/55 L 07/12/24 10:00 Pulse Ox 96 07/12/24 10:00 O2 Del Method Mechanical Ventil ation 07/12/24 10:00 O2 Flow Rate 9 07/11/24 19:00 FiO2 50 07/12/24 10:53 BMI result Body Mass Index 49.6 Const: General: no acute distress and other (Sedated on ventilatory support) Nutritional Appearance: obese Eyes: Sclerae: sclerae normal EOM: EOMs intact bilaterally Neck: Neck: Yes no lymphadenopathy, Yes trachea midline and Yes supple Resp: Effort & Inspection: normal respiratory effort and no respiratory distress Auscultation: clear to auscultation bilaterally Cardio: Rate: regular rate Rhythm: regular rhythm Heart sounds: no gallops, no murmurs and no rubs GI: Palpation (GI): Soft to palpation and nontender Auscultation: H ypoactive bowel sounds present Extrem: Other: Bilateral venous stasis dermatitis General: No clubbing, No cyanosis and Yes edema (Trace bilateral) Objective Data Labs 07/12/24 05:18 07/12/24 05:18 Labs: Laboratory Results - last 24 hr 07/11/24 07/11/24 07/11/24 18:12 18:52 18:53 WBC 19.4 H RBC 4.49 Hgb 15.0 Hct 44.4 MCV 98.9 H MCH 33.4 H MCHC 33.8 RDW 13.0 Plt Count 328 MPV 9.2 L Immature Gran % (Auto) Neut % (Auto) Lymph % (Auto) [place] % (Auto) Eos % (Auto) Baso % (Auto) Lymph # (Auto) [place] # (Auto) Eos # (Auto) Baso # (Auto) Abs Immat Gran (auto) Absolute Neuts (auto) Absolute Nucleated RBC 0.000 Nucleated RBC % (auto) 0.0 Smear Tech's Comments O2 Saturation 98.0 ABG pH at Pt Temp 7.32 L ABG pCO2 at Pt Temp 52 H ABG pO2 at Pt Temp 111 H ABG HCO3 27 H ABG Base Excess (Actual) 0.8 VBG pH VBG pCO2 VBG pO2 VBG HCO3 VBG O2 Saturation VBG Base Excess Sodium Potassium Chloride Carbon Dioxide Anion Gap BUN Creatinine Estim Creat Clear Calc Estimated GFR Random Glucose Lactic Acid Lactic Acid F/U @ 2Hr Lactic Acid F/U @ 4Hr Calcium Phosphorus Magnesium B-Natriuretic Peptide 79 Albumin Acetaminophen Blood Type A Negative Antibody Screen NEGATIVE 07/11/24 07/11/24 07/11/24 19:40 21:15 21:16 WBC 19.1 H RBC 4.40 Hgb 14.5 Hct 43.9 MCV 99.8 H MCH 33.0 MCHC 33.0 RDW 13.1 Plt Count 274 MPV 9.1 L Immature Gran % (Auto) Neut % (Auto) Lymph % (Auto) [place] % (Auto) Eos % (Auto) Baso % (Auto) Lymph # (Auto) [place] # (Auto) Eos # (Auto) Baso # (Auto) Abs Immat Gran (auto) Absolute Neuts (auto) Absolute Nucleated RBC 0.000 Nucleated RBC % (auto) 0.0 Smear Tech's Comments O2 Saturation ABG pH at Pt Temp ABG pCO2 at Pt Temp ABG pO2 at Pt Temp ABG HCO3 ABG Base Excess (Actual) VBG pH 7.47 H VBG pCO2 32 VBG pO2 71 VBG HCO3 24 VBG O2 Saturation 94.0 VBG Base Excess 1.3 Sodium Potassium Chloride Carbon Dioxide Anion Gap BUN Creatinine Estim Creat Clear Calc Estimated GFR Random Glucose Lactic Acid 7.0 H* Lactic Acid F/U @ 2Hr Lactic Acid F/U @ 4Hr Calcium Phosphorus Magnesium B-Natriuretic Peptide Albumin Acetaminophen < 3 Blood Type Antibody Screen 07/11/24 07/12/24 07/12/24 22:10 00:28 05:18 WBC 21.0 H 17.7 H RBC 3.94 L 4.14 L Hgb 13.5 13.8 Hct 39.3 40.2 MCV 99.7 H 97.1 MCH 34.3 H 33.3 H MCHC 34.4 34.3 RDW 13.0 13.1 Plt Count 273 200 D MPV 9.2 L 9.9 Immature Gran % (Auto) 0.6 H Neut % (Auto) 80.0 H Lymph % (Auto) 8.9 L [place] % (Auto) 10.2 Eos % (Auto) 0.0 Baso % (Auto) 0.3 Lymph # (Auto) 1.6 [place] # (Auto) 1.8 H Eos # (Auto) 0.0 Baso # (Auto) 0.1 Abs Immat Gran (auto) 0.10 H Absolute Neuts (auto) 14.2 H Absolute Nucleated RBC 0.000 0.000 Nucleated RBC % (auto) 0.0 0.0 Smear Tech's Comments VERIFIED O2 Saturation ABG pH at Pt Temp ABG pCO2 at Pt Temp ABG pO2 at Pt Temp ABG HCO3 ABG Base Excess (Actual) VBG pH 7.52 H VBG pCO2 43 VBG pO2 55 VBG HCO3 35 H VBG O2 Saturation 85.0 VBG Base Excess 11.5 Sodium 144 Potassium 4.1 Chloride 103 Carbon Dioxide 26 Anion Gap 19 BUN 22 H Creatinine 1.16 Estim Creat Clear Calc 83.0 Estimated GFR 48 Random Glucose 188 H Lactic Acid Lactic Acid F/U @ 2Hr 3.5 H* Lactic Acid F/U @ 4Hr 1.9 Calcium 9.0 Phosphorus 4.3 Magnesium 2.0 B-Natriuretic Peptide Albumin 3.8 Acetaminophen Blood Type Antibody Screen Microbiology Microbiology Results: Microbiology 07/10/24 Unknown Urine clean catch - Clean Catch Midstream Urine Culture - Final 07/10/24 14:50 Blood - Venous Blood Culture - Preliminary No growth after 24 hours. 07/10/24 14:50 Blood - Venous Blood Culture - Preliminary No growth after 24 hours. Progress Note: A&P Assessment and plan (1) Intentional olanzapine overdose: Status: Acute (2) Acute respiratory failure: Status: Acute (3) Pulmonary aspiration of gastric contents: Status: Acute (4) Small bowel obstruction: Status: Acute (5) Toxic encephalopathy: Status: Acute Plan Assessment: 58-year-old lady admitted with intentional olanzapine overdose with hospital course complicated by small-bowel obstruction in in aspiration of gastric content with acute hypoxic respiratory failure requiring intubation and ventilatory support Plan: Neuro: Toxic encephalopathy likely secondary to olanzapine overdose. Cardiac: No acute issues. Pulmonary: Acute hypoxic respiratory failure secondary to pulmonary aspiration of gastric content on the background of small bowel obstruction now requiring ventilatory support. Continue to titrate off as tolerated. Renal: Acute renal failure on background of small bowel obstruction with elevated lactate, likely secondary to intra-abdominal sequestering of fluids. Non oliguric. Continue to monitor renal indices and urine output. Endo: No acute issues. GI: CT abdomen with small-bowel obstruction. Evaluated by General surgery with plans for conservative nonoperative management at this time with OG tube decompression. ID: Empiric coverage for pulmonary aspiration pneumonitis versus pneumonia. Heme/Onc: No acute issues. Psych: No acute issues. Miscellaneous: No acute issues. Prophylaxis: Heparin, ppi Diet: NPO Critical care time spent: 60 minute Quality Stroke Does the patient have a stroke diagnosis?: No VTE Prior VTE?: No VTE Risk Level:: Medical - moderate - high VTE Device Contraindication: Treatment Not Indicated VTE Drug Contraindication: N/A - Med Ordered
--- NOTE | 2024-07-12 17:20 | PM.EVENT ---
Event Note Date of Service: 07/12/24 Event Note: Seen on afternoon rounds Remains on the ventilator Abdomen is soft, benign, does not appear distended NG tube output has decreased significantly since last night Keep NG tube in place ICU care Abdominal exam remains benign We will continue to follow Discussed with nursing staff Time Spent With Patient Time: Total time managing care of this patient today ____ minutes.
--- NOTE | 2024-07-12 17:36 | PC.NURSE ---
Addendum entered by Nikolai Mcqueen RN 07/12/24 18:05: at 1800, pt opened eyes, had purposeful movements, but was unable to follow commands. made aware. Versed administered per MAY. Original Note: Assumed care at 0700. Pt intubated and sedated, placed in bariatric bed overnight. Sitter in room for patient safety; order subsequently changed such that sitter is not needed when pt is intubated and sedated. At approx 1500, HR decreased. made aware; precedex drip titrated appropriately. NG remains on low intermittent suction. See MAR for medication details. Pt repositioned q2hr. Bed locked and in lowest position.
[2024-07-12] MEDS: Midazolam HCl 2 MG/2 ML VIAL 4 MG IVPUSH (18:00)
[2024-07-12 18:26] LABS: VBG Base Excess 11.7 mmol/L; VBG HCO3 35 mmol/L (22-26); VBG pCO2 43 mmHg; VBG pH 7.52 (7.32-7.43); VBG pO2 39 mmHg
[2024-07-12 18:29] LABS: Venous Blood Gas Refer to POC result
[2024-07-12 18:47] LABS: Anion Gap 17 (12-20); Blood Urea Nitrogen 24 mg/dL (9-16); Calcium 8.8 mg/dL (8.4-10.2); Carbon Dioxide 27 mmol/L (22-29); Chloride 105 mmol/L (96-108); Creatinine Clr Calc Pharmacy 76.3; Estimated Glomerular Filt Rate 43; Glucose Random 136 mg/dL (60-115); Potassium 4.1 mmol/L (3.3-5.1); Sodium 145 mmol/L (135-145)
[2024-07-12] MEDS: Heparin Sodium,Porcine 5,000 UNIT/ML VIAL 5000 UNIT SUBCUT (19:56)
[2024-07-12] MEDS: Midazolam HCl 2 MG/2 ML VIAL IVPUSH (20:26)
--- NOTE | 2024-07-12 22:33 | HO.SKINPHOTO ---
Location: Buttocks/ Gluteal Fold Category: Stage: Length: Width: Depth: cm
--- NOTE | 2024-07-12 22:39 | HO.SKINPHOTO ---
Location: Buttocks Category: Stage: Length: Width: Depth: cm
[2024-07-12] MEDS: Nystatin Powder 15 GM BOTTLE 1 APPL TOPICAL (23:46)
[2024-07-13] VITALS (43 sets, daily range): BP systolic 98–147; BP diastolic 43–84; PULSE 69–114; RESP 14–22; TEMP 32–38.2; O2SAT 89–98; BMI 50.4
[2024-07-13] MEDS: Midazolam HCl 2 MG/2 ML VIAL IVPUSH (00:45)
[2024-07-13] MEDS: propofoL 1,000 MG/100 ML VIAL 45.69 MG IVCONT ×10 (01:43→22:59)
[2024-07-13] MEDS: fentaNYL citrate/NS 1,000 MCG/100 ML PLAST..BAG 2.5 MCG IVCONT (03:07)
[2024-07-13] MEDS: Heparin Sodium,Porcine 5,000 UNIT/ML VIAL 5000 UNIT SUBCUT ×3 (03:13→19:39)
--- NOTE | 2024-07-13 04:29 | PC.NURSE ---
Assumed care of pt at 2300. Pt intubated on ventilator ACVC+ settings. No respiratory complications. Sedated on Propofol but started to wake up and restless, trying to reach up to ETT. Provider aware and Fentanyl drip ordered and titrated as necessary to maintain RASS -2 to -3. Vital signs stable. Monitor: SR-ST, 90's-115, no ectopy. OGT to low intermittent suction draining dark brown colored output. Urine via shea is concentrated zen colored.
[2024-07-13 05:19] LABS: VBG Base Excess 8.5 mmol/L; VBG HCO3 29 mmol/L (22-26); VBG pCO2 29 mmHg; VBG pH 7.61 (7.32-7.43); VBG pO2 74 mmHg
[2024-07-13] MEDS: Piperacillin Sodium/Tazobactam 4.5 GM in 0.9 % Sodium Chloride 100 ML IV ×4 (05:26→23:03)
[2024-07-13 05:38] LABS: Venous Blood Gas Refer to POC result
[2024-07-13 05:42] LABS: MANUAL DIFF FLAG NO
[2024-07-13] MEDS: Pantoprazole Sodium 40 MG/10 ML VIAL IVPUSH ×2 (05:52→16:14)
[2024-07-13 06:01] LABS: Alanine Aminotransferase 37 U/L (0-31); Albumin Level 3.8 g/dL (3.5-5.0); Alkaline Phosphatase 54 U/L (39-117); Anion Gap 18 (12-20); Aspartate Amino Transferase 76 U/L (5-31); Bilirubin Total 0.5 mg/dL (0.0-1.0); Blood Urea Nitrogen 19 mg/dL (9-16); Calcium 8.9 mg/dL (8.4-10.2); Carbon Dioxide 29 mmol/L (22-29); Chloride 103 mmol/L (96-108); Creatinine Clr Calc Pharmacy 96.2; Estimated Glomerular Filt Rate 57; Glucose Random 124 mg/dL (60-115); Magnesium 1.9 mg/dL (1.6-2.6); Phosphorus 3.2 mg/dL (2.7-4.5); Potassium 3.2 mmol/L (3.3-5.1); Sodium 147 mmol/L (135-145); Total Protein 6.9 g/dL (6.5-8.0)
[2024-07-13 06:02] LABS: Basophils Absolute Auto 0.1 X10*3/uL (0.0-0.2); Basophils Percent Auto 0.4 % (0-2); Eosinophils Absolute Auto 0.3 X10*3/uL (0.0-0.4); Hemoglobin 13.7 g/dl (12.0-16.0); Imm Gran Abs Auto 0.05 X10*3/uL (0.00-0.03); Imm Gran Pct Auto 0.3 % (0.0-0.4); Lymphocytes Absolute Auto 2.4 X10*3/uL (1.2-4.9); Lymphocytes Percent Auto 15.6 % (20-40); Mean Corpuscular HGB Conc 32.6 g/dl (31.0-35.0); Mean Corpuscular Hemoglobin 33.2 pg (27.0-33.0); Mean Corpuscular Volume 101.7 fL (80.0-98.0); Mean Platelet Volume 9.5 fL (9.4-12.3); Monocytes Absolute Auto 1.4 X10*3/uL (0.1-1.2); Monocytes Percent Auto 9.2 % (2-11); Neutrophils Absolute Auto 11.1 x10*3/uL (2.0-8.3); Neutrophils Percent Auto 72.5 % (45-73); Platelet Count 259 X10*3/uL (160-400); Red Blood Count 4.13 X10*6/uL (4.20-5.50); Red Cell Distribution Width 13.3 % (11.0-16.0); White Blood Count 15.3 X10*3/uL (4.8-10.8)
[2024-07-13] MEDS: Potassium Chloride/H20 10 MEQ/100 ML PIGGYBACK 100 MEQ IV ×4 (06:44→10:10)
[2024-07-13] MEDS: 0.9 % Sodium Chloride Flush 3 ML SYRINGE IVFLUSH ×3 (07:31→20:13)
[2024-07-13] MEDS: Nystatin Powder 15 GM BOTTLE 1 APPL TOPICAL ×3 (08:05→20:11)
[2024-07-13] MEDS: Chlorhexidine Gluc Oral Rinse 15 ML MOUTHWASH BUCCAL ×3 (08:05→20:12)
--- NOTE | 2024-07-13 09:00 | MHC.CLN ---
NUTRITION PATIENT IS INTUBATED/SEDATED AND HAS SMALL BOWEL OBSTRUCTION. REQUIRES NUTRITION AND HYDRATION VIA PPN. REVIEWED LABS. COMMUNICATED WITH PHARMACY. RECOMMEND START PPN TODAY AT 40 ML PER HOUR, 41 G PROTEIN, 96 G DEXTROSE, 490 KCALS. REPLETE LYTES NEEDED, CHECK TRIGLYCERIDES. PPN WITH SEDATION PROVIDES 1696 KCALS (25.7 KCALS/KG IBW). FOLLOW FOR PPN TOLERANCE, LYTES, PLAN OF CARE. SEE CLINICAL NUTRITION ASSESSMENT 07/13/24.
[2024-07-13] MEDS: fentaNYL citrate/NS 1,000 MCG/100 ML PLAST..BAG 15 MCG IVCONT ×3 (09:49→19:21)
--- NOTE | 2024-07-13 10:28 | PM.CCPN ---
Subjective Subjective Date of Service: 07/13/24 Interval History: 58-year-old lady with underlying PE on apixaban, obesity with likely obesity hypoventilation syndrome, substance abuse admitted on 07/11/2024 with alteration of mental status deemed to be secondary to intentional olanzapine overdose patient was admitted to telemetry who cruise monitoring. Hospital course significant for development of emesis and pulmonary aspiration resulting in respiratory distress requiring transfer to the intensive care unit and intubation. After placement of OG tube are paroxysmally 2 L drained from patient's stomach. Follow-up CT chest/abdomen/pelvis demonstrated small bowel obstruction. General surgery was consulted and elected to proceed with conservative nonoperative management. No events overnight. OG-tube output decreased significantly. Critical Care Time (minutes): 45 Physical Exam Vital Signs: Vital Signs: Last Vital Signs Temp 100.4 F 07/13/24 10:00 Pulse 107 H 07/13/24 10:00 Resp 18 07/13/24 10:00 BP 112/63 07/13/24 10:00 Pulse Ox 94 07/13/24 10:00 O2 Del Method Mechanical Ventil ation 07/13/24 10:00 O2 Flow Rate 9 07/11/24 19:00 FiO2 30 07/13/24 10:00 BMI result Body Mass Index 50.4 Const: General: no acute distress and other (Sedated on ventilatory support) Nutritional Appearance: obese Eyes: Sclerae: sclerae normal EOM: EOMs intact bilaterally Neck: Neck: Yes no lymphadenopathy, Yes trachea midline and Yes supple Resp: Auscultation: clear to auscultation bilaterally Cardio: Rate: tachycardic Rhythm: regular rhythm Heart sounds: no gallops, no murmurs and no rubs GI: Palpation (GI): Soft to palpation and nontender Auscultation: Hypoactive bowel sounds present Extrem: General: Yes no pedal edema, No clubbing and No cyanosis Objective Data Labs 07/13/24 05:20 07/13/24 05:20 Labs: Laboratory Results - last 24 hr 07/12/24 07/12/24 07/13/24 18:21 18:22 05:15 WBC RBC Hgb Hct MCV MCH MCHC RDW Plt Count MPV Immature Gran % (Auto) Neut % (Auto) Lymph % (Auto) [place] % (Auto) Eos % (Auto) Baso % (Auto) Lymph # (Auto) [place] # (Auto) Eos # (Auto) Baso # (Auto) Abs Immat Gran (auto) Absolute Neuts (auto) Absolute Nucleated RBC Nucleated RBC % (auto) VBG pH 7.52 H 7.61 H* VBG pCO2 43 29 VBG pO2 39 74 VBG HCO3 35 H 29 H VBG O2 Saturation 61.0 97.0 VBG Base Excess 11.7 8.5 Sodium 145 Potassium 4.1 Chloride 105 Carbon Dioxide 27 Anion Gap 17 BUN 24 H Creatinine 1.26 Estim Creat Clear Calc 76.3 Estimated GFR 43 Random Glucose 136 H Calcium 8.8 Phosphorus Magnesium Total Bilirubin AST ALT Alkaline Phosphatase Total Protein Albumin 07/13/24 05:20 WBC 15.3 H RBC 4.13 L Hgb 13.7 Hct 42.0 MCV 101.7 H MCH 33.2 H MCHC 32.6 RDW 13.3 Plt Count 259 D MPV 9.5 Immature Gran % (Auto) 0.3 Neut % (Auto) 72.5 Lymph % (Auto) 15.6 L [place] % (Auto) 9.2 Eos % (Auto) 2.0 Baso % (Auto) 0.4 Lymph # (Auto) 2.4 [place] # (Auto) 1.4 H Eos # (Auto) 0.3 Baso # (Auto) 0.1 Abs Immat Gran (auto) 0.05 H Absolute Neuts (auto) 11.1 H Absolute Nucleated RBC 0.000 Nucleated RBC % (auto) 0.0 VBG pH VBG pCO2 VBG pO2 VBG HCO3 VBG O2 Saturation VBG Base Excess Sodium 147 H Potassium 3.2 L D Chloride 103 Carbon Dioxide 29 Anion Gap 18 BUN 19 H Creatinine 1.00 Estim Creat Clear Calc 96.2 Estimated GFR 57 Random Glucose 124 H Calcium 8.9 Phosphorus 3.2 Magnesium 1.9 Total Bilirubin 0.5 AST 76 H ALT 37 H Alkaline Phosphatase 54 Total Protein 6.9 Albumin 3.8 Microbiology Microbiology Results: Microbiology 07/11/24 21:16 Blood - Venous Blood Culture - Preliminary No growth after 24 hours. 07/11/24 21:16 Blood - Venous Blood Culture - Preliminary No growth after 24 hours. 07/10/24 14:50 Blood - Venous Blood Culture - Preliminary No growth after 48 hours. 07/10/24 14:50 Blood - Venous Blood Culture - Preliminary No growth after 48 hours. 07/10/24 Unknown Urine clean catch - Clean Catch Midstream Urine Culture - Final Progress Note: A&P Assessment and plan (1) Small bowel obstruction: Status: Acute (2) Pulmonary aspiration of gastric contents: Status: Acute (3) Intentional olanzapine overdose: Status: Acute Plan Assessment: 58-year-old lady admitted with intentional olanzapine overdose with hospital course complicated by small-bowel obstruction in in aspiration of gastric content with acute hypoxic respiratory failure requiring intubation and ventilatory support Plan: Neuro: Toxic encephalopathy likely secondary to olanzapine overdose. Cardiac: No acute issues. Pulmonary: Acute hypoxic respiratory failure secondary to pulmonary aspiration of gastric content on the background of small bowel obstruction now requiring ventilatory support. Continue to titrate off as tolerated. Renal: Acute renal failure on background of small bowel obstruction with elevated lactate, likely secondary to intra-abdominal sequestering of fluids. Non oliguric. Continue to monitor renal indices and urine output. Endo: No acute issues. GI: CT abdomen with small-bowel obstruction. Evaluated by General surgery with plans for conservative nonoperative management at this time with OG tube decompression. Now with significantly improved her OG-tube output. ID: Empiric coverage for pulmonary aspiration pneumonitis versus pneumonia. Heme/Onc: No acute issues. Psych: Intentional olanzapine overdose, psychiatry evaluation after extubation and 1:1 sitter. Miscellaneous: No acute issues. Prophylaxis: Heparin, ppi Diet: PPN Critical care time spent: 60 minute Quality Stroke Does the patient have a stroke diagnosis?: No VTE Prior VTE?: No VTE Risk Level:: Medical - moderate - high VTE Device Contraindication: Treatment Not Indicated VTE Drug Contraindication: N/A - Med Ordered
[2024-07-13 12:15] LABS: VBG HCO3 34 mmol/L (22-26); VBG pCO2 50 mmHg; VBG pH 7.44 (7.32-7.43); VBG pO2 50 mmHg
[2024-07-13 12:30] LABS: Anion Gap 15 (12-20); Blood Urea Nitrogen 16 mg/dL (9-16); Calcium 8.5 mg/dL (8.4-10.2); Carbon Dioxide 29 mmol/L (22-29); Chloride 105 mmol/L (96-108); Creatinine Clr Calc Pharmacy 105.6; Estimated Glomerular Filt Rate > 60; Glucose Random 107 mg/dL (60-115); Potassium 3.5 mmol/L (3.3-5.1); Sodium 145 mmol/L (135-145)
--- NOTE | 2024-07-13 13:24 | PM.PNGS ---
Subjective Subjective Date of Service: 07/13/24 Interval history: Remains on the ventilator but appears to have shown improvement NG tube output has decreased significantly Patient remained sedated Urine output borderline Physical Exam Vital Signs: Vital Signs: Last Vital Signs Temp 100.2 F 07/13/24 12:00 Pulse 102 H 07/13/24 12:00 Resp 18 07/13/24 12:00 BP 114/66 07/13/24 12:00 Pulse Ox 92 07/13/24 12:00 O2 Del Method Mechanical Ventil ation 07/13/24 12:00 O2 Flow Rate 9 07/11/24 19:00 FiO2 30 07/13/24 12:00 BMI result Body Mass Index 50.4 Const: Other: Sedated, on ventilator Resp: Other: On ventilator Cardio: Rate: tachycardic GI: Other: No apparent tenderness Inspection: No distended Palpation (GI): Soft to palpation, not firm and no guarding Objective Data Active Medications Albuterol Sulfate (Albuterol Sulfate (0.083%) 2.5 Mg/3 Ml Vial.Neb) 2.5 mg INHALE RQ4H PRN PRN Reason: Wheezing Chlorhexidine Gluconate (Chlorhexidine Gluc Oral Rinse 15 Ml Mouthwash) 15 ml BUCCAL TID [facility] Last Admin: 07/13/24 08:05 Dose: 15 ml Documented By: TERRY Heparin Sodium (Porcine) (Heparin Sodium,Porcine 5,000 Unit/Ml Vial) 5,000 unit SUBCUT Q8H [facility] Last Admin: 07/13/24 11:47 Dose: 5,000 unit Documented By: TERRY Dexmedetomidine HCl (Precedex) 400 mcg in 100 mls @ 0 mls/hr IVCONT .Q0M [facility]; Protocol Last Titration: 07/12/24 19:59 Dose: Infused Documented By: GARLAND Propofol (Diprivan) 1,000 mg in 100 mls @ 0 mls/hr IVCONT .Q0M [facility]; Protocol Last Admin: 07/13/24 12:32 Dose: 50 mcg/kg/min, 45.69 mls/hr Documented By: TERRY Norepinephrine Bitartrate (Levophed) 8 mg in 250 mls @ 0 mls/hr IVCONT .Q0M [facility]; Protocol Last Titration: 07/13/24 07:29 Dose: Infused Documented By: TERRY Piperacillin Sod/Tazobactam (Sod 4.5 gm/ Sodium Chloride) 100 mls @ 200 mls/hr IV Q6H [facility] Last Infusion: 07/13/24 11:47 Dose: Infused Documented By: TERRY Fentanyl (Sublimaze/Ns) 1,000 mcg in 100 mls @ 0 mls/hr IVCONT .Q0M [facility]; Protocol Last Admin: 07/13/24 09:49 Dose: 150 mcg/hr, 15 mls/hr Documented By: TERRY Nutrition (Parenteral) (Parenteral Nutrition) 960 mls @ 40 mls/hr IV .Q24H [facility]; Protocol Stop: 07/14/24 20:59 Melatonin (Melatonin 3 Mg Tablet) 6 mg PO BEDTIME PRN PRN Reason: Insomnia Metoprolol Tartrate (Metoprolol Tartrate 5 Mg/5 Ml Vial) 5 mg IVPUSH Q6H PRN; Protocol PRN Reason: hr>90 Last Admin: 07/11/24 09:41 Dose: 5 mg Documented By: MARYURI Naloxone HCl (Naloxone Hcl 0.4 Mg/Ml Vial) 0.2 mg IVPUSH Q2M PRN PRN Reason: Excessive sedation or RR < 8 Non-Formulary Medication (Umeclidinium-Vilanterol [Anoro Ellipta]) 1 each INHALE DAILY [facility] Nystatin (Nystatin Powder 15 Gm Bottle) 1 appl TOPICAL TID [facility]; Protocol Last Admin: 07/13/24 08:05 Dose: 1 appl Documented By: TERRY Ondansetron HCl (Ondansetron Hcl 4 Mg/2 Ml Vial) 4 mg IVPUSH Q8H PRN PRN Reason: Nausea and Vomiting Last Admin: 07/11/24 16:48 Dose: 4 mg Documented By: MARYURI Pantoprazole Sodium (Pantoprazole Sodium 40 Mg/10 Ml Vial) 40 mg IVPUSH BID@0630,1630 [facility] Last Admin: 07/13/24 05:52 Dose: 40 mg Documented By: ASYA Pharmacy Consult (Consult Rx Parenteral Nutrition Ordering) 1 each MISCELLANE DAILY PRN PRN Reason: Consult order Sodium Chloride (0.9 % Sodium Chloride Flush 3 Ml Syringe) 3 ml IVFLUSH QSHIFT [facility] Last Admin: 07/13/24 07:31 Dose: 3 ml Documented By: TERRY Labs 07/13/24 05:20 07/13/24 12:10 Labs: Laboratory Results - last 24 hr 07/12/24 07/12/24 07/13/24 18:21 18:22 05:15 MCV MCH MCHC RDW Plt Count MPV Immature Gran % (Auto) Neut % (Auto) Lymph % (Auto) [place] % (Auto) Eos % (Auto) Baso % (Auto) Lymph # (Auto) [place] # (Auto) Eos # (Auto) Baso # (Auto) Abs Immat Gran (auto) Absolute Neuts (auto) Absolute Nucleated RBC Nucleated RBC % (auto) VBG pH 7.52 H 7.61 H* VBG pCO2 43 29 VBG pO2 39 74 VBG HCO3 35 H 29 H VBG O2 Saturation 61.0 97.0 VBG Base Excess 11.7 8.5 Anion Gap 17 Estim Creat Clear Calc 76.3 Estimated GFR 43 Random Glucose 136 H Calcium 8.8 Phosphorus Magnesium Total Bilirubin AST ALT Alkaline Phosphatase Total Protein Albumin 07/13/24 07/13/24 07/13/24 05:20 12:10 12:11 MCV 101.7 H MCH 33.2 H MCHC 32.6 RDW 13.3 Plt Count 259 D MPV 9.5 Immature Gran % (Auto) 0.3 Neut % (Auto) 72.5 Lymph % (Auto) 15.6 L [place] % (Auto) 9.2 Eos % (Auto) 2.0 Baso % (Auto) 0.4 Lymph # (Auto) 2.4 [place] # (Auto) 1.4 H Eos # (Auto) 0.3 Baso # (Auto) 0.1 Abs Immat Gran (auto) 0.05 H Absolute Neuts (auto) 11.1 H Absolute Nucleated RBC 0.000 Nucleated RBC % (auto) 0.0 VBG pH 7.44 H VBG pCO2 50 VBG pO2 50 VBG HCO3 34 H VBG O2 Saturation 77.0 VBG Base Excess 9.0 Anion Gap 18 15 Estim Creat Clear Calc 96.2 105.6 Estimated GFR 57 > 60 Random Glucose 124 H 107 Calcium 8.9 8.5 Phosphorus 3.2 Magnesium 1.9 Total Bilirubin 0.5 AST 76 H ALT 37 H Alkaline Phosphatase 54 Total Protein 6.9 Albumin 3.8 Microbiology Microbiology Results: Microbiology 07/11/24 21:16 Blood Culture - Preliminary Blood - Venous No growth after 24 hours. 07/11/24 21:16 Blood Culture - Preliminary Blood - Venous No growth after 24 hours. 07/10/24 14:50 Blood Culture - Preliminary Blood - Venous No growth after 48 hours. 07/10/24 14:50 Blood Culture - Preliminary Blood - Venous No growth after 48 hours. 07/10/24 Unknown Urine Culture - Final Urine clean catch - Clean Catch Midstream Procedures Date of Service Date of Service: 07/13/24 Progress Note: A&P Assessment and plan (1) Partial small bowel obstruction: Status: Acute Assessment and Plan: NG tube output has decreased markedly Abdomen is soft, nondistended, benign Keep NG tube in place Vent management as per ICU On antibiotics for pneumonia Seems to be improving overall Time Spent With Patient Time: Total time managing care of this patient today ____ minutes. Quality Stroke Does the patient have a stroke diagnosis?: No VTE Prior VTE?: No VTE Risk Level:: Medical - moderate - high VTE Device Contraindication: Treatment Not Indicated VTE Drug Contraindication: N/A - Med Ordered
[2024-07-13 14:54] LABS: Venous Blood Gas Refer to POC result
--- NOTE | 2024-07-13 16:12 | MHC.CM.PN ---
Pt continues care in ICU: on ventilatory support: no plans to extubate at this time . CM to follow
--- NOTE | 2024-07-13 17:38 | PC.NURSE ---
Assumed care at 0700. Pt intubated and sedated with fentanyl and propofol. Due to sedation, 1:1 sitter not required at this time. Pt will occasionally CEBALLOS, pulling at restraints reaching for ET tube. Sedation adjusted per protocols. OG tube connected to low intermittent wall suction. Temperature elevated; ice packs applied with positive effect. Per discussion with daughter Carmen, pt would prefer to have a family member present when extubation is performed due to history of extreme anxiety/panic attack. Daughter also noted that pt has previous self-extubated on multiple occasions. At approx 1200 MD made aware of significant decrease in urine output. Abdomen remains soft. No further urine output noted. Pt bladder scanned at approx 1700 for 150mL. MD made aware. MOLST form found in bundle of documents pt?s daughter brought in. MOLST indicates code status of DNR/DNI. MD made aware. Per MD, will attempt extubation tomorrow. See MAR and various assessments for details. Pt repositioned q2hrs. Bed locked and in lowest position.
[2024-07-13] MEDS: Parenteral Nutrition 960 ML 40 ML IV (20:12)
[2024-07-13] MEDS: propofoL 1,000 MG/100 ML VIAL 53.91 MG IVCONT (21:12)
[2024-07-13 21:13] LABS: MANUAL DIFF FLAG NO
[2024-07-13 21:13] LABS: VBG Base Excess 7.4 mmol/L; VBG HCO3 32 mmol/L (22-26); VBG pCO2 45 mmHg; VBG pH 7.45 (7.32-7.43); VBG pO2 72 mmHg
[2024-07-13 21:14] LABS: Basophils Absolute Auto 0.1 X10*3/uL (0.0-0.2); Basophils Percent Auto 0.5 % (0-2); Eosinophils Absolute Auto 0.6 X10*3/uL (0.0-0.4); Eosinophils Percent Auto 5.2 % (0-4); Hematocrit 35.9 % (37.0-47.0); Hemoglobin 11.7 g/dl (12.0-16.0); Imm Gran Abs Auto 0.04 X10*3/uL (0.00-0.03); Imm Gran Pct Auto 0.4 % (0.0-0.4); Lymphocytes Absolute Auto 2.7 X10*3/uL (1.2-4.9); Lymphocytes Percent Auto 24.4 % (20-40); Mean Corpuscular HGB Conc 32.6 g/dl (31.0-35.0); Mean Corpuscular Hemoglobin 33.5 pg (27.0-33.0); Mean Corpuscular Volume 102.9 fL (80.0-98.0); Mean Platelet Volume 9.2 fL (9.4-12.3); Monocytes Absolute Auto 1.2 X10*3/uL (0.1-1.2); Neutrophils Absolute Auto 6.4 x10*3/uL (2.0-8.3); Neutrophils Percent Auto 58.5 % (45-73); Platelet Count 198 X10*3/uL (160-400); Red Blood Count 3.49 X10*6/uL (4.20-5.50); Red Cell Distribution Width 13.4 % (11.0-16.0)
[2024-07-13 21:28] LABS: Lactic Acid 1.1 mmol/L (0.5-2.0)
[2024-07-13 21:31] LABS: Anion Gap 18 (12-20); Blood Urea Nitrogen 14 mg/dL (9-16); Calcium 8.3 mg/dL (8.4-10.2); Carbon Dioxide 24 mmol/L (22-29); Chloride 107 mmol/L (96-108); Creatinine Clr Calc Pharmacy 124.5; Estimated Glomerular Filt Rate > 60; Glucose Random 129 mg/dL (60-115); Potassium 3.4 mmol/L (3.3-5.1); Sodium 146 mmol/L (135-145)
[2024-07-14] VITALS (37 sets, daily range): BP systolic 111–150; BP diastolic 56–80; PULSE 70–102; RESP 14–18; TEMP 34–37.7; O2SAT 93–100; BMI 50.9
[2024-07-14] MEDS: propofoL 1,000 MG/100 ML VIAL 45.69 MG IVCONT ×12 (00:58→23:55)
[2024-07-14] MEDS: fentaNYL citrate/NS 1,000 MCG/100 ML PLAST..BAG 15 MCG IVCONT ×2 (01:54→07:46)
[2024-07-14 04:21] LABS: VBG Base Excess 8.9 mmol/L; VBG HCO3 33 mmol/L (22-26); VBG pCO2 43 mmHg; VBG pH 7.48 (7.32-7.43); VBG pO2 56 mmHg
[2024-07-14] MEDS: Heparin Sodium,Porcine 5,000 UNIT/ML VIAL 5000 UNIT SUBCUT ×3 (04:29→20:07)
[2024-07-14 04:55] LABS: MANUAL DIFF FLAG NO
[2024-07-14 04:57] LABS: Basophils Absolute Auto 0.1 X10*3/uL (0.0-0.2); Basophils Percent Auto 0.7 % (0-2); Eosinophils Absolute Auto 0.7 X10*3/uL (0.0-0.4); Eosinophils Percent Auto 7.4 % (0-4); Hematocrit 36.1 % (37.0-47.0); Hemoglobin 11.4 g/dl (12.0-16.0); Imm Gran Abs Auto 0.02 X10*3/uL (0.00-0.03); Imm Gran Pct Auto 0.2 % (0.0-0.4); Lymphocytes Absolute Auto 2.4 X10*3/uL (1.2-4.9); Lymphocytes Percent Auto 27.7 % (20-40); Mean Corpuscular HGB Conc 31.6 g/dl (31.0-35.0); Mean Corpuscular Hemoglobin 32.7 pg (27.0-33.0); Mean Corpuscular Volume 103.4 fL (80.0-98.0); Mean Platelet Volume 9.6 fL (9.4-12.3); Monocytes Percent Auto 10.8 % (2-11); Neutrophils Absolute Auto 4.7 x10*3/uL (2.0-8.3); Neutrophils Percent Auto 53.2 % (45-73); Platelet Count 218 X10*3/uL (160-400); Red Blood Count 3.49 X10*6/uL (4.20-5.50); Red Cell Distribution Width 13.5 % (11.0-16.0); White Blood Count 8.8 X10*3/uL (4.8-10.8)
[2024-07-14 05:10] LABS: Venous Blood Gas Refer to POC result
[2024-07-14 05:15] LABS: Alanine Aminotransferase 46 U/L (0-31); Albumin Level 3.3 g/dL (3.5-5.0); Alkaline Phosphatase 46 U/L (39-117); Anion Gap 16 (12-20); Aspartate Amino Transferase 66 U/L (5-31); Bilirubin Total 0.4 mg/dL (0.0-1.0); Blood Urea Nitrogen 12 mg/dL (9-16); Calcium 8.4 mg/dL (8.4-10.2); Carbon Dioxide 27 mmol/L (22-29); Chloride 105 mmol/L (96-108); Creatinine Clr Calc Pharmacy 130.4; Estimated Glomerular Filt Rate > 60; Glucose Random 129 mg/dL (60-115); Phosphorus 3.5 mg/dL (2.7-4.5); Potassium 3.3 mmol/L (3.3-5.1); Sodium 145 mmol/L (135-145); Triglycerides 392 mg/dL (<150)
[2024-07-14] MEDS: Piperacillin Sodium/Tazobactam 4.5 GM in 0.9 % Sodium Chloride 100 ML IV ×2 (05:24→11:35)
[2024-07-14] MEDS: Pantoprazole Sodium 40 MG/10 ML VIAL IVPUSH ×2 (05:32→16:11)
[2024-07-14] MEDS: Potassium Chloride/H20 10 MEQ/100 ML PIGGYBACK 100 MEQ IV ×4 (05:41→09:00)
--- NOTE | 2024-07-14 06:18 | PC.NURSE ---
CARE ASSUMED 7PM..REMAINS INTUBATED...VCV VENT SUPPORT..SEDATED WITH PROPOFOL 50 MCG/KG/MIN AND FENTANYL 150 MCG/HR...SEDATE BUT PERIODICALLY CEBALLOS SPONTANEOUSLY BUT NOT TO COMMAND..(+) COUGH/GAG..PER SHIFT REPORT PATIENT HAS HAD SELF-EXTUBATION EVENTS ON PRIOR ADMITS..BILATERAL SOFT WRIST RESTRAINTS MAINTAINED FOR AIRWAY SAFETY....CARRILLO DRAINED 825ml URINE OVERNIGHT..OG-TUBE 400ml BILIOUS DRAINAGE...ABDOMEN SOFT BUT SILENT..STARTED PERIPHERAL TPN 40 CC/HR...NSR..NO ECTOPY...VSS...KCL 10MEQ/100ml X4 BAGS STARTED THIS AM..PATIENT CODE STATUS CHANGED TO DNR/DNI BY PROVIDER
--- NOTE | 2024-07-14 07:20 | P.PNGS_ITS ---
Subjective Subjective Date of Service: 07/14/24 <Bassem Mathew PA-C - Last Filed: 07/14/24 09:08> 07/15/24 <Jim Osuna MD - Last Filed: 07/15/24 08:22> Interval history: Patient remains on ventilator. She is still sedated. OG tube drained about 400cc overnight, a small increase from yesterday <Bassem Mathew PA-C - Last Filed: 07/14/24 09:08> Physical Exam 2 Vital Signs: Vital Signs: Last Vital Signs Temp 97.9 F 07/14/24 07:00 Pulse 70 07/14/24 07:00 Resp 16 07/14/24 07:00 BP 122/60 07/14/24 07:00 Pulse Ox 96 07/14/24 07:00 O2 Del Method Mechanical Ventil ation 07/14/24 07:00 O2 Flow Rate 2 07/14/24 02:00 FiO2 30 07/14/24 07:00 BMI result Body Mass Index 50.9 <Bassem Mathew PA-C - Last Filed: 07/14/24 09:08> Const: Other: patient on ventilator, sedated. <Bassem Mathew PA-C - Last Filed: 07/14/24 09:08> GI: Palpation (GI): Soft to palpation, nontender and no guarding <Bassem Mathew PA-C - Last Filed: 07/14/24 09:08> Objective Data Active Medications Albuterol Sulfate (Albuterol Sulfate (0.083%) 2.5 Mg/3 Ml Vial.Neb) 2.5 mg INHALE RQ4H PRN PRN Reason: Wheezing Chlorhexidine Gluconate (Chlorhexidine Gluc Oral Rinse 15 Ml Mouthwash) 15 ml BUCCAL TID [facility] Last Admin: 07/13/24 20:12 Dose: 15 ml Documented By: RODNEY Heparin Sodium (Porcine) (Heparin Sodium,Porcine 5,000 Unit/Ml Vial) 5,000 unit SUBCUT Q8H [facility] Last Admin: 07/14/24 04:29 Dose: 5,000 unit Documented By: RODNEY Dexmedetomidine HCl (Precedex) 400 mcg in 100 mls @ 0 mls/hr IVCONT .Q0M [facility]; Protocol Last Titration: 07/12/24 19:59 Dose: Infused Documented By: GARLAND Propofol (Diprivan) 1,000 mg in 100 mls @ 0 mls/hr IVCONT .Q0M [facility]; Protocol Last Admin: 07/14/24 06:52 Dose: 50 mcg/kg/min, 45.69 mls/hr Documented By: RODNEY Norepinephrine Bitartrate (Levophed) 8 mg in 250 mls @ 0 mls/hr IVCONT .Q0M [facility]; Protocol Last Titration: 07/13/24 07:29 Dose: Infused Documented By: TERRY Piperacillin Sod/Tazobactam (Sod 4.5 gm/ Sodium Chloride) 100 mls @ 200 mls/hr IV Q6H [facility] Last Infusion: 07/14/24 05:56 Dose: Infused Documented By: RODNEY Fentanyl (Sublimaze/Ns) 1,000 mcg in 100 mls @ 0 mls/hr IVCONT .Q0M [facility]; Protocol Last Admin: 07/14/24 01:54 Dose: 150 mcg/hr, 15 mls/hr Documented By: RODNEY Nutrition (Parenteral) (Parenteral Nutrition) 960 mls @ 40 mls/hr IV .Q24H [facility]; Protocol Stop: 07/14/24 20:59 Last Admin: 07/13/24 20:12 Dose: 40 mls/hr Documented By: RODNEY Potassium Chloride (Potassium Chloride/H20) 10 meq in 100 mls @ 100 mls/hr IV Q1H [facility] Stop: 07/14/24 09:29 Last Admin: 07/14/24 06:51 Dose: 100 mls/hr Documented By: RODNEY Melatonin (Melatonin 3 Mg Tablet) 6 mg PO BEDTIME PRN PRN Reason: Insomnia Metoprolol Tartrate (Metoprolol Tartrate 5 Mg/5 Ml Vial) 5 mg IVPUSH Q6H PRN; Protocol PRN Reason: hr>90 Last Admin: 07/11/24 09:41 Dose: 5 mg Documented By: MARYURI Naloxone HCl (Naloxone Hcl 0.4 Mg/Ml Vial) 0.2 mg IVPUSH Q2M PRN PRN Reason: Excessive sedation or RR < 8 Non-Formulary Medication (Umeclidinium-Vilanterol [Anoro Ellipta]) 1 each INHALE DAILY [facility] Nystatin (Nystatin Powder 15 Gm Bottle) 1 appl TOPICAL TID [facility]; Protocol Last Admin: 07/13/24 20:11 Dose: 1 appl Documented By: RODNEY Ondansetron HCl (Ondansetron Hcl 4 Mg/2 Ml Vial) 4 mg IVPUSH Q8H PRN PRN Reason: Nausea and Vomiting Last Admin: 07/11/24 16:48 Dose: 4 mg Documented By: MARYURI Pantoprazole Sodium (Pantoprazole Sodium 40 Mg/10 Ml Vial) 40 mg IVPUSH BID@0630,1630 [facility] Last Admin: 07/14/24 05:32 Dose: 40 mg Documented By: RODNEY Pharmacy Consult (Consult Rx Parenteral Nutrition Ordering) 1 each MISCELLANE DAILY PRN PRN Reason: Consult order Sodium Chloride (0.9 % Sodium Chloride Flush 3 Ml Syringe) 3 ml IVFLUSH QSHIFT [facility] Last Admin: 07/13/24 20:13 Dose: 3 ml Documented By: RODNEY <Bassem Mathew PA-C - Last Filed: 07/14/24 09:08> Labs CBC & Chem 7: 07/15/24 05:09 07/15/24 05:09 <Bassem Mathew PA-C - Last Filed: 07/14/24 09:08> Labs: Laboratory Results - last 24 hr 07/13/24 07/13/24 07/13/24 12:10 12:11 21:07 MCV 102.9 H MCH 33.5 H MCHC 32.6 RDW 13.4 Plt Count 198 MPV 9.2 L Immature Gran % (Auto) 0.4 Neut % (Auto) 58.5 Lymph % (Auto) 24.4 [place] % (Auto) 11.0 Eos % (Auto) 5.2 H Baso % (Auto) 0.5 Lymph # (Auto) 2.7 [place] # (Auto) 1.2 Eos # (Auto) 0.6 H Baso # (Auto) 0.1 Abs Immat Gran (auto) 0.04 H Absolute Neuts (auto) 6.4 Absolute Nucleated RBC 0.000 Nucleated RBC % (auto) 0.0 VBG pH 7.44 H VBG pCO2 50 VBG pO2 50 VBG HCO3 34 H VBG O2 Saturation 77.0 VBG Base Excess 9.0 Anion Gap 15 18 Estim Creat Clear Calc 105.6 124.5 Estimated GFR > 60 > 60 Random Glucose 107 129 H Lactic Acid 1.1 Calcium 8.5 8.3 L Phosphorus Magnesium Total Bilirubin AST ALT Alkaline Phosphatase Total Protein Albumin Triglycerides 07/13/24 07/14/24 07/14/24 21:10 04:14 04:16 MCV 103.4 H MCH 32.7 MCHC 31.6 RDW 13.5 Plt Count 218 MPV 9.6 Immature Gran % (Auto) 0.2 Neut % (Auto) 53.2 Lymph % (Auto) 27.7 [place] % (Auto) 10.8 Eos % (Auto) 7.4 H Baso % (Auto) 0.7 Lymph # (Auto) 2.4 [place] # (Auto) 1.0 Eos # (Auto) 0.7 H Baso # (Auto) 0.1 Abs Immat Gran (auto) 0.02 Absolute Neuts (auto) 4.7 Absolute Nucleated RBC 0.000 Nucleated RBC % (auto) 0.0 VBG pH 7.45 H 7.48 H VBG pCO2 45 43 VBG pO2 72 56 VBG HCO3 32 H 33 H VBG O2 Saturation 92.0 87.0 VBG Base Excess 7.4 8.9 Anion Gap 16 Estim Creat Clear Calc 130.4 Estimated GFR > 60 Random Glucose 129 H Lactic Acid Calcium 8.4 Phosphorus 3.5 Magnesium 2.0 Total Bilirubin 0.4 AST 66 H ALT 46 H Alkaline Phosphatase 46 Total Protein 6.0 L Albumin 3.3 L Triglycerides 392 H <Bassem Mathew PA-C - Last Filed: 07/14/24 09:08> Microbiology Microbiology Results: Microbiology 07/11/24 21:16 Blood Culture - Preliminary Blood - Venous No growth after 48 hours. 07/11/24 21:16 Blood Culture - Preliminary Blood - Venous No growth after 48 hours. 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 General surgery consult for partial SBO. Patient remains on a ventilator and is sedated. There was minimal response during the exam. Abdominal exam unremarkable. OG tube output overnight was 400 cc, slightly more than yesterday. continue antibiotics for pneumonia continue ventilator per ICU Will continue to monitor OG output <Bassem Mathew PA-C - Last Filed: 07/14/24 09:08> Time Spent With Patient Time: Total time managing care of this patient today ____ minutes. <Bassem Mathew PA-C - Last Filed: 07/14/24 09:08> Quality Stroke Does the patient have a stroke diagnosis?: No <Bassem Mathew PA-C - Last Filed: 07/14/24 09:08> VTE Prior VTE?: No <Bassem Mathew PA-C - Last Filed: 07/14/24 09:08> VTE Risk Level:: Medical - moderate - high <Bassem Mathew PA-C - Last Filed: 07/14/24 09:08> VTE Device Contraindication: Treatment Not Indicated <Bassem Mathew PA-C - Last Filed: 07/14/24 09:08> VTE Drug Contraindication: N/A - Med Ordered <Bassem Mathew PA-C - Last Filed: 07/14/24 09:08>
[2024-07-14] MEDS: 0.9 % Sodium Chloride Flush 3 ML SYRINGE IVFLUSH ×3 (07:47→20:29)
[2024-07-14] MEDS: Chlorhexidine Gluc Oral Rinse 15 ML MOUTHWASH BUCCAL ×3 (07:48→21:15)
[2024-07-14] MEDS: Nystatin Powder 15 GM BOTTLE 1 APPL TOPICAL ×3 (07:49→21:15)
--- NOTE | 2024-07-14 11:08 | P.CDIM_ITS ---
PROVIDER RESPONSE TEXT: To clarify, the appropriate diagnosis supported by the clinical indicators: After study Sepsis has been ruled out QUERY TEXT: PHYSICIAN'S DOCUMENTATION REQUEST Date of Query: 07/14/2024 08:54 AM EDT Patient Name: Zeenat Mcnamara Admit Date: 07/10/2024 Dear Dov Simpson MD, A review of the medical record indicates additional documentation may be needed. Please review below and update the documentation accordingly. Clinical indicators: Progress note dated 07/11/24: Sepsis and acute hypoxic respiratory failure due to aspiration pneumonia. Not severe sepsis, acute lactic acidosis due to drug overdose not infection. Continue Zosyn. H&P 07/10/24: Concern for aspiration pneumonia, pt altered, breath sounds course/rhonchus. No Sepsis: Tachycardia secondary to aspiration' no fever or leukocytosis. Patient was given IVF and started on broad spectrum antibiotics in ED. Sepsis Systemic manifestations of infection, with 2 or more SIRS criteria which include: Fever > 100.4?F or hypothermia < 96.8?F Leukocytosis - WBC > 12,000 or leukopenia, WBC < 4,000, or > 10% bands Tachycardia- > 90 beats/minute Tachypnea- RR > 20 breaths/minute or PaCO2 < 32mmHg Based on the above information consistency and clarity of a diagnosis within the medical record: Sepsis is/was present and is a clinical diagnosis based on After study Sepsis has been ruled out Other (explain) Clinically unable to determine (explain) Thank you, Hilda Cummings, CCS, CDIS Use of terms such as suspected, likely, concern for, or probable (associated with a specific diagnosi s that is being evaluated, monitored, or treated as if it exists) are acceptable and can be coded in the inpatient se tting, when documented at the time of discharge. Please use your independent medical judgment in providing your response. THIS QUERY IS PART OF THE PERMANENT MEDICAL RECORD
--- NOTE | 2024-07-14 11:28 | MHC.CLN ---
F/U PATIENT IS INTUBATED/SEDATED AND HAS SMALL BOWEL OBSTRUCTION. REQUIRES NUTRITION AND HYDRATION VIA PPN. REVIEWED LABS. COMMUNICATED WITH PHARMACY. RECOMMEND ADVANCE PPN TODAY TO 65 ML PER HOUR, 66 G PROTEIN (1 G/KG IBW, 156 G DEXTROSE, 796 KCALS. REPLETE LYTES NEEDED. PPN WITH SEDATION PROVIDES 2002 KCALS (30 KCALS/KG IBW). FOLLOW FOR PPN TOLERANCE, LYTES, PLAN OF CARE.
--- NOTE | 2024-07-14 12:17 | P.PNCC_ITS ---
Subjective Subjective Date of Service: 07/14/24 Interval History: 58-year-old lady with underlying PE on apixaban, obesity with likely obesity hypoventilation syndrome, substance abuse admitted on 07/11/2024 with alteration of mental status deemed to be secondary to intentional olanzapine overdose patient was admitted to telemetry who cruise monitoring. Hospital course significant for development of emesis and pulmonary aspiration resulting in respiratory distress requiring transfer to the intensive care unit and intubation. After placement of OG tube are paroxysmally 2 L drained from patient's stomach. Follow-up CT chest/abdomen/pelvis demonstrated small bowel obstruction. General surgery was consulted and elected to proceed with conservative nonoperative management. No events overnight. Overnight OG output of approximately 400 cc. Critical Care Time (minutes): 45 Physical Exam 2 Vital Signs: Vital Signs: Last Vital Signs Temp 98.6 F 07/14/24 12:00 Pulse 90 07/14/24 12:00 Resp 16 07/14/24 12:00 BP 122/74 07/14/24 12:00 Pulse Ox 97 07/14/24 12:00 O2 Del Method Mechanical Ventil ation 07/14/24 12:00 O2 Flow Rate 2 07/14/24 02:00 FiO2 30 07/14/24 12:00 BMI result Body Mass Index 50.9 Const: General: no acute distress Nutritional Appearance: obese and other (Sedated on ventilatory support) Eyes: Sclerae: sclerae normal EOM: EOMs intact bilaterally Neck: Neck: Yes no lymphadenopathy, Yes trachea midline and Yes supple Resp: Auscultation: clear to auscultation bilaterally Cardio: Rate: regular rate Rhythm: regular rhythm Heart sounds: no gallops, no murmurs and no rubs GI: Palpation (GI): Soft to palpation and Other GI palpation findings present ( Nontender) Auscultation: normal bowel sounds Extrem: General: Yes no pedal edema, No clubbing and No cyanosis Objective Data Labs 07/14/24 04:14 07/14/24 04:14 Labs: Laboratory Results - last 24 hr 07/13/24 07/13/24 07/13/24 12:10 21:07 21:10 WBC 11.0 H RBC 3.49 L Hgb 11.7 L Hct 35.9 L MCV 102.9 H MCH 33.5 H MCHC 32.6 RDW 13.4 Plt Count 198 MPV 9.2 L Immature Gran % (Auto) 0.4 Neut % (Auto) 58.5 Lymph % (Auto) 24.4 [place] % (Auto) 11.0 Eos % (Auto) 5.2 H Baso % (Auto) 0.5 Lymph # (Auto) 2.7 [place] # (Auto) 1.2 Eos # (Auto) 0.6 H Baso # (Auto) 0.1 Abs Immat Gran (auto) 0.04 H Absolute Neuts (auto) 6.4 Absolute Nucleated RBC 0.000 Nucleated RBC % (auto) 0.0 VBG pH 7.45 H VBG pCO2 45 VBG pO2 72 VBG HCO3 32 H VBG O2 Saturation 92.0 VBG Base Excess 7.4 Sodium 145 146 H Potassium 3.5 3.4 Chloride 105 107 Carbon Dioxide 29 24 Anion Gap 15 18 BUN 16 14 Creatinine 0.92 0.78 Estim Creat Clear Calc 105.6 124.5 Estimated GFR > 60 > 60 Random Glucose 107 129 H Lactic Acid 1.1 Calcium 8.5 8.3 L Phosphorus Magnesium Total Bilirubin AST ALT Alkaline Phosphatase Total Protein Albumin Triglycerides 07/14/24 07/14/24 04:14 04:16 WBC 8.8 RBC 3.49 L Hgb 11.4 L Hct 36.1 L MCV 103.4 H MCH 32.7 MCHC 31.6 RDW 13.5 Plt Count 218 MPV 9.6 Immature Gran % (Auto) 0.2 Neut % (Auto) 53.2 Lymph % (Auto) 27.7 [place] % (Auto) 10.8 Eos % (Auto) 7.4 H Baso % (Auto) 0.7 Lymph # (Auto) 2.4 [place] # (Auto) 1.0 Eos # (Auto) 0.7 H Baso # (Auto) 0.1 Abs Immat Gran (auto) 0.02 Absolute Neuts (auto) 4.7 Absolute Nucleated RBC 0.000 Nucleated RBC % (auto) 0.0 VBG pH 7.48 H VBG pCO2 43 VBG pO2 56 VBG HCO3 33 H VBG O2 Saturation 87.0 VBG Base Excess 8.9 Sodium 145 Potassium 3.3 Chloride 105 Carbon Dioxide 27 Anion Gap 16 BUN 12 Creatinine 0.75 Estim Creat Clear Calc 130.4 Estimated GFR > 60 Random Glucose 129 H Lactic Acid Calcium 8.4 Phosphorus 3.5 Magnesium 2.0 Total Bilirubin 0.4 AST 66 H ALT 46 H Alkaline Phosphatase 46 Total Protein 6.0 L Albumin 3.3 L Triglycerides 392 H Microbiology Microbiology Results: Microbiology 07/11/24 21:16 Blood - Venous Blood Culture - Preliminary No growth after 48 hours. 07/11/24 21:16 Blood - Venous Blood Culture - Preliminary No growth after 48 hours. 07/10/24 14:50 Blood - Venous Blood Culture - Preliminary No growth after 48 hours. 07/10/24 14:50 Blood - Venous Blood Culture - Preliminary No growth after 48 hours. 07/10/24 Unknown Urine clean catch - Clean Catch Midstream Urine Culture - Final Progress Note: A&P Assessment and plan (1) Intentional olanzapine overdose: Status: Acute (2) Small bowel obstruction: Status: Acute (3) Pulmonary aspiration of gastric contents: Status: Acute Plan Assessment: 58-year-old lady admitted with intentional olanzapine overdose with hospital course complicated by small-bowel obstruction in in aspiration of gastric content with acute hypoxic respiratory failure requiring intubation and ventilatory support Plan: Neuro: Toxic encephalopathy likely secondary to olanzapine overdose. Cardiac: No acute issues. Pulmonary: Acute hypoxic respiratory failure secondary to pulmonary aspiration of gastric content on the background of small bowel obstruction now requiring ventilatory support. Continue to titrate off as tolerated. Renal: Acute renal failure, improved. Non oliguric. Continue to monitor renal indices and urine output. Endo: No acute issues. GI: CT abdomen with small-bowel obstruction. Evaluated by General surgery with plans for conservative nonoperative management at this time with OG tube decompression. ID: Will monitor off antibiotics. Heme/Onc: No acute issues. Psych: Intentional olanzapine overdose, psychiatry evaluation after extubation and 1:1 sitter. Miscellaneous: No acute issues. Prophylaxis: Heparin, ppi Diet: PPN Critical care time spent: 45 minute Quality Stroke Does the patient have a stroke diagnosis?: No VTE Prior VTE?: No VTE Risk Level:: Medical - moderate - high VTE Device Contraindication: Treatment Not Indicated VTE Drug Contraindication: N/A - Med Ordered
--- NOTE | 2024-07-14 12:36 | MHC.SLORD ---
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
[2024-07-14] MEDS: fentaNYL citrate/NS 1,000 MCG/100 ML PLAST..BAG 20 MCG IVCONT ×3 (13:06→22:34)
--- NOTE | 2024-07-14 14:39 | MHC.CM.PN ---
PER REVIEW OF EMR, PT REMAINS IN ICU ON VENTILATORY SUPPORT, OG TUBE FOR DECOMPRESSION, SBO. CM WILL CONTINUE TO FOLLOW FOR PLAN.
--- NOTE | 2024-07-14 19:15 | PC.NURSE ---
Neuro: patient sedated but opens eyes at times, unable to follow commands, nods yes and no but not always appropriately. Resp: Vented on AC/VC+, O2 sat 93-96%, stacking breaths at times, Fentanyl increased to max and still stacking breaths at times, MD aware to maintain on current sedation now.? Cardiac: SR to ST, BP stable GI/: Strick NPO, OG in place, drained 125ml light brown emesis this shift. Stevens in place draining green urine, decreased urine output noted towards end of shift MD aware. Integumentary/Musculoskeletal: bruising to arms bilaterally, redness to legs noted bilaterally, small gluteal slit tear noted, blanchable redness to buttocks noted, pink foam in place
[2024-07-14] MEDS: Parenteral Nutrition 1,560 ML 65 ML IV (20:23)
[2024-07-14 20:42] LABS: Anion Gap 19 (12-20); Blood Urea Nitrogen 8 mg/dL (9-16); Calcium 8.4 mg/dL (8.4-10.2); Carbon Dioxide 22 mmol/L (22-29); Chloride 105 mmol/L (96-108); Creatinine Clr Calc Pharmacy 139.7; Estimated Glomerular Filt Rate > 60; Glucose Random 135 mg/dL (60-115); Magnesium 1.9 mg/dL (1.6-2.6); Phosphorus 3.2 mg/dL (2.7-4.5); Potassium 3.8 mmol/L (3.3-5.1); Sodium 142 mmol/L (135-145)
[2024-07-14] MEDS: Midazolam HCl 2 MG/2 ML VIAL IVPUSH (21:15)
[2024-07-15] VITALS (29 sets, daily range): BP systolic 97–153; BP diastolic 53–86; PULSE 58–123; RESP 11–30; TEMP 34.7–38.5; O2SAT 89–100; BMI 50.7
[2024-07-15] MEDS: Midazolam HCl 2 MG/2 ML VIAL IVPUSH ×2 (02:13→06:11)
[2024-07-15] MEDS: propofoL 1,000 MG/100 ML VIAL 45.69 MG IVCONT ×4 (02:16→08:49)
[2024-07-15] MEDS: fentaNYL citrate/NS 1,000 MCG/100 ML PLAST..BAG 17.5 MCG IVCONT ×2 (03:06→08:49)
[2024-07-15] MEDS: Heparin Sodium,Porcine 5,000 UNIT/ML VIAL 5000 UNIT SUBCUT ×3 (04:12→19:43)
[2024-07-15 05:19] LABS: VBG Base Excess 5.9 mmol/L; VBG HCO3 30 mmol/L (22-26); VBG pCO2 40 mmHg; VBG pH 7.47 (7.32-7.43); VBG pO2 72 mmHg
[2024-07-15 05:34] LABS: Basophils Percent Auto 0.5 % (0-2); Eosinophils Absolute Auto 0.6 X10*3/uL (0.0-0.4); Eosinophils Percent Auto 8.3 % (0-4); Hematocrit 35.2 % (37.0-47.0); Hemoglobin 11.3 g/dl (12.0-16.0); Imm Gran Abs Auto 0.04 X10*3/uL (0.00-0.03); Imm Gran Pct Auto 0.5 % (0.0-0.4); Lymphocytes Absolute Auto 1.9 X10*3/uL (1.2-4.9); MANUAL DIFF FLAG NO; Mean Corpuscular HGB Conc 32.1 g/dl (31.0-35.0); Mean Corpuscular Hemoglobin 32.8 pg (27.0-33.0); Mean Corpuscular Volume 102.3 fL (80.0-98.0); Mean Platelet Volume 9.3 fL (9.4-12.3); Monocytes Absolute Auto 0.8 X10*3/uL (0.1-1.2); Neutrophils Absolute Auto 4.3 x10*3/uL (2.0-8.3); Neutrophils Percent Auto 55.7 % (45-73); Platelet Count 216 X10*3/uL (160-400); Red Blood Count 3.44 X10*6/uL (4.20-5.50); Red Cell Distribution Width 13.2 % (11.0-16.0); White Blood Count 7.7 X10*3/uL (4.8-10.8)
[2024-07-15 06:00] LABS: Albumin Level 3.3 g/dL (3.5-5.0); Anion Gap 14 (12-20); Blood Urea Nitrogen 6 mg/dL (9-16); Calcium 8.6 mg/dL (8.4-10.2); Carbon Dioxide 25 mmol/L (22-29); Chloride 107 mmol/L (96-108); Creatinine Clr Calc Pharmacy 145.9; Estimated Glomerular Filt Rate > 60; Glucose Random 152 mg/dL (60-115); Phosphorus 3.2 mg/dL (2.7-4.5); Potassium 3.5 mmol/L (3.3-5.1); Sodium 142 mmol/L (135-145)
[2024-07-15] MEDS: Pantoprazole Sodium 40 MG/10 ML VIAL IVPUSH ×2 (06:15→16:20)
[2024-07-15 06:38] LABS: Venous Blood Gas Refer to POC result
--- NOTE | 2024-07-15 06:42 | PC.NURSE ---
Patient remains sedated and intubated, continue to require high doses of Prop and Fent for sedation and pain management. Despite of maximum doses on drips, patient remains mostly -1 to -2 RASS, having eye openings to minimal stimuli and making spontaneous movements. Patient does not follow any commands and does not seem to have any understanding of her surroundings or conditions. Patient would often have periods of breath stacking that may or may not go away naturally, improved with PRN midazolam IV push. Patient initially had minimal urine output, but soon resolved after irrigation. Repositioning and hygiene care as tolerated.
--- NOTE | 2024-07-15 07:16 | PM.PNGS ---
Subjective Subjective Date of Service: 07/15/24 <Bassem Mathew PA-C - Last Filed: 07/15/24 08:04> 07/17/24 <Jim Osuna MD - Last Filed: 07/17/24 09:13> Interval history: Patient remains intubated. Patient sedated during evaluation. No major changes overnight. OG tube draining 325 cc. <Bassem Mathew PA-C - Last Filed: 07/15/24 08:04> Physical Exam Vital Signs: Vital Signs: Last Vital Signs Temp 99.1 F 07/15/24 06:00 Pulse 89 07/15/24 06:00 Resp 15 07/15/24 06:00 BP 117/54 L 07/15/24 06:00 Pulse Ox 94 07/15/24 06:00 O2 Del Method Mechanical Ventil ation 07/15/24 06:00 O2 Flow Rate 2 07/14/24 02:00 FiO2 26 07/15/24 06:00 BMI result Body Mass Index 50.9 <Bassem Mathew PA-C - Last Filed: 07/15/24 08:04> Const: Other: Patient is intubated and sedated. <Bassem Mathew PA-C - Last Filed: 07/15/24 08:04> GI: Other: OG tube present <Bassem Mathew PA-C - Last Filed: 07/15/24 08:04> Inspection: Yes normal to inspection and No distended <Bassem Mathew PA-C - Last Filed: 07/15/24 08:04> Palpation (GI): Soft to palpation, nontender and no guarding <Bassem Mathew PA-C - Last Filed: 07/15/24 08:04> Objective Data Active Medications Albuterol Sulfate (Albuterol Sulfate (0.083%) 2.5 Mg/3 Ml Vial.Neb) 2.5 mg INHALE RQ4H PRN PRN Reason: Wheezing Chlorhexidine Gluconate (Chlorhexidine Gluc Oral Rinse 15 Ml Mouthwash) 15 ml BUCCAL TID [facility] Last Admin: 07/14/24 21:15 Dose: 15 ml Documented By: AYSE Heparin Sodium (Porcine) (Heparin Sodium,Porcine 5,000 Unit/Ml Vial) 5,000 unit SUBCUT Q8H [facility] Last Admin: 07/15/24 04:12 Dose: 5,000 unit Documented By: AYSE Dexmedetomidine HCl (Precedex) 400 mcg in 100 mls @ 0 mls/hr IVCONT .Q0M ROBI; Protocol Last Titration: 07/12/24 19:59 Dose: Infused Documented By: GARLAND Propofol (Diprivan) 1,000 mg in 100 mls @ 0 mls/hr IVCONT .Q0M ROBI; Protocol Last Admin: 07/15/24 06:29 Dose: 50 mcg/kg/min, 45.69 mls/hr Documented By: AYSE Norepinephrine Bitartrate (Levophed) 8 mg in 250 mls @ 0 mls/hr IVCONT .Q0M ROBI; Protocol Last Titration: 07/13/24 07:29 Dose: Infused Documented By: TERRY Fentanyl (Sublimaze/Ns) 1,000 mcg in 100 mls @ 0 mls/hr IVCONT .Q0M ROBI; Protocol Last Admin: 07/15/24 03:06 Dose: 175 mcg/hr, 17.5 mls/hr Documented By: AYSE Nutrition (Parenteral) (Parenteral Nutrition) 1,560 mls @ 65 mls/hr IV .Q24H ROBI; Protocol Stop: 07/15/24 20:59 Last Admin: 07/14/24 20:23 Dose: 65 mls/hr Documented By: AYSE Potassium Chloride (Potassium Chloride/H20) 10 meq in 100 mls @ 100 mls/hr IV Q1H ROBI Stop: 07/15/24 11:59 Melatonin (Melatonin 3 Mg Tablet) 6 mg PO BEDTIME PRN PRN Reason: Insomnia Metoprolol Tartrate (Metoprolol Tartrate 5 Mg/5 Ml Vial) 5 mg IVPUSH Q6H PRN; Protocol PRN Reason: hr>90 Last Admin: 07/11/24 09:41 Dose: 5 mg Documented By: MARYURI Midazolam HCl (Midazolam Hcl 2 Mg/2 Ml Vial) 2 mg IVPUSH Q2H PRN PRN Reason: Ventilator synchrony Last Admin: 07/15/24 06:11 Dose: 2 mg Documented By: AYSE Naloxone HCl (Naloxone Hcl 0.4 Mg/Ml Vial) 0.2 mg IVPUSH Q2M PRN PRN Reason: Excessive sedation or RR < 8 Non-Formulary Medication (Umeclidinium-Vilanterol [Anoro Ellipta]) 1 each INHALE DAILY [facility] Nystatin (Nystatin Powder 15 Gm Bottle) 1 appl TOPICAL TID [facility]; Protocol Last Admin: 07/14/24 21:15 Dose: 1 appl Documented By: AYSE Ondansetron HCl (Ondansetron Hcl 4 Mg/2 Ml Vial) 4 mg IVPUSH Q8H PRN PRN Reason: Nausea and Vomiting Last Admin: 07/11/24 16:48 Dose: 4 mg Documented By: MARYURI Pantoprazole Sodium (Pantoprazole Sodium 40 Mg/10 Ml Vial) 40 mg IVPUSH BID@0630,1630 [facility] Last Admin: 07/15/24 06:15 Dose: 40 mg Documented By: AYSE Pharmacy Consult (Consult Rx Parenteral Nutrition Ordering) 1 each MISCELLANE DAILY PRN PRN Reason: Consult order Sodium Chloride (0.9 % Sodium Chloride Flush 3 Ml Syringe) 3 ml IVFLUSH QSHIFT [facility] Last Admin: 07/14/24 20:29 Dose: 3 ml Documented By: AYSE <Bassem Mathew PA-C - Last Filed: 07/15/24 08:04> Labs CBC & Chem 7: 07/16/24 05:14 07/16/24 05:14 <Bassem Mathew PA-C - Last Filed: 07/15/24 08:04> Labs: Laboratory Results - last 24 hr 07/14/24 07/15/24 07/15/24 20:06 05:09 05:15 MCV 102.3 H MCH 32.8 MCHC 32.1 RDW 13.2 Plt Count 216 MPV 9.3 L Immature Gran % (Auto) 0.5 H Neut % (Auto) 55.7 Lymph % (Auto) 25.0 [place] % (Auto) 10.0 Eos % (Auto) 8.3 H Baso % (Auto) 0.5 Lymph # (Auto) 1.9 [place] # (Auto) 0.8 Eos # (Auto) 0.6 H Baso # (Auto) 0.0 Abs Immat Gran (auto) 0.04 H Absolute Neuts (auto) 4.3 Absolute Nucleated RBC 0.000 Nucleated RBC % (auto) 0.0 VBG pH 7.47 H VBG pCO2 40 VBG pO2 72 VBG HCO3 30 H VBG O2 Saturation 95.0 VBG Base Excess 5.9 Anion Gap 19 14 Estim Creat Clear Calc 139.7 145.9 Estimated GFR > 60 > 60 Random Glucose 135 H 152 H Calcium 8.4 8.6 Phosphorus 3.2 3.2 Magnesium 1.9 2.0 Albumin 3.3 L <Bassem Mathew PA-C - Last Filed: 07/15/24 08:04> Procedures Date of Service Date of Service: 07/15/24 <Bassem Mathew PA-C - Last Filed: 07/15/24 08:04> 07/17/24 <Jim Osuna MD - Last Filed: 07/17/24 09:13> Progress Note: A&P Assessment and plan (1) Pulmonary aspiration of gastric contents: Status: Acute <Bassem Mathew PA-C - Last Filed: 07/15/24 08:04> Assessment and Plan: remains on the ventilator No significant changes Abdomen is soft, no guarding, no rebound 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, documented this 400 cc As per ICU, planned to attempt extubation tomorrow We will continue re-evaluate Should keep OG tube in -switch to NG-tube <Bassem Mathew PA-C - Last Filed: 07/15/24 08:04> (2) Small bowel obstruction: Status: Acute <Bassem Mathew PA-C - Last Filed: 07/15/24 08:04> Assessment and Plan: No significant changes to status Remains on ventilator Abdomen is soft, benign OG-tube output still elevated Would switch to NG-tube if the patient was to be extubated We will continue to follow closely Discussed with ICU staff Seen and examined independently <Jim Osuna MD - Last Filed: 07/17/24 09:13> Assessment and Plan: 58-year-old female admitted for aspiration pneumonia after an olanzapine overdose. General surgery consult for partial SBO. Patient remains on a ventilator and is sedated. There was minimal response during the exam. Abdominal exam unremarkable. OG tube output overnight was 325 cc, stable since yesterday. continue antibiotics for pneumonia continue ventilator per ICU Will continue to monitor OG output, switch to NG pending extubation. We will continue to follow this patient <Bassem Mathew PA-C - Last Filed: 07/15/24 08:04> Time Spent With Patient Time: Total time managing care of this patient today ____ minutes. <Bassem Mathew PA-C - Last Filed: 07/15/24 08:04> Quality Stroke Does the patient have a stroke diagnosis?: No <Bassem Mathew PA-C - Last Filed: 07/15/24 08:04> VTE Prior VTE?: No <Bassem Mathew PA-C - Last Filed: 07/15/24 08:04> VTE Risk Level:: Medical - moderate - high <Bassem Mathew PA-C - Last Filed: 07/15/24 08:04> VTE Device Contraindication: Treatment Not Indicated <Bassem Mathew PA-C - Last Filed: 07/15/24 08:04> VTE Drug Contraindication: N/A - Med Ordered <Bassem Mathew PA-C - Last Filed: 07/15/24 08:04>
[2024-07-15] MEDS: Potassium Chloride/H20 10 MEQ/100 ML PIGGYBACK 100 MEQ IV ×4 (07:41→12:55)
[2024-07-15] MEDS: 0.9 % Sodium Chloride Flush 3 ML SYRINGE IVFLUSH ×2 (07:41→16:22)
[2024-07-15] MEDS: Nystatin Powder 15 GM BOTTLE 1 APPL TOPICAL ×3 (07:42→19:56)
[2024-07-15] MEDS: Chlorhexidine Gluc Oral Rinse 15 ML MOUTHWASH BUCCAL (07:42)
--- NOTE | 2024-07-15 10:00 | P.PNCC_ITS ---
Subjective Subjective Date of Service: 07/15/24 Interval History: 58-year-old lady with underlying PE on apixaban, obesity with likely obesity hypoventilation syndrome, substance abuse admitted on 07/11/2024 with alteration of mental status deemed to be secondary to intentional olanzapine overdose patient was admitted to telemetry who cruise monitoring. Hospital course significant for development of emesis and pulmonary aspiration resulting in respiratory distress requiring transfer to the intensive care unit and intubation. After placement of OG tube are paroxysmally 2 L drained from patient's stomach. Follow-up CT chest/abdomen/pelvis demonstrated small bowel obstruction. General surgery was consulted and elected to proceed with conservative nonoperative management. No events overnight. Overnight OG output of approximately 300 cc. Critical Care Time (minutes): 45 Physical Exam 2 Vital Signs: Vital Signs: Last Vital Signs Temp 99.9 F 07/15/24 09:00 Pulse 97 07/15/24 09:00 Resp 18 07/15/24 09:00 BP 124/79 07/15/24 09:00 Pulse Ox 96 07/15/24 09:00 O2 Del Method Mechanical Ventil ation 07/15/24 09:00 O2 Flow Rate 2 07/14/24 02:00 FiO2 26 07/15/24 09:00 BMI result Body Mass Index 50.7 Const: General: no acute distress and other (Sedated on ventilatory support) Nutritional Appearance: obese Eyes: Sclerae: sclerae normal EOM: EOMs intact bilaterally Neck: Neck: Yes no lymphadenopathy, Yes trachea midline and Yes supple Resp: Auscultation: clear to auscultation bilaterally Cardio: Rate: regular rate Rhythm: regular rhythm Heart sounds: no gallops, no murmurs and no rubs GI: Palpation (GI): Soft to palpation and Other GI palpation findings present ( Nontender) Auscultation: Hypoactive bowel sounds present Extrem: General: No clubbing, No cyanosis and Yes edema (1+ bilateral) Objective Data Labs 07/15/24 05:09 07/15/24 05:09 Labs: Laboratory Results - last 24 hr 07/14/24 07/15/24 07/15/24 20:06 05:09 05:15 WBC 7.7 RBC 3.44 L Hgb 11.3 L Hct 35.2 L MCV 102.3 H MCH 32.8 MCHC 32.1 RDW 13.2 Plt Count 216 MPV 9.3 L Immature Gran % (Auto) 0.5 H Neut % (Auto) 55.7 Lymph % (Auto) 25.0 [place] % (Auto) 10.0 Eos % (Auto) 8.3 H Baso % (Auto) 0.5 Lymph # (Auto) 1.9 [place] # (Auto) 0.8 Eos # (Auto) 0.6 H Baso # (Auto) 0.0 Abs Immat Gran (auto) 0.04 H Absolute Neuts (auto) 4.3 Absolute Nucleated RBC 0.000 Nucleated RBC % (auto) 0.0 VBG pH 7.47 H VBG pCO2 40 VBG pO2 72 VBG HCO3 30 H VBG O2 Saturation 95.0 VBG Base Excess 5.9 Sodium 142 142 Potassium 3.8 3.5 Chloride 105 107 Carbon Dioxide 22 25 Anion Gap 19 14 BUN 8 L 6 L Creatinine 0.70 0.67 Estim Creat Clear Calc 139.7 145.9 Estimated GFR > 60 > 60 Random Glucose 135 H 152 H Calcium 8.4 8.6 Phosphorus 3.2 3.2 Magnesium 1.9 2.0 Albumin 3.3 L Microbiology Microbiology Results: Microbiology 07/11/24 21:16 Blood - Venous Blood Culture - Preliminary No growth after 48 hours. 07/11/24 21:16 Blood - Venous Blood Culture - Preliminary No growth after 48 hours. 07/10/24 14:50 Blood - Venous Blood Culture - Preliminary No growth after 48 hours. 07/10/24 14:50 Blood - Venous Blood Culture - Preliminary No growth after 48 hours. 07/10/24 Unknown Urine clean catch - Clean Catch Midstream Urine Culture - Final Progress Note: A&P Assessment and plan (1) Intentional olanzapine overdose: Status: Acute (2) Small bowel obstruction: Status: Acute (3) Pulmonary aspiration of gastric contents: Status: Acute Plan Assessment: 58-year-old lady admitted with intentional olanzapine overdose with hospital course complicated by small-bowel obstruction in in aspiration of gastric content with acute hypoxic respiratory failure requiring intubation and ventilatory support Plan: Neuro: Toxic encephalopathy likely secondary to olanzapine overdose. Cardiac: No acute issues. Pulmonary: Acute hypoxic respiratory failure secondary to pulmonary aspiration of gastric content on the background of small bowel obstruction now requiring ventilatory support. Continue to titrate off as tolerated. Renal: Acute renal failure, resolved. Non oliguric. Continue to monitor renal indices and urine output. Endo: No acute issues. GI: CT abdomen with small-bowel obstruction. Evaluated by General surgery with plans for conservative nonoperative management at this time with OG tube decompression. ID: Will monitor off antibiotics. Heme/Onc: No acute issues. Psych: Intentional olanzapine overdose, psychiatry evaluation after extubation and 1:1 sitter. Miscellaneous: No acute issues. Prophylaxis: Heparin, ppi Diet: PPN Critical care time spent: 45 minute Quality Stroke Does the patient have a stroke diagnosis?: No VTE Prior VTE?: No VTE Risk Level:: Medical - moderate - high VTE Device Contraindication: Treatment Not Indicated VTE Drug Contraindication: N/A - Med Ordered
--- NOTE | 2024-07-15 10:13 | MHC.CLN ---
F/U DISCUSSED AT ROUNDS WITH MD PLAN TO EXTUBATE TODAY, BUT CONTINUE WITH PPN REVIEWED LABS DISCUSSED WITH PHARMACY CONTINUE PPN AT 65 ML/HR TO PROVIDE 796KCALS (1761 TOTAL KCALS WITH SEDATION; 27KCALS/KG BASED ON IBW), 66G PROTEIN (1 G/KG), 156G DEXTROSE REPLETE LYTES NEEDED
[2024-07-15] MEDS: ondansetron HCL 4 MG/2 ML VIAL IVPUSH (14:22)
[2024-07-15] MEDS: fentaNYL citrate/PF 100 MCG/2 ML VIAL IVPUSH (14:25)
--- NOTE | 2024-07-15 19:25 | PC.NURSE ---
Neuro: Patient taken off sedation this morning for extubation, alert and calm this afternoon, following most commands, sitter at bedside.? Resp: Extubated at 1130, on RA O2 Sat 88-92%, placed on 2L via nasal cannula this afternoon for desat to 78, placed back on RA 1hour later and maintaining sats 88-92%, spitting up thick clear sputum after extubation x2. Cardiac: SR to ST, BP stable GI/: Strict NPO, OG replaced with NG tube post extubation as per surgery, drained 50ml this shift light brown emesis this shift. Stevens in place draining green yellow urine. Integumentary/Musculoskeletal: bruising to arms bilaterally, redness to legs noted bilaterally, small gluteal slit tear noted, blanchable redness to buttocks noted, pink foam in place
[2024-07-15] MEDS: Parenteral Nutrition 1,560 ML 65 ML IV (19:53)
[2024-07-15] MEDS: fentaNYL citrate/PF 100 MCG/2 ML VIAL 50 MCG IVPUSH (21:40)
[2024-07-16] VITALS (18 sets, daily range): BP systolic 129–157; BP diastolic 43–92; PULSE 91–106; RESP 12–20; TEMP 36.3–37.9; O2SAT 92–97; BMI 50.7
[2024-07-16] MEDS: Pantoprazole Sodium 40 MG/10 ML VIAL IVPUSH ×2 (04:24→15:46)
[2024-07-16] MEDS: Heparin Sodium,Porcine 5,000 UNIT/ML VIAL 5000 UNIT SUBCUT ×3 (04:24→19:57)
[2024-07-16 05:23] LABS: VBG Base Excess 5.2 mmol/L; VBG HCO3 29 mmol/L (22-26); VBG pCO2 41 mmHg; VBG pH 7.46 (7.32-7.43); VBG pO2 34 mmHg
[2024-07-16 05:27] LABS: MANUAL DIFF FLAG NO
[2024-07-16 05:29] LABS: Basophils Absolute Auto 0.1 X10*3/uL (0.0-0.2); Basophils Percent Auto 0.7 % (0-2); Eosinophils Absolute Auto 0.4 X10*3/uL (0.0-0.4); Eosinophils Percent Auto 4.2 % (0-4); Hematocrit 40.1 % (37.0-47.0); Hemoglobin 13.3 g/dl (12.0-16.0); Imm Gran Abs Auto 0.07 X10*3/uL (0.00-0.03); Imm Gran Pct Auto 0.7 % (0.0-0.4); Lymphocytes Absolute Auto 1.6 X10*3/uL (1.2-4.9); Lymphocytes Percent Auto 15.5 % (20-40); Mean Corpuscular HGB Conc 33.2 g/dl (31.0-35.0); Mean Corpuscular Hemoglobin 33.3 pg (27.0-33.0); Mean Corpuscular Volume 100.3 fL (80.0-98.0); Mean Platelet Volume 9.4 fL (9.4-12.3); Neutrophils Percent Auto 68.9 % (45-73); Platelet Count 229 X10*3/uL (160-400); Red Cell Distribution Width 13.1 % (11.0-16.0); White Blood Count 10.1 X10*3/uL (4.8-10.8)
[2024-07-16 05:56] LABS: Alanine Aminotransferase 52 U/L (0-31); Albumin Level 3.6 g/dL (3.5-5.0); Anion Gap 15 (12-20); Aspartate Amino Transferase 64 U/L (5-31); Bilirubin Total 0.6 mg/dL (0.0-1.0); Blood Urea Nitrogen 7 mg/dL (9-16); Calcium 9.1 mg/dL (8.4-10.2); Carbon Dioxide 25 mmol/L (22-29); Chloride 106 mmol/L (96-108); Creatinine Clr Calc Pharmacy 141.3; Estimated Glomerular Filt Rate > 60; Glucose Random 186 mg/dL (60-115); Magnesium 1.9 mg/dL (1.6-2.6); Phosphorus 3.2 mg/dL (2.7-4.5); Sodium 142 mmol/L (135-145); Total Protein 6.7 g/dL (6.5-8.0)
[2024-07-16 06:09] LABS: Alkaline Phosphatase 50 U/L (39-117)
[2024-07-16 06:17] LABS: Venous Blood Gas Refer to POC result
[2024-07-16] MEDS: ondansetron HCL 4 MG/2 ML VIAL IVPUSH (07:55)
[2024-07-16] MEDS: 0.9 % Sodium Chloride Flush 3 ML SYRINGE IVFLUSH ×3 (07:55→21:11)
[2024-07-16] MEDS: fentaNYL citrate/PF 100 MCG/2 ML VIAL 50 MCG IVPUSH (07:55)
[2024-07-16] MEDS: Nystatin Powder 15 GM BOTTLE 1 APPL TOPICAL ×2 (07:56→15:46)
--- NOTE | 2024-07-16 07:57 | PM.PNGS ---
Subjective Subjective Date of Service: 07/16/24 Interval history: Patient is doing okay today. She has been extubated and is now able to communicate during evaluation. She has some mild abdominal pain and nausea. Endorses chronic back pain. She had a bowel movement overnight. Denies bloating Physical Exam Vital Signs: Vital Signs: Last Vital Signs Temp 99.3 F 07/16/24 07:00 Pulse 95 07/16/24 07:00 Resp 18 07/16/24 07:00 BP 146/43 H 07/16/24 07:00 Pulse Ox 97 07/16/24 07:00 O2 Del Method Nasal Cannula 07/16/24 07:00 O2 Flow Rate 1 07/16/24 07:00 FiO2 26 07/15/24 11:00 BMI result Body Mass Index 50.7 Const: General: no acute distress and awake Orientation/consciousness: patient oriented x3 GI: Other: NG tube present. Draining scant amount of fluid overnight Inspection: No distended and Yes obesity Palpation (GI): Soft to palpation, not firm, Tenderness to palpation present (GI) (mild generalized tenderness), no guarding and not rigid Neuro: General: patient oriented x3 Objective Data Active Medications Albuterol Sulfate (Albuterol Sulfate (0.083%) 2.5 Mg/3 Ml Vial.Neb) 2.5 mg INHALE RQ4H PRN PRN Reason: Wheezing Fentanyl (Fentanyl Citrate/Pf 100 Mcg/2 Ml Vial) 50 mcg IVPUSH Q2H PRN; Protocol PRN Reason: Pain, Severe (Pain Scale 7-10) Last Admin: 07/16/24 07:55 Dose: 50 mcg Documented By: TERRY Heparin Sodium (Porcine) (Heparin Sodium,Porcine 5,000 Unit/Ml Vial) 5,000 unit SUBCUT Q8H [facility] Last Admin: 07/16/24 04:24 Dose: 5,000 unit Documented By: CESAR Nutrition (Parenteral) (Parenteral Nutrition) 1,560 mls @ 65 mls/hr IV .Q24H [facility]; Protocol Stop: 07/16/24 20:59 Last Admin: 07/15/24 19:53 Dose: 65 mls/hr Documented By: SHAHZAD Melatonin (Melatonin 3 Mg Tablet) 6 mg PO BEDTIME PRN PRN Reason: Insomnia Metoprolol Tartrate (Metoprolol Tartrate 5 Mg/5 Ml Vial) 5 mg IVPUSH Q6H PRN; Protocol PRN Reason: hr>90 Last Admin: 07/11/24 09:41 Dose: 5 mg Documented By: MARYURI Midazolam HCl (Midazolam Hcl 2 Mg/2 Ml Vial) 2 mg IVPUSH Q2H PRN PRN Reason: Ventilator synchrony Last Admin: 07/15/24 06:11 Dose: 2 mg Documented By: AYSE Naloxone HCl (Naloxone Hcl 0.4 Mg/Ml Vial) 0.2 mg IVPUSH Q2M PRN PRN Reason: Excessive sedation or RR < 8 Non-Formulary Medication (Umeclidinium-Vilanterol [Anoro Ellipta]) 1 each INHALE DAILY [facility] Nystatin (Nystatin Powder 15 Gm Bottle) 1 appl TOPICAL TID [facility]; Protocol Last Admin: 07/16/24 07:56 Dose: 1 appl Documented By: TERRY Ondansetron HCl (Ondansetron Hcl 4 Mg/2 Ml Vial) 4 mg IVPUSH Q8H PRN PRN Reason: Nausea and Vomiting Last Admin: 07/16/24 07:55 Dose: 4 mg Documented By: TERRY Pantoprazole Sodium (Pantoprazole Sodium 40 Mg/10 Ml Vial) 40 mg IVPUSH BID@0630,1630 [facility] Last Admin: 07/16/24 04:24 Dose: 40 mg Documented By: CESAR Pharmacy Consult (Consult Rx Parenteral Nutrition Ordering) 1 each MISCELLANE DAILY PRN PRN Reason: Consult order Sodium Chloride (0.9 % Sodium Chloride Flush 3 Ml Syringe) [facility] Last Admin: 07/16/24 07:55 Dose: 3 ml Documented By: TERRY Labs 07/16/24 05:14 07/16/24 05:14 Labs: Laboratory Results - last 24 hr 07/16/24 07/16/24 05:14 05:16 MCV 100.3 H MCH 33.3 H MCHC 33.2 RDW 13.1 Plt Count 229 MPV 9.4 Immature Gran % (Auto) 0.7 H Neut % (Auto) 68.9 Lymph % (Auto) 15.5 L [place] % (Auto) 10.0 Eos % (Auto) 4.2 H Baso % (Auto) 0.7 Lymph # (Auto) 1.6 [place] # (Auto) 1.0 Eos # (Auto) 0.4 Baso # (Auto) 0.1 Abs Immat Gran (auto) 0.07 H Absolute Neuts (auto) 7.0 Absolute Nucleated RBC 0.000 Nucleated RBC % (auto) 0.0 VBG pH 7.46 H VBG pCO2 41 VBG pO2 34 VBG HCO3 29 H VBG O2 Saturation 53.0 VBG Base Excess 5.2 Anion Gap 15 Estim Creat Clear Calc 141.3 Estimated GFR > 60 Random Glucose 186 H Calcium 9.1 Phosphorus 3.2 Magnesium 1.9 Total Bilirubin 0.6 AST 64 H ALT 52 H Alkaline Phosphatase 50 Total Protein 6.7 Albumin 3.6 Microbiology Microbiology Results: Microbiology 07/10/24 14:50 Blood Culture - Final Blood - Venous No growth after 5 days. 07/10/24 14:50 Blood Culture - Final Blood - Venous No growth after 5 days. Procedures Date of Service Date of Service: 07/16/24 Progress Note: A&P Assessment and plan (1) Small bowel obstruction: Status: Acute Plan 58-year-old female seen for SBO. Patients condition is improving. Patient was extubated and is communicating. Exam shows mild tenderness to palpation throughout the abdomen patient is nondistended abdomen is soft. Patient passed a bowel movement last night. Will trial clamping NG tube 4 hours if patient remains asymptomatic and output is less than 100 cc we will remove the NG tube. If patient is tolerating this well we can begin to advance diet We will continue to monitor patient Time Spent With Patient Time: Total time managing care of this patient today ____ minutes. Quality Stroke Does the patient have a stroke diagnosis?: No VTE Prior VTE?: No VTE Risk Level:: Medical - moderate - high VTE Device Contraindication: Treatment Not Indicated VTE Drug Contraindication: N/A - Med Ordered
--- NOTE | 2024-07-16 09:57 | MHC.SLORD ---
Speech Language Pathology Order Status: Pt extubated this morning, has NG tube to drain emesis. MD consulted. COMPLAINT INVESTIGATOR to evaluate when indicated.
--- NOTE | 2024-07-16 09:58 | MHC.CM.PN ---
Pt has made clinical progress and will transfer to the medical floor today. Pt will need to see psych for INPT placement. CM to follow.
--- NOTE | 2024-07-16 10:14 | P.PNCC_ITS ---
Subjective Subjective Date of Service: 07/16/24 Interval History: 58-year-old lady with underlying PE on apixaban, obesity with likely obesity hypoventilation syndrome, substance abuse admitted on 07/11/2024 with alteration of mental status deemed to be secondary to intentional olanzapine overdose patient was admitted to telemetry who cruise monitoring. Hospital course significant for development of emesis and pulmonary aspiration resulting in respiratory distress requiring transfer to the intensive care unit and intubation. After placement of OG tube are paroxysmally 2 L drained from patient's stomach. Follow-up CT chest/abdomen/pelvis demonstrated small bowel obstruction. General surgery was consulted and elected to proceed with conservative nonoperative management. Extubated 07/15/2024 No events overnight. Continues with overnight OG output of approximately 300 cc. Critical Care Time (minutes): 0 Physical Exam 2 Vital Signs: Vital Signs: Last Vital Signs Temp 99.3 F 07/16/24 10:00 Pulse 94 07/16/24 10:00 Resp 20 07/16/24 10:00 BP 145/73 H 07/16/24 10:00 Pulse Ox 94 07/16/24 10:00 O2 Del Method Room Air 07/16/24 10:00 O2 Flow Rate 1 07/16/24 09:00 FiO2 26 07/15/24 11:00 BMI result Body Mass Index 50.7 Const: General: no acute distress, alert and awake Nutritional Appearance: obese Eyes: Sclerae: sclerae normal EOM: EOMs intact bilaterally Neck: Neck: Yes no lymphadenopathy, Yes trachea midline and Yes supple Resp: Effort & Inspection: normal respiratory effort and no respiratory distress Auscultation: clear to auscultation bilaterally Cardio: Rate: regular rate Rhythm: regular rhythm Heart sounds: no gallops, no murmurs and no rubs GI: Palpation (GI): Soft to palpation and Other GI palpation findings present ( Nontender) Auscultation: normal bowel sounds Extrem: General: No clubbing, No cyanosis and Yes edema (1+ bilateral) Objective Data Labs 07/16/24 05:14 07/16/24 05:14 Labs: Laboratory Results - last 24 hr 07/16/24 07/16/24 05:14 05:16 WBC 10.1 RBC 4.00 L Hgb 13.3 Hct 40.1 MCV 100.3 H MCH 33.3 H MCHC 33.2 RDW 13.1 Plt Count 229 MPV 9.4 Immature Gran % (Auto) 0.7 H Neut % (Auto) 68.9 Lymph % (Auto) 15.5 L [place] % (Auto) 10.0 Eos % (Auto) 4.2 H Baso % (Auto) 0.7 Lymph # (Auto) 1.6 [place] # (Auto) 1.0 Eos # (Auto) 0.4 Baso # (Auto) 0.1 Abs Immat Gran (auto) 0.07 H Absolute Neuts (auto) 7.0 Absolute Nucleated RBC 0.000 Nucleated RBC % (auto) 0.0 VBG pH 7.46 H VBG pCO2 41 VBG pO2 34 VBG HCO3 29 H VBG O2 Saturation 53.0 VBG Base Excess 5.2 Sodium 142 Potassium 4.0 Chloride 106 Carbon Dioxide 25 Anion Gap 15 BUN 7 L Creatinine 0.69 Estim Creat Clear Calc 141.3 Estimated GFR > 60 Random Glucose 186 H Calcium 9.1 Phosphorus 3.2 Magnesium 1.9 Total Bilirubin 0.6 AST 64 H ALT 52 H Alkaline Phosphatase 50 Total Protein 6.7 Albumin 3.6 Microbiology Microbiology Results: Microbiology 07/10/24 14:50 Blood - Venous Blood Culture - Final No growth after 5 days. 07/10/24 14:50 Blood - Venous Blood Culture - Final No growth after 5 days. 07/11/24 21:16 Blood - Venous Blood Culture - Preliminary No growth after 48 hours. 07/11/24 21:16 Blood - Venous Blood Culture - Preliminary No growth after 48 hours. 07/10/24 Unknown Urine clean catch - Clean Catch Midstream Urine Culture - Final Progress Note: A&P Assessment and plan (1) Intentional olanzapine overdose: Status: Acute (2) Small bowel obstruction: Status: Acute (3) Pulmonary aspiration of gastric contents: Status: Acute Plan Assessment: 58-year-old lady admitted with intentional olanzapine overdose with hospital course complicated by small-bowel obstruction in in aspiration of gastric content with acute hypoxic respiratory failure requiring intubation and ventilatory support Plan: Neuro: Toxic encephalopathy likely secondary to olanzapine overdose, resolved. Cardiac: No acute issues. Pulmonary: Acute hypoxic respiratory failure secondary to pulmonary aspiration of gastric content on the background of small bowel obstruction initially requiring ventilatory support. Extubated 07/15/2024. Renal: Acute renal failure, resolved. Non oliguric. Continue to monitor renal indices and urine output. Endo: No acute issues. GI: CT abdomen with small-bowel obstruction. Evaluated by General surgery with plans for conservative nonoperative management at this time with OG tube decompression. ID: Will monitor off antibiotics. Heme/Onc: No acute issues. Psych: Intentional olanzapine overdose, psychiatry evaluation. 1:1 sitter. Miscellaneous: No acute issues. Prophylaxis: Heparin Diet: PPN Quality Stroke Does the patient have a stroke diagnosis?: No VTE Prior VTE?: No VTE Risk Level:: Medical - moderate - high VTE Device Contraindication: Treatment Not Indicated VTE Drug Contraindication: N/A - Med Ordered
--- NOTE | 2024-07-16 10:23 | MHC.CLN ---
F/U DISCUSSED AT ROUNDS WITH PT EXTUBATED YESTERDAY, BUT CONTINUE WITH PPN REVIEWED LABS DISCUSSED WITH PHARMACY CONTINUE PPN AT 65 ML/HR PROVIDES 796KCALS, 66G PROTEIN (1 G/KG), 156G DEXTROSE REPLETE LYTES NEEDED
[2024-07-16 11:03] LABS: Triglycerides 269 mg/dL (<150)
--- NOTE | 2024-07-16 15:04 | PC.NURSE ---
Assumed care at 0700. 1:1 sitter in room for patient safety. Pt answers questions appropriately; soft-spoken, slow speech. Follows commands. Pt to be transferred to [email or web address]. Report given to Chelsi JEREZ at approx 1330. Per surgery, NG tube clamped from 1000 to 1400. Residual was checked: 40mL. MD Osuna aware. Stevens removed at 1400. Pt DTV at 2000. See MAR and assessments for details. Pt repositioned q2hr. Bed locked and in lowest position.
[2024-07-16] MEDS: Parenteral Nutrition 1,560 ML 65 ML IV (19:58)
[2024-07-17] MEDS: Heparin Sodium,Porcine 5,000 UNIT/ML VIAL 5000 UNIT SUBCUT ×3 (03:36→20:57)
[2024-07-17 03:41] VITALS: BP 141/73; PULSE 100; RESP 18; TEMP 37; O2SAT 94
[2024-07-17] MEDS: Nystatin Powder 15 GM BOTTLE 1 APPL TOPICAL ×3 (03:57→18:27)
--- NOTE | 2024-07-17 07:35 | PM.PNGS ---
Subjective Subjective Date of Service: 07/17/24 <Bassem Mathew PA-C - Last Filed: 07/17/24 07:47> 07/17/24 <Jim Osuna MD - Last Filed: 07/17/24 09:12> Patient reports: bowel movement and nausea <Bassem Mathew PA-C - Last Filed: 07/17/24 07:47> Interval history: Patient doing okay today. Complains of nausea. Denies abdominal pain at rest. States she passed a small bowel movement overnight. <Bassem Mathew PA-C - Last Filed: 07/17/24 07:47> Physical Exam Vital Signs: Vital Signs: Last Vital Signs Temp 98.6 F 07/17/24 03:41 Pulse 100 07/17/24 03:41 Resp 18 07/17/24 03:41 BP 141/73 H 07/17/24 03:41 Pulse Ox 94 07/17/24 03:41 O2 Del Method Room Air 07/17/24 03:41 O2 Flow Rate 1 07/16/24 09:00 FiO2 26 07/15/24 11:00 BMI result Body Mass Index 50.7 <Bassem Mathew PA-C - Last Filed: 07/17/24 07:47> Const: General: cooperative and no acute distress <GLADYS Mcgraw Last Filed: 07/17/24 07:47> Orientation/consciousness: patient oriented x3 <Bassem Mathew PA-C - Last Filed: 07/17/24 07:47> GI: Inspection: Yes distended (mild, difficult to discern due to body habitus) <Bassem Mathew PA-C - Last Filed: 07/17/24 07:47> Palpation (GI): Soft to palpation, Tenderness to palpation present (GI) (diffuse tenderness to ) and no guarding <Bassem Mathew PA-C - Last Filed: 07/17/24 07:47> Neuro: General: patient oriented x3 <GLADYS Mcgraw Last Filed: 07/17/24 07:47> Objective Data Active Medications Albuterol Sulfate (Albuterol Sulfate (0.083%) 2.5 Mg/3 Ml Vial.Neb) 2.5 mg INHALE RQ4H PRN PRN Reason: Wheezing Heparin Sodium (Porcine) (Heparin Sodium,Porcine 5,000 Unit/Ml Vial) 5,000 unit SUBCUT Q8H [facility] Last Admin: 07/17/24 03:36 Dose: 5,000 unit Documented By: DERICK Nutrition (Parenteral) (Parenteral Nutrition) 1,560 mls @ 65 mls/hr IV .Q24H [facility]; Protocol Stop: 07/17/24 20:59 Last Admin: 07/16/24 19:58 Dose: 65 mls/hr Documented By: DERICK Melatonin (Melatonin 3 Mg Tablet) 6 mg PO BEDTIME PRN PRN Reason: Insomnia Metoprolol Tartrate (Metoprolol Tartrate 5 Mg/5 Ml Vial) 5 mg IVPUSH Q6H PRN; Protocol PRN Reason: hr>90 Last Admin: 07/11/24 09:41 Dose: 5 mg Documented By: MARYURI Midazolam HCl (Midazolam Hcl 2 Mg/2 Ml Vial) 2 mg IVPUSH Q2H PRN PRN Reason: Ventilator synchrony Last Admin: 07/15/24 06:11 Dose: 2 mg Documented By: AYSE Naloxone HCl (Naloxone Hcl 0.4 Mg/Ml Vial) 0.2 mg IVPUSH Q2M PRN PRN Reason: Excessive sedation or RR < 8 Non-Formulary Medication (Umeclidinium-Vilanterol [Anoro Ellipta]) 1 each INHALE DAILY [facility] Nystatin (Nystatin Powder 15 Gm Bottle) 1 appl TOPICAL TID [facility]; Protocol Last Admin: 07/17/24 03:57 Dose: 1 appl Documented By: DERICK Ondansetron HCl (Ondansetron Hcl 4 Mg/2 Ml Vial) 4 mg IVPUSH Q8H PRN PRN Reason: Nausea and Vomiting Last Admin: 07/16/24 07:55 Dose: 4 mg Documented By: TERRY Pharmacy Consult (Consult Rx Parenteral Nutrition Ordering) 1 each MISCELLANE DAILY PRN PRN Reason: Consult order Sodium Chloride (0.9 % Sodium Chloride Flush 3 Ml Syringe) 3 ml IVFLUSH QSHIFT [facility] Last Admin: 07/16/24 21:11 Dose: 3 ml Documented By: DERICK <Bassem Mathew PA-C - Last Filed: 07/17/24 07:47> Labs CBC & Chem 7: 07/16/24 05:14 07/16/24 05:14 <Bassem Mathew PA-C - Last Filed: 07/17/24 07:47> Labs: Laboratory Results - last 24 hr 07/16/24 05:14 Triglycerides 269 H <Bassem Mathew PA-C - Last Filed: 07/17/24 07:47> Microbiology Microbiology Results: Microbiology 07/11/24 21:16 Blood Culture - Final Blood - Venous No growth after 5 days. 07/11/24 21:16 Blood Culture - Final Blood - Venous No growth after 5 days. <Bassem Mathew PA-C - Last Filed: 07/17/24 07:47> Procedures Date of Service Date of Service: 07/17/24 <Bassem Mathew PA-C - Last Filed: 07/17/24 07:47> 07/17/24 <Jim Osuna MD - Last Filed: 07/17/24 09:12> Progress Note: A&P Assessment and plan (1) Small bowel obstruction: Status: Acute <Bassem Mathew PA-C - Last Filed: 07/17/24 07:47> Assessment and Plan: Transferred to telemetry yesterday Some shortness of breath NG tube output removed the patient last night - output was low after clamping/unclamping trial yesterday Describes feeling ?queasy? No vomiting Passing flatus Has BMs Abdomen is soft, benign, no guarding, no rebound If no vomiting today, okay to start on clear liquids later on and see how she tolerates this Seen and examined independently <Jim Osuna MD - Last Filed: 07/17/24 09:12> Assessment and Plan: 58 year old female being followed for SBO. Per nursing, patient has removed her own NG tube at bedside. She is comfortable at rest, has diffuse abdominal pain to palpation. Passing small bowel movements overnight. Endorsing nausea Will hold off on replacing NG tube at this time, will continue to monitor for worsening of symptoms. If symtpoms worsening, will discuss repeat imaging or replacing NG tube. continue NPO recommend ambulation continue current pain regimen <Bassem Mathew PA-C - Last Filed: 07/17/24 07:47> Time Spent With Patient Time: Total time managing care of this patient today ____ minutes. <Bassem Mathew PA-C - Last Filed: 07/17/24 07:47> Quality Stroke Does the patient have a stroke diagnosis?: No <Bassem Mathew PA-C - Last Filed: 07/17/24 07:47> VTE Prior VTE?: No <Bassem Mathew PA-C - Last Filed: 07/17/24 07:47> VTE Risk Level:: Medical - moderate - high <Bassem Mathew PA-C - Last Filed: 07/17/24 07:47> VTE Device Contraindication: Treatment Not Indicated <Bassem Mathew PA-C - Last Filed: 07/17/24 07:47> VTE Drug Contraindication: N/A - Med Ordered <Bassem Mathew PA-C - Last Filed: 07/17/24 07:47>
[2024-07-17 07:51] VITALS: BP 156/84; PULSE 96; RESP 20; TEMP 37.1; O2SAT 93
[2024-07-17 09:39] LABS: MANUAL DIFF FLAG NO
[2024-07-17 09:47] LABS: Basophils Absolute Auto 0.1 X10*3/uL (0.0-0.2); Basophils Percent Auto 0.8 % (0-2); Eosinophils Absolute Auto 0.4 X10*3/uL (0.0-0.4); Eosinophils Percent Auto 3.6 % (0-4); Hematocrit 39.2 % (37.0-47.0); Hemoglobin 12.8 g/dl (12.0-16.0); Imm Gran Abs Auto 0.08 X10*3/uL (0.00-0.03); Imm Gran Pct Auto 0.7 % (0.0-0.4); Lymphocytes Absolute Auto 2.3 X10*3/uL (1.2-4.9); Lymphocytes Percent Auto 19.7 % (20-40); Mean Corpuscular HGB Conc 32.7 g/dl (31.0-35.0); Mean Corpuscular Hemoglobin 32.7 pg (27.0-33.0); Mean Corpuscular Volume 100.3 fL (80.0-98.0); Mean Platelet Volume 9.8 fL (9.4-12.3); Monocytes Absolute Auto 1.4 X10*3/uL (0.1-1.2); Monocytes Percent Auto 11.9 % (2-11); Neutrophils Absolute Auto 7.4 x10*3/uL (2.0-8.3); Neutrophils Percent Auto 63.3 % (45-73); Platelet Count 254 X10*3/uL (160-400); Red Blood Count 3.91 X10*6/uL (4.20-5.50); Red Cell Distribution Width 13.2 % (11.0-16.0); White Blood Count 11.6 X10*3/uL (4.8-10.8)
[2024-07-17 10:02] LABS: Albumin Level 3.6 g/dL (3.5-5.0); Anion Gap 14 (12-20); Blood Urea Nitrogen 11 mg/dL (9-16); Calcium 9.2 mg/dL (8.4-10.2); Carbon Dioxide 26 mmol/L (22-29); Chloride 104 mmol/L (96-108); Creatinine Clr Calc Pharmacy 139.2; Estimated Glomerular Filt Rate > 60; Glucose Random 164 mg/dL (60-115); Magnesium 1.9 mg/dL (1.6-2.6); Phosphorus 2.4 mg/dL (2.7-4.5); Sodium 140 mmol/L (135-145)
--- NOTE | 2024-07-17 10:10 | MHC.CLN ---
F/U PT TRANSFERRED TO MEDICAL FLOOR FROM ICU REVIEWED LABS-TRIGS REMAIN 269 DISCUSSED WITH PHARMACY CONTINUE PPN AT 65 ML/HR PROVIDES 796KCALS, 66G PROTEIN (1 G/KG), 156G DEXTROSE HOLD LIPIDS REPLETE LYTES NEEDED
[2024-07-17] MEDS: ondansetron HCL 4 MG/2 ML VIAL IVPUSH (11:33)
[2024-07-17] MEDS: 0.9 % Sodium Chloride Flush 3 ML SYRINGE IVFLUSH ×2 (11:33→18:28)
[2024-07-17 12:00] VITALS: BP 128/77; PULSE 112; RESP 22; TEMP 36.9; O2SAT 90
--- NOTE | 2024-07-17 12:38 | MHC.SL.SWA ---
Speech Pathologist Impression: Risk of Aspiration Due to: Medically Fragile History of Pneumonia Hx of Recent Extubation Dysphasia Diet Status: Liquid Consistency and Strategies for Safe Swallow: Liquid Intake Recommendation: Thin Liquid Intake Strategies: Small Sips Solid Food Consistency: Dietary Recommendations: Pureed (NDD1) Additional Modifications to Solid Foods: Recommend puree diet if patient cleared to start on solid foods by GI. However recommend consult with GI if Clear Liquid Diet more appropriate for patient at this time. Oral Medication Intake: Crushed with Puree Please contact the pharmacy regarding appropriate crushable or liquid drug formulations that are available whenever modified delivery is recommended. Compensatory Strategies and Precautions to be Taken for Safe Swallow: Sitting Upright (90 deg) Liquids from Cup Liquids from Spoon Small Bites and Sips Alternate Liquids/Solids Rate of Ingestion Change Supervision While Eating and Drinking for Safe Swallow: Total Assistance (1:1) Foods to Avoid: Please refer to GI recommendations. Swallowing Recommended Treatments: Compens. Strategy Educat. Recommendation for Speech: Inpatient Speech Therapy Comment: Patient presents with mild oral phase dysphagia secondary to edentulous state, but at risk for aspiration secondary to vulnerable respiratory status, medical frailty. Patient also with SBO, c/o abdominal pain, hx chronic vomiting. Recommend direct consult with GI regarding appropriate diet to start, if solid food recommended, patient appropriate to start on Puree (NDD1) with thin liquids, pills crushed in puree. Patient very weak, will need direct assistance with meals to start. MIXING MACHINE TENDER [employer] will continue to follow, re-assess for advancement of diet as warranted. MD/RD advised of recommendation by secure text, RN in person. Frequency/Duration: Date Range for Service Req: Timeline to reassess: Special Education Teachers Clinican/Clinical Fellow: No Supervisory Statement: I have reviewed and agree with the student/clinical fellow's documentation: N/A Speech Language Pathologist: Mago Gavin M.A., CCC-MIXING MACHINE TENDER [employer]
--- NOTE | 2024-07-17 15:06 | P.PNIM_ITS ---
Subjective Subjective Date of Service: 07/17/24 Interval History: Still somewhat nauseous overnight. No acute issues Review of Systems Denies chest pain Denies shortness of breath Admits nausea without vomiting or diarrhea Denies fever chills Physical Exam 2 Vital Signs: Vital Signs: Last Vital Signs Temp 98.4 F 07/17/24 12:00 Pulse 112 H 07/17/24 12:00 Resp 22 H 07/17/24 12:00 BP 128/77 07/17/24 12:00 Pulse Ox 90 L 07/17/24 12:00 O2 Del Method Room Air 07/17/24 12:00 O2 Flow Rate 1 07/16/24 09:00 FiO2 26 07/15/24 11:00 BMI result Body Mass Index 50.7 Const: Other: Awake alert no acute distress Resp: Other: Clear to auscultation bilaterally no rales rhonchi or wheezes Cardio: Other: No S4; positive S1-S2; no S3 murmurs rubs or gallops GI: Other: Soft nontender nondistended normoactive bowel sounds Extrem: Other: No edema bilaterally Objective Data Active Medications Albuterol Sulfate (Albuterol Sulfate (0.083%) 2.5 Mg/3 Ml Vial.Neb) 2.5 mg INHALE RQ4H PRN PRN Reason: Wheezing Heparin Sodium (Porcine) (Heparin Sodium,Porcine 5,000 Unit/Ml Vial) 5,000 unit SUBCUT Q8H [facility] Last Admin: 07/17/24 11:33 Dose: 5,000 unit Documented By: GAY Nutrition (Parenteral) (Parenteral Nutrition) 1,560 mls @ 65 mls/hr IV .Q24H [facility]; Protocol Stop: 07/17/24 20:59 Last Admin: 07/16/24 19:58 Dose: 65 mls/hr Documented By: DERICK Nutrition (Parenteral) (Parenteral Nutrition) 1,560 mls @ 65 mls/hr IV .Q24H [facility]; Protocol Stop: 07/18/24 20:59 Melatonin (Melatonin 3 Mg Tablet) 6 mg PO BEDTIME PRN PRN Reason: Insomnia Metoprolol Tartrate (Metoprolol Tartrate 5 Mg/5 Ml Vial) 5 mg IVPUSH Q6H PRN; Protocol PRN Reason: hr>90 Last Admin: 07/11/24 09:41 Dose: 5 mg Documented By: MARYURI Midazolam HCl (Midazolam Hcl 2 Mg/2 Ml Vial) 2 mg IVPUSH Q2H PRN PRN Reason: Ventilator synchrony Last Admin: 07/15/24 06:11 Dose: 2 mg Documented By: AYSE Naloxone HCl (Naloxone Hcl 0.4 Mg/Ml Vial) 0.2 mg IVPUSH Q2M PRN PRN Reason: Excessive sedation or RR < 8 Non-Formulary Medication (Umeclidinium-Vilanterol [Anoro Ellipta]) 1 each INHALE DAILY [facility] Nystatin (Nystatin Powder 15 Gm Bottle) 1 appl TOPICAL TID [facility]; Protocol Last Admin: 07/17/24 11:34 Dose: 1 appl Documented By: GAY Ondansetron HCl (Ondansetron Hcl 4 Mg/2 Ml Vial) 4 mg IVPUSH Q8H PRN PRN Reason: Nausea and Vomiting Last Admin: 07/17/24 11:33 Dose: 4 mg Documented By: GAY Pharmacy Consult (Consult Rx Parenteral Nutrition Ordering) 1 each MISCELLANE DAILY PRN PRN Reason: Consult order Sodium Chloride (0.9 % Sodium Chloride Flush 3 Ml Syringe) 3 [facility] Last Admin: 07/17/24 11:33 Dose: 3 ml Documented By: GAY Labs 07/17/24 08:55 07/17/24 08:55 Labs: Laboratory Results - last 24 hr 07/17/24 08:55 MCV 100.3 H MCH 32.7 MCHC 32.7 RDW 13.2 Plt Count 254 MPV 9.8 Immature Gran % (Auto) 0.7 H Neut % (Auto) 63.3 Lymph % (Auto) 19.7 L Bennett % (Auto) 11.9 H Eos % (Auto) 3.6 Baso % (Auto) 0.8 Lymph # (Auto) 2.3 Bennett # (Auto) 1.4 H Eos # (Auto) 0.4 Baso # (Auto) 0.1 Abs Immat Gran (auto) 0.08 H Absolute Neuts (auto) 7.4 Absolute Nucleated RBC 0.000 Nucleated RBC % (auto) 0.0 Anion Gap 14 Estim Creat Clear Calc 139.2 Estimated GFR > 60 Random Glucose 164 H Calcium 9.2 Phosphorus 2.4 L Magnesium 1.9 Albumin 3.6 Microbiology Microbiology Results: Microbiology 07/11/24 21:16 Blood Culture - Final Blood - Venous No growth after 5 days. 07/11/24 21:16 Blood Culture - Final Blood - Venous No growth after 5 days. Assessment and Plan (1) Toxic encephalopathy: Status: Acute (2) Small bowel obstruction: Status: Acute (3) Pulmonary aspiration of gastric contents: Status: Acute Plan 58F PMH chronic hypoxic and hypercapnic respiratory failure on 2 L due to COPD, hypertension, chronic back pain, opiate dependence, mood disorder presented with altered mental status after intentional olanzapine overdose. On 07/11/2024 started vomiting large amount of brown emesis requiring intubation. Likely aspiration. Over the next several days successfully weaned off the ventilator and was able to be transferred to telemetry 1.Acute toxic metabolic encephalopathy due to intentional olanzapine overdose due to mood disorder with suicide ideation -successful extubation and transferred telemetry -mentation has improved continues to require sitter 2. SBO -appreciate surgical input -we will start with clear liquids today and advance as tolerated -follow clinically 3.Sepsis and acute hypoxic respiratory failure due to aspiration pneumonia (sepsis resolved) -completed antibiotics -follow clinically 4.Hypertension -acceptable control on current therapies -adjust as indicated 5.History of PE -Continue Eliquis Full Code reason for continued hospitalization: Hypoxia, fevers Quality Stroke Does the patient have a stroke diagnosis?: No VTE Prior VTE?: No VTE Risk Level:: Medical - moderate - high VTE Device Contraindication: Treatment Not Indicated VTE Drug Contraindication: N/A - Med Ordered
[2024-07-17 15:58] VITALS: BP 168/93; PULSE 105; RESP 16; TEMP 36.4; O2SAT 92
[2024-07-17 19:26] VITALS: BP 136/73; PULSE 104; RESP 20; TEMP 37.1; O2SAT 94
[2024-07-17] MEDS: Parenteral Nutrition 1,560 ML 65 ML IV (20:59)
[2024-07-17 23:22] VITALS: BP 146/67; PULSE 110; RESP 18; TEMP 36.9; O2SAT 92
[2024-07-18 04:00] VITALS: BP 143/72; PULSE 99; RESP 18; TEMP 37; O2SAT 92
[2024-07-18] MEDS: Heparin Sodium,Porcine 5,000 UNIT/ML VIAL 5000 UNIT SUBCUT ×3 (04:40→20:16)
[2024-07-18] MEDS: ondansetron HCL 4 MG/2 ML VIAL IVPUSH (05:14)
[2024-07-18 07:29] VITALS: BP 154/90; PULSE 98; RESP 26; TEMP 37.2; O2SAT 93
[2024-07-18 07:40] LABS: Anion Gap 15 (12-20); Blood Urea Nitrogen 15 mg/dL (9-16); Calcium 9.5 mg/dL (8.4-10.2); Carbon Dioxide 27 mmol/L (22-29); Chloride 103 mmol/L (96-108); Creatinine Clr Calc Pharmacy 137.3; Estimated Glomerular Filt Rate > 60; Glucose Random 193 mg/dL (60-115); Phosphorus 3.4 mg/dL (2.7-4.5); Potassium 4.1 mmol/L (3.3-5.1); Sodium 141 mmol/L (135-145)
[2024-07-18] MEDS: Metoclopramide HCl 10 MG/2 ML VIAL 5 MG IVPUSH (08:17)
[2024-07-18] MEDS: 0.9 % Sodium Chloride Flush 3 ML SYRINGE IVFLUSH ×2 (08:20→16:26)
--- NOTE | 2024-07-18 08:32 | PM.PNGS ---
Subjective Subjective Date of Service: 07/18/24 Patient reports: still having pain, bowel movement (small) and nausea Interval history: Patient having continued nausea. Endorses feeling bloated. Has not ambulated. Physical Exam Vital Signs: Vital Signs: Last Vital Signs Temp 98.9 F 07/18/24 07:29 Pulse 98 07/18/24 07:29 Resp 26 H 07/18/24 07:29 BP 154/90 H 07/18/24 07:29 Pulse Ox 93 07/18/24 07:29 O2 Del Method Room Air 07/18/24 07:29 O2 Flow Rate 1 07/16/24 09:00 FiO2 26 07/15/24 11:00 BMI result Body Mass Index 50.7 Const: General: no acute distress Nutritional Appearance: obese Orientation/consciousness: patient oriented x3 Resp: Effort & Inspection: able to speak in complete sentences GI: Inspection: Yes distended (upper abdominal distention) Palpation (GI): Soft to palpation, Tenderness to palpation present (GI) (diffuse tenderness), no guarding and not rigid Percussion: Yes tympanic to percussion Neuro: General: patient oriented x3 Objective Data Active Medications Acetaminophen/Butalbital/Caffeine (Butalb/Acetamin/Caff 50/325/40 Tablet) 1 tab PO Q4H PRN PRN Reason: Headache Albuterol Sulfate (Albuterol Sulfate (0.083%) 2.5 Mg/3 Ml Vial.Neb) 2.5 mg INHALE RQ4H PRN PRN Reason: Wheezing Heparin Sodium (Porcine) (Heparin Sodium,Porcine 5,000 Unit/Ml Vial) 5,000 unit SUBCUT Q8H [facility] Last Admin: 07/18/24 04:40 Dose: 5,000 unit Documented By: HUYEN Nutrition (Parenteral) (Parenteral Nutrition) 1,560 mls @ 65 mls/hr IV .Q24H [facility]; Protocol Stop: 07/18/24 20:59 Last Admin: 07/17/24 20:59 Dose: 65 mls/hr Documented By: HUYEN Melatonin (Melatonin 3 Mg Tablet) 6 mg PO BEDTIME PRN PRN Reason: Insomnia Metoclopramide HCl (Metoclopramide Hcl 10 Mg/2 Ml Vial) 5 mg IVPUSH Q6H PRN PRN Reason: Nausea and Vomiting Last Admin: 07/18/24 08:17 Dose: 5 mg Documented By: GAY Metoprolol Tartrate (Metoprolol Tartrate 5 Mg/5 Ml Vial) 5 mg IVPUSH Q6H PRN; Protocol PRN Reason: hr>90 Last Admin: 07/11/24 09:41 Dose: 5 mg Documented By: MARYURI Midazolam HCl (Midazolam Hcl 2 Mg/2 Ml Vial) 2 mg IVPUSH Q2H PRN PRN Reason: Ventilator synchrony Last Admin: 07/15/24 06:11 Dose: 2 mg Documented By: AYSE Naloxone HCl (Naloxone Hcl 0.4 Mg/Ml Vial) 0.2 mg IVPUSH Q2M PRN PRN Reason: Excessive sedation or RR < 8 Non-Formulary Medication (Umeclidinium-Vilanterol [Anoro Ellipta]) 1 each INHALE DAILY [facility] Nystatin (Nystatin Powder 15 Gm Bottle) 1 appl TOPICAL TID [facility]; Protocol Last Admin: 07/18/24 01:00 Dose: Not Given Documented By: HUYEN Non-Admin Reason: med not in bin will check icu Ondansetron HCl (Ondansetron Hcl 4 Mg/2 Ml Vial) 4 mg IVPUSH Q8H PRN PRN Reason: Nausea and Vomiting Last Admin: 07/18/24 05:14 Dose: 4 mg Documented By: HUYEN Pharmacy Consult (Consult Rx Parenteral Nutrition Ordering) 1 each MISCELLANE DAILY PRN PRN Reason: Consult order Sodium Chloride (0.9 % Sodium Chloride Flush 3 Ml Syringe) [facility] Last Admin: 07/18/24 08:20 Dose: 3 ml Documented By: GAY Labs 07/17/24 08:55 07/18/24 06:56 Labs: Laboratory Results - last 24 hr 07/17/24 07/18/24 08:55 06:56 MCV 100.3 H MCH 32.7 MCHC 32.7 RDW 13.2 Plt Count 254 MPV 9.8 Immature Gran % (Auto) 0.7 H Neut % (Auto) 63.3 Lymph % (Auto) 19.7 L Emmons % (Auto) 11.9 H Eos % (Auto) 3.6 Baso % (Auto) 0.8 Lymph # (Auto) 2.3 Emmons # (Auto) 1.4 H Eos # (Auto) 0.4 Baso # (Auto) 0.1 Abs Immat Gran (auto) 0.08 H Absolute Neuts (auto) 7.4 Absolute Nucleated RBC 0.000 Nucleated RBC % (auto) 0.0 Hold Purple Top SEE NOTE Anion Gap 14 15 Estim Creat Clear Calc 139.2 137.3 Estimated GFR > 60 > 60 Random Glucose 164 H 193 H Calcium 9.2 9.5 Phosphorus 2.4 L 3.4 Magnesium 1.9 2.0 Albumin 3.6 Procedures Date of Service Date of Service: 07/18/24 Progress Note: A&P Assessment and plan (1) Small bowel obstruction: Status: Acute Plan 58 year old female being followed for SBO. Patient remains on telemetry. Continues to have nausea and feels bloated. She has been passing multiple small bowel movements and flatus. She remains NPO per hospitalist. Exam significatn for mild distention, generalized pain to palpation. Will continue to follow patient recommend advancing to clear liquid diet Continue current pain regimen Antiemetics as needed Recommend ambulation as tolerated Time Spent With Patient Time: Total time managing care of this patient today ____ minutes. Quality Stroke Does the patient have a stroke diagnosis?: No VTE Prior VTE?: No VTE Risk Level:: Medical - moderate - high VTE Device Contraindication: Treatment Not Indicated VTE Drug Contraindication: N/A - Med Ordered
--- NOTE | 2024-07-18 09:21 | MHC.SLORD ---
Addendum entered and electronically signed by Britta Henry MA, CCC-[facility] 07/18/24 10:06: Discussed w/ . Patient w/ poor PO intake d/t nausea, NPO right now for PICC, afterwards plan to start on TPN. Per , [facility] f/u is not indicated today. Original Note: Speech Language Pathology Order Status: Per , pt is NPO for procedure (PICC line). No PO trials given at this time. [facility] recommends G.I. consult.
--- NOTE | 2024-07-18 10:23 | MHC.CLN ---
F/U PT'S DIET NOT ADVANCED D/T NAUSEA PT TO RECEIVE PICC LINE TODAY PER MD REVIEWED LABS DISCUSSED WITH PHARMACY RECOMMEND TPN AT 65 ML/HR TO PROVIDE [id number], 78G PROTEIN (1.2 G/KG), 234G DEXTROSE HOLD LIPIDS REPLETE LYTES NEEDED RD CAN BE REACHED VIA TIGER CONNECT DURING OFF HOURS IF NEEDED
[2024-07-18] MEDS: Nystatin Powder 15 GM BOTTLE 1 APPL TOPICAL ×2 (11:01→14:00)
--- NOTE | 2024-07-18 13:28 | P.PICC_ITS ---
PICC Line Insertion NPICC Diagnosis: SBO Indication: TPN needed Pertinent Labs: reviewed Technique: Following informed consent including risks, benefits and alternatives and using sterile technique including cap and mask, sterile gown, glove and drape, the right arm was prepped and draped in the usual sterile fashion of full barrier technique with CHG. Following completion of Vera Protocol the skin and soft tissues were anesthetized with 1% Lidocaine plain. Using ultrasound guidance, right brachial vein access was obtained twice by Titus Crooks RN, but unable to pass guidewire. Right brachial vein access was obtained on first attempt by Jocelyn Coleman RN. Over an 0.018 wire through peel-away sheath, a 5FR triple lumen PASV PICC line was positioned. Catheter length is 40 CM internal length, at the 0 CM external length, for a total trimmed length of 40 CM. The procedure was performed in S272. Tip verification was performed by Site Michael Carrizales 3CG. Tip located in SVC. Ultrasound was used to document vein patency and for needle entry. A formal ultrasound picture and cardiac rhythm strip was recorded. [employer] Representative has released the line for use and it is currently dressed with a StatLock, Tegaderm, and CHG disc. Verification has been performed for blood return and line patency. Arm Circumference: 44 CM Equipment: [email or web address] Catheter Type: 5FR triple lumen PASV PICC Lot #: [id number]
--- NOTE | 2024-07-18 15:05 | HO.PM.IMPN ---
Subjective Subjective Date of Service: 07/18/24 Interval History: Remains nauseous with very limited p.o. intake. PICC line placed this a.m. Review of Systems Denies chest pain Denies shortness of breath Admits nausea without vomiting or diarrhea Denies fever chills Physical Exam Vital Signs: Vital Signs: Last Vital Signs Temp 98.9 F 07/18/24 07:29 Pulse 98 07/18/24 07:29 Resp 26 H 07/18/24 07:29 BP 154/90 H 07/18/24 07:29 Pulse Ox 93 07/18/24 07:29 O2 Del Method Room Air 07/18/24 07:29 O2 Flow Rate 1 07/16/24 09:00 FiO2 26 07/15/24 11:00 BMI result Body Mass Index 50.7 Const: Other: Awake alert no acute distress Resp: Other: Clear to auscultation bilaterally no rales rhonchi or wheezes Cardio: Other: No S4; positive S1-S2; no S3 murmurs rubs or gallops GI: Other: Soft nontender nondistended normoactive bowel sounds Extrem: Other: No edema bilaterally Objective Data Active Medications Acetaminophen/Butalbital/Caffeine (Butalb/Acetamin/Caff 50/325/40 Tablet) 1 tab PO Q4H PRN PRN Reason: Headache Albuterol Sulfate (Albuterol Sulfate (0.083%) 2.5 Mg/3 Ml Vial.Neb) 2.5 mg INHALE RQ4H PRN PRN Reason: Wheezing Heparin Sodium (Porcine) (Heparin Sodium,Porcine 5,000 Unit/Ml Vial) 5,000 unit SUBCUT Q8H [facility] Last Admin: 07/18/24 13:54 Dose: 5,000 unit Documented By: GAY Nutrition (Parenteral) (Parenteral Nutrition) 1,560 mls @ 65 mls/hr IV .Q24H [facility]; Protocol Stop: 07/18/24 20:59 Last Admin: 07/17/24 20:59 Dose: 65 mls/hr Documented By: HUYEN Nutrition (Parenteral) (Parenteral Nutrition) 1,920 mls @ 80 mls/hr IV .Q24H [facility]; Protocol Stop: 07/19/24 20:59 Melatonin (Melatonin 3 Mg Tablet) 6 mg PO BEDTIME PRN PRN Reason: Insomnia Metoclopramide HCl (Metoclopramide Hcl 10 Mg/2 Ml Vial) 5 mg IVPUSH Q6H PRN PRN Reason: Nausea and Vomiting Last Admin: 07/18/24 08:17 Dose: 5 mg Documented By: GAY Metoprolol Tartrate (Metoprolol Tartrate 5 Mg/5 Ml Vial) 5 mg IVPUSH Q6H PRN; Protocol PRN Reason: hr>90 Last Admin: 07/11/24 09:41 Dose: 5 mg Documented By: MARYURI Midazolam HCl (Midazolam Hcl 2 Mg/2 Ml Vial) 2 mg IVPUSH Q2H PRN PRN Reason: Ventilator synchrony Last Admin: 07/15/24 06:11 Dose: 2 mg Documented By: AYSE Naloxone HCl (Naloxone Hcl 0.4 Mg/Ml Vial) 0.2 mg IVPUSH Q2M PRN PRN Reason: Excessive sedation or RR < 8 Non-Formulary Medication (Umeclidinium-Vilanterol [Anoro Ellipta]) 1 each INHALE DAILY [facility] Nystatin (Nystatin Powder 15 Gm Bottle) 1 appl TOPICAL TID [facility]; Protocol Last Admin: 07/18/24 14:00 Dose: 1 appl Documented By: GAY Ondansetron HCl (Ondansetron Hcl 4 Mg/2 Ml Vial) 4 mg IVPUSH Q8H PRN PRN Reason: Nausea and Vomiting Last Admin: 07/18/24 05:14 Dose: 4 mg Documented By: HUYEN Pharmacy Consult (Consult Rx Parenteral Nutrition Ordering) 1 each MISCELLANE DAILY PRN PRN Reason: Consult order Sodium Chloride (0.9 % Sodium Chloride Flush 3 Ml Syringe) 3 ml IVFLUSH QSHIFT [facility] Last Admin: 07/18/24 08:20 Dose: 3 ml Documented By: GAY Labs 07/17/24 08:55 07/18/24 06:56 Labs: Laboratory Results - last 24 hr 07/18/24 06:56 Hold Purple Top SEE NOTE Anion Gap 15 Estim Creat Clear Calc 137.3 Estimated GFR > 60 Random Glucose 193 H Calcium 9.5 Phosphorus 3.4 Magnesium 2.0 Assessment and Plan (1) Partial small bowel obstruction: Status: Acute (2) Intentional olanzapine overdose: Status: Acute Plan 58F PMH chronic hypoxic and hypercapnic respiratory failure on 2 L due to COPD, hypertension, chronic back pain, opiate dependence, mood disorder presented with altered mental status after intentional olanzapine overdose. On 07/11/2024 started vomiting large amount of brown emesis requiring intubation. Likely aspiration. Over the next several days successfully weaned off the ventilator and was able to be transferred to telemetry 1.Acute toxic metabolic encephalopathy due to intentional olanzapine overdose due to mood disorder with suicide ideation -successful extubation and transferred telemetry -mentation has improved continues to require sitter 2. SBO -barely tolerant of clear liquid diet -PICC line placed today without issue -start TPN when available 3.Sepsis and acute hypoxic respiratory failure due to aspiration pneumonia (sepsis resolved) -completed antibiotics -follow clinically 4.Hypertension -acceptable control on current therapies -adjust as indicated 5.History of PE -Continue Eliquis Full Code reason for continued hospitalization: Hypoxia, fevers Quality Stroke Does the patient have a stroke diagnosis?: No VTE Prior VTE?: No VTE Risk Level:: Medical - moderate - high VTE Device Contraindication: Treatment Not Indicated VTE Drug Contraindication: N/A - Med Ordered
[2024-07-18 15:46] VITALS: BP 144/82; PULSE 107; RESP 28; TEMP 36.9; O2SAT 93
--- NOTE | 2024-07-18 15:46 | MHC.CM.PN ---
Per rounds, pt. is not ready to DC, she will need to get a PICC line, and she is not eating, will need TPN. CM will follow for DC needs.
[2024-07-18] MEDS: 0.9 % Sodium Chloride Flush 10 ML SYRINGE IVFLUSH (16:27)
[2024-07-18 19:45] VITALS: BP 146/75; PULSE 105; RESP 18; TEMP 36.6; O2SAT 94
[2024-07-18] MEDS: Parenteral Nutrition 1,920 ML 80 ML IV (20:17)
[2024-07-18 23:20] VITALS: BP 150/96; PULSE 101; RESP 18; TEMP 36.8; O2SAT 92
[2024-07-19 02:44] VITALS: BP 134/83; PULSE 104; RESP 18; TEMP 36.6; O2SAT 93
[2024-07-19] MEDS: Heparin Sodium,Porcine 5,000 UNIT/ML VIAL 5000 UNIT SUBCUT ×3 (05:20→20:52)
[2024-07-19 05:42] VITALS: BMI 47.1
[2024-07-19 07:01] VITALS: BP 130/72; PULSE 96; RESP 18; TEMP 36.4; O2SAT 94
--- NOTE | 2024-07-19 07:30 | P.CDIM_ITS ---
PROVIDER RESPONSE TEXT: To clarify, the appropriate diagnosis supported by the clinical indicators: Severe or Morbid Obesity With alveolar hypoventilation QUERY TEXT: PHYSICIAN'S DOCUMENTATION REQUEST Date of Query: 07/17/2024 12:01 PM EDT Patient Name: Zeenat Mcnamara Admit Date: 07/10/2024 Dear Chino Fischer DO, A review of the medical record indicates additional documentation may be needed. Please review below and update the documentation accordingly. Clinical Indicators: Height: 5ft 9in Weight: 155.6kg BMI: 50.7 Other Clinical Notes Supporting Significance of the BMI: Nursing notes Height and Weight: Extreme obe sity III If possible, please provide an associated diagnosis related to the abnormal BMI, such as: Severe or Morbid Obesity With alveolar hypoventilation Severe or Morbid Obesity Without alveolar hypoventilation Other specified Other (explain) Clinically unable to determine (explain) Thank you, Hilda Cummings, CCS, CDIS Use of terms such as suspected, likely, concern for, or probable (associated with a specific diagnosi s that is being evaluated, monitored, or treated as if it exists) are acceptable and can be coded in the inpatient se tting, when documented at the time of discharge. Please use your independent medical judgment in providing your response. THIS QUERY IS PART OF THE PERMANENT MEDICAL RECORD
[2024-07-19 07:36] LABS: Albumin Level 3.9 g/dL (3.5-5.0); Anion Gap 18 (12-20); Blood Urea Nitrogen 19 mg/dL (9-16); Calcium 9.3 mg/dL (8.4-10.2); Carbon Dioxide 26 mmol/L (22-29); Chloride 100 mmol/L (96-108); Creatinine Clr Calc Pharmacy 126.1; Estimated Glomerular Filt Rate > 60; Glucose Random 234 mg/dL (60-115); Magnesium 2.1 mg/dL (1.6-2.6); Potassium 4.5 mmol/L (3.3-5.1); Sodium 139 mmol/L (135-145)
[2024-07-19] MEDS: 0.9 % Sodium Chloride Flush 3 ML SYRINGE IVFLUSH ×3 (09:07→23:49)
[2024-07-19] MEDS: 0.9 % Sodium Chloride Flush 10 ML SYRINGE IVFLUSH ×2 (09:07→15:19)
[2024-07-19] MEDS: Nystatin Powder 15 GM BOTTLE 1 APPL TOPICAL ×3 (09:08→20:52)
[2024-07-19 11:28] VITALS: BP 147/79; PULSE 97; RESP 18; TEMP 36.8; O2SAT 97
--- NOTE | 2024-07-19 15:14 | P.PNIM_ITS ---
Subjective Subjective Date of Service: 07/19/24 Interval History: Continues to improve slowly tolerating small amounts of clear liquids Review of Systems Denies chest pain Denies shortness of breath Admits nausea without vomiting or diarrhea Denies fever chills Physical Exam 2 Vital Signs: Vital Signs: Last Vital Signs Temp 98.3 F 07/19/24 11:28 Pulse 97 07/19/24 11:28 Resp 18 07/19/24 11:28 BP 147/79 H 07/19/24 11:28 Pulse Ox 97 07/19/24 11:28 O2 Del Method Room Air 07/19/24 11:28 O2 Flow Rate 1 07/16/24 09:00 FiO2 26 07/15/24 11:00 BMI result Body Mass Index 47.1 Const: Other: Awake alert no acute distress Resp: Other: Clear to auscultation bilaterally no rales rhonchi or wheezes Cardio: Other: No S4; positive S1-S2; no S3 murmurs rubs or gallops GI: Other: Soft nontender nondistended normoactive bowel sounds Extrem: Other: No edema bilaterally Objective Data Active Medications Acetaminophen/Butalbital/Caffeine (Butalb/Acetamin/Caff 50/325/40 Tablet) 1 tab PO Q4H PRN PRN Reason: Headache Albuterol Sulfate (Albuterol Sulfate (0.083%) 2.5 Mg/3 Ml Vial.Neb) 2.5 mg INHALE RQ4H PRN PRN Reason: Wheezing Heparin Sodium (Porcine) (Heparin Sodium,Porcine 5,000 Unit/Ml Vial) 5,000 unit SUBCUT Q8H [facility] Last Admin: 07/19/24 13:42 Dose: 5,000 unit Documented By: TEMO Nutrition (Parenteral) (Parenteral Nutrition) 1,920 mls @ 80 mls/hr IV .Q24H [facility]; Protocol Stop: 07/19/24 20:59 Last Admin: 07/18/24 20:17 Dose: 80 mls/hr Documented By: JESUS Nutrition (Parenteral) (Parenteral Nutrition) 1,560 mls @ 65 mls/hr IV .Q24H [facility]; Protocol Stop: 07/20/24 20:59 Melatonin (Melatonin 3 Mg Tablet) 6 mg PO BEDTIME PRN PRN Reason: Insomnia Metoclopramide HCl (Metoclopramide Hcl 10 Mg/2 Ml Vial) 5 mg IVPUSH Q6H PRN PRN Reason: Nausea and Vomiting Last Admin: 07/18/24 08:17 Dose: 5 mg Documented By: GAY Metoprolol Tartrate (Metoprolol Tartrate 5 Mg/5 Ml Vial) 5 mg IVPUSH Q6H PRN; Protocol PRN Reason: hr>90 Last Admin: 07/11/24 09:41 Dose: 5 mg Documented By: MARYURI Midazolam HCl (Midazolam Hcl 2 Mg/2 Ml Vial) 2 mg IVPUSH Q2H PRN PRN Reason: Ventilator synchrony Last Admin: 07/15/24 06:11 Dose: 2 mg Documented By: AYSE Naloxone HCl (Naloxone Hcl 0.4 Mg/Ml Vial) 0.2 mg IVPUSH Q2M PRN PRN Reason: Excessive sedation or RR < 8 Non-Formulary Medication (Umeclidinium-Vilanterol [Anoro Ellipta]) 1 each INHALE DAILY [facility] Nystatin (Nystatin Powder 15 Gm Bottle) 1 appl TOPICAL TID [facility]; Protocol Last Admin: 07/19/24 09:08 Dose: 1 appl Documented By: TEMO Ondansetron HCl (Ondansetron Hcl 4 Mg/2 Ml Vial) 4 mg IVPUSH Q8H PRN PRN Reason: Nausea and Vomiting Last Admin: 07/18/24 05:14 Dose: 4 mg Documented By: HUYEN Pharmacy Consult (Consult Rx Parenteral Nutrition Ordering) 1 each MISCELLANE DAILY PRN PRN Reason: Consult order Sodium Chloride (0.9 % Sodium Chloride Flush 3 Ml Syringe) 3 ml IVFLUSH [facility] Last Admin: 07/19/24 09:07 Dose: 3 ml Documented By: TEMO Sodium Chloride (0.9 % Sodium Chloride Flush 10 Ml Syringe) [facility] Last Admin: 07/19/24 09:07 Dose: 10 ml Documented By: TEMO Labs 07/17/24 08:55 07/19/24 06:39 Labs: Laboratory Results - last 24 hr 07/19/24 06:39 Hold Purple Top SEE NOTE Anion Gap 18 Estim Creat Clear Calc 126.1 Estimated GFR > 60 Random Glucose 234 H Calcium 9.3 Phosphorus 3.0 Magnesium 2.1 Albumin 3.9 Assessment and Plan (1) Small bowel obstruction: Status: Acute (2) Toxic encephalopathy: Status: Acute Plan 58F PMH chronic hypoxic and hypercapnic respiratory failure on 2 L due to COPD, hypertension, chronic back pain, opiate dependence, mood disorder presented with altered mental status after intentional olanzapine overdose. On 07/11/2024 started vomiting large amount of brown emesis requiring intubation. Likely aspiration. Over the next several days successfully weaned off the ventilator and was able to be transferred to telemetry 1.Acute toxic metabolic encephalopathy due to intentional olanzapine overdose due to mood disorder with suicide ideation -successful extubation and transferred telemetry -mentation has improved continues to require sitter 2. SBO -barely tolerant of clear liquid diet... Advance as tolerated -TPN via PICC 3.Sepsis and acute hypoxic respiratory failure due to aspiration pneumonia (sepsis resolved) -completed antibiotics -follow clinically 4.Hypertension -acceptable control on current therapies -adjust as indicated 5.History of PE -Continue Eliquis Full Code reason for continued hospitalization: Hypoxia, fevers Quality Stroke Does the patient have a stroke diagnosis?: No VTE Prior VTE?: No VTE Risk Level:: Medical - moderate - high VTE Device Contraindication: Treatment Not Indicated VTE Drug Contraindication: N/A - Med Ordered
[2024-07-19 15:36] VITALS: BP 140/83; PULSE 100; RESP 20; TEMP 36.6; O2SAT 91
[2024-07-19 19:52] VITALS: BP 131/93; PULSE 99; RESP 18; TEMP 36.2; O2SAT 93
[2024-07-19] MEDS: Parenteral Nutrition 1,560 ML 65 ML IV (20:52)
[2024-07-19 23:07] VITALS: BP 143/87; PULSE 98; RESP 18; TEMP 36.5; O2SAT 94
[2024-07-19] MEDS: ondansetron HCL 4 MG/2 ML VIAL IVPUSH (23:55)
[2024-07-20] VITALS (10 sets, daily range): BP systolic 108–173; BP diastolic 70–90; PULSE 98–106; RESP 16–33; TEMP 36.3–36.7; O2SAT 92–95; BMI 47.5
[2024-07-20] MEDS: Heparin Sodium,Porcine 5,000 UNIT/ML VIAL 5000 UNIT SUBCUT ×3 (03:16→20:59)
[2024-07-20] MEDS: 0.9 % Sodium Chloride Flush 10 ML SYRINGE IVFLUSH ×3 (03:21→21:32)
[2024-07-20 07:55] LABS: Albumin Level 3.8 g/dL (3.5-5.0); Anion Gap 15 (12-20); Blood Urea Nitrogen 24 mg/dL (9-16); Calcium 9.1 mg/dL (8.4-10.2); Carbon Dioxide 23 mmol/L (22-29); Chloride 102 mmol/L (96-108); Creatinine Clr Calc Pharmacy 121.7; Estimated Glomerular Filt Rate > 60; Glucose Random 271 mg/dL (60-115); Magnesium 2.1 mg/dL (1.6-2.6); Phosphorus 3.4 mg/dL (2.7-4.5); Potassium 4.5 mmol/L (3.3-5.1); Sodium 135 mmol/L (135-145)
--- NOTE | 2024-07-20 11:13 | P.PNIM_ITS ---
Subjective Subjective Date of Service: 07/21/24 Interval History: Remains on TPN, no new issue but vomitted in the afternoon resulting in tachypnea and cxr and kub show distended bowel and stomach Physical Exam 2 Vital Signs: Vital Signs: Last Vital Signs Temp 97.5 F 07/20/24 07:48 Pulse 106 H 07/20/24 07:48 Resp 18 07/20/24 07:48 BP 124/70 07/20/24 07:48 Pulse Ox 95 07/20/24 07:48 O2 Del Method Room Air 07/20/24 07:48 O2 Flow Rate 1 07/16/24 09:00 FiO2 26 07/15/24 11:00 BMI result Body Mass Index 47.5 Const: Other: General: Alert, no distress, confused Resp: CTA bilateral CVS: S1,S2,RRR GI: +BS, NT, distended Skin: No rash Neuro: motor grossly intact Psych: appropriate affect Objective Data Active Medications Acetaminophen (Acetaminophen 325 Mg Tablet) 650 mg PO Q4H PRN PRN Reason: Pain, Mild (Pain Scale 1-3) Acetaminophen/Butalbital/Caffeine (Butalb/Acetamin/Caff 50/325/40 Tablet) 1 tab PO Q4H PRN PRN Reason: Headache Albuterol Sulfate (Albuterol Sulfate (0.083%) 2.5 Mg/3 Ml Vial.Neb) 2.5 mg INHALE RQ4H PRN PRN Reason: Wheezing Heparin Sodium (Porcine) (Heparin Sodium,Porcine 5,000 Unit/Ml Vial) 5,000 unit SUBCUT Q8H ROBI Last Admin: 07/20/24 03:16 Dose: 5,000 unit Documented By: SALMOD Nutrition (Parenteral) (Parenteral Nutrition) 1,560 mls @ 65 mls/hr IV .Q24H [facility]BI; Protocol Stop: 07/20/24 20:59 Last Admin: 07/19/24 20:52 Dose: 65 mls/hr Documented By: FOGARTB Nutrition (Parenteral) (Parenteral Nutrition) 1,560 mls @ 65 mls/hr IV .Q24H [facility]BI; Protocol Stop: 07/21/24 20:59 Melatonin (Melatonin 3 Mg Tablet) 6 mg PO BEDTIME PRN PRN Reason: Insomnia Metoclopramide HCl (Metoclopramide Hcl 10 Mg/2 Ml Vial) 5 mg IVPUSH Q6H PRN PRN Reason: Nausea and Vomiting Last Admin: 07/18/24 08:17 Dose: 5 mg Documented By: GAY Metoprolol Tartrate (Metoprolol Tartrate 5 Mg/5 Ml Vial) 5 mg IVPUSH Q6H PRN; Protocol PRN Reason: hr>90 Last Admin: 07/11/24 09:41 Dose: 5 mg Documented By: MARYURI Naloxone HCl (Naloxone Hcl 0.4 Mg/Ml Vial) 0.2 mg IVPUSH Q2M PRN PRN Reason: Excessive sedation or RR < 8 Non-Formulary Medication (Umeclidinium-Vilanterol [Anoro Ellipta]) 1 each INHALE DAILY [facility] Nystatin (Nystatin Powder 15 Gm Bottle) 1 appl TOPICAL TID [facility]BI; Protocol Last Admin: 07/19/24 20:52 Dose: 1 appl Documented By: JESUS Ondansetron HCl (Ondansetron Hcl 4 Mg/2 Ml Vial) 4 mg IVPUSH Q8H PRN PRN Reason: Nausea and Vomiting Last Admin: 07/19/24 23:55 Dose: 4 mg Documented By: BRANDT Pharmacy Consult (Consult Rx Parenteral Nutrition Ordering) 1 each MISCELLANE DAILY PRN PRN Reason: Consult order Sodium Chloride (0.9 % Sodium Chloride Flush 3 Ml Syringe) 3 ml IVFLUSH QSMDFT [facility] Last Admin: 07/20/24 10:37 Dose: Not Given Documented By: RAHUL Non-Admin Reason: IV Running Sodium Chloride (0.9 % Sodium Chloride Flush 10 Ml Syringe) 10 ml IVFLUSH [facility] Last Admin: 07/20/24 10:37 Dose: Not Given Documented By: RAHUL Non-Admin Reason: IV Running Labs 07/17/24 08:55 07/21/24 05:48 Labs: Laboratory Results - last 24 hr 07/20/24 07/20/24 06:50 07:00 Hold Purple Top SEE NOTE Anion Gap 15 Estim Creat Clear Calc 121.7 Estimated GFR > 60 Random Glucose 271 H Calcium 9.1 Phosphorus 3.4 Magnesium 2.1 Albumin 3.8 Assessment and Plan (1) Small bowel obstruction: Status: Acute (2) Toxic encephalopathy: Status: Acute Plan 58F PMH chronic hypoxic and hypercapnic respiratory failure on 2 L due to COPD, hypertension, chronic back pain, opiate dependence, mood disorder presented with altered mental status after intentional olanzapine overdose. On 07/11/2024 started vomiting large amount of brown emesis requiring intubation. Likely aspiration. Over the next several days successfully weaned off the ventilator and was able to be transferred to telemetry Acute toxic metabolic encephalopathy due to intentional olanzapine overdose due to mood disorder with suicide ideation -successful extubation and transferred telemetry -mentation has improved continues to require sitter SBO -barely tolerant of clear liquid diet... Advance as tolerated -xray show distended stomach, make NPO -NGT -TPN via PICC -surgery following Sepsis and acute hypoxic respiratory failure due to aspiration pneumonia (sepsis resolved) -completed antibiotics -follow clinically Hypertension -acceptable control on current therapies -adjust as indicated History of PE -lilianequis has been on hold d/t possible bleeding, and potential need for intervention Full Code DVT prophylaxis: heparin reason for continued hospitalization: Hypoxia, fevers Quality Stroke Does the patient have a stroke diagnosis?: No VTE Prior VTE?: No VTE Risk Level:: Medical - moderate - high VTE Device Contraindication: Treatment Not Indicated VTE Drug Contraindication: N/A - Med Ordered
[2024-07-20] MEDS: Nystatin Powder 15 GM BOTTLE 1 APPL TOPICAL ×2 (12:33→15:42)
[2024-07-20] MEDS: 0.9 % Sodium Chloride Flush 3 ML SYRINGE IVFLUSH (15:52)
--- NOTE | 2024-07-20 16:31 | PC.NURSE ---
Addendum entered by Rhonda Han RN 07/20/24 17:47: BP 173/90, MD Espinoza made aware. No new orders at this time. Addendum entered by Rhonda Han RN 07/20/24 17:27: Additionally 1x dose of IVP lasix ordered and abd xray. Original Note: Pt tx to unit from [facility] at approximately 15:50 A&Ox3, pt answering questions appropriately. At this time pt appears SOB, lung sounds dim throughout, rhonci and audible gurgling sound noted in upper airway. pt vomited small amount of clean brown liquid. Oxygen saturation 94-95% on room air, RR 33. Pt has generalized edema. Abd round, distended, brown liquid stool noted, ivan care preformed. Slit to intergluteal cleft noted which was reported from [facility] nurse triad applied, brown/red discoloration noted to bilateral LE, otherwise skin appears intact. No rash to groins or abd folds. Pt has FC in place draining CYU. 1:1 sitter at bedside, all safety measures in place. MD Crooks made aware, per MD keep pt NPO, CRX ordered.
[2024-07-20] MEDS: Furosemide 40 MG/4 ML VIAL IVPUSH (17:32)
[2024-07-20] MEDS: Parenteral Nutrition 1,560 ML 65 ML IV (20:59)
[2024-07-20] MEDS: ondansetron HCL 4 MG/2 ML VIAL IVPUSH (21:29)
--- NOTE | 2024-07-20 23:13 | PM.PNGS ---
Subjective Subjective Date of Service: 07/20/24 Interval history: pt feeling distended and threw up today after eating earlier. Came out of the icu to the floor. KUB done shows remarkably distended sb and gastric area. Physical Exam Vital Signs: Vital Signs: Last Vital Signs Temp 97.5 F 07/20/24 19:10 Pulse 100 07/20/24 19:10 Resp 28 H 07/20/24 19:10 BP 172/90 H 07/20/24 19:10 Pulse Ox 94 07/20/24 19:10 O2 Del Method Room Air 07/20/24 19:10 O2 Flow Rate 1 07/16/24 09:00 FiO2 26 07/15/24 11:00 BMI result Body Mass Index 47.5 GI: Other: soft nontender, abdomen obese, has active bowel sounds Objective Data Active Medications Acetaminophen (Acetaminophen 325 Mg Tablet) 650 mg PO Q4H PRN PRN Reason: Pain, Mild (Pain Scale 1-3) Acetaminophen/Butalbital/Caffeine (Butalb/Acetamin/Caff 50/325/40 Tablet) 1 tab PO Q4H PRN PRN Reason: Headache Heparin Sodium (Porcine) (Heparin Sodium,Porcine 5,000 Unit/Ml Vial) 5,000 unit SUBCUT Q8H [facility] Last Admin: 07/20/24 20:59 Dose: 5,000 unit Documented By: DERICK Nutrition (Parenteral) (Parenteral Nutrition) 1,560 mls @ 65 mls/hr IV .Q24H [facility]; Protocol Stop: 07/21/24 20:59 Last Admin: 07/20/24 20:59 Dose: 65 mls/hr Documented By: DERICK Melatonin (Melatonin 3 Mg Tablet) 6 mg PO BEDTIME PRN PRN Reason: Insomnia Metoclopramide HCl (Metoclopramide Hcl 10 Mg/2 Ml Vial) 5 mg IVPUSH Q6H PRN PRN Reason: Nausea and Vomiting Last Admin: 07/18/24 08:17 Dose: 5 mg Documented By: GAY Metoprolol Tartrate (Metoprolol Tartrate 5 Mg/5 Ml Vial) 5 mg IVPUSH Q6H PRN; Protocol PRN Reason: hr>90 Last Admin: 07/11/24 09:41 Dose: 5 mg Documented By: MARYURI Naloxone HCl (Naloxone Hcl 0.4 Mg/Ml Vial) 0.2 mg IVPUSH Q2M PRN PRN Reason: Excessive sedation or RR < 8 Non-Formulary Medication (Umeclidinium-Vilanterol [Anoro Ellipta]) 1 each INHALE DAILY [facility] Nystatin (Nystatin Powder 15 Gm Bottle) 1 appl TOPICAL TID ROBI; Protocol Last Admin: 07/20/24 23:08 Dose: Not Given Documented By: DERICK Non-Admin Reason: Med Not Available Ondansetron HCl (Ondansetron Hcl 4 Mg/2 Ml Vial) 4 mg IVPUSH Q8H PRN PRN Reason: Nausea and Vomiting Last Admin: 07/20/24 21:29 Dose: 4 mg Documented By: DERICK Pharmacy Consult (Consult Rx Parenteral Nutrition Ordering) 1 each MISCELLANE DAILY PRN PRN Reason: Consult order Sodium Chloride (0.9 % Sodium Chloride Flush 3 Ml Syringe) [facility] Last Admin: 07/20/24 15:52 Dose: 3 ml Documented By: LUIS MIGUEL Sodium Chloride (0.9 % Sodium Chloride Flush 10 Ml Syringe) 10 ml IVFLUSH [facility] Last Admin: 07/20/24 21:32 Dose: 10 ml Documented By: DERICK Labs 07/17/24 08:55 07/20/24 06:50 Labs: Laboratory Results - last 24 hr 07/20/24 07/20/24 06:50 07:00 Hold Purple Top SEE NOTE Anion Gap 15 Estim Creat Clear Calc 121.7 Estimated GFR > 60 Random Glucose 271 H Calcium 9.1 Phosphorus 3.4 Magnesium 2.1 Albumin 3.8 Imaging Abdominal x-ray: My impression: [address] [address] XRay Report Signed Patient: Zeenat Mcnamara MR#: [id number] : 1965 Acct:[id number] Age/Sex: 58 / F ADM Date: 07/10/24 Loc: S3 373-[address]: Richardson Crooks MD Ordering Physician: Richardson Crooks MD Date of Service: 07/20/24 Procedure(s): XR KUB Accession Number(s): [id number] cc: Richardson Crooks MD~ CLINICAL HISTORY: pain 1 view abdomen Comparison: CT - CT GI BLEED ABD PEL WO/W IVCON - 07/11/24 22:27 EDT Findings: No pneumoperitoneum or pneumatosis. There is gaseous distention of both large and small bowel. Small bowel does not appear to be dilated. There is marked gaseous distention of the stomach. No abnormal calcifications. There are spinal fusion rods. No acute fracture. IMPRESSION: 1. Extensive severe gaseous distention of bowel most likely secondary to ileus. 2. There is marked gaseous distention of the stomach. This document has been electronically signed by: Berkley Goddard MD on 07/20/2024 18:42:19 Dictated By: Berkley Goddard MD Signed By: <Electronically signed by Berkley Goddard MD in OV> 07/20/241841 DD/ 41 TD/TT: 07/20/241841 Dramatic Agent: Procedures Date of Service Date of Service: 07/20/24 Progress Note: A&P Assessment and plan (1) Small bowel obstruction: Status: Acute Assessment and Plan: pt was doing better but now seems worse again - ng tube replaced and to suction - will consider gastrograffin study tomorrow via the tube. i think this is more like an ileus therefore maybe trying a prokinetic agent maybe helpful. In the meantime continue with NPO NG-tube IV fluid resuscitation and electrolyte management Time Spent With Patient Time: Total time managing care of this patient today ____ minutes. Quality Stroke Does the patient have a stroke diagnosis?: No VTE Prior VTE?: No VTE Risk Level:: Medical - moderate - high VTE Device Contraindication: Treatment Not Indicated VTE Drug Contraindication: N/A - Med Ordered
[2024-07-21 03:32] VITALS: BP 155/72; PULSE 107; RESP 26; TEMP 36.7; O2SAT 93
[2024-07-21] MEDS: Heparin Sodium,Porcine 5,000 UNIT/ML VIAL 5000 UNIT SUBCUT ×3 (03:34→21:41)
[2024-07-21 05:41] VITALS: BMI 48.6
[2024-07-21 06:27] LABS: Albumin Level 3.8 g/dL (3.5-5.0); Anion Gap 15 (12-20); Blood Urea Nitrogen 23 mg/dL (9-16); Carbon Dioxide 26 mmol/L (22-29); Chloride 98 mmol/L (96-108); Estimated Glomerular Filt Rate > 60; Glucose Random 258 mg/dL (60-115); Phosphorus 3.2 mg/dL (2.7-4.5); Potassium 4.4 mmol/L (3.3-5.1); Sodium 135 mmol/L (135-145)
[2024-07-21 08:00] VITALS: BP 127/74; PULSE 107; RESP 18; TEMP 36.6; O2SAT 92
--- NOTE | 2024-07-21 08:01 | P.PNGS_ITS ---
Subjective Subjective Date of Service: 07/21/24 <Airam Clark PA-C - Last Filed: 07/21/24 08:06> 07/21/24 <Jim Osuna MD - Last Filed: 07/21/24 09:01> Interval history: Vomited overnight and therefore NGT reinserted. Reports feeling improved following NGT insertion. Currently denies abd pain. Reports passing flatus. I&Os reports multiple BMs. <Airam Clark PA-C - Last Filed: 07/21/24 08:06> Physical Exam 2 Vital Signs: Vital Signs: Last Vital Signs Temp 98.1 F 07/21/24 03:32 Pulse 107 H 07/21/24 03:32 Resp 26 H 07/21/24 03:32 BP 155/72 H 07/21/24 03:32 Pulse Ox 93 07/21/24 03:32 O2 Del Method Room Air 07/21/24 03:32 O2 Flow Rate 1 07/16/24 09:00 FiO2 26 07/15/24 11:00 BMI result Body Mass Index 48.6 <Airam Clark PA-C - Last Filed: 07/21/24 08:06> Const: General: comfortable and no acute distress <TASIA Hernandez Last Filed: 07/21/24 08:06> GI: Other: upper abdomen distended soft, nontender <GLADYS Hernandez Last Filed: 07/21/24 08:06> Psych: Other: flat affect <GLADYS Hernandez Last Filed: 07/21/24 08:06> Objective Data Active Medications Acetaminophen (Acetaminophen 325 Mg Tablet) 650 mg PO Q4H PRN PRN Reason: Pain, Mild (Pain Scale 1-3) Acetaminophen/Butalbital/Caffeine (Butalb/Acetamin/Caff 50/325/40 Tablet) 1 tab PO Q4H PRN PRN Reason: Headache Heparin Sodium (Porcine) (Heparin Sodium,Porcine 5,000 Unit/Ml Vial) 5,000 unit SUBCUT Q8H [facility] Last Admin: 07/21/24 03:34 Dose: 5,000 unit Documented By: DERICK Nutrition (Parenteral) (Parenteral Nutrition) 1,560 mls @ 65 mls/hr IV .Q24H ROBI; Protocol Stop: 07/21/24 20:59 Last Admin: 07/20/24 20:59 Dose: 65 mls/hr Documented By: DERICK Nutrition (Parenteral) (Parenteral Nutrition) 1,560 mls @ 65 mls/hr IV .Q24H ROBI; Protocol Stop: 07/22/24 20:59 Melatonin (Melatonin 3 Mg Tablet) 6 mg PO BEDTIME PRN PRN Reason: Insomnia Metoclopramide HCl (Metoclopramide Hcl 10 Mg/2 Ml Vial) 5 mg IVPUSH Q6H PRN PRN Reason: Nausea and Vomiting Last Admin: 07/18/24 08:17 Dose: 5 mg Documented By: GAY Metoprolol Tartrate (Metoprolol Tartrate 5 Mg/5 Ml Vial) 5 mg IVPUSH Q6H PRN; Protocol PRN Reason: hr>90 Last Admin: 07/11/24 09:41 Dose: 5 mg Documented By: MARYURI Naloxone HCl (Naloxone Hcl 0.4 Mg/Ml Vial) 0.2 mg IVPUSH Q2M PRN PRN Reason: Excessive sedation or RR < 8 Non-Formulary Medication (Umeclidinium-Vilanterol [Anoro Ellipta]) 1 each INHALE DAILY [facility] Nystatin (Nystatin Powder 15 Gm Bottle) 1 appl TOPICAL TID [facility]; Protocol Last Admin: 07/20/24 23:08 Dose: Not Given Documented By: DERICK Non-Admin Reason: Med Not Available Ondansetron HCl (Ondansetron Hcl 4 Mg/2 Ml Vial) 4 mg IVPUSH Q8H PRN PRN Reason: Nausea and Vomiting Last Admin: 07/20/24 21:29 Dose: 4 mg Documented By: DERICK Pharmacy Consult (Consult Rx Parenteral Nutrition Ordering) 1 each MISCELLANE DAILY PRN PRN Reason: Consult order Sodium Chloride (0.9 % Sodium Chloride Flush 3 Ml Syringe) 3 ml IVFLUSH [facility] Last Admin: 07/21/24 01:19 Dose: Not Given Documented By: DERICK Non-Admin Reason: assessed, no action needed Sodium Chloride (0.9 % Sodium Chloride Flush 10 Ml Syringe) 10 ml IVFLUSH QSHIFT [facility] Last Admin: 07/20/24 21:32 Dose: 10 ml Documented By: DERICK <Airam Clark PA-C - Last Filed: 07/21/24 08:06> Labs CBC & Chem 7: 07/17/24 08:55 07/21/24 05:48 <Airam Clark PA-C - Last Filed: 07/21/24 08:06> Labs: Laboratory Results - last 24 hr 07/21/24 05:48 Hold Purple Top SEE NOTE Anion Gap 15 Estim Creat Clear Calc 125.0 Estimated GFR > 60 Random Glucose 258 H Calcium 9.0 Phosphorus 3.2 Magnesium 2.0 Albumin 3.8 <Airam Clark PA-C - Last Filed: 07/21/24 08:06> Procedures Date of Service Date of Service: 07/21/24 <Airam Clark PA-C - Last Filed: 07/21/24 08:06> 07/21/24 <Jim Osuna MD - Last Filed: 07/21/24 09:01> Progress Note: A&P Assessment and plan (1) Small bowel obstruction: Status: Acute <Airam Clark PA-C - Last Filed: 07/21/24 08:06> Assessment and Plan: Events over the weekend reviewed NG tube reinserted because of recurrence of vomiting High output overnight Patient with some shortness of breath Abdomen is soft and benign We will do small bowel series with Gastrografin Seen and examined independently <Jim Osuna MD - Last Filed: 07/21/24 09:01> Assessment and Plan: Some distention but abd soft, nontender. Will order SBFT via NGT to assess small bowel. Cont NGT for decompression. <Airam Clark PA-C - Last Filed: 07/21/24 08:06> Time Spent With Patient Time: Total time managing care of this patient today ____ minutes. <Airam Clark PA-C - Last Filed: 07/21/24 08:06> Quality Stroke Does the patient have a stroke diagnosis?: No <GLADYS Hernandez Last Filed: 07/21/24 08:06> VTE Prior VTE?: No <GLADYS Hernandez Last Filed: 07/21/24 08:06> VTE Risk Level:: Medical - moderate - high <GLADYS Hernandez Last Filed: 07/21/24 08:06> VTE Device Contraindication: Treatment Not Indicated <GLADYS Hernandez Last Filed: 07/21/24 08:06> VTE Drug Contraindication: N/A - Med Ordered <GLADYS Hernandez Last Filed: 07/21/24 08:06>
--- NOTE | 2024-07-21 09:38 | P.EN_ITS ---
Event Note Date of Service: 07/21/24 Event Note: Notified by radiology no one able to give gastrograffin for SBFT. Patient in xray. [employer] films obtained. 120cc gastrograffin followed by 120cc water administered by me without difficulty via NGT. Patient tolerated well. Time Spent With Patient Time: Total time managing care of this patient today ____ minutes.
--- NOTE | 2024-07-21 09:38 | HO.PM.IMPN ---
Subjective Subjective Date of Service: 07/21/24 Interval History: Remains on TPN Vomited last with xray of abdomen showing distended bowels, and stomach NGT inserted overnight with significant output NPO Physical Exam Vital Signs: Vital Signs: Last Vital Signs Temp 97.8 F 07/21/24 08:00 Pulse 107 H 07/21/24 08:00 Resp 18 07/21/24 08:00 BP 127/74 07/21/24 08:00 Pulse Ox 92 07/21/24 08:00 O2 Del Method Room Air 07/21/24 08:00 O2 Flow Rate 1 07/16/24 09:00 FiO2 26 07/15/24 11:00 BMI result Body Mass Index 48.6 Const: Other: General: Alert, no distress, confused Resp: CTA bilateral CVS: S1,S2,RRR GI: +BS, NT, distended Skin: No rash Neuro: motor grossly intact Psych: appropriate affect Objective Data Active Medications Acetaminophen (Acetaminophen 325 Mg Tablet) 650 mg PO Q4H PRN PRN Reason: Pain, Mild (Pain Scale 1-3) Acetaminophen/Butalbital/Caffeine (Butalb/Acetamin/Caff 50/325/40 Tablet) 1 tab PO Q4H PRN PRN Reason: Headache Heparin Sodium (Porcine) (Heparin Sodium,Porcine 5,000 Unit/Ml Vial) 5,000 unit SUBCUT Q8H [facility] Last Admin: 07/21/24 03:34 Dose: 5,000 unit Documented By: DERICK Nutrition (Parenteral) (Parenteral Nutrition) 1,560 mls @ 65 mls/hr IV .Q24H [facility]; Protocol Stop: 07/21/24 20:59 Last Admin: 07/20/24 20:59 Dose: 65 mls/hr Documented By: DERICK Nutrition (Parenteral) (Parenteral Nutrition) 1,560 mls @ 65 mls/hr IV .Q24H [facility]; Protocol Stop: 07/22/24 20:59 Melatonin (Melatonin 3 Mg Tablet) 6 mg PO BEDTIME PRN PRN Reason: Insomnia Metoclopramide HCl (Metoclopramide Hcl 10 Mg/2 Ml Vial) 5 mg IVPUSH Q6H PRN PRN Reason: Nausea and Vomiting Last Admin: 07/18/24 08:17 Dose: 5 mg Documented By: HO.SZOTPAT Metoprolol Tartrate (Metoprolol Tartrate 5 Mg/5 Ml Vial) 5 mg IVPUSH Q6H PRN; Protocol PRN Reason: hr>90 Last Admin: 07/11/24 09:41 Dose: 5 mg Documented By: MARYURI Naloxone HCl (Naloxone Hcl 0.4 Mg/Ml Vial) 0.2 mg IVPUSH Q2M PRN PRN Reason: Excessive sedation or RR < 8 Non-Formulary Medication (Umeclidinium-Vilanterol [Anoro Ellipta]) 1 each INHALE DAILY [facility] Nystatin (Nystatin Powder 15 Gm Bottle) 1 appl TOPICAL TID [facility]; Protocol Last Admin: 07/20/24 23:08 Dose: Not Given Documented By: DERICK Non-Admin Reason: Med Not Available Ondansetron HCl (Ondansetron Hcl 4 Mg/2 Ml Vial) 4 mg IVPUSH Q8H PRN PRN Reason: Nausea and Vomiting Last Admin: 07/20/24 21:29 Dose: 4 mg Documented By: DERICK Pharmacy Consult (Consult Rx Parenteral Nutrition Ordering) 1 each MISCELLANE DAILY PRN PRN Reason: Consult order Sodium Chloride (0.9 % Sodium Chloride Flush 3 Ml Syringe) 3 ml IVFLUSH QSAKFT [facility] Last Admin: 07/21/24 01:19 Dose: Not Given Documented By: DERICK Non-Admin Reason: assessed, no action needed Sodium Chloride (0.9 % Sodium Chloride Flush 10 Ml Syringe) 10 ml IVFLUSH QSHIFT [facility] Last Admin: 07/20/24 21:32 Dose: 10 ml Documented By: DERICK Labs 07/17/24 08:55 07/21/24 05:48 Labs: Laboratory Results - last 24 hr 07/21/24 05:48 Hold Purple Top SEE NOTE Anion Gap 15 Estim Creat Clear Calc 125.0 Estimated GFR > 60 Random Glucose 258 H Calcium 9.0 Phosphorus 3.2 Magnesium 2.0 Albumin 3.8 Assessment and Plan (1) Small bowel obstruction: Status: Acute (2) Toxic encephalopathy: Status: Acute Plan 58F PMH chronic hypoxic and hypercapnic respiratory failure on 2 L due to COPD, hypertension, chronic back pain, opiate dependence, mood disorder presented with altered mental status after intentional olanzapine overdose. On 07/11/2024 started vomiting large amount of brown emesis requiring intubation. Likely aspiration. Over the next several days successfully weaned off the ventilator and was able to be transferred to telemetry Acute toxic metabolic encephalopathy due to intentional olanzapine overdose due to mood disorder with suicide ideation, she required intubation in icu for airway protection, and succesfully extubated. She remains altered. sitter SBO, and has been on TPN, recent xray showed extensive distention of bowel and stomach, NGT inserted on 07/20 with significant output. Continue NPO. To Small bowel follow through today Sepsis and acute hypoxic respiratory failure due to aspiration pneumonia (sepsis resolved) -completed antibiotics -follow clinically Hypertension, controlled no meds History of PE -alec has been on hold d/t possible bleeding, and potential need for intervention Full Code DVT prophylaxis: heparin reason for continued hospitalization: Hypoxia, fevers Quality Stroke Does the patient have a stroke diagnosis?: No VTE Prior VTE?: No VTE Risk Level:: Medical - moderate - high VTE Device Contraindication: Treatment Not Indicated VTE Drug Contraindication: N/A - Med Ordered
--- NOTE | 2024-07-21 10:12 | MHC.CLN ---
F/U CONTINUES NPO. HAD NG TUBE WITH OUTPUT THIS AM. REVIEWED LABS. COMMUNICATED WITH PHARMACY. PATIENT WITH CENTRAL LINE. RECOMMEND CONTINUE TPN AT 65 ML/HR TO PROVIDE 1108KCALS, 78G PROTEIN (1.2 G/KG), 234G DEXTROSE. HOLD LIPIDS. REPLETE LYTES NEEDED, CHECK TRIGLYCERIDES. CONTINUE TO FOLLOW FOR TPN TOLERANCE, LYTES AND DIET ADVANCEMENT.
[2024-07-21 10:56] LABS: Triglycerides 214 mg/dL (<150)
--- NOTE | 2024-07-21 11:50 | MHC.SLORD ---
Speech Language Pathology Order Status: RN consulted, pt at procedure. Pt has SBO, NG tube placed last night. EDITOR DICTIONARY to re-assess oropharygneal swallow when again appropriate.
[2024-07-21] MEDS: Diatrizoate Meglumine, Sodium 120 ML SOLUTION 360 ML PO (11:51)
--- NOTE | 2024-07-21 12:12 | PC.NURSE ---
Pt returned from small bowel follow through, was incontinent of liquid stool multiple times since.
[2024-07-21 12:50] VITALS: BP 140/64; PULSE 102; RESP 18; TEMP 36.7; O2SAT 92
[2024-07-21] MEDS: Nystatin Powder 15 GM BOTTLE 1 APPL TOPICAL ×3 (13:05→21:42)
[2024-07-21] MEDS: 0.9 % Sodium Chloride Flush 10 ML SYRINGE IVFLUSH ×3 (13:16→21:43)
[2024-07-21] MEDS: 0.9 % Sodium Chloride Flush 3 ML SYRINGE IVFLUSH ×2 (13:17→18:08)
--- NOTE | 2024-07-21 14:31 | PM.EVENT ---
Event Note Date of Service: 07/21/24 Event Note: Seen on afternoon Denies abdominal pain NG tube in place -output much thinner in consistency Stable vital signs Abdomen remains soft, benign, not tender Small bowel series ongoing Time Spent With Patient Time: Total time managing care of this patient today ____ minutes.
--- NOTE | 2024-07-21 15:59 | MHC.CM.PN ---
PT NOT YET MEDICALLY CLEAR, DCP TBD PENDING CARE TEAM EVAL IPLOC VS HOME WITH RESUMPTION OF FUGITIVE INVESTIGATOR
[2024-07-21 16:00] VITALS: BP 121/61; PULSE 112; RESP 18; TEMP 37.2; O2SAT 92
[2024-07-21 20:00] VITALS: BP 131/65; PULSE 111; RESP 20; TEMP 36.8; O2SAT 92
[2024-07-21] MEDS: Parenteral Nutrition 1,560 ML 65 ML IV (21:42)
[2024-07-22] VITALS (7 sets, daily range): BP systolic 129–182; BP diastolic 72–84; PULSE 53–106; RESP 16–24; TEMP 36.6–36.9; O2SAT 92–97; BMI 48.7
[2024-07-22] MEDS: Heparin Sodium,Porcine 5,000 UNIT/ML VIAL 5000 UNIT SUBCUT ×3 (03:29→19:38)
[2024-07-22 07:51] LABS: Albumin Level 3.7 g/dL (3.5-5.0); Anion Gap 15 (12-20); Blood Urea Nitrogen 25 mg/dL (9-16); Calcium 8.8 mg/dL (8.4-10.2); Carbon Dioxide 27 mmol/L (22-29); Chloride 105 mmol/L (96-108); Estimated Glomerular Filt Rate > 60; Glucose Random 215 mg/dL (60-115); Phosphorus 2.9 mg/dL (2.7-4.5); Potassium 3.9 mmol/L (3.3-5.1); Sodium 143 mmol/L (135-145)
--- NOTE | 2024-07-22 07:59 | P.PNGS_ITS ---
Subjective Subjective Date of Service: 07/22/24 <Airam Clark PA-C - Last Filed: 07/22/24 08:03> 07/22/24 <Jim Osuna MD - Last Filed: 07/22/24 08:05> Interval history: SBFT yesterday showed contrast in colon at 1h 30 min. Had multiple loose BMs following. Denies significant abd pain this morning. NGT with scant drainage from yesterday. <Airam lCark PA-C - Last Filed: 07/22/24 08:03> Physical Exam 2 Vital Signs: Vital Signs: Last Vital Signs Temp 97.9 F 07/22/24 07:23 Pulse 96 07/22/24 07:23 Resp 16 07/22/24 07:23 BP 138/84 07/22/24 07:23 Pulse Ox 92 07/22/24 07:23 O2 Del Method Room Air 07/22/24 07:23 O2 Flow Rate 1 07/16/24 09:00 FiO2 26 07/15/24 11:00 BMI result Body Mass Index 48.7 <Airam Clark PA-C - Last Filed: 07/22/24 08:03> Const: General: comfortable, no acute distress and alert <GLADYS Hernandez Last Filed: 07/22/24 08:03> GI: Other: upper abdomen remains slightly distended and tympanitic abd remains soft, nontender <Airam Clark PA-C - Last Filed: 07/22/24 08:03> Skin: General skin exam: no rashes or lesions noted <GLADYS Hernandez Last Filed: 07/22/24 08:03> Objective Data Active Medications Acetaminophen (Acetaminophen 325 Mg Tablet) 650 mg PO Q4H PRN PRN Reason: Pain, Mild (Pain Scale 1-3) Acetaminophen/Butalbital/Caffeine (Butalb/Acetamin/Caff 50/325/40 Tablet) 1 tab PO Q4H PRN PRN Reason: Headache Heparin Sodium (Porcine) (Heparin Sodium,Porcine 5,000 Unit/Ml Vial) 5,000 unit SUBCUT Q8H [facility] Last Admin: 07/22/24 03:29 Dose: 5,000 unit Documented By: ARMEN Nutrition (Parenteral) (Parenteral Nutrition) 1,560 mls @ 65 mls/hr IV .Q24H [facility]; Protocol Stop: 07/22/24 20:59 Last Admin: 07/21/24 21:42 Dose: 65 mls/hr Documented By: ARMEN Melatonin (Melatonin 3 Mg Tablet) 6 mg PO BEDTIME PRN PRN Reason: Insomnia Metoclopramide HCl (Metoclopramide Hcl 10 Mg/2 Ml Vial) 5 mg IVPUSH Q6H PRN PRN Reason: Nausea and Vomiting Last Admin: 07/18/24 08:17 Dose: 5 mg Documented By: EBPAMeggan Metoprolol Tartrate (Metoprolol Tartrate 5 Mg/5 Ml Vial) 5 mg IVPUSH Q6H PRN; Protocol PRN Reason: hr>90 Last Admin: 07/11/24 09:41 Dose: 5 mg Documented By: MARYURI Naloxone HCl (Naloxone Hcl 0.4 Mg/Ml Vial) 0.2 mg IVPUSH Q2M PRN PRN Reason: Excessive sedation or RR < 8 Non-Formulary Medication (Umeclidinium-Vilanterol [Anoro Ellipta]) 1 each INHALE DAILY [facility] Nystatin (Nystatin Powder 15 Gm Bottle) 1 appl TOPICAL TID [facility]; Protocol Last Admin: 07/21/24 21:42 Dose: 1 appl Documented By: ARMEN Ondansetron HCl (Ondansetron Hcl 4 Mg/2 Ml Vial) 4 mg IVPUSH Q8H PRN PRN Reason: Nausea and Vomiting Last Admin: 07/20/24 21:29 Dose: 4 mg Documented By: DERICK Pharmacy Consult (Consult Rx Parenteral Nutrition Ordering) 1 each MISCELLANE DAILY PRN PRN Reason: Consult order Sodium Chloride (0.9 % Sodium Chloride Flush 3 Ml Syringe) 3 ml IVFLUSH QSHIFT [facility] Last Admin: 07/22/24 00:45 Dose: Not Given Documented By: ARMEN Non-Admin Reason: PICC Sodium Chloride (0.9 % Sodium Chloride Flush 10 Ml Syringe) 10 ml IVFLUSH QSHIFT [facility] Last Admin: 07/21/24 21:43 Dose: 10 ml Documented By: ARMEN <Airam Clark PA-C - Last Filed: 07/22/24 08:03> Labs CBC & Chem 7: 07/17/24 08:55 07/22/24 06:35 <Airam Clark PA-C - Last Filed: 07/22/24 08:03> Labs: Laboratory Results - last 24 hr 07/21/24 07/22/24 05:48 06:35 Anion Gap 15 Estim Creat Clear Calc 136.0 Estimated GFR > 60 Random Glucose 215 H Calcium 8.8 Phosphorus 2.9 Magnesium 2.0 Albumin 3.7 Triglycerides 214 H <Airam Clark PA-C - Last Filed: 07/22/24 08:03> Procedures Date of Service Date of Service: 07/22/24 <Airam Clark PA-C - Last Filed: 07/22/24 08:03> 07/22/24 <Jim Osuna MD - Last Filed: 07/22/24 08:05> Progress Note: A&P Assessment and plan (1) Small bowel obstruction: Status: Acute <Airam Clark PA-C - Last Filed: 07/22/24 08:03> Assessment and Plan: Mildly short of breath Passing large amounts of stools after Gastrografin Abdomen is soft, benign, no apparent tenderness She denies abdominal pain NG tube output has decreased significantly Clamp NG tube and check residuals and Likely DC later today Seen and examined independently <Jim Osuna MD - Last Filed: 07/22/24 08:05> Assessment and Plan: Clinically not obstructed, SBFT yesterday shows contrast in colon and now with multiple BMs. Abd remains soft, nontender. NGT with scant output. Will clamp for 4hrs, check residual. Unclamp sooner if develops recurrent nausea/vomiting, worsening pain or distention. <Airam Clark PA-C - Last Filed: 07/22/24 08:03> Time Spent With Patient Time: Total time managing care of this patient today ____ minutes. <GLADYS Hernandez Last Filed: 07/22/24 08:03> Quality Stroke Does the patient have a stroke diagnosis?: No <GLADYS Hernandez Last Filed: 07/22/24 08:03> VTE Prior VTE?: No <GLADYS Hernandez Last Filed: 07/22/24 08:03> VTE Risk Level:: Medical - moderate - high <GLADYS Hernandez Last Filed: 07/22/24 08:03> VTE Device Contraindication: Treatment Not Indicated <GLADYS Hernandez Last Filed: 07/22/24 08:03> VTE Drug Contraindication: N/A - Med Ordered <GLADYS Hernandez Last Filed: 07/22/24 08:03>
--- NOTE | 2024-07-22 09:38 | MHC.CLN ---
F/U S/P SMALL BOWEL FOLLOW THROUGH AND HAVING LOOSE BM CONTINUES NPO NG TUBE CLAMPED FOR 4 HRS TODAY PER MD REVIEWED LABS DISCUSSED WITH PHARMACY CONTINUE TPN AT 65 ML/HR PROVIDES 1108KCALS, 78G PROTEIN (1.2 G/KG), 234G DEXTROSE CONTINUE TO HOLD LIPIDS R/T ELEVATED TRIGS REPLETE LYTES NEEDED
[2024-07-22] MEDS: 0.9 % Sodium Chloride Flush 3 ML SYRINGE IVFLUSH ×2 (10:26→18:22)
[2024-07-22] MEDS: 0.9 % Sodium Chloride Flush 10 ML SYRINGE IVFLUSH ×3 (10:26→21:29)
[2024-07-22] MEDS: Nystatin Powder 15 GM BOTTLE 1 APPL TOPICAL ×3 (10:27→21:29)
--- NOTE | 2024-07-22 11:15 | P.PNIM_ITS ---
Subjective Subjective Date of Service: 07/22/24 Interval History: Doing well today, alert oriented x 3 NGT clamped, no further vomiting upper GI with small bowel follow through no obstruction Physical Exam 2 Vital Signs: Vital Signs: Last Vital Signs Temp 97.9 F 07/22/24 07:23 Pulse 96 07/22/24 07:23 Resp 16 07/22/24 07:23 BP 138/84 07/22/24 07:23 Pulse Ox 92 07/22/24 07:23 O2 Del Method Room Air 07/22/24 07:23 O2 Flow Rate 1 07/16/24 09:00 FiO2 26 07/15/24 11:00 BMI result Body Mass Index 48.7 Const: Other: General: Alert, oriented x 3 Resp: CTA bilateral CVS: S1,S2,RRR GI: +BS, NT, distended Skin: No rash Neuro: motor grossly intact Psych: appropriate affect Objective Data Active Medications Acetaminophen (Acetaminophen 325 Mg Tablet) 650 mg PO Q4H PRN PRN Reason: Pain, Mild (Pain Scale 1-3) Acetaminophen/Butalbital/Caffeine (Butalb/Acetamin/Caff 50/325/40 Tablet) 1 tab PO Q4H PRN PRN Reason: Headache Heparin Sodium (Porcine) (Heparin Sodium,Porcine 5,000 Unit/Ml Vial) 5,000 unit SUBCUT Q8H [facility] Last Admin: 07/22/24 03:29 Dose: 5,000 unit Documented By: ARMEN Nutrition (Parenteral) (Parenteral Nutrition) 1,560 mls @ 65 mls/hr IV .Q24H [facility]; Protocol Stop: 07/22/24 20:59 Last Admin: 07/21/24 21:42 Dose: 65 mls/hr Documented By: ARMEN Nutrition (Parenteral) (Parenteral Nutrition) 1,560 mls @ 65 mls/hr IV .Q24H [facility]; Protocol Stop: 07/23/24 20:59 Melatonin (Melatonin 3 Mg Tablet) 6 mg PO BEDTIME PRN PRN Reason: Insomnia Metoclopramide HCl (Metoclopramide Hcl 10 Mg/2 Ml Vial) 5 mg IVPUSH Q6H PRN PRN Reason: Nausea and Vomiting Last Admin: 07/18/24 08:17 Dose: 5 mg Documented By: GAY Metoprolol Tartrate (Metoprolol Tartrate 5 Mg/5 Ml Vial) 5 mg IVPUSH Q6H PRN; Protocol PRN Reason: hr>90 Last Admin: 07/11/24 09:41 Dose: 5 mg Documented By: MARYURI Naloxone HCl (Naloxone Hcl 0.4 Mg/Ml Vial) 0.2 mg IVPUSH Q2M PRN PRN Reason: Excessive sedation or RR < 8 Non-Formulary Medication (Umeclidinium-Vilanterol [Anoro Ellipta]) 1 each INHALE DAILY [facility] Nystatin (Nystatin Powder 15 Gm Bottle) 1 appl TOPICAL TID [facility]; Protocol Last Admin: 07/22/24 10:27 Dose: 1 appl Documented By: GERMANIA Ondansetron HCl (Ondansetron Hcl 4 Mg/2 Ml Vial) 4 mg IVPUSH Q8H PRN PRN Reason: Nausea and Vomiting Last Admin: 07/20/24 21:29 Dose: 4 mg Documented By: DERICK Pharmacy Consult (Consult Rx Parenteral Nutrition Ordering) 1 each MISCELLANE DAILY PRN PRN Reason: Consult order Sodium Chloride (0.9 % Sodium Chloride Flush 3 Ml Syringe) [facility] [address] [facility] [facility] Last Admin: 07/22/24 10:26 Dose: 3 ml Documented By: GERMANIA Sodium Chloride (0.9 % Sodium Chloride Flush 10 Ml Syringe) [address] [facility] Last Admin: 07/22/24 10:26 Dose: 10 ml Documented By: GERMANIA Labs 07/17/24 08:55 07/22/24 06:35 Labs: Laboratory Results - last 24 hr 07/22/24 06:35 Anion Gap 15 Estim Creat Clear Calc 136.0 Estimated GFR > 60 Random Glucose 215 H Calcium 8.8 Phosphorus 2.9 Magnesium 2.0 Albumin 3.7 Assessment and Plan (1) Small bowel obstruction: Status: Acute (2) Toxic encephalopathy: Status: Acute Plan 58F PMH chronic hypoxic and hypercapnic respiratory failure on 2 L due to COPD, hypertension, chronic back pain, opiate dependence, mood disorder presented with altered mental status after intentional olanzapine overdose. On 07/11/2024 started vomiting large amount of brown emesis requiring intubation. Likely aspiration. Over the next several days successfully weaned off the ventilator and was able to be transferred to telemetry Acute toxic metabolic encephalopathy due to intentional olanzapine overdose due to mood disorder with suicide ideation, she required intubation in icu for airway protection, and succesfully extubated. Mental status is better. Will get Psych consult again SBO, and has been on TPN, recent xray showed extensive distention of bowel and stomach, NGT inserted on 07/20 with significant output. Output low. Upper GI with small bowel follow through negative for obstruction. Likely dc NGT today, then swallow eval and start diet. Sepsis and acute hypoxic respiratory failure due to aspiration pneumonia (sepsis resolved) -completed antibiotics -follow clinically Hypertension, controlled no meds History of PE -lilianeququeenie has been on hold d/t possible bleeding, and potential need for intervention Full Code DVT prophylaxis: heparin reason for continued hospitalization: Hypoxia, fevers Quality Stroke Does the patient have a stroke diagnosis?: No VTE Prior VTE?: No VTE Risk Level:: Medical - moderate - high VTE Device Contraindication: Treatment Not Indicated VTE Drug Contraindication: N/A - Med Ordered
--- NOTE | 2024-07-22 12:56 | PM.EVENT ---
Event Note Date of Service: 07/22/24 Event Note: Early afternoon rounds NG tube residuals after clamping was very scanty Abdomen remained soft, benign, nontender Patient denied any pain NG tube therefore removed However, just now, patient started to have vomited Small bowel series in the reveal an obstruction Vomiting unlikely to be secondary obstructive masses Okay to keep NPO in the meantime Zofran for nausea Abdomen remained soft and benign Time Spent With Patient Time: Total time managing care of this patient today ____ minutes.
--- NOTE | 2024-07-22 15:06 | MHC.SL.SWA ---
Risk of Aspiration Due to: Medically Fragile History of Pneumonia Hx of Recent Extubation Dysphasia Diet Status: Clear liquids Liquid Consistency and Strategies for Safe Swallow: Liquid Intake Recommendation: Thin Liquid Intake Strategies: Small Sips Solid Food Consistency: Dietary Recommendations: clear liquids Oral Medication Intake: Crushed with Puree Please contact the pharmacy regarding appropriate crushable or liquid drug formulations that are available whenever modified delivery is recommended. Compensatory Strategies and Precautions to be Taken for Safe Swallow: Sitting Upright (90 deg) Small Bites and Sips Supervision While Eating and Drinking for Safe Swallow: Total Supervision (1:1) Foods to Avoid: Please refer to GI recommendations. Swallowing Recommended Treatments: Compens. Strategy Educat. Recommendation for Speech: Inpatient Speech Therapy Pt is currently recommended clear liquids per MD/GI. ACTIVE DIRECTORY SYSTEMS ADMINISTRATOR should evaluate solids further once cleared to move from clear liquids. Document Design Specialist Clinican/Clinical Fellow: No Supervisory Statement: I have reviewed and agree with the student/clinical fellow's documentation: N/A Speech Language Pathologist: Yareli Clayton M.A,. CCC-ACTIVE DIRECTORY SYSTEMS ADMINISTRATOR
--- NOTE | 2024-07-22 15:07 | HO.WOUND ---
Wound Consult: Initial 58yr old female? [place] [facility] [place] - See progress notes and H&P for detailed history.? Wound consult placed for Gluteal Cleft area.? Patient agreeable to assessment and photo documentation.? Patient and daughter at [facility] report the patient has had the open Slit for some time. They report it comes and goes and they treat at home with A&D ointment. The patient is noted to be in a bariatric bed and was incontinent of green thin stool. Direct care nurse aware and reports the patient is often incontinent of stool - provider aware. Inter-Gluteal Fold Etiology: ??MASD -Intertrigo (Moisture Associated Skin Damage)Present on Admission Measurements: 5cm x 0.2cm x 0.2cm Wound Bed: red moist wound bed - linear along skin fold base Drainage / Odor: None noted Edges: ? Linear and attached Elizabeth wound: ?[place] red and light purple blanchable tissue - MASD noted No Induration, Fluctuance or Warmth noted Pain: tenderness noted when cleansed Goals of Treatment: ? Triad to allow for moist wound healing and protect from friction and moisture Right Leg Left Leg The patient bilateral lower legs were assessed to be intact - scar tissue noted injuries are healed and not open at this time. No topical interventions needed at this time. Recommend float heels off of bed surface with pillows and preventative foams to redistribute pressure. Recommendations: 1. Turn and Reposition every 2 hours and as needed for patient comfort.? Use pillows or wedges to support off loading positions. 2. Off Load all bony prominences with use of pillows and heel boots if needed.? Apply Preventative foams where needed. ? 3. Monitor for incontinence and moisture control, use barrier creams when needed for prevention and treatment. 4. Provide adequate and supplemental nutrition.? 5. Bariatric bed in use. 6. When applicable maintain blood glucose levels per Providers order. InterGluteal Cleft - Off Load Pressure with Q2 hr turns and use of pillows - Cleanse with PH balance spray or wipes, pat dry. ?Apply thin layer of Triad to wound bed - only pat and dab no scrub and rub when soiling occurs. Reapply thin layer PRN after each episode of incontinence. Bilateral Heels - Float heels off of bed surface with pillows. May apply preventative foam dressing peel back and assess Q shift and change every 5 days and PRN. Re-consult wound care Nurse for wound deterioration or wound changes.
--- NOTE | 2024-07-22 15:49 | PC.NURSE ---
Removed shea catheter at 1550 to run a void trial to end at 2150.
--- NOTE | 2024-07-22 16:06 | PC.RT ---
RT assessed pt. Pt has clear lung sounds bilateral w/ expiratory rhonchi that is cleared upon pt cough. Pt takes duonebs at home PRN for wheezing. Discussed w/ MD. Scheduled txs changed to PRN for wheezing.
[2024-07-22] MEDS: ondansetron HCL 4 MG/2 ML VIAL IVPUSH (19:38)
[2024-07-22] MEDS: Parenteral Nutrition 1,560 ML 65 ML IV (21:29)
--- NOTE | 2024-07-23 02:02 | PC.NURSE ---
FC removed yesterday. Patient not able to void on own. Bladder scanned for 482 ml, st. cath for 500.
[2024-07-23] MEDS: Heparin Sodium,Porcine 5,000 UNIT/ML VIAL 5000 UNIT SUBCUT ×3 (03:49→19:48)
[2024-07-23 03:51] VITALS: BP 130/72; PULSE 98; RESP 16; TEMP 36.7; O2SAT 95
[2024-07-23 05:20] VITALS: BMI 48.7
[2024-07-23 06:30] LABS: Albumin Level 3.6 g/dL (3.5-5.0); Anion Gap 14 (12-20); Blood Urea Nitrogen 23 mg/dL (9-16); Calcium 8.8 mg/dL (8.4-10.2); Carbon Dioxide 25 mmol/L (22-29); Chloride 102 mmol/L (96-108); Creatinine Clr Calc Pharmacy 146.4; Estimated Glomerular Filt Rate > 60; Glucose Random 189 mg/dL (60-115); Phosphorus 3.5 mg/dL (2.7-4.5); Potassium 3.8 mmol/L (3.3-5.1); Sodium 137 mmol/L (135-145)
[2024-07-23 07:21] VITALS: BP 133/64; PULSE 87; RESP 16; TEMP 37.5; O2SAT 92
--- NOTE | 2024-07-23 09:08 | PM.PNGS ---
Subjective Subjective Date of Service: 07/23/24 <Airam Clark PA-C - Last Filed: 07/23/24 09:12> 07/23/24 <Jim Osuna MD - Last Filed: 07/23/24 13:34> Interval history: Had multiple loose BMs yesterday following SBFT. Complains of some nausea. <Airam Clark PA-C - Last Filed: 07/23/24 09:12> Physical Exam Vital Signs: Vital Signs: Last Vital Signs Temp 99.5 F 07/23/24 07:21 Pulse 87 07/23/24 07:21 Resp 16 07/23/24 07:21 BP 133/64 07/23/24 07:21 Pulse Ox 92 07/23/24 07:21 O2 Del Method Room Air 07/23/24 07:21 O2 Flow Rate 1 07/16/24 09:00 FiO2 26 07/15/24 11:00 BMI result Body Mass Index 48.7 <Airam Clark PA-C - Last Filed: 07/23/24 09:12> Const: General: no acute distress and alert <Airam Clark PA-C - Last Filed: 07/23/24 09:12> GI: Other: markedly corpulent abdomen mild upper abd distention with tympany soft, nontender <GLADYS Hernandez Last Filed: 07/23/24 09:12> Objective Data Active Medications Acetaminophen (Acetaminophen 325 Mg Tablet) 650 mg PO Q4H PRN PRN Reason: Pain, Mild (Pain Scale 1-3) Acetaminophen/Butalbital/Caffeine (Butalb/Acetamin/Caff 50/325/40 Tablet) 1 tab PO Q4H PRN PRN Reason: Headache Albuterol/Ipratropium (Albuterol/Iprat 2.5/0.5mg 3 Ml Ampul.Neb) 3 ml INHALE RQ4H WHILE AWAKE PRN PRN Reason: Wheezing Heparin Sodium (Porcine) (Heparin Sodium,Porcine 5,000 Unit/Ml Vial) 5,000 unit SUBCUT Q8H [facility] Last Admin: 07/23/24 03:49 Dose: 5,000 unit Documented By: ARMEN Nutrition (Parenteral) (Parenteral Nutrition) 1,560 mls @ 65 mls/hr IV .Q24H [facility]; Protocol Stop: 07/23/24 20:59 Last Admin: 07/22/24 21:29 Dose: 65 mls/hr Documented By: ARMEN Nutrition (Parenteral) (Parenteral Nutrition) 1,560 mls @ 65 mls/hr IV .Q24H [facility]; Protocol Stop: 07/24/24 20:59 Melatonin (Melatonin 3 Mg Tablet) 6 mg PO BEDTIME PRN PRN Reason: Insomnia Metoclopramide HCl (Metoclopramide Hcl 10 Mg/2 Ml Vial) 5 mg IVPUSH Q6H PRN PRN Reason: Nausea and Vomiting Last Admin: 07/18/24 08:17 Dose: 5 mg Documented By: GAY Metoprolol Tartrate (Metoprolol Tartrate 5 Mg/5 Ml Vial) 5 mg IVPUSH Q6H PRN; Protocol PRN Reason: hr>90 Last Admin: 07/11/24 09:41 Dose: 5 mg Documented By: MARYURI Naloxone HCl (Naloxone Hcl 0.4 Mg/Ml Vial) 0.2 mg IVPUSH Q2M PRN PRN Reason: Excessive sedation or RR < 8 Non-Formulary Medication (Umeclidinium-Vilanterol [Anoro Ellipta]) 1 each INHALE DAILY [facility] Nystatin (Nystatin Powder 15 Gm Bottle) 1 appl TOPICAL TID [facility]; Protocol Last Admin: 07/22/24 21:29 Dose: 1 appl Documented By: ARMEN Ondansetron HCl (Ondansetron Hcl 4 Mg/2 Ml Vial) 4 mg IVPUSH Q8H PRN PRN Reason: Nausea and Vomiting Last Admin: 07/22/24 19:38 Dose: 4 mg Documented By: ARMEN Pharmacy Consult (Consult Rx Parenteral Nutrition Ordering) 1 each MISCELLANE DAILY PRN PRN Reason: Consult order Sodium Chloride (0.9 % Sodium Chloride Flush 3 Ml Syringe) 3 ml IVFLUSH [facility] Last Admin: 07/23/24 00:06 Dose: Not Given Documented By: ARMEN Non-Admin Reason: PICC Sodium Chloride (0.9 % Sodium Chloride Flush 10 Ml Syringe) 10 ml IVFLUSH QSDCFT [facility] Last Admin: 07/22/24 21:29 Dose: 10 ml Documented By: ARMEN <Airam Clark PA-C - Last Filed: 07/23/24 09:12> Labs CBC & Chem 7: 07/17/24 08:55 07/23/24 05:19 <Airam Clark PA-C - Last Filed: 07/23/24 09:12> Labs: Laboratory Results - last 24 hr 07/23/24 05:19 Hold Purple Top SEE NOTE Anion Gap 14 Estim Creat Clear Calc 146.4 Estimated GFR > 60 Random Glucose 189 H Calcium 8.8 Phosphorus 3.5 Magnesium 2.0 Albumin 3.6 <Airam Clark PA-C - Last Filed: 07/23/24 09:12> Procedures Date of Service Date of Service: 07/23/24 <Airam Clark PA-C - Last Filed: 07/23/24 09:12> 07/23/24 <Jim Osuna MD - Last Filed: 07/23/24 13:34> Progress Note: A&P Assessment and plan (1) Small bowel obstruction: Status: Acute <Airam Clark PA-C - Last Filed: 07/23/24 09:12> Assessment and Plan: No further vomiting overnight Abdomen is soft and benign Studies so far do not suggest obstruction May have gastroparesis and it may be worthwhile to try her on promotility agents Exam remains benign We will follow along Encouraged to get out of bed and increase activity <Jim Osuna MD - Last Filed: 07/23/24 13:34> Assessment and Plan: SBFT on 07/21 demonstrated contrast in colon at 1h 30min, NGT with scant output and removed yesterday. Has had multiple BMs following. Abd remains overall unchanged. Still complaining of nausea this morning. ?Gastroparesis component. Consider promotility agent like reglan or erythromycin ATC. <Airam Clark PA-C - Last Filed: 07/23/24 09:12> Time Spent With Patient Time: Total time managing care of this patient today ____ minutes. <GLADYS Hernandez Last Filed: 07/23/24 09:12> Quality Stroke Does the patient have a stroke diagnosis?: No <GLADYS Hernandez Last Filed: 07/23/24 09:12> VTE Prior VTE?: No <Airam Clark PA-C - Last Filed: 07/23/24 09:12> VTE Risk Level:: Medical - moderate - high <Airam Clark PA-C - Last Filed: 07/23/24 09:12> VTE Device Contraindication: Treatment Not Indicated <Airam Clark PA-C - Last Filed: 07/23/24 09:12> VTE Drug Contraindication: N/A - Med Ordered <Airam Clark PA-C - Last Filed: 07/23/24 09:12>
[2024-07-23] MEDS: Nystatin Powder 15 GM BOTTLE 1 APPL TOPICAL ×3 (09:50→19:49)
--- NOTE | 2024-07-23 09:55 | MHC.CLN ---
F/U DIET ADVANCED TO CLEAR LIQUIDS REVIEWED LABS DISCUSSED WITH PHARMACY CONTINUE TPN AT 65 ML/HR PROVIDES 1108KCALS, 78G PROTEIN (1.2 G/KG), 234G DEXTROSE CONTINUE TO HOLD LIPIDS R/T ELEVATED TRIGS REPLETE LYTES NEEDED MONITOR PO INTAKE
--- NOTE | 2024-07-23 09:56 | PC.NURSE ---
0945- patient attempted void without success. Bladder scanned for 235mL. No straight cath needed at this time.
--- NOTE | 2024-07-23 11:04 | MHC.CM.PN ---
Patient not medically cleared for dc. Will need CARE Team consult when medically cleared.
--- NOTE | 2024-07-23 12:57 | MHC.SL.SWA ---
Speech Pathologist Impression: Adequate oropharyngeal coordination for thins/soft, smooth purees Risk of Aspiration Due to: Medically Fragile History of Pneumonia Hx of Recent Extubation Dysphasia Diet Status: Pt is currently recommended clear liquids per MD. CUSTOMER SERVICER should evaluate solids further once cleared to move from clear liquids. Liquid Consistency and Strategies for Safe Swallow: Liquid Intake Recommendation: Thin Liquid Intake Strategies: Small Sips Solid Food Consistency: Dietary Recommendations: Clear liquid diet Additional Modifications to Solid Foods: Recommend puree diet if patient cleared to start on solid foods by GI. However recommend consult with GI if Clear Liquid Diet more appropriate for patient at this time. Oral Medication Intake: Crushed with Puree Please contact the pharmacy regarding appropriate crushable or liquid drug formulations that are available whenever modified delivery is recommended. Compensatory Strategies and Precautions to be Taken for Safe Swallow: Sitting Upright (90 deg) Small Bites and Sips Rate of Ingestion Change Supervision While Eating and Drinking for Safe Swallow: Total Supervision (1:1) Foods to Avoid: Please refer to GI recommendations. Swallowing Recommended Treatments: Compens. Strategy Educat. Recommendation for Speech: Inpatient Speech Therapy Comment: Pt remains on clear liquid diet. Pt tolerated sips of thins and tsps of puree without overt s/s of aspiration, adequate coordination of oropharyngeal swallow. CUSTOMER SERVICER provided education on physiological function of phases of swallow, review of diet recommendations per GI/CUSTOMER SERVICER, and discussed inpatient POC. CUSTOMER SERVICER to assess for diet advance when pt able to resume regular food per GI. Pt verbalized understanding and agreed. At this time pt experiencing generalized weakness and presents with mildly dysarthric speech. CUSTOMER SERVICER continues to follow. Frequency/Duration: Date Range for Service Req: Timeline to reassess: Warehouse Shipper Clinican/Clinical Fellow: No Supervisory Statement: I have reviewed and agree with the student/clinical fellow's documentation: N/A Speech Language Pathologist: Adriana Feng M.S., [facility])-CUSTOMER SERVICER
--- NOTE | 2024-07-23 13:28 | PC.NURSE ---
Approximately 1300- patient incontinent of stool and urine. Purewick in place, suction canister empty. Bladder scanned for 0mL.
[2024-07-23 14:11] LABS: Glucose, Whole Blood 212 mg/dL (60-115)
[2024-07-23 15:34] VITALS: BP 135/69; PULSE 96; RESP 16; TEMP 36.2; O2SAT 94
[2024-07-23 16:19] LABS: Glucose, Whole Blood 185 mg/dL (60-115)
[2024-07-23 17:57] LABS: Glucose, Whole Blood 171 mg/dL (60-115)
--- NOTE | 2024-07-23 18:42 | PC.NURSE ---
Patient bladder scanned at 1820 for 174mL. Previous bladder scans >300mL. No urine output in suction canister and patient not incontinent at this time. No complaints of abdominal pain. No distention noted. Denies urge to void at this time. Reports she is able to feel the sensation when she needs to void. ALF [place] and Dr. Cox notified. Plan to continue monitoring I&O and bladder scan Q1-2 hours. Patient reports she will alert staff when she feels the urge to void.
[2024-07-23 19:08] VITALS: BP 135/63; PULSE 107; RESP 15; TEMP 36.3; O2SAT 94
--- NOTE | 2024-07-23 19:40 | HO.PM.IMPN ---
Subjective Subjective Date of Service: 07/23/24 Interval History: NGT removed yesterday Upper GI series with small-bowel follow-through negative for SBO, but showed residual contrast in stomach PT denies N/V/D Diet advanced to clears, has been tolerating Jello, can caryl, and some broth Stevens removed yesterday and has been undergoing voiding trial Review of Systems Review of Systems: Yes all other systems are reviewed and are negative Physical Exam Vital Signs: Vital Signs: Last Vital Signs Temp 97.3 F 07/23/24 19:08 Pulse 107 H 07/23/24 19:08 Resp 15 07/23/24 19:08 BP 135/63 07/23/24 19:08 Pulse Ox 94 07/23/24 19:08 O2 Del Method Room Air 07/23/24 19:08 O2 Flow Rate 1 07/16/24 09:00 FiO2 26 07/15/24 11:00 BMI result Body Mass Index 48.7 General: AOx3, no acute distress. Resp: CTA bilaterally CVS: S1, S2, RRR GI: +BS, NT, obese Skin: Warm, dry Neuro: Cranial nerves II-XII grossly intact bilaterally. Motor grossly intact bilaterally. slightly tremulous Extremities: No edema Psych: Appropriate affect Objective Data Active Medications Acetaminophen (Acetaminophen 325 Mg Tablet) 650 mg PO Q4H PRN PRN Reason: Pain, Mild (Pain Scale 1-3) Acetaminophen/Butalbital/Caffeine (Butalb/Acetamin/Caff 50/325/40 Tablet) 1 tab PO Q4H PRN PRN Reason: Headache Albuterol/Ipratropium (Albuterol/Iprat 2.5/0.5mg 3 Ml Ampul.Neb) 3 ml INHALE RQ4H WHILE AWAKE PRN PRN Reason: Wheezing Heparin Sodium (Porcine) (Heparin Sodium,Porcine 5,000 Unit/Ml Vial) 5,000 unit SUBCUT Q8H [facility] Last Admin: 07/23/24 12:01 Dose: 5,000 unit Documented By: TERI Nutrition (Parenteral) (Parenteral Nutrition) 1,560 mls @ 65 mls/hr IV .Q24H [facility]; Protocol Stop: 07/23/24 20:59 Last Admin: 07/22/24 21:29 Dose: 65 mls/hr Documented By: ARMEN Nutrition (Parenteral) (Parenteral Nutrition) 1,560 mls @ 65 mls/hr IV .Q24H [facility]; Protocol Stop: 07/24/24 20:59 Melatonin (Melatonin 3 Mg Tablet) 6 mg PO BEDTIME PRN PRN Reason: Insomnia Metoclopramide HCl (Metoclopramide Hcl 10 Mg/2 Ml Vial) 5 mg IVPUSH Q6H PRN PRN Reason: Nausea and Vomiting Last Admin: 07/18/24 08:17 Dose: 5 mg Documented By: GAY Metoprolol Tartrate (Metoprolol Tartrate 5 Mg/5 Ml Vial) 5 mg IVPUSH Q6H PRN; Protocol PRN Reason: hr>90 Last Admin: 07/11/24 09:41 Dose: 5 mg Documented By: MARYURI Naloxone HCl (Naloxone Hcl 0.4 Mg/Ml Vial) 0.2 mg IVPUSH Q2M PRN PRN Reason: Excessive sedation or RR < 8 Non-Formulary Medication (Umeclidinium-Vilanterol [Anoro Ellipta]) 1 each INHALE DAILY [facility] Nystatin (Nystatin Powder 15 Gm Bottle) 1 appl TOPICAL TID [facility]; Protocol Last Admin: 07/23/24 15:44 Dose: 1 appl Documented By: SELVIN Ondansetron HCl (Ondansetron Hcl 4 Mg/2 Ml Vial) 4 mg IVPUSH Q8H PRN PRN Reason: Nausea and Vomiting Last Admin: 07/22/24 19:38 Dose: 4 mg Documented By: ARMEN Pharmacy Consult (Consult Rx Parenteral Nutrition Ordering) 1 each MISCELLANE DAILY PRN PRN Reason: Consult order Sodium Chloride (0.9 % Sodium Chloride Flush 3 Ml Syringe) 3 ml IVFLUSH [facility] Last Admin: 07/23/24 17:11 Dose: Not Given Documented By: TERI Non-Admin Reason: Previously Administered Sodium Chloride (0.9 % Sodium Chloride Flush 10 Ml Syringe) 10 ml IVFLUSH QSARFT [facility] Last Admin: 07/23/24 17:11 Dose: Not Given Documented By: TERI Non-Admin Reason: Previously Administered Labs 07/17/24 08:55 07/23/24 05:19 Labs: Laboratory Results - last 24 hr 07/23/24 07/23/2407/23/25 05:19 14:07 16:15 Hold Purple Top SEE NOTE Anion Gap 14 Estim Creat Clear Calc 146.4 Estimated GFR > 60 POC Glucose 212 H 185 H Random Glucose 189 H Calcium 8.8 Phosphorus 3.5 Magnesium 2.0 Albumin 3.6 07/23/24 17:53 Hold Purple Top Anion Gap Estim Creat Clear Calc Estimated GFR POC Glucose 171 H Random Glucose Calcium Phosphorus Magnesium Albumin Assessment and Plan (1) Small bowel obstruction: Status: Acute (2) Toxic encephalopathy: Status: Acute Plan 58F PMH chronic hypoxic and hypercapnic respiratory failure on 2 L due to COPD, hypertension, chronic back pain, opiate dependence, mood disorder presented with altered mental status after intentional olanzapine overdose. On 07/11/2024 started vomiting large amount of brown emesis requiring intubation. Likely aspiration. Over the next several days successfully weaned off the ventilator and was able to be transferred to telemetry Acute toxic metabolic encephalopathy due to intentional olanzapine overdose due to mood disorder with suicide ideation, she required intubation in ICU for airway protection, and successfully extubated. Mental status is better. Will get Psych consult again when medically cleared SBO, and has been on TPN, recent xray showed extensive distention of bowel and stomach, NGT inserted on 07/20 with significant output. Output low. Upper GI with small bowel follow through negative for obstruction but showed retained contrast in stomach. NGT d/c yesterday. Was seen by general surgery who suggested consideration of gastroparesis or ileus possibly benefitting from motility agents. Notified by pharmacy that Erythromycin currently on backorder. Voiding trial Pt's Stevens removed yesterday Bladder scan/straight cath as necessary Sepsis and acute hypoxic respiratory failure due to aspiration pneumonia (sepsis resolved) Completed antibiotics Follow clinically Hypertension, controlled no meds History of PE Abelardo has been on hold d/t possible bleeding, and potential need for intervention Full Code DVT prophylaxis: heparin reason for continued hospitalization: Hypoxia, fevers Quality Stroke Does the patient have a stroke diagnosis?: No VTE Prior VTE?: No VTE Risk Level:: Medical - moderate - high VTE Device Contraindication: Treatment Not Indicated VTE Drug Contraindication: N/A - Med Ordered
[2024-07-23] MEDS: Parenteral Nutrition 1,560 ML 65 ML IV (21:34)
[2024-07-24 00:05] LABS: Glucose, Whole Blood 223 mg/dL (60-115)
[2024-07-24 03:25] VITALS: BP 139/65; PULSE 98; RESP 16; TEMP 36.1; O2SAT 94
[2024-07-24] MEDS: Heparin Sodium,Porcine 5,000 UNIT/ML VIAL 5000 UNIT SUBCUT ×3 (03:28→20:52)
--- NOTE | 2024-07-24 03:49 | PC.NURSE ---
0345- Patient incontinent of urine and stool, skin care provided, repositioned, triad applied, offered no complaints of nausea or pain. Bladder Scan revealed 147ml, continue to monitor
[2024-07-24 05:44] VITALS: BMI 48.3
[2024-07-24 06:41] LABS: Glucose, Whole Blood 219 mg/dL (60-115)
[2024-07-24 07:25] VITALS: BP 127/71; PULSE 93; RESP 18; TEMP 36.9; O2SAT 94
--- NOTE | 2024-07-24 07:59 | PM.PNGS ---
Subjective Subjective Date of Service: 07/25/24 Interval history: Denies abdominal pain Says she feels ?okay? Has BMs No events reported by staff at bedside Physical Exam Vital Signs: Vital Signs: Last Vital Signs Temp 98.4 F 07/24/24 07:25 Pulse 93 07/24/24 07:25 Resp 18 07/24/24 07:25 BP 127/71 07/24/24 07:25 Pulse Ox 94 07/24/24 07:25 O2 Del Method Room Air 07/24/24 07:25 O2 Flow Rate 1 07/16/24 09:00 FiO2 26 07/15/24 11:00 BMI result Body Mass Index 48.3 Const: Other: Some shortness of breath General: comfortable Resp: Other: Some shortness of breath Cardio: Rate: regular rate GI: Palpation (GI): Soft to palpation, not firm, nontender and no guarding Objective Data Active Medications Acetaminophen (Acetaminophen 325 Mg Tablet) 650 mg PO Q4H PRN PRN Reason: Pain, Mild (Pain Scale 1-3) Acetaminophen/Butalbital/Caffeine (Butalb/Acetamin/Caff 50/325/40 Tablet) 1 tab PO Q4H PRN PRN Reason: Headache Albuterol/Ipratropium (Albuterol/Iprat 2.5/0.5mg 3 Ml Ampul.Neb) 3 ml INHALE RQ4H WHILE AWAKE PRN PRN Reason: Wheezing Heparin Sodium (Porcine) (Heparin Sodium,Porcine 5,000 Unit/Ml Vial) 5,000 unit SUBCUT Q8H [facility] Last Admin: 07/24/24 03:28 Dose: 5,000 unit Documented By: GEORGIA Nutrition (Parenteral) (Parenteral Nutrition) 1,560 mls @ 65 mls/hr IV .Q24H [facility]; Protocol Stop: 07/24/24 20:59 Last Admin: 07/23/24 21:34 Dose: 65 mls/hr Documented By: GEORGIA Melatonin (Melatonin 3 Mg Tablet) 6 mg PO BEDTIME PRN PRN Reason: Insomnia Metoclopramide HCl (Metoclopramide Hcl 10 Mg/2 Ml Vial) 5 mg IVPUSH Q6H PRN PRN Reason: Nausea and Vomiting Last Admin: 07/18/24 08:17 Dose: 5 mg Documented By: HO.SZOTPAT Metoprolol Tartrate (Metoprolol Tartrate 5 Mg/5 Ml Vial) 5 mg IVPUSH Q6H PRN; Protocol PRN Reason: hr>90 Last Admin: 07/11/24 09:41 Dose: 5 mg Documented By: MARYURI Naloxone HCl (Naloxone Hcl 0.4 Mg/Ml Vial) 0.2 mg IVPUSH Q2M PRN PRN Reason: Excessive sedation or RR < 8 Non-Formulary Medication (Umeclidinium-Vilanterol [Anoro Ellipta]) 1 each INHALE DAILY [facility] Nystatin (Nystatin Powder 15 Gm Bottle) 1 appl TOPICAL TID [facility]; Protocol Last Admin: 07/23/24 19:49 Dose: 1 appl Documented By: GEORGIA Ondansetron HCl (Ondansetron Hcl 4 Mg/2 Ml Vial) 4 mg IVPUSH Q8H PRN PRN Reason: Nausea and Vomiting Last Admin: 07/22/24 19:38 Dose: 4 mg Documented By: ARMEN Pharmacy Consult (Consult Rx Parenteral Nutrition Ordering) 1 each MISCELLANE DAILY PRN PRN Reason: Consult order Sodium Chloride (0.9 % Sodium Chloride Flush 3 Ml Syringe) 3 ml IVFLUSH QSHIFT [facility] Last Admin: 07/23/24 23:00 Dose: Not Given Documented By: GEORGIA Non-Admin Reason: picc line flush only Sodium Chloride (0.9 % Sodium Chloride Flush 10 Ml Syringe) 10 ml IVFLUSH QSHIFT [facility] Last Admin: 07/23/24 23:19 Dose: Not Given Documented By: GEORGIA Non-Admin Reason: for discharge Labs 07/17/24 08:55 07/25/24 06:18 Labs: Laboratory Results - last 24 hr 07/23/24 07/23/24 07/23/24 14:07 16:15 17:53 POC Glucose 212 H 185 H 171 H 07/24/24 07/24/24 00:01 06:26 POC Glucose 223 H 219 H Procedures Date of Service Date of Service: 07/25/24 Progress Note: A&P Assessment and plan (1) Pulmonary aspiration of gastric contents: Status: Acute Assessment and Plan: No vomiting reported Imaging studies do not show obstruction On promotility agent Encouraged to get out of bed to recliner at least Abdomen is soft and benign No further vomiting, okay to try to advance diet Time Spent With Patient Time: Total time managing care of this patient today ____ minutes. Quality Stroke Does the patient have a stroke diagnosis?: No VTE Prior VTE?: No VTE Risk Level:: Medical - moderate - high VTE Device Contraindication: Treatment Not Indicated VTE Drug Contraindication: N/A - Med Ordered
[2024-07-24 08:54] LABS: Albumin Level 3.5 g/dL (3.5-5.0); Anion Gap 13 (12-20); Blood Urea Nitrogen 21 mg/dL (9-16); Calcium 8.7 mg/dL (8.4-10.2); Carbon Dioxide 23 mmol/L (22-29); Chloride 105 mmol/L (96-108); Creatinine Clr Calc Pharmacy 141.4; Estimated Glomerular Filt Rate > 60; Glucose Random 192 mg/dL (60-115); Magnesium 1.9 mg/dL (1.6-2.6); Phosphorus 3.2 mg/dL (2.7-4.5); Sodium 137 mmol/L (135-145)
[2024-07-24] MEDS: Nystatin Powder 15 GM BOTTLE 1 APPL TOPICAL ×3 (09:20→21:04)
--- NOTE | 2024-07-24 09:58 | HO.PM.IMPN ---
Subjective Subjective Date of Service: 07/24/24 Physical Exam Vital Signs: Vital Signs: Last Vital Signs Temp 98.4 F 07/24/24 07:25 Pulse 93 07/24/24 07:25 Resp 18 07/24/24 07:25 BP 127/71 07/24/24 07:25 Pulse Ox 94 07/24/24 07:25 O2 Del Method Room Air 07/24/24 07:25 O2 Flow Rate 1 07/16/24 09:00 FiO2 26 07/15/24 11:00 BMI result Body Mass Index 48.3 Objective Data Active Medications Acetaminophen (Acetaminophen 325 Mg Tablet) 650 mg PO Q4H PRN PRN Reason: Pain, Mild (Pain Scale 1-3) Acetaminophen/Butalbital/Caffeine (Butalb/Acetamin/Caff 50/325/40 Tablet) 1 tab PO Q4H PRN PRN Reason: Headache Albuterol/Ipratropium (Albuterol/Iprat 2.5/0.5mg 3 Ml Ampul.Neb) 3 ml INHALE RQ4H WHILE AWAKE PRN PRN Reason: Wheezing Heparin Sodium (Porcine) (Heparin Sodium,Porcine 5,000 Unit/Ml Vial) 5,000 unit SUBCUT Q8H [facility] Last Admin: 07/24/24 03:28 Dose: 5,000 unit Documented By: GEORGIA Nutrition (Parenteral) (Parenteral Nutrition) 1,560 mls @ 65 mls/hr IV .Q24H [facility]; Protocol Stop: 07/24/24 20:59 Last Admin: 07/23/24 21:34 Dose: 65 mls/hr Documented By: GEORGIA Nutrition (Parenteral) (Parenteral Nutrition) 1,560 mls @ 65 mls/hr IV .Q24H [facility]; Protocol Stop: 07/25/24 09:59 Melatonin (Melatonin 3 Mg Tablet) 6 mg PO BEDTIME PRN PRN Reason: Insomnia Metoclopramide HCl (Metoclopramide Hcl 10 Mg/2 Ml Vial) 5 mg IVPUSH Q6H PRN PRN Reason: Nausea and Vomiting Last Admin: 07/18/24 08:17 Dose: 5 mg Documented By: GAY Metoprolol Tartrate (Metoprolol Tartrate 5 Mg/5 Ml Vial) 5 mg IVPUSH Q6H PRN; Protocol PRN Reason: hr>90 Last Admin: 07/11/24 09:41 Dose: 5 mg Documented By: MARYURI Naloxone HCl (Naloxone Hcl 0.4 Mg/Ml Vial) 0.2 mg IVPUSH Q2M PRN PRN Reason: Excessive sedation or RR < 8 Non-Formulary Medication (Umeclidinium-Vilanterol [Anoro Ellipta]) 1 each INHALE DAILY [facility] Nystatin (Nystatin Powder 15 Gm Bottle) 1 appl TOPICAL TID [facility]; Protocol Last Admin: 07/24/24 09:20 Dose: 1 appl Documented By: PAUL Ondansetron HCl (Ondansetron Hcl 4 Mg/2 Ml Vial) 4 mg IVPUSH Q8H PRN PRN Reason: Nausea and Vomiting Last Admin: 07/22/24 19:38 Dose: 4 mg Documented By: ARMEN Pharmacy Consult (Consult Rx Parenteral Nutrition Ordering) 1 each MISCELLANE DAILY PRN PRN Reason: Consult order Sodium Chloride (0.9 % Sodium Chloride Flush 3 Ml Syringe) 3 ml IVFLUSH [facility] Last Admin: 07/24/24 09:20 Dose: Not Given Documented By: PAUL Non-Admin Reason: pt has a picc line Sodium Chloride (0.9 % Sodium Chloride Flush 10 Ml Syringe) 10 ml IVFLUSH QSNMFT [facility] Last Admin: 07/24/24 09:11 Dose: 10 ml Documented By: PAUL Labs 07/17/24 08:55 07/24/24 08:18 Labs: Laboratory Results - last 24 hr 07/23/24 07/23/24 07/23/24 14:07 16:15 17:53 Anion Gap Estim Creat Clear Calc Estimated GFR POC Glucose 212 H 185 H 171 H Random Glucose Calcium Phosphorus Magnesium Albumin 07/24/24 07/24/24 07/24/24 00:01 06:26 08:18 Anion Gap 13 Estim Creat Clear Calc 141.4 Estimated GFR > 60 POC Glucose 223 H 219 H Random Glucose 192 H Calcium 8.7 Phosphorus 3.2 Magnesium 1.9 Albumin 3.5 Assessment and Plan (1) Small bowel obstruction: Status: Acute (2) Toxic encephalopathy: Status: Acute Plan 58F PMH chronic hypoxic and hypercapnic respiratory failure on 2 L due to COPD, hypertension, chronic back pain, opiate dependence, mood disorder presented with altered mental status after intentional olanzapine overdose. On 07/11/2024 started vomiting large amount of brown emesis requiring intubation. Likely aspiration. Over the next several days successfully weaned off the ventilator and was able to be transferred to telemetry Acute toxic metabolic encephalopathy due to intentional olanzapine overdose due to mood disorder with suicide ideation, she required intubation in ICU for airway protection, and successfully extubated. Mental status is better, oriented to self, place and date now. Will get Psych consult again when medically cleared SBO, and has been on TPN, recent xray showed extensive distention of bowel and stomach, NGT inserted on 07/20 with significant output. Output low. Upper GI with small bowel follow through negative for obstruction but showed retained contrast in stomach. NGT d/c 07/22. Was seen by general surgery who suggested consideration of gastroparesis or ileus possibly benefitting from motility agents. Notified by pharmacy that Erythromycin currently on backorder. MAXILLOFACIAL PATHOLOGY follow up for possibly advancing diet Pt had shea now removed Sepsis and acute hypoxic respiratory failure due to aspiration pneumonia (sepsis resolved) Completed antibiotics Follow clinically Hypertension, controlled no meds History of PE Florenceis has been on hold d/t possible bleeding, and potential need for intervention Full Code DVT prophylaxis: heparin reason for continued hospitalization: Hypoxia, fevers Out of bed, PT eval Quality Stroke Does the patient have a stroke diagnosis?: No VTE Prior VTE?: No VTE Risk Level:: Medical - moderate - high VTE Device Contraindication: Treatment Not Indicated VTE Drug Contraindication: N/A - Med Ordered
--- NOTE | 2024-07-24 10:23 | MHC.CLN ---
F/U PO INTAKE 75% X3 MEALS OF CLEAR LIQUIDS REVIEWED LABS DISCUSSED WITH PHARMACY CONTINUE TPN AT 65 ML/HR PROVIDES 1108KCALS, 78G PROTEIN (1.2 G/KG), 234G DEXTROSE CONTINUE TO HOLD LIPIDS R/T ELEVATED TRIGS REPLETE LYTES NEEDED CONTINUE TO MONITOR PO INTAKE
--- NOTE | 2024-07-24 11:03 | MHC.SL.SWA ---
Speech Pathologist Impression: mild oral phase dysphagia with increased aspiration risk due to deconditioning, vulnerable respiratory status. Risk of Aspiration Due to: Medically Fragile History of Pneumonia Hx of Recent Extubation Dysphasia Diet Status: If cleared by GI to advance to solids, recommend UPGRADE diet to Ground Mechanical (NDD2) Continue on Thin liquids, pills crushed or whole in puree. Liquid Consistency and Strategies for Safe Swallow: Liquid Intake Recommendation: Thin Liquid Intake Strategies: Small Sips Solid Food Consistency: Dietary Recommendations: Grnd/Mech Altered (NDD2) Additional Modifications to Solid Foods: Recommend puree diet if patient cleared to start on solid foods by GI. However recommend consult with GI if Clear Liquid Diet more appropriate for patient at this time. Oral Medication Intake: Crushed with Puree Please contact the pharmacy regarding appropriate crushable or liquid drug formulations that are available whenever modified delivery is recommended. Compensatory Strategies and Precautions to be Taken for Safe Swallow: Sitting Upright (90 deg) Liquids from Cup Small Bites and Sips Alternate Liquids/Solids Supervision While Eating and Drinking for Safe Swallow: Total Supervision (1:1) Foods to Avoid: Difficult to chew solids Swallowing Recommended Treatments: Compens. Strategy Educat. Recommendation for Speech: Inpatient Speech Therapy Comment: HOSPITAL RECEPTIONIST noted at rounds MD requesting re-eval for advancement of diet. Patient seen while still attempting breakfast, progressing very slowly through meal but independently, with sitter present who reported setting up her tray for her. Patient agreed to try some solid foods. This HOSPITAL RECEPTIONIST saw patient 07/17 for initial eval, note that Oral Motor is mostly WFL, patient normally wears dentures (is edentulous), Patient believes dentures are in her purse, no purse present in the room. Patient presented with marked generalized weakness, labored breathing with some wet sounding respiration. Patient reports she is only on Oxygen at night. Patient agreed to food trials, fed self tsps of puree, demonstrated mildly slow but coordinated oral phase and timely swallow, laryngeal transit WFL. Pieces of akilah cracker were put in the pudding, with patient producing a munching/mastication pattern with gums to chew up cracker, which was mildly prolonged followed by timely swallow. More advanced textures were not attempted at this time, given edentulous state, generalized weakness. If cleared by GI to advance to solids, recommend UPGRADE diet to Ground Mechanical (NDD2) Continue on Thin liquids, pills crushed or whole in puree. MD/RD notified of recommendation by secure text, RN advised in person. Frequency/Duration: Date Range for Service Req: Timeline to reassess: Supervisor Alteration Workroom Clinican/Clinical Fellow: No Supervisory Statement: I have reviewed and agree with the student/clinical fellow's documentation: N/A Speech Language Pathologist: Mago Gavin M.A., CCC-HOSPITAL RECEPTIONIST
[2024-07-24 12:59] LABS: Glucose, Whole Blood 275 mg/dL (60-115)
[2024-07-24] MEDS: 0.9 % Sodium Chloride Flush 3 ML SYRINGE IVFLUSH (14:50)
--- NOTE | 2024-07-24 15:48 | PC.NURSE ---
BP low 78/42 pulse 99 temp ,patient has no complaints at this time,Dr. Cox notified ,IV bolus is infusing as ordered
[2024-07-24 16:00] VITALS: BP 139/84; PULSE 99; RESP 18; TEMP 36.4; O2SAT 95
[2024-07-24 16:40] LABS: Glucose, Whole Blood 227 mg/dL (60-115)
[2024-07-24] MEDS: Insulin Lispro 100 UNIT/ML 3 ML VIAL SUBCUT ×2 (17:20→21:01)
[2024-07-24 19:26] VITALS: BP 144/75; PULSE 99; RESP 18; TEMP 36.3; O2SAT 94
[2024-07-24 21:51] LABS: Glucose, Whole Blood 206 mg/dL (60-115)
[2024-07-24] MEDS: 0.9 % Sodium Chloride Flush 10 ML SYRINGE IVFLUSH (23:05)
[2024-07-25] MEDS: Heparin Sodium,Porcine 5,000 UNIT/ML VIAL 5000 UNIT SUBCUT ×3 (03:28→21:48)
[2024-07-25 04:00] VITALS: BP 144/93; PULSE 100; RESP 20; TEMP 36.1; O2SAT 92
[2024-07-25] MEDS: ondansetron HCL 4 MG/2 ML VIAL IVPUSH (05:24)
[2024-07-25 05:56] VITALS: BMI 48.1
[2024-07-25 06:47] LABS: Albumin Level 3.5 g/dL (3.5-5.0); Anion Gap 14 (12-20); Blood Urea Nitrogen 19 mg/dL (9-16); Calcium 8.5 mg/dL (8.4-10.2); Carbon Dioxide 22 mmol/L (22-29); Chloride 104 mmol/L (96-108); Creatinine Clr Calc Pharmacy 136.9; Estimated Glomerular Filt Rate > 60; Glucose Random 161 mg/dL (60-115); Magnesium 1.9 mg/dL (1.6-2.6); Phosphorus 3.6 mg/dL (2.7-4.5); Potassium 3.9 mmol/L (3.3-5.1); Sodium 136 mmol/L (135-145)
[2024-07-25 07:20] LABS: Glucose, Whole Blood 145 mg/dL (60-115)
[2024-07-25 07:23] VITALS: BP 142/82; PULSE 89; RESP 20; TEMP 36.4; O2SAT 94
--- NOTE | 2024-07-25 09:18 | P.PNGS_ITS ---
Subjective Subjective Date of Service: 07/25/24 Interval history: No reported vomiting or nausea according to the nursing staff Patient denies abdominal pain Has had BMs Does not get out of bed Physical Exam 2 Vital Signs: Vital Signs: Last Vital Signs Temp 97.6 F 07/25/24 07:23 Pulse 89 07/25/24 07:23 Resp 20 07/25/24 07:23 BP 142/82 H 07/25/24 07:23 Pulse Ox 94 07/25/24 07:23 O2 Del Method Room Air 07/25/24 07:23 O2 Flow Rate 1 07/16/24 09:00 FiO2 26 07/15/24 11:00 BMI result Body Mass Index 48.1 Const: Other: Some shortness of breath, seems as baseline Resp: Other: Some shortness of breath Cardio: Rate: regular rate GI: Palpation (GI): Soft to palpation, not firm, nontender and no guarding Objective Data Active Medications Acetaminophen (Acetaminophen 325 Mg Tablet) 650 mg PO Q4H PRN PRN Reason: Pain, Mild (Pain Scale 1-3) Acetaminophen/Butalbital/Caffeine (Butalb/Acetamin/Caff 50/325/40 Tablet) 1 tab PO Q4H PRN PRN Reason: Headache Albuterol/Ipratropium (Albuterol/Iprat 2.5/0.5mg 3 Ml Ampul.Neb) 3 ml INHALE RQ4H WHILE AWAKE PRN PRN Reason: Wheezing Dextrose (Dextrose 50 % 25 Gm/50 Ml Syringe) 25 gm IVPUSH Q15M PRN; Protocol PRN Reason: per Hypoglycemia Standing Ord. Glucose (Glucose Gel 15 Gm Gel..Gram.) 15 gm PO Q15M PRN; Protocol PRN Reason: per Hypoglycemia Standing Ord. Heparin Sodium (Porcine) (Heparin Sodium,Porcine 5,000 Unit/Ml Vial) 5,000 unit SUBCUT Q8H [facility] Last Admin: 07/25/24 03:28 Dose: 5,000 unit Documented By: GEORGIA Insulin Human Lispro (Insulin Lispro 100 Unit/Ml 3 Ml Vial) 0 unit SUBCUT QIDACHS [facility]; Protocol Last Admin: 07/25/24 08:15 Dose: Not Given Documented By: PAUL Non-Admin Reason: No Insulin Coverage Melatonin (Melatonin 3 Mg Tablet) 6 mg PO BEDTIME PRN PRN Reason: Insomnia Metoclopramide HCl (Metoclopramide Hcl 10 Mg/2 Ml Vial) 5 mg IVPUSH Q6H PRN PRN Reason: Nausea and Vomiting Last Admin: 07/18/24 08:17 Dose: 5 mg Documented By: GAY Metoprolol Tartrate (Metoprolol Tartrate 5 Mg/5 Ml Vial) 5 mg IVPUSH Q6H PRN; Protocol PRN Reason: hr>90 Last Admin: 07/11/24 09:41 Dose: 5 mg Documented By: MARYURI Naloxone HCl (Naloxone Hcl 0.4 Mg/Ml Vial) 0.2 mg IVPUSH Q2M PRN PRN Reason: Excessive sedation or RR < 8 Non-Formulary Medication (Umeclidinium-Vilanterol [Anoro Ellipta]) 1 each INHALE DAILY [facility] Nystatin (Nystatin Powder 15 Gm Bottle) 1 appl TOPICAL TID [facility]; Protocol Last Admin: 07/24/24 21:04 Dose: 1 appl Documented By: HUYEN Ondansetron HCl (Ondansetron Hcl 4 Mg/2 Ml Vial) 4 mg IVPUSH Q8H PRN PRN Reason: Nausea and Vomiting Last Admin: 07/25/24 05:24 Dose: 4 mg Documented By: GEORGIA Pharmacy Consult (Consult Rx Parenteral Nutrition Ordering) 1 each MISCELLANE DAILY PRN PRN Reason: Consult order Sodium Chloride (0.9 % Sodium Chloride Flush 3 Ml Syringe) 3 ml IVFLUSH QSDEFT [facility] Last Admin: 07/24/24 23:07 Dose: Not Given Documented By: GEORGIA Non-Admin Reason: picc line only Sodium Chloride (0.9 % Sodium Chloride Flush 10 Ml Syringe) 10 ml IVFLUSH QSDEFT [facility] Last Admin: 07/24/24 23:05 Dose: 10 ml Documented By: GEORGIA Labs 07/17/24 08:55 07/25/24 06:18 Labs: Laboratory Results - last 24 hr 07/24/24 07/24/24 07/24/24 12:55 16:34 20:55 Anion Gap Estim Creat Clear Calc Estimated GFR POC Glucose 275 H 227 H 206 H Random Glucose Calcium Phosphorus Magnesium Albumin 07/25/24 07/25/24 06:18 07:16 Anion Gap 14 Estim Creat Clear Calc 136.9 Estimated GFR > 60 POC Glucose 145 H Random Glucose 161 H Calcium 8.5 Phosphorus 3.6 Magnesium 1.9 Albumin 3.5 Procedures Date of Service Date of Service: 07/25/24 Progress Note: A&P Assessment and plan (1) Partial small bowel obstruction: Status: Acute Assessment and Plan: Symptoms resolved Passing BMs Abdomen is soft and benign No reported vomiting for more than 48 hours Okay to try to advance diet as tolerated Imaging study with small bowel series shows no obstruction, suggestive of gastroparesis/ileus Started on erythromycin Has multiple other medical problems Time Spent With Patient Time: Total time managing care of this patient today ____ minutes. Quality Stroke Does the patient have a stroke diagnosis?: No VTE Prior VTE?: No VTE Risk Level:: Medical - moderate - high VTE Device Contraindication: Treatment Not Indicated VTE Drug Contraindication: N/A - Med Ordered
[2024-07-25] MEDS: 0.9 % Sodium Chloride Flush 3 ML SYRINGE IVFLUSH ×2 (09:22→14:47)
[2024-07-25] MEDS: Nystatin Powder 15 GM BOTTLE 1 APPL TOPICAL ×3 (09:25→21:51)
--- NOTE | 2024-07-25 10:21 | MHC.CLN ---
F/U DIET=DIABETIC 1800 KCALS, GROUND CONSISTENCY. INTAKE APPEARS TO BE GOOD, 75-100%. SBO RESOLVED. NO NAUSEA, VOMITING, ABDOMINAL PAIN. TPN HELD STARTING 07/24. ANTICIPATE ADEQUATE PO INTAKE. CONTINUE TO MONITOR PO INTAKE AND DIET TOLERANCE.
--- NOTE | 2024-07-25 10:53 | HO.PM.IMPN ---
Subjective Subjective Date of Service: 07/25/24 Interval History: She's tolerating ground diet and no new issues, brought up, TPN stopped yesterday has had bowel movement Review of Systems Review of Systems: Yes all other systems are reviewed and are negative Physical Exam Vital Signs: Vital Signs: Last Vital Signs Temp 97.6 F 07/25/24 07:23 Pulse 89 07/25/24 07:23 Resp 20 07/25/24 07:23 BP 142/82 H 07/25/24 07:23 Pulse Ox 94 07/25/24 07:23 O2 Del Method Room Air 07/25/24 07:23 O2 Flow Rate 1 07/16/24 09:00 FiO2 26 07/15/24 11:00 BMI result Body Mass Index 48.1 Const: Other: General: Alert, oriented x 3 Resp: CTA bilateral CVS: S1,S2,RRR GI: +BS, NT, distended Skin: No rash Neuro: motor grossly intact Psych: appropriate affect Objective Data Active Medications Acetaminophen (Acetaminophen 325 Mg Tablet) 650 mg PO Q4H PRN PRN Reason: Pain, Mild (Pain Scale 1-3) Acetaminophen/Butalbital/Caffeine (Butalb/Acetamin/Caff 50/325/40 Tablet) 1 tab PO Q4H PRN PRN Reason: Headache Albuterol/Ipratropium (Albuterol/Iprat 2.5/0.5mg 3 Ml Ampul.Neb) 3 ml INHALE RQ4H WHILE AWAKE PRN PRN Reason: Wheezing Dextrose (Dextrose 50 % 25 Gm/50 Ml Syringe) 25 gm IVPUSH Q15M PRN; Protocol PRN Reason: per Hypoglycemia Standing Ord. Glucose (Glucose Gel 15 Gm Gel..Gram.) 15 gm PO Q15M PRN; Protocol PRN Reason: per Hypoglycemia Standing Ord. Heparin Sodium (Porcine) (Heparin Sodium,Porcine 5,000 Unit/Ml Vial) 5,000 unit SUBCUT Q8H [facility] Last Admin: 07/25/24 03:28 Dose: 5,000 unit Documented By: GEORGIA Insulin Human Lispro (Insulin Lispro 100 Unit/Ml 3 Ml Vial) 0 unit SUBCUT QIDACHS [facility]; Protocol Last Admin: 07/25/24 08:15 Dose: Not Given Documented By: PAUL Non-Admin Reason: No Insulin Coverage Melatonin (Melatonin 3 Mg Tablet) 6 mg PO BEDTIME PRN PRN Reason: Insomnia Metoclopramide HCl (Metoclopramide Hcl 10 Mg/2 Ml Vial) 5 mg IVPUSH Q6H PRN PRN Reason: Nausea and Vomiting Last Admin: 07/18/24 08:17 Dose: 5 mg Documented By: GYA Metoprolol Tartrate (Metoprolol Tartrate 5 Mg/5 Ml Vial) 5 mg IVPUSH Q6H PRN; Protocol PRN Reason: hr>90 Last Admin: 07/11/24 09:41 Dose: 5 mg Documented By: MARYURI Naloxone HCl (Naloxone Hcl 0.4 Mg/Ml Vial) 0.2 mg IVPUSH Q2M PRN PRN Reason: Excessive sedation or RR < 8 Non-Formulary Medication (Umeclidinium-Vilanterol [Anoro Ellipta]) 1 each INHALE DAILY ROBI Nystatin (Nystatin Powder 15 Gm Bottle) 1 appl TOPICAL TID ROBI; Protocol Last Admin: 07/25/24 09:25 Dose: 1 appl Documented By: PAUL Ondansetron HCl (Ondansetron Hcl 4 Mg/2 Ml Vial) 4 mg IVPUSH Q8H PRN PRN Reason: Nausea and Vomiting Last Admin: 07/25/24 05:24 Dose: 4 mg Documented By: GEORGIA Pharmacy Consult (Consult Rx Parenteral Nutrition Ordering) 1 each MISCELLANE DAILY PRN PRN Reason: Consult order Sodium Chloride (0.9 % Sodium Chloride Flush 3 Ml Syringe) 3 ml IVFLUSH QSKYFT [facility] Last Admin: 07/25/24 09:22 Dose: 3 ml Documented By: PAUL Sodium Chloride (0.9 % Sodium Chloride Flush 10 Ml Syringe) 10 ml IVFLUSH QSKYFT [facility] Last Admin: 07/25/24 09:22 Dose: Not Given Documented By: PAUL Non-Admin Reason: N?A Labs 07/17/24 08:55 07/25/24 06:18 Labs: Laboratory Results - last 24 hr 07/24/24 07/24/24 07/24/24 12:55 16:34 20:55 Anion Gap Estim Creat Clear Calc Estimated GFR POC Glucose 275 H 227 H 206 H Random Glucose Calcium Phosphorus Magnesium Albumin 07/25/24 07/25/24 06:18 07:16 Anion Gap 14 Estim Creat Clear Calc 136.9 Estimated GFR > 60 POC Glucose 145 H Random Glucose 161 H Calcium 8.5 Phosphorus 3.6 Magnesium 1.9 Albumin 3.5 Assessment and Plan (1) Small bowel obstruction: Status: Acute (2) Toxic encephalopathy: Status: Acute Plan 58F PMH chronic hypoxic and hypercapnic respiratory failure on 2 L due to COPD, hypertension, chronic back pain, opiate dependence, mood disorder presented with altered mental status after intentional olanzapine overdose. On 07/11/2024 started vomiting large amount of brown emesis requiring intubation. Likely aspiration. Over the next several days successfully weaned off the ventilator and was able to be transferred to telemetry Acute toxic metabolic encephalopathy due to intentional olanzapine overdose due to mood disorder with suicide ideation, she required intubation in ICU for airway protection, and successfully extubated. Mental status is better, oriented to self, place and date now. Will get Psych consult again when medically cleared SBO, and has been on TPN, recent xray showed extensive distention of bowel and stomach, NGT inserted on 07/20 with significant output. Output low. Upper GI with small bowel follow through negative for obstruction but showed retained contrast in stomach. NGT d/c 07/22. Was seen by general surgery who suggested consideration of gastroparesis or ileus possibly benefitting from motility agents. Notified by pharmacy that Erythromycin currently on backorder. Tolerating ground diet, CONTENT DESIGNER to follow Pt had shea now removed Sepsis and acute hypoxic respiratory failure due to aspiration pneumonia (sepsis resolved) Completed antibiotics Follow clinically Hypertension, controlled no meds History of PE Abelardo has been on hold d/t possible bleeding, and potential need for intervention, may resume if H/H is stable. Full Code DVT prophylaxis: heparin reason for continued hospitalization: Hypoxia, fevers Out of bed, PT eval Quality Stroke Does the patient have a stroke diagnosis?: No VTE Prior VTE?: No VTE Risk Level:: Medical - moderate - high VTE Device Contraindication: Treatment Not Indicated VTE Drug Contraindication: N/A - Med Ordered
[2024-07-25 11:07] LABS: Glucose, Whole Blood 168 mg/dL (60-115)
[2024-07-25 11:13] VITALS: BP 142/82; PULSE 89; O2SAT 94
[2024-07-25] MEDS: Insulin Lispro 100 UNIT/ML 3 ML VIAL SUBCUT ×2 (11:27→16:23)
--- NOTE | 2024-07-25 12:13 | MHC.CM.PN ---
Addendum entered by Mago Regalado RN 07/25/24 12:15: TPM STOPPED ON 07/24. Original Note: EMR REVIEWED, PER SURGICAL PT TOLERATING GROUND DIET AND OKAY TO ADVANCE TOLERATED, ANTIC PT WILL NEED P.T. AND CARE TEAM PRIOR TO DC , CM WILL CONT TO FOLLOW.
[2024-07-25 15:24] VITALS: BP 137/76; PULSE 104; RESP 18; TEMP 36.6; O2SAT 93
[2024-07-25 16:14] LABS: Glucose, Whole Blood 151 mg/dL (60-115)
--- NOTE | 2024-07-25 16:21 | MHC.SL.SWA ---
Speech Pathologist Impression: Risk of Aspiration, Oropharyngeal Dysphagia Risk of Aspiration Due to: Medically Fragile History of Pneumonia Hx of Recent Extubation Dysphasia Diet Status: Ground Mechanical (NDD2)/ Thin liquids, pills crushed or whole in puree. Liquid Consistency and Strategies for Safe Swallow: Liquid Intake Recommendation: Thin Liquid Intake Strategies: Small Sips Solid Food Consistency: Dietary Recommendations: Grnd/Mech Altered (NDD2) Oral Medication Intake: Crushed with Puree Please contact the pharmacy regarding appropriate crushable or liquid drug formulations that are available whenever modified delivery is recommended. Compensatory Strategies and Precautions to be Taken for Safe Swallow: Sitting Upright (90 deg) Liquids from Cup Small Bites and Sips Alternate Liquids/Solids Supervision While Eating and Drinking for Safe Swallow: Direct Supervision (1:1) Foods to Avoid: Difficult to chew solids Swallowing Recommended Treatments: Compens. Strategy Educat. Recommendation for Speech: Inpatient Speech Therapy Comment: Patient presents with mild oral phase dysphagia secondary to edentulous state, but at risk for aspiration secondary to vulnerable respiratory status, medical frailty. Patient also with SBO, c/o abdominal pain, hx chronic vomiting. 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
[2024-07-25 19:47] VITALS: BP 135/73; PULSE 108; RESP 18; TEMP 36.3; O2SAT 97
[2024-07-25 20:44] LABS: Glucose, Whole Blood 148 mg/dL (60-115)
[2024-07-26] VITALS (7 sets, daily range): BP systolic 121–140; BP diastolic 71–78; PULSE 88–105; RESP 18–20; TEMP 36.1–36.8; O2SAT 92–97; BMI 48.2
[2024-07-26] MEDS: Heparin Sodium,Porcine 5,000 UNIT/ML VIAL 5000 UNIT SUBCUT ×3 (05:42→19:52)
[2024-07-26 05:48] LABS: Glucose, Whole Blood 151 mg/dL (60-115)
[2024-07-26] MEDS: Albuterol/Iprat 2.5/0.5MG 3 ML AMPUL.NEB INHALE ×2 (05:48→23:28)
[2024-07-26 06:04] LABS: Albumin Level 3.4 g/dL (3.5-5.0); Anion Gap 14 (12-20); Blood Urea Nitrogen 19 mg/dL (9-16); Calcium 8.3 mg/dL (8.4-10.2); Carbon Dioxide 23 mmol/L (22-29); Chloride 105 mmol/L (96-108); Creatinine Clr Calc Pharmacy 143.1; Estimated Glomerular Filt Rate > 60; Glucose Random 149 mg/dL (60-115); Magnesium 1.8 mg/dL (1.6-2.6); Phosphorus 3.3 mg/dL (2.7-4.5); Sodium 138 mmol/L (135-145)
[2024-07-26 08:03] LABS: Glucose, Whole Blood 144 mg/dL (60-115)
--- NOTE | 2024-07-26 08:34 | P.PNIM_ITS ---
Subjective Subjective Date of Service: 07/26/24 Interval History: no issues overnight, tolerationg present diet, Review of Systems Review of Systems: Yes all other systems are reviewed and are negative Physical Exam 2 Vital Signs: Vital Signs: Last Vital Signs Temp 98.2 F 07/26/24 08:00 Pulse 105 H 07/26/24 08:00 Resp 18 07/26/24 08:00 BP 121/77 07/26/24 08:00 Pulse Ox 92 07/26/24 08:00 O2 Del Method Room Air 07/26/24 08:00 O2 Flow Rate 1 07/16/24 09:00 FiO2 26 07/15/24 11:00 BMI result Body Mass Index 48.2 Const: Other: General: Alert, oriented x 3 Resp: CTA bilateral CVS: S1,S2,RRR GI: +BS, NT, distended Skin: No rash Neuro: motor grossly intact Psych: appropriate affect Objective Data Active Medications Acetaminophen (Acetaminophen 325 Mg Tablet) 650 mg PO Q4H PRN PRN Reason: Pain, Mild (Pain Scale 1-3) Acetaminophen/Butalbital/Caffeine (Butalb/Acetamin/Caff 50/325/40 Tablet) 1 tab PO Q4H PRN PRN Reason: Headache Albuterol/Ipratropium (Albuterol/Iprat 2.5/0.5mg 3 Ml Ampul.Neb) 3 ml INHALE RQ4H WHILE AWAKE PRN PRN Reason: Wheezing Last Admin: 07/26/24 05:48 Dose: 3 ml Documented By: TIEN Dextrose (Dextrose 50 % 25 Gm/50 Ml Syringe) 25 gm IVPUSH Q15M PRN; Protocol PRN Reason: per Hypoglycemia Standing Ord. Glucose (Glucose Gel 15 Gm Gel..Gram.) 15 gm PO Q15M PRN; Protocol PRN Reason: per Hypoglycemia Standing Ord. Heparin Sodium (Porcine) (Heparin Sodium,Porcine 5,000 Unit/Ml Vial) 5,000 unit SUBCUT Q8H [facility] Last Admin: 07/26/24 05:42 Dose: 5,000 unit Documented By: TATO Insulin Human Lispro (Insulin Lispro 100 Unit/Ml 3 Ml Vial) 0 unit SUBCUT QIDACHS [facility]; Protocol Last Admin: 07/26/24 08:13 Dose: Not Given Documented By: HO.GRAZIC Non-Admin Reason: No Insulin Coverage Melatonin (Melatonin 3 Mg Tablet) 6 mg PO BEDTIME PRN PRN Reason: Insomnia Metoclopramide HCl (Metoclopramide Hcl 10 Mg/2 Ml Vial) 5 mg IVPUSH Q6H PRN PRN Reason: Nausea and Vomiting Last Admin: 07/18/24 08:17 Dose: 5 mg Documented By: GAY Metoprolol Tartrate (Metoprolol Tartrate 5 Mg/5 Ml Vial) 5 mg IVPUSH Q6H PRN; Protocol PRN Reason: hr>90 Last Admin: 07/11/24 09:41 Dose: 5 mg Documented By: MARYURI Naloxone HCl (Naloxone Hcl 0.4 Mg/Ml Vial) 0.2 mg IVPUSH Q2M PRN PRN Reason: Excessive sedation or RR < 8 Non-Formulary Medication (Umeclidinium-Vilanterol [Anoro Ellipta]) 1 each INHALE DAILY ROBI Nystatin (Nystatin Powder 15 Gm Bottle) 1 appl TOPICAL TID ROBI; Protocol Last Admin: 07/25/24 21:51 Dose: 1 appl Documented By: TATO Ondansetron HCl (Ondansetron Hcl 4 Mg/2 Ml Vial) 4 mg IVPUSH Q8H PRN PRN Reason: Nausea and Vomiting Last Admin: 07/25/24 05:24 Dose: 4 mg Documented By: GEORGIA Pharmacy Consult (Consult Rx Parenteral Nutrition Ordering) 1 each MISCELLANE DAILY PRN PRN Reason: Consult order Sodium Chloride (0.9 % Sodium Chloride Flush 3 Ml Syringe) 3 ml IVFLUSH QSOHFT [facility] Last Admin: 07/26/24 00:12 Dose: Not Given Documented By: TATO Non-Admin Reason: PICC Sodium Chloride (0.9 % Sodium Chloride Flush 10 Ml Syringe) 10 ml IVFLUSH QSHIFT [facility] Last Admin: 07/26/24 00:13 Dose: Not Given Documented By: TATO Non-Admin Reason: Previously Administered Labs 07/17/24 08:55 07/26/24 05:27 Labs: Laboratory Results - last 24 hr 07/25/24 07/25/24 07/25/24 11:02 16:08 20:30 Hold Purple Top Anion Gap Estim Creat Clear Calc Estimated GFR POC Glucose 168 H 151 H 148 H Random Glucose Calcium Phosphorus Magnesium Albumin 07/26/24 07/26/24 07/26/24 05:27 05:40 07:34 Hold Purple Top SEE NOTE Anion Gap 14 Estim Creat Clear Calc 143.1 Estimated GFR > 60 POC Glucose 151 H 144 H Random Glucose 149 H Calcium 8.3 L Phosphorus 3.3 Magnesium 1.8 Albumin 3.4 L Assessment and Plan (1) Small bowel obstruction: Status: Acute (2) Toxic encephalopathy: Status: Acute Plan 58F PMH chronic hypoxic and hypercapnic respiratory failure on 2 L due to COPD, hypertension, chronic back pain, opiate dependence, mood disorder presented with altered mental status after intentional olanzapine overdose. On 07/11/2024 started vomiting large amount of brown emesis requiring intubation. Likely aspiration. Over the next several days successfully weaned off the ventilator and was able to be transferred to telemetry Acute toxic metabolic encephalopathy due to intentional olanzapine overdose due to mood disorder with suicide ideation, she required intubation in ICU for airway protection, and successfully extubated. Mental status is better, oriented to self, place and date now. Will get Psych consult again when medically cleared SBO, and has been on TPN, recent xray showed extensive distention of bowel and stomach, NGT inserted on 07/20 with significant output. Output low. Upper GI with small bowel follow through negative for obstruction but showed retained contrast in stomach. NGT d/c 07/22. Was seen by general surgery who suggested consideration of gastroparesis or ileus possibly benefitting from motility agents. Notified by pharmacy that Erythromycin currently on backorder. 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 Pt had shea now removed Sepsis and acute hypoxic respiratory failure due to aspiration pneumonia (sepsis resolved) Completed antibiotics Follow clinically Hypertension, controlled no meds History of PE Abelardo has been on hold d/t possible bleeding, and potential need for intervention, may resume if H/H is stable and surgery ok with this Psych--she's been off meds since admission, continue to have sitter getting Psych consult to review meds and care consult maybe needed as well Full Code DVT prophylaxis: heparin reason for continued hospitalization: Hypoxia, fevers Out of bed, PT eval Quality Stroke Does the patient have a stroke diagnosis?: No VTE Prior VTE?: No VTE Risk Level:: Medical - moderate - high VTE Device Contraindication: Treatment Not Indicated VTE Drug Contraindication: N/A - Med Ordered
[2024-07-26] MEDS: Nystatin Powder 15 GM BOTTLE 1 APPL TOPICAL ×3 (09:09→19:53)
[2024-07-26] MEDS: 0.9 % Sodium Chloride Flush 10 ML SYRINGE IVFLUSH ×2 (09:10→15:29)
[2024-07-26] MEDS: 0.9 % Sodium Chloride Flush 3 ML SYRINGE IVFLUSH ×2 (09:10→15:27)
[2024-07-26 09:12] LABS: Hematocrit 37.8 % (37.0-47.0); Hemoglobin 12.6 g/dl (12.0-16.0); Mean Corpuscular HGB Conc 33.3 g/dl (31.0-35.0); Mean Corpuscular Hemoglobin 33.2 pg (27.0-33.0); Mean Corpuscular Volume 99.5 fL (80.0-98.0); Mean Platelet Volume 9.7 fL (9.4-12.3); Platelet Count 300 X10*3/uL (160-400); Red Cell Distribution Width 13.9 % (11.0-16.0); White Blood Count 11.7 X10*3/uL (4.8-10.8)
[2024-07-26 11:33] LABS: Glucose, Whole Blood 165 mg/dL (60-115)
[2024-07-26] MEDS: Insulin Lispro 100 UNIT/ML 3 ML VIAL SUBCUT ×3 (11:47→20:45)
[2024-07-26] MEDS: Metoclopramide HCl 10 MG/2 ML VIAL 5 MG IVPUSH (15:24)
[2024-07-26 16:11] LABS: Glucose, Whole Blood 159 mg/dL (60-115)
[2024-07-26] MEDS: traMADoL HCL 50 MG TABLET 25 MG PO (17:26)
[2024-07-26] MEDS: Salmeterol Xinafoate 50 MCG BLST.W.DEV 1 PUFF INHALE (18:53)
[2024-07-26 20:13] LABS: Glucose, Whole Blood 157 mg/dL (60-115)
[2024-07-26] MEDS: Calcium Carbonate 750 MG TAB.CHEW PO (23:06)
[2024-07-27 03:27] VITALS: BP 170/78; PULSE 100; RESP 18; TEMP 36.6; O2SAT 93
[2024-07-27] MEDS: traMADoL HCL 50 MG TABLET 25 MG PO (03:28)
[2024-07-27] MEDS: Heparin Sodium,Porcine 5,000 UNIT/ML VIAL 5000 UNIT SUBCUT (03:30)
[2024-07-27] MEDS: 0.9 % Sodium Chloride Flush 10 ML SYRINGE IVFLUSH ×4 (03:31→20:35)
[2024-07-27 06:00] VITALS: BMI 47.5
[2024-07-27 06:52] LABS: Albumin Level 3.4 g/dL (3.5-5.0); Anion Gap 16 (12-20); Blood Urea Nitrogen 15 mg/dL (9-16); Calcium 8.5 mg/dL (8.4-10.2); Carbon Dioxide 22 mmol/L (22-29); Chloride 103 mmol/L (96-108); Creatinine Clr Calc Pharmacy 148.9; Estimated Glomerular Filt Rate > 60; Glucose Random 146 mg/dL (60-115); Magnesium 1.7 mg/dL (1.6-2.6); Phosphorus 3.6 mg/dL (2.7-4.5); Potassium 3.8 mmol/L (3.3-5.1); Sodium 137 mmol/L (135-145)
[2024-07-27 07:26] VITALS: BP 130/76; PULSE 102; RESP 16; TEMP 36.7; O2SAT 94
[2024-07-27 07:26] LABS: MANUAL DIFF FLAG NO
[2024-07-27 07:29] LABS: Basophils Absolute Auto 0.1 X10*3/uL (0.0-0.2); Basophils Percent Auto 0.5 % (0-2); Eosinophils Absolute Auto 0.2 X10*3/uL (0.0-0.4); Eosinophils Percent Auto 1.9 % (0-4); Hematocrit 37.3 % (37.0-47.0); Hemoglobin 12.5 g/dl (12.0-16.0); Imm Gran Abs Auto 0.08 X10*3/uL (0.00-0.03); Imm Gran Pct Auto 0.7 % (0.0-0.4); Lymphocytes Absolute Auto 2.6 X10*3/uL (1.2-4.9); Lymphocytes Percent Auto 23.7 % (20-40); Mean Corpuscular HGB Conc 33.5 g/dl (31.0-35.0); Mean Corpuscular Hemoglobin 33.2 pg (27.0-33.0); Mean Corpuscular Volume 99.2 fL (80.0-98.0); Mean Platelet Volume 10.1 fL (9.4-12.3); Monocytes Percent Auto 9.3 % (2-11); Neutrophils Percent Auto 63.9 % (45-73); Platelet Count 301 X10*3/uL (160-400); Red Blood Count 3.76 X10*6/uL (4.20-5.50); Red Cell Distribution Width 13.9 % (11.0-16.0)
[2024-07-27 07:31] LABS: Glucose, Whole Blood 144 mg/dL (60-115)
[2024-07-27] MEDS: Tiotropium Bromide 2.5 mcg 1 PUFF/2.5 MCG MIST.INHAL 2 PUFF INHALE (08:15)
[2024-07-27] MEDS: Salmeterol Xinafoate 50 MCG BLST.W.DEV 1 PUFF INHALE ×2 (08:15→19:19)
[2024-07-27 08:18] VITALS: PULSE 106; RESP 20; O2SAT 96
--- NOTE | 2024-07-27 08:26 | HO.PM.IMPN ---
Subjective Subjective Date of Service: 07/27/24 Interval History: no issues overnight, tolerationg present diet, awake alert and oriented x 3 Review of Systems Review of Systems: Yes all other systems are reviewed and are negative Physical Exam Vital Signs: Vital Signs: Last Vital Signs Temp 98.0 F 07/27/24 07:26 Pulse 106 H 07/27/24 08:18 Resp 20 07/27/24 08:18 BP 130/76 07/27/24 07:26 Pulse Ox 94 07/27/24 07:26 O2 Del Method Room Air 07/27/24 07:26 O2 Flow Rate 1 07/16/24 09:00 FiO2 26 07/15/24 11:00 BMI result Body Mass Index 47.5 Const: Other: General: Alert, oriented x 3 Resp: CTA bilateral CVS: S1,S2,RRR GI: +BS, NT, distended Skin: No rash Neuro: motor grossly intact Psych: appropriate affect Objective Data Active Medications Acetaminophen (Acetaminophen 325 Mg Tablet) 650 mg PO Q4H PRN PRN Reason: Pain, Mild (Pain Scale 1-3) Acetaminophen/Butalbital/Caffeine (Butalb/Acetamin/Caff 50/325/40 Tablet) 1 tab PO Q4H PRN PRN Reason: Headache Albuterol/Ipratropium (Albuterol/Iprat 2.5/0.5mg 3 Ml Ampul.Neb) 3 ml INHALE RQ4H WHILE AWAKE PRN PRN Reason: Wheezing Last Admin: 07/26/24 23:28 Dose: 3 ml Documented By: ARACELIS Apixaban (Apixaban 5 Mg Tablet) 5 mg PO BID [facility] Dextrose (Dextrose 50 % 25 Gm/50 Ml Syringe) 25 gm IVPUSH Q15M PRN; Protocol PRN Reason: per Hypoglycemia Standing Ord. Glucose (Glucose Gel 15 Gm Gel..Gram.) 15 gm PO Q15M PRN; Protocol PRN Reason: per Hypoglycemia Standing Ord. Insulin Human Lispro (Insulin Lispro 100 Unit/Ml 3 Ml Vial) 0 unit SUBCUT QIDACHS [facility]; Protocol Last Admin: 07/27/24 07:37 Dose: Not Given Documented By: KETAN Non-Admin Reason: No Insulin Coverage Melatonin (Melatonin 3 Mg Tablet) 6 mg PO BEDTIME PRN PRN Reason: Insomnia Metoclopramide HCl (Metoclopramide Hcl 10 Mg/2 Ml Vial) 5 mg IVPUSH Q6H PRN PRN Reason: Nausea and Vomiting Last Admin: 07/26/24 15:24 Dose: 5 mg Documented By: KETAN Metoprolol Tartrate (Metoprolol Tartrate 5 Mg/5 Ml Vial) 5 mg IVPUSH Q6H PRN; Protocol PRN Reason: hr>90 Last Admin: 07/11/24 09:41 Dose: 5 mg Documented By: MARYURI Naloxone HCl (Naloxone Hcl 0.4 Mg/Ml Vial) 0.2 mg IVPUSH Q2M PRN PRN Reason: Excessive sedation or RR < 8 Nystatin (Nystatin Powder 15 Gm Bottle) 1 appl TOPICAL TID [facility]; Protocol Last Admin: 07/26/24 19:53 Dose: 1 appl Documented By: TATO Ondansetron HCl (Ondansetron Hcl 4 Mg/2 Ml Vial) 4 mg IVPUSH Q8H PRN PRN Reason: Nausea and Vomiting Last Admin: 07/25/24 05:24 Dose: 4 mg Documented By: GEORGIA Pharmacy Consult (Consult Rx Parenteral Nutrition Ordering) 1 each MISCELLANE DAILY PRN PRN Reason: Consult order Salmeterol Xinafoate (Salmeterol Xinafoate 50 Mcg Blst.W.Dev) 1 puff INHALE RBID [facility] Last Admin: 07/27/24 08:15 Dose: 1 puff Documented By: YADI Sodium Chloride (0.9 % Sodium Chloride Flush 3 Ml Syringe) 3 ml IVFLUSH [facility] Last Admin: 07/27/24 01:52 Dose: Not Given Documented By: TATO Non-Admin Reason: Previously Administered Sodium Chloride (0.9 % Sodium Chloride Flush 10 Ml Syringe) 10 ml IVFLUSH QSHIFT [facility] Last Admin: 07/27/24 03:31 Dose: 10 ml Documented By: TATO Tiotropium [place] (Tiotropium [place] 2.5 Mcg 1 Puff/2.5 Mcg Mist.Inhal) 2 puff INHALE RDAILY [facility] Last Admin: 07/27/24 08:15 Dose: 2 puff Documented By: YADI Tramadol HCl (Tramadol Hcl 50 Mg Tablet) 25 mg PO Q4H PRN PRN Reason: Pain, Severe (Pain Scale 7-10) Last Admin: 07/27/24 03:28 Dose: 25 mg Documented By: TATO Labs 07/27/24 06:07 07/27/24 06:07 Labs: Laboratory Results - last 24 hr 07/26/24 07/26/24 07/26/24 08:56 11:29 16:05 MCV 99.5 H MCH 33.2 H MCHC 33.3 RDW 13.9 Plt Count 300 MPV 9.7 Immature Gran % (Auto) Neut % (Auto) Lymph % (Auto) [place] % (Auto) Eos % (Auto) Baso % (Auto) Lymph # (Auto) [place] # (Auto) Eos # (Auto) Baso # (Auto) Abs Immat Gran (auto) Absolute Neuts (auto) Absolute Nucleated RBC 0.000 Nucleated RBC % (auto) 0.0 Hold Purple Top Anion Gap Estim Creat Clear Calc Estimated GFR POC Glucose 165 H 159 H Random Glucose Calcium Phosphorus Magnesium Albumin 07/26/24 07/27/24 07/27/24 20:08 06:07 07:25 MCV 99.2 H MCH 33.2 H MCHC 33.5 RDW 13.9 Plt Count 301 MPV 10.1 Immature Gran % (Auto) 0.7 H Neut % (Auto) 63.9 Lymph % (Auto) 23.7 [place] % (Auto) 9.3 Eos % (Auto) 1.9 Baso % (Auto) 0.5 Lymph # (Auto) 2.6 [place] # (Auto) 1.0 Eos # (Auto) 0.2 Baso # (Auto) 0.1 Abs Immat Gran (auto) 0.08 H Absolute Neuts (auto) 7.0 Absolute Nucleated RBC 0.000 Nucleated RBC % (auto) 0.0 Hold Purple Top SEE NOTE Anion Gap 16 Estim Creat Clear Calc 148.9 Estimated GFR > 60 POC Glucose 157 H 144 H Random Glucose 146 H Calcium 8.5 Phosphorus 3.6 Magnesium 1.7 Albumin 3.4 L Assessment and Plan (1) Small bowel obstruction: Status: Acute (2) Toxic encephalopathy: Status: Acute Plan 58F PMH chronic hypoxic and hypercapnic respiratory failure on 2 L due to COPD, hypertension, chronic back pain, opiate dependence, mood disorder presented with altered mental status after intentional olanzapine overdose. On 07/11/2024 started vomiting large amount of brown emesis requiring intubation. Likely aspiration. Over the next several days successfully weaned off the ventilator and was able to be transferred to telemetry Acute toxic metabolic encephalopathy due to intentional olanzapine overdose due to mood disorder with suicide ideation, she required intubation in ICU for airway protection, and successfully extubated. Mental status is better, oriented to self, place and date now. Will get Psych consult again when medically cleared SBO, and has been on TPN, recent xray showed extensive distention of bowel and stomach, NGT inserted on 07/20 with significant output. Output low. Upper GI with small bowel follow through negative for obstruction but showed retained contrast in stomach. NGT d/c 07/22. Was seen by general surgery who suggested consideration of gastroparesis or ileus possibly benefitting from motility agents. Notified by pharmacy that Erythromycin currently on backorder. 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 Patient has been stable for last 3 days, tolerating diet, no indication for any procedure, H/H has been stable and therefore will restart eliquis at 5 bid Psych--she's been off meds since admission, continue to have sitter getting Psych consult to review meds and care consult maybe needed as well Full Code DVT prophylaxis: heparin reason for continued hospitalization: Hypoxia, fevers Out of bed, PT eval Quality Stroke Does the patient have a stroke diagnosis?: No VTE Prior VTE?: No VTE Risk Level:: Medical - moderate - high VTE Device Contraindication: Treatment Not Indicated VTE Drug Contraindication: N/A - Med Ordered
[2024-07-27] MEDS: Apixaban 5 MG TABLET PO ×2 (08:49→20:34)
[2024-07-27] MEDS: 0.9 % Sodium Chloride Flush 3 ML SYRINGE IVFLUSH ×2 (08:51→16:35)
[2024-07-27] MEDS: Nystatin Powder 15 GM BOTTLE 1 APPL TOPICAL ×3 (08:57→20:34)
[2024-07-27 11:29] LABS: Glucose, Whole Blood 128 mg/dL (60-115)
--- NOTE | 2024-07-27 11:44 | P.CNPS_ITS ---
History of Present Illness Date of Service: 07/27/2024 Chief Complaint: Intentional olazapine overdose, aspiration Reason for Consult: Psychiatric medication evaluation Requesting physician: Richardson Crooks Discussed with referring provider: Yes Sources of Information: patient interviewed and chart reviewed HPI Narrative: Zeenat is a 58-year-old white, , mother of 2 adult daughters. She had a recent overdose and was in the ICU and recently transferred to the medical floor. She has had history of for 5 overdoses. She has had previous psychiatric hospitalizations. She was in the ICU for a number of weeks and medications prior to that were Rexulti, clonazepam 0.5 mg HS, Cymbalta 60 mg q.h.s., gabapentin 800 mg t.i.d. and Lamictal 150 mg b.i.d.. She has been on a number of SSRIs in the past which have brought on suicidal ideations. No history of substance abuse other than marijuana. No suicidal ideations currently. She has not been on any of the psych medications for several weeks. Past Psychiatric History: Several inpatient and outpatient treatment Medical Evaluation Reviewed: Yes Personal & Social History: She is not able to give much information at this time other than the fact that she is and has 2 daughters and currently lives in [place]. She goes to a psychiatric clinic in [place] where she used to live but she does not remember the name Review of Systems Review of Systems Yes Unobtainable due to mental status [facility] Medical History (Updated 07/27/24 @ 11:51 by Claudio Fine MD) Partial small bowel obstruction Social History: Unable to obtain at this time Substance History: Marijuana Trauma History: Unknown Diagnostics Vital Signs (24Hr): Vital Signs - 24 hr 07/26/24 15:45 07/26/24 18:54 07/26/24 19:02 Temperature 97.4 F 98.2 F Pulse Rate 88 90 97 Respiratory Rate 18 18 18 Blood Pressure 130/75 140/71 H Pulse Oximetry 95 94 Oxygen Delivery Method Room Air Room Air 07/26/24 23:28 07/27/24 03:27 07/27/24 07:26 Temperature 97.8 F 98.0 F Pulse Rate 92 100 102 H Respiratory Rate 18 18 16 Blood Pressure 170/78 H 130/76 Pulse Oximetry 93 94 Oxygen Delivery Method Room Air Room Air 07/27/24 08:18 Temperature Pulse Rate 106 H Respiratory Rate 20 Blood Pressure Pulse Oximetry Oxygen Delivery Method BMI result Body Mass Index 47.5 Labs 07/27/24 06:07 07/27/24 06:07 Labs: Laboratory Results - last 48 hr 07/25/24 07/25/24 07/26/24 16:08 20:30 05:27 WBC RBC Hgb Hct MCV MCH MCHC RDW Plt Count MPV Immature Gran % (Auto) Neut % (Auto) Lymph % (Auto) [place] % (Auto) Eos % (Auto) Baso % (Auto) Lymph # (Auto) [place] # (Auto) Eos # (Auto) Baso # (Auto) Abs Immat Gran (auto) Absolute Neuts (auto) Absolute Nucleated RBC Nucleated RBC % (auto) Hold Purple Top SEE NOTE Sodium 138 Potassium 4.0 Chloride 105 Carbon Dioxide 23 Anion Gap 14 BUN 19 H Creatinine 0.66 Estim Creat Clear Calc 143.1 Estimated GFR > 60 POC Glucose 151 H 148 H Random Glucose 149 H Calcium 8.3 L Phosphorus 3.3 Magnesium 1.8 Albumin 3.4 L 07/26/24 07/26/24 07/26/24 05:40 07:34 08:56 WBC 11.7 H RBC 3.80 L Hgb 12.6 Hct 37.8 MCV 99.5 H MCH 33.2 H MCHC 33.3 RDW 13.9 Plt Count 300 MPV 9.7 Immature Gran % (Auto) Neut % (Auto) Lymph % (Auto) [place] % (Auto) Eos % (Auto) Baso % (Auto) Lymph # (Auto) [place] # (Auto) Eos # (Auto) Baso # (Auto) Abs Immat Gran (auto) Absolute Neuts (auto) Absolute Nucleated RBC 0.000 Nucleated RBC % (auto) 0.0 Hold Purple Top Sodium Potassium Chloride Carbon Dioxide Anion Gap BUN Creatinine Estim Creat Clear Calc Estimated GFR POC Glucose 151 H 144 H Random Glucose Calcium Phosphorus Magnesium Albumin 07/26/24 07/26/24 07/26/24 11:29 16:05 20:08 WBC RBC Hgb Hct MCV MCH MCHC RDW Plt Count MPV Immature Gran % (Auto) Neut % (Auto) Lymph % (Auto) [place] % (Auto) Eos % (Auto) Baso % (Auto) Lymph # (Auto) [place] # (Auto) Eos # (Auto) Baso # (Auto) Abs Immat Gran (auto) Absolute Neuts (auto) Absolute Nucleated RBC Nucleated RBC % (auto) Hold Purple Top Sodium Potassium Chloride Carbon Dioxide Anion Gap BUN Creatinine Estim Creat Clear Calc Estimated GFR POC Glucose 165 H 159 H 157 H Random Glucose Calcium Phosphorus Magnesium Albumin 07/27/24 07/27/24 07/27/24 06:07 07:25 11:25 WBC 11.0 H RBC 3.76 L Hgb 12.5 Hct 37.3 MCV 99.2 H MCH 33.2 H MCHC 33.5 RDW 13.9 Plt Count 301 MPV 10.1 Immature Gran % (Auto) 0.7 H Neut % (Auto) 63.9 Lymph % (Auto) 23.7 [place] % (Auto) 9.3 Eos % (Auto) 1.9 Baso % (Auto) 0.5 Lymph # (Auto) 2.6 [place] # (Auto) 1.0 Eos # (Auto) 0.2 Baso # (Auto) 0.1 Abs Immat Gran (auto) 0.08 H Absolute Neuts (auto) 7.0 Absolute Nucleated RBC 0.000 Nucleated RBC % (auto) 0.0 Hold Purple Top SEE NOTE Sodium 137 Potassium 3.8 Chloride 103 Carbon Dioxide 22 Anion Gap 16 BUN 15 Creatinine 0.63 Estim Creat Clear Calc 148.9 Estimated GFR > 60 POC Glucose 144 H 128 H Random Glucose 146 H Calcium 8.5 Phosphorus 3.6 Magnesium 1.7 Albumin 3.4 L Imaging Radiology Impressions: ITS Impressions Head CT 07/10/24 10:36 IMPRESSION: No intracranial hemorrhage or acute brain abnormality by CT. This critical result was discussed with Dr. Rasheed Faagn at 10:50 AM hours on July 10, 2024. It was ascertained that the content and urgency of the report was understood at the time of direct communication. Electronically signed by: Colt Watkins MD 07/10/2024 10:54 AM EDT RP Chest X-Ray 07/10/24 13:20 IMPRESSION: Mild interstitial lung edema versus multifocal pneumonia. Nodular lesion right lower hemithorax. Consider benign versus malignant. Electronically signed by: Colt Watkins MD 07/10/2024 01:47 PM EDT RP Chest X-Ray 07/15/24 12:45 IMPRESSION: 1. Limited exam. NG tube is present with the tip in the stomach although the sidehole is likely at or just above the GE junction. 2. Pulmonary nodule in the right lung base, and streaky opacities in the left lung base. Electronically signed by: Cristino Rodriguez MD 07/15/2024 02:44 PM EDT RP Chest X-Ray 07/20/24 07:00 IMPRESSION: The nasogastric tube terminates in the stomach. Electronically signed by: Dano Cole MD 07/21/2024 08:16 AM EDT RP Upper GI and Small Bowel X-Ray 07/21/24 09:00 IMPRESSION: Normal small bowel series. No indication for obstruction. Electronically signed by: Jeremie Bergeron MD 07/21/2024 12:56 PM EDT RP Mental Status Exam Mental Status Exam Narrative: In today's visit she was laying on her bed comfortably. She is alert, oriented to place, person and almost to time. Speech is very slow and halting. No signs of psychosis. Cognitively she has very slow thought processes, difficulty in remembering things and disorganized thought processes. She denies any suicidal or homicidal ideations. Judgment is intact Medications Medications Current Medications Acetaminophen (Acetaminophen 325 Mg Tablet) 650 mg PO Q4H PRN PRN Reason: Pain, Mild (Pain Scale 1-3) Acetaminophen/Butalbital/Caffeine (Butalb/Acetamin/Caff 50/325/40 Tablet) 1 tab PO Q4H PRN PRN Reason: Headache Albuterol/Ipratropium (Albuterol/Iprat 2.5/0.5mg 3 Ml Ampul.Neb) 3 ml INHALE RQ4H WHILE AWAKE PRN PRN Reason: Wheezing Last Admin: 07/26/24 23:28 Dose: 3 ml Apixaban (Apixaban 5 Mg Tablet) 5 mg PO BID ROBI Last Admin: 07/27/24 08:49 Dose: 5 mg Dextrose (Dextrose 50 % 25 Gm/50 Ml Syringe) 25 gm IVPUSH Q15M PRN; Protocol PRN Reason: per Hypoglycemia Standing Ord. Glucose (Glucose Gel 15 Gm Gel..Gram.) 15 gm PO Q15M PRN; Protocol PRN Reason: per Hypoglycemia Standing Ord. Insulin Human Lispro (Insulin Lispro 100 Unit/Ml 3 Ml Vial) 0 unit SUBCUT QIDACHS [facility]; Protocol Last Admin: 07/27/24 11:41 Dose: Not Given Melatonin (Melatonin 3 Mg Tablet) 6 mg PO BEDTIME PRN PRN Reason: Insomnia Metoclopramide HCl (Metoclopramide Hcl 10 Mg/2 Ml Vial) 5 mg IVPUSH Q6H PRN PRN Reason: Nausea and Vomiting Last Admin: 07/26/24 15:24 Dose: 5 mg Metoprolol Tartrate (Metoprolol Tartrate 5 Mg/5 Ml Vial) 5 mg IVPUSH Q6H PRN; Protocol PRN Reason: hr>90 Last Admin: 07/11/24 09:41 Dose: 5 mg Naloxone HCl (Naloxone Hcl 0.4 Mg/Ml Vial) 0.2 mg IVPUSH Q2M PRN PRN Reason: Excessive sedation or RR < 8 Nystatin (Nystatin Powder 15 Gm Bottle) 1 appl TOPICAL TID [facility]; Protocol Last Admin: 07/27/24 08:57 Dose: 1 appl Ondansetron HCl (Ondansetron Hcl 4 Mg/2 Ml Vial) 4 mg IVPUSH Q8H PRN PRN Reason: Nausea and Vomiting Last Admin: 07/25/24 05:24 Dose: 4 mg Pharmacy Consult (Consult Rx Parenteral Nutrition Ordering) 1 each MISCELLANE DAILY PRN PRN Reason: Consult order Salmeterol Xinafoate (Salmeterol Xinafoate 50 Mcg Blst.W.Dev) 1 puff INHALE RBID [facility] Last Admin: 07/27/24 08:15 Dose: 1 puff Sodium Chloride (0.9 % Sodium Chloride Flush 3 Ml Syringe) 3 ml IVFLUSH QSNCFT [facility] Last Admin: 07/27/24 08:51 Dose: 3 ml Sodium Chloride (0.9 % Sodium Chloride Flush 10 Ml Syringe) 10 ml IVFLUSH [facility] Last Admin: 07/27/24 08:51 Dose: 10 ml Tiotropium [place] (Tiotropium [place] 2.5 Mcg 1 Puff/2.5 Mcg Mist.Inhal) 2 puff INHALE RDAILY [facility] Last Admin: 07/27/24 08:15 Dose: 2 puff Tramadol HCl (Tramadol Hcl 50 Mg Tablet) 25 mg PO Q4H PRN PRN Reason: Pain, Severe (Pain Scale 7-10) Last Admin: 07/27/24 03:28 Dose: 25 mg Allergies Allergies Allergy/AdvReac Type Severity Reaction Status Date / Time bupropion Allergy Unknown Verified 07/10/24 11:18 codeine Allergy Unknown Verified 07/10/24 11:18 diclofenac Allergy Unknown Verified 07/10/24 11:18 divalproex sodium Allergy Unknown Verified 07/10/24 11:18 [From Depakote] doxepin [From Silenor] Allergy Unknown Verified 07/10/24 11:18 famotidine Allergy Unknown Verified 07/10/24 11:18 meloxicam Allergy Unknown Verified 07/10/24 11:18 naproxen Allergy Unknown Verified 07/10/24 11:18 nortriptyline Allergy Unknown Verified 07/10/24 11:18 oxycodone Allergy Unknown Verified 07/10/24 11:18 sertraline Allergy Unknown Verified 07/10/24 11:18 topiramate Allergy Unknown Verified 07/10/24 11:18 Assessment & Plan Assessment & Plan (1) Major depression, chronic: Status: Acute Code(s): F32.9 - Major depressive disorder, single episode, unspecified Assessment and Plan: In conclusion Zeenat is recovering post overdose and several weeks of being in the ICU and recently being transferred to the medical unit. She is on one-to-one level of observation. At this time she is not expressing any suicidal ideations nor has she exhibited any dangerous behaviors. Plan I would suggest resuming her medications as minimally as possible. I would resume Cymbalta at 30 mg nightly and Klonopin 0.5 mg b.i.d. p.r.n. for anxiety. It would be helpful to get some historical information from her daughter who is her MAP COMPILER and maybe visiting today. I did talk to her nurse about this. I do not feel she needs to be on one-to-one level of observation at this time unless the picture changes Total time managing care of this patient today __45__ minutes. Patient educated on: diagnosis and medication risk/benefits
--- NOTE | 2024-07-27 12:02 | PC.NURSE ---
Per D/C Sitter for SI
[2024-07-27 15:15] VITALS: BP 138/75; PULSE 99; RESP 18; TEMP 36.6; O2SAT 94
[2024-07-27 16:31] LABS: Glucose, Whole Blood 134 mg/dL (60-115)
[2024-07-27] MEDS: ondansetron HCL 4 MG/2 ML VIAL IVPUSH (17:36)
[2024-07-27 19:20] VITALS: PULSE 99; RESP 18; O2SAT 95
[2024-07-27 19:53] LABS: Glucose, Whole Blood 158 mg/dL (60-115)
[2024-07-27 19:54] VITALS: BP 134/82; PULSE 110; RESP 18; TEMP 36.5; O2SAT 94
[2024-07-27] MEDS: Metoclopramide HCl 10 MG/2 ML VIAL 5 MG IVPUSH (20:34)
[2024-07-28 03:33] VITALS: BP 127/71; PULSE 110; RESP 18; TEMP 36.5; O2SAT 97
[2024-07-28 06:00] LABS: Albumin Level 3.4 g/dL (3.5-5.0); Anion Gap 14 (12-20); Blood Urea Nitrogen 12 mg/dL (9-16); Calcium 8.4 mg/dL (8.4-10.2); Carbon Dioxide 22 mmol/L (22-29); Chloride 104 mmol/L (96-108); Creatinine Clr Calc Pharmacy 148.9; Estimated Glomerular Filt Rate > 60; Glucose Random 141 mg/dL (60-115); Magnesium 1.7 mg/dL (1.6-2.6); Phosphorus 3.2 mg/dL (2.7-4.5); Potassium 3.7 mmol/L (3.3-5.1); Sodium 136 mmol/L (135-145)
[2024-07-28 06:04] VITALS: BMI 46.9
[2024-07-28 07:24] LABS: Glucose, Whole Blood 144 mg/dL (60-115)
[2024-07-28] MEDS: Tiotropium Bromide 2.5 mcg 1 PUFF/2.5 MCG MIST.INHAL 2 PUFF INHALE (07:51)
[2024-07-28] MEDS: Salmeterol Xinafoate 50 MCG BLST.W.DEV 1 PUFF INHALE ×2 (07:51→18:42)
[2024-07-28 07:56] VITALS: PULSE 100; RESP 16; O2SAT 97
[2024-07-28 08:00] VITALS: BP 121/81; PULSE 98; RESP 18; TEMP 36.3; O2SAT 96
[2024-07-28] MEDS: Apixaban 5 MG TABLET PO ×2 (09:23→21:03)
[2024-07-28] MEDS: 0.9 % Sodium Chloride Flush 10 ML SYRINGE IVFLUSH ×3 (09:23→21:06)
[2024-07-28] MEDS: Nystatin Powder 15 GM BOTTLE 1 APPL TOPICAL ×3 (09:23→21:05)
[2024-07-28] MEDS: traMADoL HCL 50 MG TABLET 25 MG PO ×2 (09:29→21:03)
--- NOTE | 2024-07-28 09:37 | P.PNIM_ITS ---
Subjective Subjective Date of Service: 07/28/24 Interval History: Recovering well, sitter dc, she alert and oriented x 3 Psych saw her yesterday, restarting cymbalta at lower dose of 30, klonopin prn Review of Systems Review of Systems: Yes all other systems are reviewed and are negative Physical Exam 2 Vital Signs: Vital Signs: Last Vital Signs Temp 97.3 F 07/28/24 08:00 Pulse 98 07/28/24 08:00 Resp 18 07/28/24 08:00 BP 121/81 07/28/24 08:00 Pulse Ox 96 07/28/24 08:00 O2 Del Method Room Air 07/28/24 08:00 O2 Flow Rate 1 07/16/24 09:00 FiO2 26 07/15/24 11:00 BMI result Body Mass Index 46.9 Const: Other: General: Alert, oriented x 3 Resp: CTA bilateral CVS: S1,S2,RRR GI: +BS, NT, distended Skin: No rash Neuro: motor grossly intact Psych: appropriate affect Objective Data Active Medications Acetaminophen (Acetaminophen 325 Mg Tablet) 650 mg PO Q4H PRN PRN Reason: Pain, Mild (Pain Scale 1-3) Acetaminophen/Butalbital/Caffeine (Butalb/Acetamin/Caff 50/325/40 Tablet) 1 tab PO Q4H PRN PRN Reason: Headache Albuterol/Ipratropium (Albuterol/Iprat 2.5/0.5mg 3 Ml Ampul.Neb) 3 ml INHALE RQ4H WHILE AWAKE PRN PRN Reason: Wheezing Last Admin: 07/26/24 23:28 Dose: 3 ml Documented By: ARACELIS Apixaban (Apixaban 5 Mg Tablet) 5 mg PO BID [facility] Last Admin: 07/28/24 09:23 Dose: 5 mg Documented By: JOAO Dextrose (Dextrose 50 % 25 Gm/50 Ml Syringe) 25 gm IVPUSH Q15M PRN; Protocol PRN Reason: per Hypoglycemia Standing Ord. Glucose (Glucose Gel 15 Gm Gel..Gram.) 15 gm PO Q15M PRN; Protocol PRN Reason: per Hypoglycemia Standing Ord. Insulin Human Lispro (Insulin Lispro 100 Unit/Ml 3 Ml Vial) 0 unit SUBCUT QIDACHS [facility]; Protocol Last Admin: 07/28/24 07:33 Dose: Not Given Documented By: JOAO Non-Admin Reason: No Insulin Coverage Melatonin (Melatonin 3 Mg Tablet) 6 mg PO BEDTIME PRN PRN Reason: Insomnia Metoclopramide HCl (Metoclopramide Hcl 10 Mg/2 Ml Vial) 5 mg IVPUSH Q6H PRN PRN Reason: Nausea and Vomiting Last Admin: 07/27/24 20:34 Dose: 5 mg Documented By: ARMEN Metoprolol Tartrate (Metoprolol Tartrate 5 Mg/5 Ml Vial) 5 mg IVPUSH Q6H PRN; Protocol PRN Reason: hr>90 Last Admin: 07/11/24 09:41 Dose: 5 mg Documented By: MARYURI Naloxone HCl (Naloxone Hcl 0.4 Mg/Ml Vial) 0.2 mg IVPUSH Q2M PRN PRN Reason: Excessive sedation or RR < 8 Nystatin (Nystatin Powder 15 Gm Bottle) 1 appl TOPICAL TID [facility]; Protocol Last Admin: 07/28/24 09:23 Dose: 1 appl Documented By: JOAO Ondansetron HCl (Ondansetron Hcl 4 Mg/2 Ml Vial) 4 mg IVPUSH Q8H PRN PRN Reason: Nausea and Vomiting Last Admin: 07/27/24 17:36 Dose: 4 mg Documented By: KETAN Pharmacy Consult (Consult Rx Parenteral Nutrition Ordering) 1 each MISCELLANE DAILY PRN PRN Reason: Consult order Salmeterol Xinafoate (Salmeterol Xinafoate 50 Mcg Blst.W.Dev) 1 puff INHALE RBID [facility] Last Admin: 07/28/24 07:51 Dose: 1 puff Documented By: DAVID Sodium Chloride (0.9 % Sodium Chloride Flush 3 Ml Syringe) [facility] Last Admin: 07/28/24 07:33 Dose: Not Given Documented By: JOAO Non-Admin Reason: PICC Sodium Chloride (0.9 % Sodium Chloride Flush 10 Ml Syringe) 10 ml IVFLUSH [facility] Last Admin: 07/28/24 09:23 Dose: 10 ml Documented By: JOAO Tiotropium [place] (Tiotropium [place] 2.5 Mcg 1 Puff/2.5 Mcg Mist.Inhal) 2 puff INHALE RDAILY [facility] Last Admin: 07/28/24 07:51 Dose: 2 puff Documented By: DAVID Tramadol HCl (Tramadol Hcl 50 Mg Tablet) 25 mg PO Q4H PRN PRN Reason: Pain, Severe (Pain Scale 7-10) Last Admin: 07/28/24 09:29 Dose: 25 mg Documented By: JOAO Labs 07/27/24 06:07 07/28/24 05:19 Labs: Laboratory Results - last 24 hr 07/27/24 07/27/24 07/27/24 16:28 19:21 Hold Purple Top Anion Gap Estim Creat Clear Calc Estimated GFR POC Glucose 128 H 134 H 158 H Random Glucose Calcium Phosphorus Magnesium Albumin 07/28/24 07/28/24 05:19 07:18 Hold Purple Top SEE NOTE Anion Gap 14 Estim Creat Clear Calc 148.9 Estimated GFR > 60 POC Glucose 144 H Random Glucose 141 H Calcium 8.4 Phosphorus 3.2 Magnesium 1.7 Albumin 3.4 L Assessment and Plan (1) Small bowel obstruction: Status: Acute (2) Toxic encephalopathy: Status: Acute Plan 58F PMH chronic hypoxic and hypercapnic respiratory failure on 2 L due to COPD, hypertension, chronic back pain, opiate dependence, mood disorder presented with altered mental status after intentional olanzapine overdose. On 07/11/2024 started vomiting large amount of brown emesis requiring intubation. Likely aspiration. Over the next several days successfully weaned off the ventilator and was able to be transferred to telemetry Acute toxic metabolic encephalopathy on presentation due to intentional olanzapine overdose due to mood disorder with suicide ideation. she required intubation in ICU for airway protection, and successfully extubated later. Mental status continues to improve, presently oriented x 3. She was on mutiple meds at home (Rexulti, lamictal, tizanidine, gabapentin, cymbalta, clonazepam, buprenophine patch? for pain).. For now Psych advises starting Cymbalta at 30 mg daily and Klonopin 0. 5 mg bid PRN.. She is not suicidal at this time, sitter discontinued and I don't think she needs inpatient Psych SBO vs ileus.. Was treated conservatively with NGT, and TPN, and followd by surgery. Last xray showed extensive distention of bowel and stomach, however Upper GI with small bowel follow through negative for obstruction but showed retained contrast in stomach. NGT d/c / after 2 days. Surgery suggested symptoms were more of gastroparesis. Eventually was seen by Speech and started on diet presently on ground, thin liquid and tolerating. TPN stopped Sepsis and acute hypoxic respiratory failure due to aspiration pneumonia (sepsis resolved) Completed antibiotics Follow clinically Hypertension, controlled no meds, was on lisinopril at home History of PE Eliquis has been on hold d/t possible bleeding, and potential need for internviention. Patient has been stable for last 3 days, tolerating diet, no indication for any procedure, H/H has been stable and therefore will restart eliquis at 5 bid on 07/28 DNR/DNI obtained while in icu DVT prophylaxis: heparin reason for continued hospitalization: Awaiting placement Out of bed, PT vaughn recommends STR Quality Stroke Does the patient have a stroke diagnosis?: No VTE Prior VTE?: No VTE Risk Level:: Medical - moderate - high VTE Device Contraindication: Treatment Not Indicated VTE Drug Contraindication: N/A - Med Ordered
[2024-07-28] MEDS: DULoxetine HCl 30 MG CAPSULE.DR PO (10:45)
--- NOTE | 2024-07-28 11:15 | MHC.CM.PN ---
Addendum entered by Nieves Diaz 07/28/24 16:24: MD HAS POSTPONED DC CARE TEAM WILL NEED TO SEE BEFORE DC. DAUGHTER/RN AWARE. TRANSPORT CX Addendum entered by Nieves Diaz 07/28/24 15:38: NO RESPONSE FROM [facility], PT'S DAUGHTER AGREEABLE TO A REFERRAL TO [facility]. BLS TRANSPORT BOOKED FOR 6 PM [facility]IA [facility]. RN/MD/DAUGHTER AN UPDATED. Addendum entered by Nieves Diaz 07/28/24 13:59: DP: PER PT AND DAUGHTER (CAREGIVER), DECLINES STR AND WOULD LIKE TO GO HOME WITH NEW [facility] AND 09/10 SUPPORT FROM DAUGHTERS. MD NOTIFIED AND PT'S DAUGHTER REQUESTS A REFERRAL TO [facility] CM WILL CONTINUE TO FOLLOW. Original Note: PER MD ROUNDS, PT IS MEDICALLY CLEARED FOR DC, NO I/P PSYCH HAS BEEN INDICATED PER MD. BROAD STR REFERRALS SENT, AWAITING ACCEPTANCE.
[2024-07-28 11:48] LABS: Glucose, Whole Blood 134 mg/dL (60-115)
[2024-07-28] MEDS: Metoclopramide HCl 10 MG/2 ML VIAL 5 MG IVPUSH ×2 (12:28→23:33)
--- NOTE | 2024-07-28 12:56 | MHC.SL.SWA ---
Speech Pathologist Impression: Missing dentition; otherwise, oropharyngeal function WNL. Pt at risk for aspiration secondary to vulnerable respiratory status, medical frailty. Patient also with SBO, c/o abdominal pain, hx chronic vomiting. Risk of Aspiration Due to: Medically Fragile History of Pneumonia Hx of Recent Extubation Dysphasia Diet Status: Ground Mechanical (NDD2)/ Thin liquids, pills crushed or whole in puree. Liquid Consistency and Strategies for Safe Swallow: Liquid Intake Recommendation: Thin Liquid Intake Strategies: Small Sips Solid Food Consistency: Dietary Recommendations: Grnd/Mech Altered (NDD2) Additional Modifications to Solid Foods: Recommend puree diet if patient cleared to start on solid foods by GI. However recommend consult with GI if Clear Liquid Diet more appropriate for patient at this time. Oral Medication Intake: Crushed with Puree Please contact the pharmacy regarding appropriate crushable or liquid drug formulations that are available whenever modified delivery is recommended. Compensatory Strategies and Precautions to be Taken for Safe Swallow: Sitting Upright (90 deg) Liquids from Cup Small Bites and Sips Alternate Liquids/Solids Supervision While Eating and Drinking for Safe Swallow: Intermittent Supervision Foods to Avoid: Difficult to chew solids Swallowing Recommended Treatments: Compens. Strategy Educat. Recommendation for Speech: Inpatient Speech Therapy Comment: Pt seen for dysphagia treatment. Pt is tolerating downgraded diet (NDD2 with tins) without overt s/s of aspiration. Pt continues to experience esophageal dysphagia as she reports she feels she cannot eat. GI recommendation supersede MAGAZINE EDITOR suggestions given nature of dysphagia. Oropharyngeal coordination WFL. Patient in agreement with continued diet of Ground Mechanical (NDD2) and Thin liquids, pills crushed or whole in puree. MD THOM notified of MAGAZINE EDITOR recommendations. Pt is currently recommended clear liquids per MD. MAGAZINE EDITOR should evaluate solids further once cleared to move from clear liquids. Frequency/Duration: Date Range for Service Req: Timeline to reassess: State Assessed Properties Director Clinican/Clinical Fellow: No Supervisory Statement: I have reviewed and agree with the student/clinical fellow's documentation: N/A Speech Language Pathologist: Adriana Feng M.S., [facility]-MAGAZINE EDITOR
[2024-07-28 15:38] VITALS: BP 141/83; PULSE 95; RESP 16; TEMP 36.5; O2SAT 96
[2024-07-28 15:56] LABS: Glucose, Whole Blood 132 mg/dL (60-115)
[2024-07-28 18:42] VITALS: PULSE 95; RESP 18; O2SAT 96
[2024-07-28 20:00] VITALS: BP 134/77; PULSE 102; RESP 18; TEMP 36.7; O2SAT 94
[2024-07-28 20:30] LABS: Glucose, Whole Blood 158 mg/dL (60-115)
[2024-07-28] MEDS: ondansetron HCL 4 MG/2 ML VIAL IVPUSH (21:16)
[2024-07-29 03:15] VITALS: BP 140/80; PULSE 107; RESP 18; TEMP 36.1; O2SAT 94
[2024-07-29 06:00] VITALS: BMI 47.4
[2024-07-29 07:12] VITALS: BP 142/69; PULSE 96; RESP 18; TEMP 36.4; O2SAT 95
[2024-07-29 07:12] LABS: Glucose, Whole Blood 164 mg/dL (60-115)
[2024-07-29] MEDS: Apixaban 5 MG TABLET PO ×2 (07:42→20:54)
[2024-07-29] MEDS: DULoxetine HCl 30 MG CAPSULE.DR PO (07:42)
[2024-07-29] MEDS: Insulin Lispro 100 UNIT/ML 3 ML VIAL SUBCUT (07:42)
[2024-07-29] MEDS: 0.9 % Sodium Chloride Flush 3 ML SYRINGE IVFLUSH (07:42)
[2024-07-29] MEDS: 0.9 % Sodium Chloride Flush 10 ML SYRINGE IVFLUSH (07:43)
[2024-07-29] MEDS: Nystatin Powder 15 GM BOTTLE 1 APPL TOPICAL ×3 (07:50→20:54)
[2024-07-29 08:35] LABS: Albumin Level 3.5 g/dL (3.5-5.0); Anion Gap 15 (12-20); Blood Urea Nitrogen 13 mg/dL (9-16); Calcium 8.8 mg/dL (8.4-10.2); Carbon Dioxide 23 mmol/L (22-29); Chloride 102 mmol/L (96-108); Creatinine Clr Calc Pharmacy 137.7; Estimated Glomerular Filt Rate > 60; Glucose Random 168 mg/dL (60-115); Magnesium 1.8 mg/dL (1.6-2.6); Phosphorus 3.1 mg/dL (2.7-4.5); Potassium 3.7 mmol/L (3.3-5.1); Sodium 136 mmol/L (135-145)
[2024-07-29 10:40] VITALS: BP 142/69; PULSE 96; O2SAT 95
[2024-07-29 11:19] LABS: Glucose, Whole Blood 120 mg/dL (60-115)
--- NOTE | 2024-07-29 11:36 | MHC.CM.PN ---
Per , patient care team rec inpatient psych bed search.
--- NOTE | 2024-07-29 12:42 | HO.REMOVAL ---
Removal of PICC/Midline Removal of PICC/Midline: Removal of Midline: 1. Date: 07/29/24 2. Reason removed: no longer needed 3. Inserted length: Right Brachial vein 40cm 4. Removed length: Right Brachial vein 40cm intact 5. A dressing was placed over the site upon removal. No edema or bleeding at the site. Pt tolerated the removal.
--- NOTE | 2024-07-29 14:10 | HO.PM.IMPN ---
Subjective Subjective Date of Service: 07/29/24 Interval History: Recovering well, sitter dc, she alert and oriented x 3 Review of Systems as above Review of Systems: Yes all other systems are reviewed and are negative Physical Exam Vital Signs: Vital Signs: Last Vital Signs Temp 97.6 F 07/29/24 07:12 Pulse 96 07/29/24 10:40 Resp 18 07/29/24 07:12 BP 142/69 H 07/29/24 10:40 Pulse Ox 95 07/29/24 10:40 O2 Del Method Room Air 07/29/24 07:12 O2 Flow Rate 1 07/16/24 09:00 FiO2 26 07/15/24 11:00 BMI result Body Mass Index 47.4 General: Alert, oriented x 3 Resp: CTA bilateral CVS: S1,S2,RRR GI: +BS, NT, distended Skin: No rash Neuro: motor grossly intact Psych: appropriate affect Objective Data Active Medications Acetaminophen (Acetaminophen 325 Mg Tablet) 650 mg PO Q4H PRN PRN Reason: Pain, Mild (Pain Scale 1-3) Acetaminophen/Butalbital/Caffeine (Butalb/Acetamin/Caff 50/325/40 Tablet) 1 tab PO Q4H PRN PRN Reason: Headache Albuterol/Ipratropium (Albuterol/Iprat 2.5/0.5mg 3 Ml Ampul.Neb) 3 ml INHALE RQ4H WHILE AWAKE PRN PRN Reason: Wheezing Last Admin: 07/26/24 23:28 Dose: 3 ml Documented By: ARACELIS Apixaban (Apixaban 5 Mg Tablet) 5 mg PO BID [facility] Last Admin: 07/29/24 07:42 Dose: 5 mg Documented By: LUIS MIGUEL Clonazepam (Clonazepam 0.5 Mg Tablet) 0.5 mg PO BID PRN PRN Reason: Anxiety Dextrose (Dextrose 50 % 25 Gm/50 Ml Syringe) 25 gm IVPUSH Q15M PRN; Protocol PRN Reason: per Hypoglycemia Standing Ord. Duloxetine HCl (Duloxetine Hcl 30 Mg Capsule.) 30 mg PO DAILY [facility] Last Admin: 07/29/24 07:42 Dose: 30 mg Documented By: LUIS MIGUEL Glucose (Glucose Gel 15 Gm Gel..Gram.) 15 gm PO Q15M PRN; Protocol PRN Reason: per Hypoglycemia Standing Ord. Insulin Human Lispro (Insulin Lispro 100 Unit/Ml 3 Ml Vial) [facility]; [facility] Last Admin: 07/29/24 11:22 Dose: Not Given Documented By: LUIS MIGUEL Non-Admin Reason: No Insulin Coverage Melatonin (Melatonin 3 Mg Tablet) 6 mg PO BEDTIME PRN PRN Reason: Insomnia Metoclopramide HCl (Metoclopramide Hcl 10 Mg/2 Ml Vial) 5 mg IVPUSH Q6H PRN PRN Reason: Nausea and Vomiting Last Admin: 07/28/24 23:33 Dose: 5 mg Documented By: ARMEN Metoprolol Tartrate (Metoprolol Tartrate 5 Mg/5 Ml Vial) 5 mg IVPUSH Q6H PRN; Protocol PRN Reason: hr>90 Last Admin: 07/11/24 09:41 Dose: 5 mg Documented By: MARYURI Naloxone HCl (Naloxone Hcl 0.4 Mg/Ml Vial) 0.2 mg IVPUSH Q2M PRN PRN Reason: Excessive sedation or RR < 8 Nystatin (Nystatin Powder 15 Gm Bottle) 1 appl TOPICAL TID [facility]; Protocol Last Admin: 07/29/24 07:50 Dose: 1 appl Documented By: LUIS MIGUEL Ondansetron HCl (Ondansetron Hcl 4 Mg/2 Ml Vial) 4 mg IVPUSH Q8H PRN PRN Reason: Nausea and Vomiting Last Admin: 07/28/24 21:16 Dose: 4 mg Documented By: ARMEN Salmeterol Xinafoate (Salmeterol Xinafoate 50 Mcg Blst.W.Dev) 1 puff INHALE [facility] Last Admin: 07/29/24 07:36 Dose: Not Given Documented By: TANIA Non-Admin Reason: Patient Asleep Sodium Chloride (0.9 % Sodium Chloride Flush 3 Ml Syringe) 3 ml IVFLUSH [facility] Last Admin: 07/29/24 07:42 Dose: 3 ml Documented By: LUIS MIGUEL Sodium Chloride (0.9 % Sodium Chloride Flush 10 Ml Syringe) 10 ml IVFLUSH [facility] Last Admin: 07/29/24 07:43 Dose: 10 ml Documented By: LUIS MIGUEL Tiotropium [place] (Tiotropium [place] 2.5 Mcg 1 Puff/2.5 Mcg Mist.Inhal) 2 puff INHALE [facility]DA[facility] Last Admin: 07/29/24 07:36 Dose: Not Given Documented By: TANIA Non-Admin Reason: Patient Asleep Tramadol HCl (Tramadol Hcl 50 Mg Tablet) 25 mg PO Q4H PRN PRN Reason: Pain, Severe (Pain Scale 7-10) Last Admin: 07/28/24 21:03 Dose: 25 mg Documented By: ARMEN Labs 07/27/24 06:07 07/29/24 08:09 Labs: Laboratory Results - last 24 hr 07/28/24 07/28/24 07/29/24 15:51 20:26 07:06 Anion Gap Estim Creat Clear Calc Estimated GFR POC Glucose 132 H 158 H 164 H Random Glucose Calcium Phosphorus Magnesium Albumin 07/29/24 07/29/24 08:09 11:14 Anion Gap 15 Estim Creat Clear Calc 137.7 Estimated GFR > 60 POC Glucose 120 H Random Glucose 168 H Calcium 8.8 Phosphorus 3.1 Magnesium 1.8 Albumin 3.5 Assessment and Plan (1) Toxic encephalopathy: Status: Acute Plan 58F PMH chronic hypoxic and hypercapnic respiratory failure on 2 L due to COPD, hypertension, chronic back pain, opiate dependence, mood disorder presented with altered mental status after intentional olanzapine overdose. On 07/11/2024 started vomiting large amount of brown emesis requiring intubation. Likely aspiration. Over the next several days successfully weaned off the ventilator and was able to be transferred to telemetry Acute toxic metabolic encephalopathy on presentation due to intentional olanzapine overdose due to mood disorder with suicide ideation. she required intubation in ICU for airway protection, and successfully extubated later. Mental status continues to improve, presently oriented x 3. She was on mutiple meds at home (Rexulti, lamictal, tizanidine, gabapentin, cymbalta, clonazepam, buprenophine patch? for pain).. For now Psych advises starting Cymbalta at 30 mg daily and Klonopin 0. 5 mg bid PRN.. She is not suicidal at this time, sitter discontinued and I don't think she needs inpatient Psych SBO vs ileus.. Was treated conservatively with NGT, and TPN, and followd by surgery. Last xray showed extensive distention of bowel and stomach, however Upper GI with small bowel follow through negative for obstruction but showed retained contrast in stomach. NGT d/c 07/22 after 2 days. Surgery suggested symptoms were more of gastroparesis. Eventually was seen by Speech and started on diet presently on ground, thin liquid and tolerating. TPN stopped Sepsis and acute hypoxic respiratory failure due to aspiration pneumonia (sepsis resolved) Completed antibiotics Follow clinically Hypertension, controlled no meds, was on lisinopril at home History of PE Eliquis has been on hold d/t possible bleeding, and potential need for internvention. Patient has been stable for last 3 days, tolerating diet, no indication for any procedure, H/H has been stable and therefore will restart eliquis at 5 bid on 07/28 DNR/DNI obtained while in icu DVT prophylaxis: heparin reason for continued hospitalization: Awaiting placement Out of bed, PT vaughn recommends STR. ongoing need -seen by crisis-likely need inpatient psych considering intentional olanzapine overdose . updated her daughter Marilu Mcnamara [phone], will update patient daughter again once psych bed available. Quality Stroke Does the patient have a stroke diagnosis?: No VTE Prior VTE?: No VTE Risk Level:: Medical - moderate - high VTE Device Contraindication: Treatment Not Indicated VTE Drug Contraindication: N/A - Med Ordered
--- NOTE | 2024-07-29 14:45 | MHC.SLORD ---
Speech Language Pathology Order Status: Pt refused PO trials w/ PROGRAM PROFESSIONAL on this date. She reported that her lunch of ground meat, carrots, and mashed potato worsened reflux. She did not accept any other PO from PROGRAM PROFESSIONAL. RN informed. PROGRAM PROFESSIONAL to f/u tomorrow.
[2024-07-29] MEDS: Omeprazole 20 MG CAPSULE.DR PO (14:49)
[2024-07-29 14:56] VITALS: BP 129/69; PULSE 82; RESP 18; TEMP 36.9; O2SAT 95
[2024-07-29 16:19] LABS: Glucose, Whole Blood 135 mg/dL (60-115)
[2024-07-29 18:53] VITALS: BP 135/80; PULSE 103; RESP 18; TEMP 36.6; O2SAT 96
[2024-07-29] MEDS: Salmeterol Xinafoate 50 MCG BLST.W.DEV 1 PUFF INHALE (19:38)
[2024-07-29 19:39] VITALS: PULSE 94; RESP 18; O2SAT 95
[2024-07-29 20:08] LABS: Glucose, Whole Blood 135 mg/dL (60-115)
[2024-07-29] MEDS: traMADoL HCL 50 MG TABLET 25 MG PO (21:06)
[2024-07-30 03:27] VITALS: BP 133/68; PULSE 101; RESP 16; TEMP 36.4; O2SAT 95
[2024-07-30] MEDS: Omeprazole 20 MG CAPSULE.DR PO (05:32)
[2024-07-30] MEDS: traMADoL HCL 50 MG TABLET 25 MG PO ×2 (05:43→20:59)
[2024-07-30] MEDS: Ondansetron ODT 4 MG TAB.RAPDIS TRANSLINGU ×3 (06:01→20:51)
[2024-07-30 06:41] LABS: Albumin Level 3.4 g/dL (3.5-5.0); Anion Gap 15 (12-20); Blood Urea Nitrogen 10 mg/dL (9-16); Calcium 8.8 mg/dL (8.4-10.2); Carbon Dioxide 24 mmol/L (22-29); Chloride 105 mmol/L (96-108); Estimated Glomerular Filt Rate > 60; Glucose Random 149 mg/dL (60-115); Magnesium 1.8 mg/dL (1.6-2.6); Phosphorus 3.4 mg/dL (2.7-4.5); Potassium 3.7 mmol/L (3.3-5.1); Sodium 140 mmol/L (135-145)
[2024-07-30 07:10] VITALS: BP 121/73; PULSE 91; RESP 17; TEMP 36.1; O2SAT 98
[2024-07-30 07:17] LABS: Glucose, Whole Blood 153 mg/dL (60-115)
--- NOTE | 2024-07-30 07:18 | PC.NURSE ---
Daughter called this AM looking for an update on patient, family member reassured, that they are looking for inpatient psych bed, and we will update her when pt is moved. Daughter: Marilu: (HCP/MILK DRIER): [phone]
[2024-07-30] MEDS: Apixaban 5 MG TABLET PO ×2 (09:47→20:51)
[2024-07-30] MEDS: DULoxetine HCl 30 MG CAPSULE.DR PO (09:47)
[2024-07-30] MEDS: Nystatin Powder 15 GM BOTTLE 1 APPL TOPICAL ×3 (09:49→21:01)
--- NOTE | 2024-07-30 09:56 | MHC.SLORD ---
Speech Language Pathology Order Status: Pt sleeping this morning. WALLET ASSEMBLER reported pt ate breakfast, no difficulties with PO tolerance observed. REBEAMER to return in [facility].
[2024-07-30 11:17] LABS: Glucose, Whole Blood 151 mg/dL (60-115)
--- NOTE | 2024-07-30 11:45 | P.DS_ITS ---
DS: Providers Provider Date of Service: 07/30/24 Date of admission: 07/10/24 18:54 Date of discharge: 07/30/24 Primary care physician: Nonstaff Physician Consults: 07/11/24 18:17 Consult to Psychiatry Routine Consulting Provider: [facility] Reason for consultation: Over dose with zyprexa on multiple Psych meds contributing to aspiration, Has provider been notified: No 07/12/24 06:45 Consult to General Surgery Stat Consulting Provider: [facility] General Surgeons Reason for consultation: SBO Has provider been notified: No 07/21/24 19:14 Consult to Wound Care Routine Reason for consultation: skin injury Has provider been notified: No 07/27/24 08:25 Consult to Psychiatry Routine Consulting Provider: [facility] Psych [facility] Reason for consultation: mood disorders, have been off meds, helpt to restart meds 07/28/24 16:14 Inpt CARE Team Crisis Consult Routine Comment: Reason for consultation: history of SI 07/29/24 07:41 Consult to Psychiatry Routine Consulting Provider: [facility] Psych [facility] Reason for consultation: mood disorders, have been off meds, helpt to restart meds 07/30/24 02:26 Consult to Wound Care Routine Reason for consultation: rash to abd fold appears to be healed, redness to buttocks Attending physician on discharge: Nacho Mcgrath Discharging clinician: Nacho Mcgrath DS: Diagnosis Discharge Diagnosis (1) Toxic encephalopathy: Status: Acute DS: Summary Hospital Course Hospital Course: HPI: 58-year-old female with a PMH significant for?PE on Eliquis, chronic hypercarbic respiratory failure on home 2 L O2 at night, HTN, chronic back pain, fibromyalgia, venous insufficiency, current smoker with 40 year pack hx, opioid use disorder on buprenorphine, anxiety and depression who presents to the ED for evaluation of altered mental status after presumed intentional olanzapine overdose. Pt is acutely altered and agitated at time of interview and exam. HPI is instead obtained from chart and provider review. Pt was found by family this morning at 09:00 with altered mental status, difficulty speaking, with her walker knocked over and laying sideways in bed. EMS arrived and initially called a stroke alert upon presentation to the ED out of concern for right-sided facial droop and difficulty speaking. Daughter reports pt ran out of clonazepam approximately 1 week ago due to overuse. Daughter had a prescription for olanzapine which she was not using, so provided to the pt with 2-3 tablets per day for the past 5 days to alleviate pt's anxiety. This morning daughter noticed her mother had left a suicide note and the olazapine bottle was empty. She estimates the pt could have taken 15-20 tablets of olazapine sometime last night. ED clinician contacted poison control Center who requested lactic acid and suggested pt being admitted for 24 hour cardiac monitoring. In the ED pt's vitals stable and WNL, satting at 96% on RA.. Labs were significant for lactic acid 3.0 with repeat 3.3, otherwise grossly unremarkable and around baseline for pt. No leukocytosis. Stable H&H. No significant electrolyte abnormalities. Renal and hepatic function WNL. Troponin negative. BNP 11. Lipid panel WNL. CXR showed mild interstitial lung edema vs multifocal pneumonia with nodular lesion of right lower hemithorax, consider benign vs malignant. CT of head without intracranial hemorrhage or acute brain abnormality. EKG x3 showing normal sinus rhythm without significant ischemic changes and QTc WNL. Pt was treated in the ED with DuoNebs, Mag sulfate, IVF, ni cotine, diazepam, ceftriaxone, and azithromycin. Pt is admitted to the hospital for treatment and further evaluation of acute metabolic encephalopathy in the setting of increasing depression with suicide attempt from intentional olanzapine overdose. Hospital course: 58F PMH chronic hypoxic and hypercapnic respiratory failure on 2 L due to COPD, hypertension, chronic back pain, opiate dependence, mood disorder presented with altered mental status after intentional olanzapine overdose. On 07/11/2024 started vomiting large amount of brown emesis requiring intubation. Likely aspiration. Over the next several days successfully weaned off the ventilator and was able to be transferred to telemetry in addition patient treated for Acute toxic metabolic encephalopathy on presentation due to intentional olanzapine overdose due to mood disorder with suicide ideation. she required intubation in ICU for airway protection, and successfully extubated later. Mental status continues to improve, presently oriented x 3. She was on mutiple meds at home (Rexulti, lamictal, tizanidine, gabapentin, cymbalta, clonazepam, buprenophine patch? for pain).For now Psych advises starting Cymbalta at 30 mg daily and Klonopin 0. 5 mg bid PRN. She is not suicidal at this time, sitter discontinued . SBO vs ileus.. Was treated conservatively with NGT, and TPN, and followd by surgery. Last xray showed extensive distention of bowel and stomach, however Upper GI with small bowel follow through negative for obstruction but showed retained contrast in stomach. NGT d/c 07/22 after 2 days. Surgery suggested sy mptoms were more of gastroparesis. Eventually was seen by Speech and started on diet presently on ground, thin liquid and tolerating. TPN stopped,no abdominal pain,passing bowels. Sepsis and acute hypoxic respiratory failure due to aspiration pneumonia (sepsis resolved):Completed antibiotics,no new symproms . Hypertension: blood pressures flactues in 120 to 140's range : resume lisinopril 5 mg po qd , metoprolol adjusted to po 25 mg bid. Mild hyperglycemia :most fs in 150's: on farxiga ( if not available consider jardiance), moniter fs , Hba1c levels added. History of PE:Eliquis has been on hold d/t possible bleeding, and potential need for internvention. Patient has been stable for last 3 days, tolerating diet, no indication for any procedure, H/H has been stable and therefore will restart eliquis at 5 bid on 07/28 evaluated by psych/crisis -need inpatient psych. Above management discussed with the patient and her daughter in detail length they both understand and in agreement with the above plan, time spent 40 minute. All question answered. in addition above was discussed with the psych attending also in detail. ` Time Attestation Total time managing care of this patient today: 40 mintues. Discharge Coordination Time (in mins): 40 min Quality: Safe Use of Opioids Does Pt have an Active Cancer Diagnosis on the Problem List?: No Quality: Stroke Does the patient have a stroke diagnosis?: No Physical Exam Vital Signs: Vital Signs: Last Vital Signs Temp 96.9 F 07/30/24 07:10 Pulse 91 07/30/24 07:10 Resp 17 07/30/24 07:10 BP 121/73 07/30/24 07:10 Pulse Ox 98 07/30/24 07:10 O2 Del Method Room Air 07/30/24 07:10 O2 Flow Rate 1 07/16/24 09:00 FiO2 26 07/15/24 11:00 BMI result Body Mass Index 47.4 General: Alert, oriented x 3 Resp: CTA bilateral CVS: S1,S2,RRR GI: +BS, NT, distended Skin: No rash Neuro: motor grossly intact Psych: appropriate affect DS: Data Data Completed and Pending Labs on day of discharge: Laboratory Results - last 24 hr 07/29/24 07/29/24 07/30/24 16:15 20:03 06:06 Sodium 140 Potassium 3.7 Chloride 105 Carbon Dioxide 24 Anion Gap 15 BUN 10 Creatinine 0.65 Estim Creat Clear Calc 144.0 Estimated GFR > 60 POC Glucose 135 H 135 H Random Glucose 149 H Calcium 8.8 Phosphorus 3.4 Magnesium 1.8 Albumin 3.4 L 07/30/24 07/30/24 07:13 11:08 Sodium Potassium Chloride Carbon Dioxide Anion Gap BUN Creatinine Estim Creat Clear Calc Estimated GFR POC Glucose 153 H 151 H Random Glucose Calcium Phosphorus Magnesium Albumin Imaging Chest x-ray: Radiologist's impression: ITS Impressions Head CT 07/10/24 10:36 IMPRESSION: No intracranial hemorrhage or acute brain abnormality by CT. This critical result was discussed with Dr. Rasheed Fagan at 10:50 AM hours on July 10, 2024. It was ascertained that the content and urgency of the report was understood at the time of direct communication. Electronically signed by: Colt Watkins MD 07/10/2024 10:54 AM EDT RP Chest X-Ray 07/10/24 13:20 IMPRESSION: Mild interstitial lung edema versus multifocal pneumonia. Nodular lesion right lower hemithorax. Consider benign versus malignant. Electronically signed by: Colt Watkins MD 07/10/2024 01:47 PM EDT RP Chest X-Ray 07/15/24 12:45 IMPRESSION: 1. Limited exam. NG tube is present with the tip in the stomach although the sidehole is likely at or just above the GE junction. 2. Pulmonary nodule in the right lung base, and streaky opacities in the left lung base. Electronically signed by: Cristino Rodriguez MD 07/15/2024 02:44 PM EDT RP Chest X-Ray 07/20/24 07:00 IMPRESSION: The nasogastric tube terminates in the stomach. Electronically signed by: Dano Cole MD 07/21/2024 08:16 AM EDT RP Upper GI and Small Bowel X-Ray 07/21/24 09:00 IMPRESSION: Normal small bowel series. No indication for obstruction. Electronically signed by: Jeremie Bergeron MD 07/21/2024 12:56 PM EDT RP Discharge Plan Discharge Anticipated Discharge Date/Time: 07/28/24 16:03 Patient Disposition: Home Health Service Discharge Diagnosis: Metabolic encephalopathy, small bowel obstruction, aspiration pneumonia Referrals: Sara SINGLETARY [Outside] - 1 Week (HOME SERVICES FOR PHYSICAL THERAPY/OCCUPATIONAL THERAPY- A THERAPIST WILL CALL TO SETUP FIRST VISIT.) Physician,Nonstaff [Primary Care Provider] - 1 Week Discharge Medications: New duloxetine 30 mg Capsule,Delayed Release(Dr/Ec) 30 mg PO DAILY Qty: 90 0RF metoprolol tartrate 25 mg tablet 25 mg PO BID Qty: 1 0RF Continued atorvastatin 20 mg tablet 20 mg PO DAILY oxybutynin chloride 10 mg tablet extended release 24hr 10 mg PO DAILY omeprazole 20 mg capsule,delayed release(DR/EC) 20 mg PO DAILY@0630 lisinopril 5 mg tablet 5 mg PO DAILY furosemide 20 mg tablet 20 mg PO DAILY albuterol sulfate [Ventolin HFA] 90 mcg/actuation HFA aerosol inhaler 2 puff INHALATION QID PRN (Reason: wheezing) clotrimazole 1 % cream 1 appl topical BID PRN (Reason: Rash) Eliquis 5 mg tablet 5 mg PO BID Anoro Ellipta 62.5-25 mcg/actuation blister with device 1 ea INHALATION DAILY acetaminophen 325 mg Tablet 650 mg PO BID PRN (Reason: Pain) docusate calcium [Kaopectate (docusate calcium)] 240 mg Capsule 480 mg PO BID Culturelle 10 billion cell Capsule 1 cap PO DAILY dapagliflozin propanediol [Farxiga] 10 mg tablet 10 mg PO DAILY Discontinued lamotrigine 150 mg tablet 150 mg PO BID tizanidine 4 mg tablet 4 mg PO Q6H clonazepam 1 mg tablet 1 mg PO BID clonazepam 1 mg tablet 0.5 mg PO BEDTIME gabapentin 800 mg tablet 800 mg PO TID metoprolol succinate 25 mg tablet extended release 24 hr 50 mg PO DAILY duloxetine 60 mg capsule,delayed release(DR/EC) 60 mg PO BID buprenorphine 20 mcg/hour patch weekly 1 patch topical WE Rexulti 1 mg tablet 1 mg PO DAILY Discharge Orders: Discharge Order (Routine); Ordered 07/30/24 Ordered By: Nacho Mcgrath Diet: Advance to usual diet Activity on Discharge: As tolerated Stand Alone Forms: Patient Portal Discharge page Print Language: [place] Care Plan Goals: recovdry from long hospitalization for metabolic encephalopathy, aspiration pneumonia, and partial small bowel obstruction Health Concerns: aspiration pneumonia altered mental status/metabolic aspiration suicial id Plan of Treatment: as above. Assessment: as above.
--- NOTE | 2024-07-30 12:09 | MHC.CM.PN ---
Patient cleared for dc to [facility]
[2024-07-30 12:53] LABS: Estimated Average Glucose 140 mg/dL; Hemoglobin A1C 159.9726 umol/L; Hemoglobin A1c % 6.5 % (<6.0); Total Hemoglobin (HGBA1C) 3330.1695 umol/L
--- NOTE | 2024-07-30 13:53 | HO.WOUND ---
Wound Consult: Follow up 58yr old female? [place] [facility] [place] - See progress notes and H&P for detailed history.? 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 Patient agreeable to assessment and photo documentation.? 07/22/24 07/30/24 Inter-Gluteal Fold Etiology: ??resolving MASD -Intertrigo (Moisture Associated Skin Damage)Present on Admission Wound Bed: resurfacing tissue Drainage / Odor: None noted Edges: ? Linear and attached [place] wound: ?[place] red blanchable tissue - MASD noted No Induration, Fluctuance or Warmth noted Pain: denies Goals of Treatment: ? Triad or barrier cream to allow for moist wound healing and protect from friction and moisture Skin folds assessed to be clean and intact no MASD or Intertrigo noted. Recommendations: 1. Turn and Reposition every 2 hours and as needed for patient comfort.? Use pillows or wedges to support off loading positions. 2. Off Load all bony prominences with use of pillows and heel boots if needed.? Apply Preventative foams where needed. ? 3. Monitor for incontinence and moisture control, use barrier creams when needed for prevention and treatment. 4. Provide adequate and supplemental nutrition.? 5. Bariatric bed in use. 6. When applicable maintain blood glucose levels per Providers order. InterGluteal Cleft - Off Load Pressure with Q2 hr turns and use of pillows - Cleanse with PH balance spray or wipes, pat dry. ?Apply thin layer of Triad to wound bed - only pat and dab no scrub and rub when soiling occurs. Reapply thin layer PRN after each episode of incontinence. Bilateral Heels - Float heels off of bed surface with pillows. May apply preventative foam dressing peel back and assess Q shift and change every 5 days and PRN. Re-consult wound care Nurse for wound deterioration or wound changes.
--- NOTE | 2024-07-30 14:14 | MHC.SL.SWA ---
Speech Pathologist Impression: Adequate oropharyngeal coordination, mild oral phase dysphagia d/t missing dentition. Risk of Aspiration Due to: Medically Fragile History of Pneumonia Hx of Recent Extubation Dysphasia Diet Status: Ground Mechanical (NDD2)/ Thin liquids, pills crushed or whole in puree. Liquid Consistency and Strategies for Safe Swallow: Liquid Intake Recommendation: Thin Liquid Intake Strategies: Small Sips Solid Food Consistency: Dietary Recommendations: Grnd/Mech Altered (NDD2) Additional Modifications to Solid Foods: Recommend puree diet if patient cleared to start on solid foods by GI. However recommend consult with GI if Clear Liquid Diet more appropriate for patient at this time. Oral Medication Intake: Crushed with Puree Please contact the pharmacy regarding appropriate crushable or liquid drug formulations that are available whenever modified delivery is recommended. Compensatory Strategies and Precautions to be Taken for Safe Swallow: Sitting Upright (90 deg) Liquids from Cup Small Bites and Sips Alternate Liquids/Solids Supervision While Eating and Drinking for Safe Swallow: Intermittent Supervision Foods to Avoid: Difficult to chew solids Swallowing Recommended Treatments: Compens. Strategies (slow pacing, choosing foods most appealing, remaining upriight after PO) Recommendation for Speech: Inpatient Speech Therapy Comment: Pt seen for dysphagia treatment. Pt wanted only sherbet today. Oropharyngeal coordination WNL for soft, smooth, homogenous consistencies. Pt did not want to trial for diet upgrade, expressed concern she will continue to have nausea when eating. Pt remains at risk for aspiration secondary to vulnerable respiratory status, medical frailty. Patient also with SBO, c/o abdominal pain, hx chronic vomiting. Oropharyngeal swallow WFL (pt missing dentition) Esophageal dysphagia indicates continued GI consultation Frequency/Duration: Date Range for Service Req: Timeline to reassess: Franchise Specialist Clinican/Clinical Fellow: No Supervisory Statement: I have reviewed and agree with the student/clinical fellow's documentation: N/A Speech Language Pathologist: Adriana Feng M.S., CCC-OPERATIONS INTELLIGENCE SUPERINTENDENT
[2024-07-30] MEDS: clonazePAM 0.5 MG TABLET PO (14:53)
--- NOTE | 2024-07-30 15:56 | P.PNIM_ITS ---
Subjective Subjective Date of Service: 07/30/24 Interval History: Recovering well, sitter dc, she alert and oriented x 3 patient was dichgared -psych declined because of jethro lift use. Review of Systems Review of Systems: Yes all other systems are reviewed and are negative Physical Exam 2 Vital Signs: Vital Signs: Last Vital Signs Temp 96.9 F 07/30/24 07:10 Pulse 91 07/30/24 07:10 Resp 17 07/30/24 07:10 BP 121/73 07/30/24 07:10 Pulse Ox 98 07/30/24 07:10 O2 Del Method Room Air 07/30/24 07:10 O2 Flow Rate 1 07/16/24 09:00 FiO2 26 07/15/24 11:00 BMI result Body Mass Index 47.4 General: Alert, oriented x 3 Resp: CTA bilateral CVS: S1,S2,RRR GI: +BS, NT, distended Skin: No rash Neuro: motor grossly intact Psych: appropriate affect Objective Data Active Medications Acetaminophen (Acetaminophen 325 Mg Tablet) 650 mg PO Q4H PRN PRN Reason: Pain, Mild (Pain Scale 1-3) Acetaminophen/Butalbital/Caffeine (Butalb/Acetamin/Caff 50/325/40 Tablet) 1 tab PO Q4H PRN PRN Reason: Headache Apixaban (Apixaban 5 Mg Tablet) 5 mg PO BID [facility] Last Admin: 07/30/24 09:47 Dose: 5 mg Documented By: OLEKSANDR Clonazepam (Clonazepam 0.5 Mg Tablet) 0.5 mg PO BID PRN PRN Reason: Anxiety Last Admin: 07/30/24 14:53 Dose: 0.5 mg Documented By: OLEKSANDR Dextrose (Dextrose 50 % 25 Gm/50 Ml Syringe) 25 gm IVPUSH Q15M PRN; Protocol PRN Reason: per Hypoglycemia Standing Ord. Duloxetine HCl (Duloxetine Hcl 30 Mg Capsule.) 30 mg PO DAILY [facility] Last Admin: 07/30/24 09:47 Dose: 30 mg Documented By: OLEKSANDR Glucose (Glucose Gel 15 Gm Gel..Gram.) 15 gm PO Q15M PRN; Protocol PRN Reason: per Hypoglycemia Standing Ord. Insulin Human Lispro (Insulin Lispro 100 Unit/Ml 3 Ml Vial) 0 unit SUBCUT QIDACHS [facility]; Protocol Last Admin: 07/30/24 11:25 Dose: Not Given Documented By: OLEKSANDR Non-Admin Reason: patient not eating Melatonin (Melatonin 3 Mg Tablet) 6 mg PO BEDTIME PRN PRN Reason: Insomnia Metoclopramide HCl (Metoclopramide Hcl 10 Mg/2 Ml Vial) 5 mg IVPUSH Q6H PRN PRN Reason: Nausea and Vomiting Last Admin: 07/28/24 23:33 Dose: 5 mg Documented By: ARMEN Metoprolol Tartrate (Metoprolol Tartrate 5 Mg/5 Ml Vial) 5 mg IVPUSH Q6H PRN; Protocol PRN Reason: hr>90 Last Admin: 07/11/24 09:41 Dose: 5 mg Documented By: MARYURI Naloxone HCl (Naloxone Hcl 0.4 Mg/Ml Vial) 0.2 mg IVPUSH Q2M PRN PRN Reason: Excessive sedation or RR < 8 Nystatin (Nystatin Powder 15 Gm Bottle) 1 appl TOPICAL TID [facility]; Protocol Last Admin: 07/30/24 14:55 Dose: 1 appl Documented By: OLEKSANDR Omeprazole (Omeprazole 20 Mg Capsule.Dr) 20 mg PO DAILY@0630 [facility] Last Admin: 07/30/24 05:32 Dose: 20 mg Documented By: JOSÉ ANTONIO Ondansetron HCl (Ondansetron Hcl 4 Mg/2 Ml Vial) 4 mg IVPUSH Q8H PRN PRN Reason: Nausea and Vomiting Last Admin: 07/28/24 21:16 Dose: 4 mg Documented By: ARMEN Ondansetron HCl (Ondansetron Odt 4 Mg Tab.Rapdis) 4 mg TRANSLINGU Q6H PRN PRN Reason: Nausea and Vomiting Last Admin: 07/30/24 14:54 Dose: 4 mg Documented By: OLEKSANDR Salmeterol Xinafoate (Salmeterol Xinafoate 50 Mcg Blst.W.Dev) 1 puff INHALE RBID [facility] Last Admin: 07/30/24 07:44 Dose: Not Given Documented By: TANIA Non-Admin Reason: Patient Refused Sodium Chloride (0.9 % Sodium Chloride Flush 3 Ml Syringe) 3 ml IVFLUSH QSHIFT [facility] Last Admin: 07/30/24 09:47 Dose: Not Given Documented By: OLEKSANDR Non-Admin Reason: No Access Sodium Chloride (0.9 % Sodium Chloride Flush 10 Ml Syringe) 10 ml IVFLUSH QSHIFT [facility] Last Admin: 07/30/24 09:47 Dose: Not Given Documented By: OLEKSANDR Non-Admin Reason: No Access Tiotropium [place] (Tiotropium [place] 2.5 Mcg 1 Puff/2.5 Mcg Mist.Inhal) 2 puff INHALE RDAILY [facility] Last Admin: 07/30/24 07:44 Dose: Not Given Documented By: TANIA Non-Admin Reason: Patient Refused Tramadol HCl (Tramadol Hcl 50 Mg Tablet) 25 mg PO Q4H PRN PRN Reason: Pain, Severe (Pain Scale 7-10) Last Admin: 07/30/24 05:43 Dose: 25 mg Documented By: SANDRAV Labs 07/27/24 06:07 07/30/24 06:06 Labs: Laboratory Results - last 24 hr 07/29/24 07/29/24 07/30/24 16:15 20:03 06:06 Anion Gap 15 Estim Creat Clear Calc 144.0 Estimated GFR > 60 POC Glucose 135 H 135 H Random Glucose 149 H Estimat Average Glucose Hemoglobin A1c % Calcium 8.8 Phosphorus 3.4 Magnesium 1.8 Albumin 3.4 L 07/30/24 07/30/24 07/30/24 07:13 11:08 12:38 Anion Gap Estim Creat Clear Calc Estimated GFR POC Glucose 153 H 151 H Random Glucose Estimat Average Glucose 140 Hemoglobin A1c % 6.5 H Calcium Phosphorus Magnesium Albumin Assessment and Plan (1) Toxic encephalopathy: Status: Acute Plan 58F PMH chronic hypoxic and hypercapnic respiratory failure on 2 L due to COPD, hypertension, chronic back pain, opiate dependence, mood disorder presented with altered mental status after intentional olanzapine overdose. On 07/11/2024 started vomiting large amount of brown emesis requiring intubation. Likely aspiration. Over the next several days successfully weaned off the ventilator and was able to be transferred to telemetry Acute toxic metabolic encephalopathy on presentation due to intentional olanzapine overdose due to mood disorder with suicide ideation. she required intubation in ICU for airway protection, and successfully extubated later. Mental status continues to improve, presently oriented x 3. She was on mutiple meds at home (Rexulti, lamictal, tizanidine, gabapentin, cymbalta, clonazepam, buprenophine patch? for pain).. For now Psych advises starting Cymbalta at 30 mg daily and Klonopin 0. 5 mg bid PRN.. She is not suicidal at this time, sitter discontinued and I don't think she needs inpatient Psych SBO vs ileus.. Was treated conservatively with NGT, and TPN, and followd by surgery. Last xray showed extensive distention of bowel and stomach, however Upper GI with small bowel follow through negative for obstruction but showed retained contrast in stomach. NGT d/c / after 2 days. Surgery suggested symptoms were more of gastroparesis. Eventually was seen by Speech and started on diet presently on ground, thin liquid and tolerating. TPN stopped Sepsis and acute hypoxic respiratory failure due to aspiration pneumonia (sepsis resolved) Completed antibiotics Follow clinically Hypertension-will add metoprolol,will lisinopril. new onset dm: moniter fs and sliding scale coverage. History of PE Eliquis has been on hold d/t possible bleeding, and potential need for internvention. Patient has been stable for last 3 days, tolerating diet, no indication for any procedure, H/H has been stable and therefore will restart eliquis at 5 bid on 07/28 DNR/DNI obtained while in icu DVT prophylaxis: heparin reason for continued hospitalization: Awaiting placement Out of bed, PT eval recommends STR. ongoing need -seen by crisis-likely need inpatient psych considering intentional olanzapine overdose . updated her daughter Marilu Mcnamara [phone], will update patient daughter again once psych bed available. Quality Stroke Does the patient have a stroke diagnosis?: No VTE Prior VTE?: No VTE Risk Level:: Medical - moderate - high VTE Device Contraindication: Treatment Not Indicated VTE Drug Contraindication: N/A - Med Ordered
[2024-07-30 16:00] VITALS: BP 110/72; PULSE 81; RESP 22; TEMP 36.3; O2SAT 96
[2024-07-30 16:25] VITALS: BP 110/72; PULSE 81; O2SAT 96
[2024-07-30 16:59] LABS: Glucose, Whole Blood 123 mg/dL (60-115)
[2024-07-30 17:46] LABS: Glucose, Whole Blood 122 mg/dL (60-115)
[2024-07-30 19:41] VITALS: BP 133/75; PULSE 81; RESP 20; TEMP 36.1; O2SAT 96
[2024-07-30] MEDS: Salmeterol Xinafoate 50 MCG BLST.W.DEV 1 PUFF INHALE (20:28)
[2024-07-30 20:29] VITALS: PULSE 81; RESP 20; O2SAT 95
[2024-07-30] MEDS: Metoprolol Tartrate 25 MG TABLET PO (20:51)
[2024-07-30 21:09] LABS: Glucose, Whole Blood 126 mg/dL (60-115)
[2024-07-31] VITALS (7 sets, daily range): BP systolic 108–139; BP diastolic 59–82; PULSE 83–102; RESP 16–20; TEMP 36.1–36.8; O2SAT 92–96; BMI 47.1
[2024-07-31] MEDS: Ondansetron ODT 4 MG TAB.RAPDIS TRANSLINGU ×3 (03:24→15:08)
[2024-07-31 03:28] LABS: Glucose, Whole Blood 133 mg/dL (60-115)
[2024-07-31] MEDS: Omeprazole 20 MG CAPSULE.DR PO (05:54)
[2024-07-31 06:28] LABS: Albumin Level 3.4 g/dL (3.5-5.0); Anion Gap 14 (12-20); Blood Urea Nitrogen 10 mg/dL (9-16); Calcium 8.7 mg/dL (8.4-10.2); Carbon Dioxide 24 mmol/L (22-29); Chloride 105 mmol/L (96-108); Creatinine Clr Calc Pharmacy 127.8; Estimated Glomerular Filt Rate > 60; Glucose Random 140 mg/dL (60-115); Magnesium 1.7 mg/dL (1.6-2.6); Phosphorus 3.3 mg/dL (2.7-4.5); Potassium 3.7 mmol/L (3.3-5.1); Sodium 139 mmol/L (135-145)
[2024-07-31 07:38] LABS: Glucose, Whole Blood 143 mg/dL (60-115)
[2024-07-31] MEDS: Tiotropium Bromide 2.5 mcg 1 PUFF/2.5 MCG MIST.INHAL 2 PUFF INHALE (07:58)
[2024-07-31] MEDS: Salmeterol Xinafoate 50 MCG BLST.W.DEV 1 PUFF INHALE ×2 (07:58→19:24)
--- NOTE | 2024-07-31 08:09 | P.PNIM_ITS ---
Subjective Subjective Date of Service: 07/31/24 Interval History: feeling better has some nausea Review of Systems Review of Systems: Yes all other systems are reviewed and are negative Physical Exam 2 Vital Signs: Vital Signs: Last Vital Signs Temp 97.4 F 07/31/24 07:30 Pulse 89 07/31/24 07:30 Resp 20 07/31/24 07:30 BP 139/82 07/31/24 07:30 Pulse Ox 94 07/31/24 07:30 O2 Del Method Room Air 07/31/24 07:30 O2 Flow Rate 1 07/16/24 09:00 FiO2 26 07/15/24 11:00 BMI result Body Mass Index 37.3 General: Alert, oriented x 3 Resp: CTA bilateral CVS: S1,S2,RRR GI: +BS, NT, distended Skin: No rash Neuro: motor grossly intact Psych: appropriate affect Objective Data Active Medications Acetaminophen (Acetaminophen 325 Mg Tablet) 650 mg PO Q4H PRN PRN Reason: Pain, Mild (Pain Scale 1-3) Acetaminophen/Butalbital/Caffeine (Butalb/Acetamin/Caff 50/325/40 Tablet) 1 tab PO Q4H PRN PRN Reason: Headache Apixaban (Apixaban 5 Mg Tablet) 5 mg PO BID [facility] Last Admin: 07/30/24 20:51 Dose: 5 mg Documented By: MARINO Clonazepam (Clonazepam 0.5 Mg Tablet) 0.5 mg PO BID PRN PRN Reason: Anxiety Last Admin: 07/30/24 14:53 Dose: 0.5 mg Documented By: OLEKSANDR Dextrose (Dextrose 50 % 25 Gm/50 Ml Syringe) 25 gm IVPUSH Q15M PRN; Protocol PRN Reason: per Hypoglycemia Standing Ord. Duloxetine HCl (Duloxetine Hcl 30 Mg Capsule.) 30 mg PO DAILY [facility] Last Admin: 07/30/24 09:47 Dose: 30 mg Documented By: OLEKSANDR Glucose (Glucose Gel 15 Gm Gel..Gram.) 15 gm PO Q15M PRN; Protocol PRN Reason: per Hypoglycemia Standing Ord. Insulin Human Lispro (Insulin Lispro 100 Unit/Ml 3 Ml Vial) 0 unit SUBCUT QIDACHS [facility]; Protocol Last Admin: 07/31/24 07:39 Dose: Not Given Documented By: JOAO Non-Admin Reason: No Insulin Coverage Lisinopril (Lisinopril 2.5 Mg Tablet) 2.5 mg PO DAILY [facility]; Protocol Melatonin (Melatonin 3 Mg Tablet) 6 mg PO BEDTIME PRN PRN Reason: Insomnia Metoclopramide HCl (Metoclopramide Hcl 10 Mg/2 Ml Vial) 5 mg IVPUSH Q6H PRN PRN Reason: Nausea and Vomiting Last Admin: 07/28/24 23:33 Dose: 5 mg Documented By: ARMEN Metoprolol Tartrate (Metoprolol Tartrate 25 Mg Tablet) 25 mg PO BID [facility]; Protocol Last Admin: 07/30/24 20:51 Dose: 25 mg Documented By: MARINO Naloxone HCl (Naloxone Hcl 0.4 Mg/Ml Vial) 0.2 mg IVPUSH Q2M PRN PRN Reason: Excessive sedation or RR < 8 Nystatin (Nystatin Powder 15 Gm Bottle) 1 appl TOPICAL TID [facility]; Protocol Last Admin: 07/30/24 21:01 Dose: 1 appl Documented By: MARINO Omeprazole (Omeprazole 20 Mg Capsule.Dr) 20 mg PO DAILY@0630 [facility] Last Admin: 07/31/24 05:54 Dose: 20 mg Documented By: MARINO Ondansetron HCl (Ondansetron Hcl 4 Mg/2 Ml Vial) 4 mg IVPUSH Q8H PRN PRN Reason: Nausea and Vomiting Last Admin: 07/28/24 21:16 Dose: 4 mg Documented By: ARMEN Ondansetron HCl (Ondansetron Odt 4 Mg Tab.Rapdis) 4 mg TRANSLINGU Q6H PRN PRN Reason: Nausea and Vomiting Last Admin: 07/31/24 03:24 Dose: 4 mg Documented By: MARINO Salmeterol Xinafoate (Salmeterol Xinafoate 50 Mcg Blst.W.Dev) 1 puff INHALE RBID [facility] Last Admin: 07/31/24 07:58 Dose: 1 puff Documented By: SUDHA Sodium Chloride (0.9 % Sodium Chloride Flush 3 Ml Syringe) 3 ml IVFLUSH [facility] Last Admin: 07/31/24 07:28 Dose: Not Given Documented By: JOAO Non-Admin Reason: No Access Sodium Chloride (0.9 % Sodium Chloride Flush 10 Ml Syringe) 10 ml IVFLUSH [facility] Last Admin: 07/31/24 07:28 Dose: Not Given Documented By: JOAO Non-Admin Reason: No Access Tiotropium [place] (Tiotropium [place] 2.5 Mcg 1 Puff/2.5 Mcg Mist.Inhal) 2 puff INHALE RDAILY [facility] Last Admin: 07/31/24 07:58 Dose: 2 puff Documented By: SUDHA Tramadol HCl (Tramadol Hcl 50 Mg Tablet) 25 mg PO Q4H PRN PRN Reason: Pain, Severe (Pain Scale 7-10) Last Admin: 07/30/24 20:59 Dose: 25 mg Documented By: MARINO Labs 07/27/24 06:07 07/31/24 05:42 Labs: Laboratory Results - last 24 hr 07/30/24 07/30/24 07/30/24 11:08 12:38 16:52 Hold Purple Top Anion Gap Estim Creat Clear Calc Estimated GFR POC Glucose 151 H 123 H Random Glucose Estimat Average Glucose 140 Hemoglobin A1c % 6.5 H Calcium Phosphorus Magnesium Albumin 07/30/24 07/30/24 07/31/24 17:42 21:05 03:24 Hold Purple Top Anion Gap Estim Creat Clear Calc Estimated GFR POC Glucose 122 H 126 H 133 H Random Glucose Estimat Average Glucose Hemoglobin A1c % Calcium Phosphorus Magnesium Albumin 07/31/24 07/31/24 05:42 07:33 Hold Purple Top SEE NOTE Anion Gap 14 Estim Creat Clear Calc 127.8 Estimated GFR > 60 POC Glucose 143 H Random Glucose 140 H Estimat Average Glucose Hemoglobin A1c % Calcium 8.7 Phosphorus 3.3 Magnesium 1.7 Albumin 3.4 L Assessment and Plan (1) Toxic encephalopathy: Status: Acute Plan 58F PMH chronic hypoxic and hypercapnic respiratory failure on 2 L due to COPD, hypertension, chronic back pain, opiate dependence, mood disorder presented with altered mental status after intentional olanzapine overdose. On 07/11/2024 started vomiting large amount of brown emesis requiring intubation. Likely aspiration. Over the next several days successfully weaned off the ventilator and was able to be transferred to telemetry Acute toxic metabolic encephalopathy on presentation due to intentional olanzapine overdose due to mood disorder with suicide ideation. she required intubation in ICU for airway protection, and successfully extubated later. Mental status continues to improve, presently oriented x 3. She was on mutiple meds at home (Rexulti, lamictal, tizanidine, gabapentin, cymbalta, clonazepam, buprenophine patch? for pain).. For now Psych advises starting Cymbalta at 30 mg daily and Klonopin 0. 5 mg bid PRN.. She is not suicidal at this time, sitter discontinued and I don't think she needs inpatient Psych SBO vs ileus.. Was treated conservatively with NGT, and TPN, and followd by surgery. Last xray showed extensive distention of bowel and stomach, however Upper GI with small bowel follow through negative for obstruction but showed retained contrast in stomach. NGT d/c 07/22 after 2 days. Surgery suggested symptoms were more of gastroparesis. Eventually was seen by Speech and started on diet presently on ground, thin liquid and tolerating. TPN stopped Sepsis and acute hypoxic respiratory failure due to aspiration pneumonia (sepsis resolved) Completed antibiotics Follow clinically Hypertension-will add metoprolol,will lisinopril. new onset dm: moniter fs and sliding scale coverage. History of PE Eliquis has been on hold d/t possible bleeding, and potential need for internvention. Patient has been stable for last 3 days, tolerating diet, no indication for any procedure, H/H has been stable and therefore will restart eliquis at 5 bid on 07/28 DNR/DNI obtained while in icu DVT prophylaxis: heparin reason for continued hospitalization: Awaiting placement Out of bed, PT eval recommends STR. ongoing need -seen by crisis-likely need inpatient psych considering intentional olanzapine overdose . updated her daughter Marilu Mcnamara [phone], will update patient daughter again once psych bed available. Quality Stroke Does the patient have a stroke diagnosis?: No VTE Prior VTE?: No VTE Risk Level:: Medical - moderate - high VTE Device Contraindication: Treatment Not Indicated VTE Drug Contraindication: N/A - Med Ordered
[2024-07-31] MEDS: lisinopriL 2.5 MG TABLET PO (09:01)
[2024-07-31] MEDS: Apixaban 5 MG TABLET PO ×2 (09:01→20:08)
[2024-07-31] MEDS: Metoprolol Tartrate 25 MG TABLET PO ×2 (09:01→20:08)
[2024-07-31] MEDS: DULoxetine HCl 30 MG CAPSULE.DR PO (09:01)
[2024-07-31] MEDS: Nystatin Powder 15 GM BOTTLE 1 APPL TOPICAL ×3 (09:03→20:11)
[2024-07-31 11:21] LABS: Glucose, Whole Blood 118 mg/dL (60-115)
--- NOTE | 2024-07-31 11:55 | PC.NURSE ---
Keeping d/c order in [facility], waiting bed search that can accommodate patients BMI.
[2024-07-31] MEDS: traMADoL HCL 50 MG TABLET 25 MG PO ×2 (12:11→17:09)
[2024-07-31 16:12] LABS: Glucose, Whole Blood 98 mg/dL (60-115)
[2024-07-31] MEDS: Nicotine 21 MG PATCH.TD24 TRANSDERMA (20:07)
[2024-07-31 20:37] LABS: Glucose, Whole Blood 123 mg/dL (60-115)
[2024-08-01] VITALS (7 sets, daily range): BP systolic 125–137; BP diastolic 63–78; PULSE 85–102; RESP 18–20; TEMP 36.1–36.9; O2SAT 92–97; BMI 48.0; BMI 47.9
[2024-08-01] MEDS: Acetaminophen 325 MG TABLET 650 MG PO (04:22)
[2024-08-01] MEDS: Omeprazole 20 MG CAPSULE.DR PO (04:22)
[2024-08-01 07:07] LABS: Albumin Level 3.3 g/dL (3.5-5.0); Anion Gap 14 (12-20); Blood Urea Nitrogen 10 mg/dL (9-16); Calcium 8.8 mg/dL (8.4-10.2); Carbon Dioxide 23 mmol/L (22-29); Chloride 105 mmol/L (96-108); Creatinine Clr Calc Pharmacy 147.1; Estimated Glomerular Filt Rate > 60; Glucose Random 134 mg/dL (60-115); Magnesium 1.6 mg/dL (1.6-2.6); Phosphorus 3.5 mg/dL (2.7-4.5); Potassium 3.6 mmol/L (3.3-5.1); Sodium 138 mmol/L (135-145)
--- NOTE | 2024-08-01 07:25 | PHA.MEDREC ---
Pharmacy Consult ? Medication Reconciliation Pharmacy has completed the medication reconciliation. Utilized med list confirmed by daughter/health proxy.
[2024-08-01 07:31] LABS: Glucose, Whole Blood 140 mg/dL (60-115)
--- NOTE | 2024-08-01 07:34 | HO.PM.IMPN ---
Subjective Subjective Date of Service: 08/01/24 Review of Systems Review of Systems: Yes all other systems are reviewed and are negative Physical Exam Vital Signs: Vital Signs: Last Vital Signs Temp 98.4 F 08/01/24 03:18 Pulse 100 08/01/24 03:18 Resp 20 08/01/24 03:18 BP 137/71 08/01/24 03:18 Pulse Ox 92 08/01/24 03:18 O2 Del Method Room Air 08/01/24 03:18 O2 Flow Rate 1 07/16/24 09:00 FiO2 26 07/15/24 11:00 BMI result Body Mass Index 47.9 Objective Data Active Medications Acetaminophen/Butalbital/Caffeine (Butalb/Acetamin/Caff 50/325/40 Tablet) 1 tab PO Q4H PRN PRN Reason: Headache Apixaban (Apixaban 5 Mg Tablet) 5 mg PO BID [facility] Last Admin: 07/31/24 20:08 Dose: 5 mg Documented By: MARINO Clonazepam (Clonazepam 0.5 Mg Tablet) 0.5 mg PO BID PRN PRN Reason: Anxiety Last Admin: 07/30/24 14:53 Dose: 0.5 mg Documented By: OLEKSANDR Dextrose (Dextrose 50 % 25 Gm/50 Ml Syringe) 25 gm IVPUSH Q15M PRN; Protocol PRN Reason: per Hypoglycemia Standing Ord. Duloxetine HCl (Duloxetine Hcl 30 Mg Capsule.Dr) 30 mg PO DAILY [facility] Last Admin: 07/31/24 09:01 Dose: 30 mg Documented By: JOAO Glucose (Glucose Gel 15 Gm Gel..Gram.) 15 gm PO Q15M PRN; Protocol PRN Reason: per Hypoglycemia Standing Ord. Insulin Human Lispro (Insulin Lispro 100 Unit/Ml 3 Ml Vial) 0 unit SUBCUT QIDACHS [facility]; Protocol Last Admin: 07/31/24 21:02 Dose: Not Given Documented By: MARINO Non-Admin Reason: No Insulin Coverage Lidocaine (Lidocaine 4 % Patch Adh..Patch) 2 patch TRANSDERMA DAILY [facility]; Protocol Last Admin: 07/31/24 15:11 Dose: Not Given Documented By: JOAO Non-Admin Reason: Patient Refused Lisinopril (Lisinopril 2.5 Mg Tablet) 2.5 mg PO DAILY [facility]; Protocol Last Admin: 07/31/24 09:01 Dose: 2.5 mg Documented By: JOAO Melatonin (Melatonin 3 Mg Tablet) 6 mg PO BEDTIME PRN PRN Reason: Insomnia Metoclopramide HCl (Metoclopramide Hcl 10 Mg/2 Ml Vial) 5 mg IVPUSH Q6H PRN PRN Reason: Nausea and Vomiting Last Admin: 07/28/24 23:33 Dose: 5 mg Documented By: ARMEN Metoprolol Tartrate (Metoprolol Tartrate 25 Mg Tablet) 25 mg PO BID [facility]; Protocol Last Admin: 07/31/24 20:08 Dose: 25 mg Documented By: MARINO Naloxone HCl (Naloxone Hcl 0.4 Mg/Ml Vial) 0.2 mg IVPUSH Q2M PRN PRN Reason: Excessive sedation or RR < 8 Nicotine (Nicotine 21 Mg Patch.Td24) 21 mg TRANSDERMA DAILY [facility] Last Admin: 07/31/24 20:07 Dose: 21 mg Documented By: MARINO Nystatin (Nystatin Powder 15 Gm Bottle) 1 appl TOPICAL TID [facility]; Protocol Last Admin: 07/31/24 20:11 Dose: 1 appl Documented By: MARINO Omeprazole (Omeprazole 20 Mg Capsule.Dr) 20 mg PO DAILY@0630 [facility] Last Admin: 08/01/24 04:22 Dose: 20 mg Documented By: MARINO Ondansetron HCl (Ondansetron Hcl 4 Mg/2 Ml Vial) 4 mg IVPUSH Q8H PRN PRN Reason: Nausea and Vomiting Last Admin: 07/28/24 21:16 Dose: 4 mg Documented By: ARMEN Ondansetron HCl (Ondansetron Odt 4 Mg Tab.Rapdis) 4 mg TRANSLINGU Q6H PRN PRN Reason: Nausea and Vomiting Last Admin: 07/31/24 15:08 Dose: 4 mg Documented By: JOAO Salmeterol Xinafoate (Salmeterol Xinafoate 50 Mcg Blst.W.Dev) 1 puff INHALE RBID [facility] Last Admin: 07/31/24 19:24 Dose: 1 puff Documented By: SUDHA Sodium Chloride (0.9 % Sodium Chloride Flush 3 Ml Syringe) 3 ml IVFLUSH QSHIFT [facility] Last Admin: 08/01/24 07:12 Dose: Not Given Documented By: JOAO Non-Admin Reason: No Access Sodium Chloride (0.9 % Sodium Chloride Flush 10 Ml Syringe) 10 ml IVFLUSH QSHIFT [facility] Last Admin: 08/01/24 07:12 Dose: Not Given Documented By: JOAO Non-Admin Reason: No Access Tiotropium [place] (Tiotropium [place] 2.5 Mcg 1 Puff/2.5 Mcg Mist.Inhal) 2 puff INHALE RDAILY [facility] Last Admin: 07/31/24 07:58 Dose: 2 puff Documented By: SUDHA Tramadol HCl (Tramadol Hcl 50 Mg Tablet) 25 mg PO Q6H PRN PRN Reason: Pain, Severe (Pain Scale 7-10) Labs 07/27/24 06:07 08/01/24 06:03 Labs: Laboratory Results - last 24 hr 07/31/24 07/31/24 07/31/24 07:33 11:17 16:03 Hold Purple Top Anion Gap Estim Creat Clear Calc Estimated GFR POC Glucose 143 H 118 H 98 Random Glucose Calcium Phosphorus Magnesium Albumin 07/31/24 08/01/24 08/01/24 20:33 06:03 07:21 Hold Purple Top SEE NOTE Anion Gap 14 Estim Creat Clear Calc 147.1 Estimated GFR > 60 POC Glucose 123 H 140 H Random Glucose 134 H Calcium 8.8 Phosphorus 3.5 Magnesium 1.6 Albumin 3.3 L Assessment and Plan (1) Toxic encephalopathy: Status: Acute Plan 58F PMH chronic hypoxic and hypercapnic respiratory failure on 2 L due to COPD, hypertension, chronic back pain, opiate dependence, mood disorder presented with altered mental status after intentional olanzapine overdose. On 07/11/2024 started vomiting large amount of brown emesis requiring intubation. Likely aspiration. Over the next several days successfully weaned off the ventilator and was able to be transferred to telemetry Acute toxic metabolic encephalopathy on presentation due to intentional olanzapine overdose due to mood disorder with suicide ideation. she required intubation in ICU for airway protection, and successfully extubated later. Mental status continues to improve, presently oriented x 3. She was on mutiple meds at home (Rexulti, lamictal, tizanidine, gabapentin, cymbalta, clonazepam, buprenophine patch? for pain).. For now Psych advises starting Cymbalta at 30 mg daily and Klonopin 0. 5 mg bid PRN.. She is not suicidal at this time, sitter discontinued and I don't think she needs inpatient Psych SBO vs ileus.. Was treated conservatively with NGT, and TPN, and followd by surgery. Last xray showed extensive distention of bowel and stomach, however Upper GI with small bowel follow through negative for obstruction but showed retained contrast in stomach. NGT d/c 07/22 after 2 days. Surgery suggested symptoms were more of gastroparesis. Eventually was seen by Speech and started on diet presently on ground, thin liquid and tolerating. TPN stopped Sepsis and acute hypoxic respiratory failure due to aspiration pneumonia (sepsis resolved) Completed antibiotics Follow clinically Hypertension-will add metoprolol,will lisinopril. new onset dm: moniter fs and sliding scale coverage. History of PE Eliquis has been on hold d/t possible bleeding, and potential need for internvention. Patient has been stable for last 3 days, tolerating diet, no indication for any procedure, H/H has been stable and therefore will restart eliquis at 5 bid on 07/28 DNR/DNI obtained while in icu DVT prophylaxis: heparin reason for continued hospitalization: Awaiting placement Out of bed, PT eval recommends STR. ongoing need -seen by crisis-likely need inpatient psych considering intentional olanzapine overdose . updated her daughter Marilu Mcnamara [phone], will update patient daughter again once psych bed available. Quality Stroke Does the patient have a stroke diagnosis?: No VTE Prior VTE?: No VTE Risk Level:: Medical - moderate - high VTE Device Contraindication: Treatment Not Indicated VTE Drug Contraindication: N/A - Med Ordered
[2024-08-01] MEDS: Salmeterol Xinafoate 50 MCG BLST.W.DEV 1 PUFF INHALE (08:13)
[2024-08-01] MEDS: Tiotropium Bromide 2.5 mcg 1 PUFF/2.5 MCG MIST.INHAL 2 PUFF INHALE (08:13)
[2024-08-01] MEDS: Apixaban 5 MG TABLET PO (08:34)
[2024-08-01] MEDS: Ondansetron ODT 4 MG TAB.RAPDIS TRANSLINGU ×2 (08:34→14:34)
[2024-08-01] MEDS: traMADoL HCL 50 MG TABLET 25 MG PO ×2 (08:34→14:34)
[2024-08-01] MEDS: lisinopriL 2.5 MG TABLET PO (08:34)
[2024-08-01] MEDS: DULoxetine HCl 30 MG CAPSULE.DR PO (08:34)
[2024-08-01] MEDS: Metoprolol Tartrate 25 MG TABLET PO (08:35)
[2024-08-01] MEDS: Nicotine 21 MG PATCH.TD24 TRANSDERMA (08:35)
[2024-08-01] MEDS: Lidocaine 4 % Patch ADH..PATCH 2 PATCH TRANSDERMA (08:36)
[2024-08-01] MEDS: Nystatin Powder 15 GM BOTTLE 1 APPL TOPICAL (08:47)
[2024-08-01 11:18] LABS: Glucose, Whole Blood 183 mg/dL (60-115)
[2024-08-01] MEDS: Insulin Lispro 100 UNIT/ML 3 ML VIAL SUBCUT (11:51)
--- NOTE | 2024-08-01 12:33 | MHC.SL.SWA ---
Speech Pathologist Impression: Risk of Aspiration, Pharyngoesophageal Dysphagia Risk of Aspiration Due to: Medically Fragile History of Pneumonia Hx of Recent Extubation Dysphasia Diet Status: Ground Mechanical (NDD2)/ Thin liquids, pills crushed or whole in puree. Liquid Consistency and Strategies for Safe Swallow: Liquid Intake Recommendation: Thin Liquid Intake Strategies: Small Sips Solid Food Consistency: Dietary Recommendations: Grnd/Mech Altered (NDD2) Oral Medication Intake: Crushed with Puree Please contact the pharmacy regarding appropriate crushable or liquid drug formulations that are available whenever modified delivery is recommended. Compensatory Strategies and Precautions to be Taken for Safe Swallow: Sitting Upright (90 deg) Liquids from Cup Small Bites and Sips Alternate Liquids/Solids Supervision While Eating and Drinking for Safe Swallow: Intermittent Supervision Foods to Avoid: Difficult to chew solids Swallowing Recommended Treatments: Compens. Strategy Educat. Recommendation for Speech: Inpatient Speech Therapy Comment: Pt remains at risk for aspiration secondary to vulnerable respiratory status, medical frailty. Patient also with SBO, c/o abdominal pain, hx chronic vomiting. Oropharyngeal swallow WFL (pt missing dentition) Esophageal dysphagia indicates continued GI consultation Frequency/Duration: Date Range for Service Req: Timeline to reassess: Ore Dryer Clinican/Clinical Fellow: No Supervisory Statement: I have reviewed and agree with the student/clinical fellow's documentation: N/A Speech Language Pathologist: Britta Henry M.A., CCC-STICK WELDER
[2024-08-01 16:09] LABS: Glucose, Whole Blood 118 mg/dL (60-115)
--- NOTE | 2024-08-01 20:28 | PC.NURSE ---
2016-patient left [place] [id number] via stretcher accompanied by [facility] pharmacy helper staff, belongings with her. Patient report and discharge documentation was completed previous shift by grinder set up operator thread tool and her assigned day nurse. Patient awake and agreeable to transfer.
== END 2024-08-01 20:16 | DRG 817 ==
LOC: HO.ED 17:28 → HO.EDOVER 19:03 → HO.IMC 19:12 → HO.ICU 07-11 18:34 → HO.IMC 07-16 12:27 → HO.S3 07-20 13:39
PROVIDERS: Hospitalist; Internal Medicine; Internal Medicine Pulmonary Disease; Nurse Practitioner Family; Registered Nurse Community Health; Admitting Provider Student in an Organized Health Care Education/Training Program; Emergency Provider Emergency Medicine; PCP Physician Assistant; Visit Provider Internal Medicine
DX: T43.592A Poisoning by other antipsychotics and neuroleptics, intentional self-harm, initial encounter (principal); J96.21 Acute and chronic respiratory failure with hypoxia; J69.0 Pneumonitis due to inhalation of food and vomit; G92.8 Other toxic encephalopathy; K56.51 Intestinal adhesions [bands], with partial obstruction; N17.9 Acute kidney failure, unspecified; K92.0 Hematemesis; F39 Unspecified mood [affective] disorder; I10 Essential (primary) hypertension; E11.43 Type 2 diabetes mellitus with diabetic autonomic (poly)neuropathy; K31.84 Gastroparesis; L24.A9 Irritant contact dermatitis due friction or contact with other specified body fluids; M54.9 Dorsalgia, unspecified; E87.21 Acute metabolic acidosis; Z99.81 Dependence on supplemental oxygen; G89.29 Other chronic pain; Z66 Do not resuscitate; J44.9 Chronic obstructive pulmonary disease, unspecified; F32.9 Major depressive disorder, single episode, unspecified; J96.22 Acute and chronic respiratory failure with hypercapnia; E66.2 Morbid (severe) obesity with alveolar hypoventilation; Z68.42 Body mass index [BMI] 45.0-49.9, adult; F11.20 Opioid dependence, uncomplicated; Z79.01 Long term (current) use of anticoagulants; Z86.711 Personal history of pulmonary embolism; Z79.4 Long term (current) use of insulin; Z79.899 Other long term (current) drug therapy
CPT/HCPCS: 36415; 36573; 70450; 71045; 71250; 74018; 74178; 74250; 80048; 80053; 80061; 80076; 80143; 80179; 80307; 81001; 81025; 82040; 82803; 82947; 83036; 83605; 83735; 83880; 84100; 84478; 84484; 85025; 85027; 85610; 85730; 86850; 86900; 86901; 87040; 87086; 92526; 92610; 93005; 94002; 94003; 94640; 94799; 97110; 97162; 97166; 97530; 99285; C1751; C1894; J0456; J0696; J1200; J1644; J1938; J2250; J2405; J2470; J2543; J2704; J2765; J3010; J3360; J3475; J3480; J7120; Q9967; S9485

== ENCOUNTER → 2024-07-10 10:36 | Outpatient (BNV) | payer MEDICAID, SELFPAY | PROVIDERS: Emergency Provider Emergency Medicine; Visit Provider Radiology Diagnostic Radiology | DX: R06.02 Shortness of breath (principal); R91.1 Solitary pulmonary nodule | CPT/HCPCS: 70450; 71045 ==

== ENCOUNTER → 2024-07-10 10:39 | Outpatient (BNV) | payer MEDICAID, SELFPAY | PROVIDERS: Emergency Provider Emergency Medicine; Visit Provider Internal Medicine | DX: T88.7XXA Unspecified adverse effect of drug or medicament, initial encounter (principal); Z51.81 Encounter for therapeutic drug level monitoring | CPT/HCPCS: 93010 ==

== ENCOUNTER 2024-07-10 18:54 | Outpatient (BNV) | payer MEDICAID, SELFPAY | END 2024-07-15 12:45 | PROVIDERS: Admitting Provider Student in an Organized Health Care Education/Training Program; Emergency Provider Emergency Medicine; Visit Provider Radiology Diagnostic Radiology | DX: R91.1 Solitary pulmonary nodule (principal); Z46.59 Encounter for fitting and adjustment of other gastrointestinal appliance and device | CPT/HCPCS: 71045 ==

== ENCOUNTER 2024-07-10 18:54 | Outpatient (BNV) | payer MEDICAID, SELFPAY | END 2024-07-21 09:00 | PROVIDERS: Admitting Provider Student in an Organized Health Care Education/Training Program; Emergency Provider Emergency Medicine; Visit Provider Radiology Diagnostic Radiology | DX: K56.609 Unspecified intestinal obstruction, unspecified as to partial versus complete obstruction (principal) | CPT/HCPCS: 74250 ==

== ENCOUNTER 2024-07-10 18:54 | Outpatient (BNV) | payer MEDICAID, SELFPAY | END 2024-07-11 19:23 | PROVIDERS: Admitting Provider Student in an Organized Health Care Education/Training Program; Emergency Provider Emergency Medicine; Visit Provider Internal Medicine | DX: R00.0 Tachycardia, unspecified (principal) | CPT/HCPCS: 93010 ==

== ENCOUNTER 2024-07-10 18:54 | Outpatient (BNV) | payer MEDICAID, SELFPAY | END 2024-07-16 01:54 | PROVIDERS: Admitting Provider Student in an Organized Health Care Education/Training Program; Emergency Provider Emergency Medicine; Visit Provider Radiology Diagnostic Radiology | DX: Z46.59 Encounter for fitting and adjustment of other gastrointestinal appliance and device (principal) | CPT/HCPCS: 71045 ==

== ENCOUNTER 2024-07-10 18:54 | Outpatient (BNV) | payer MEDICAID, SELFPAY | END 2024-07-20 17:20 | PROVIDERS: Admitting Provider Student in an Organized Health Care Education/Training Program; Emergency Provider Emergency Medicine; Visit Provider Radiology Diagnostic Radiology | DX: R14.0 Abdominal distension (gaseous) (principal); R91.8 Other nonspecific abnormal finding of lung field | CPT/HCPCS: 71045; 74018 ==

== ENCOUNTER 2024-07-10 18:54 | Outpatient (BNV) | payer MEDICAID, SELFPAY | END 2024-07-11 17:40 | PROVIDERS: Admitting Provider Student in an Organized Health Care Education/Training Program; Emergency Provider Emergency Medicine; Visit Provider Nuclear Medicine | DX: R91.8 Other nonspecific abnormal finding of lung field (principal) | CPT/HCPCS: 71045; 71250; 74178 ==

== ENCOUNTER → 2024-07-10 18:54 | Outpatient (BNV) | payer MEDICAID, SELFPAY | PROVIDERS: Admitting Provider Student in an Organized Health Care Education/Training Program; Emergency Provider Emergency Medicine; Visit Provider Surgery | DX: K56.600 Partial intestinal obstruction, unspecified as to cause (principal) | CPT/HCPCS: 99232; 99499 ==

== ENCOUNTER → 2024-07-10 18:54 | Outpatient (BNV) | payer MEDICAID, SELFPAY | PROVIDERS: Admitting Provider Student in an Organized Health Care Education/Training Program; Emergency Provider Emergency Medicine; Visit Provider Nurse Practitioner Family | DX: J96.01 Acute respiratory failure with hypoxia (principal) | CPT/HCPCS: 31500 ==

== ENCOUNTER → 2024-07-10 18:54 | Outpatient (BNV) | payer MEDICAID, SELFPAY | PROVIDERS: Admitting Provider Student in an Organized Health Care Education/Training Program; Emergency Provider Emergency Medicine; Visit Provider Internal Medicine Pulmonary Disease | DX: K56.609 Unspecified intestinal obstruction, unspecified as to partial versus complete obstruction (principal); T43.592A Poisoning by other antipsychotics and neuroleptics, intentional self-harm, initial encounter; T17.818A Gastric contents in other parts of respiratory tract causing other injury, initial encounter | CPT/HCPCS: 99291 ==

== ENCOUNTER → 2024-07-10 18:54 | Outpatient (BNV) | payer MEDICAID, SELFPAY | PROVIDERS: Admitting Provider Student in an Organized Health Care Education/Training Program; Emergency Provider Emergency Medicine; Visit Provider Student in an Organized Health Care Education/Training Program | DX: T43.592A Poisoning by other antipsychotics and neuroleptics, intentional self-harm, initial encounter (principal); R41.82 Altered mental status, unspecified | CPT/HCPCS: 99223 ==

== ENCOUNTER → 2024-07-10 18:54 | Outpatient (BNV) | payer OTHER, SELFPAY | PROVIDERS: Admitting Provider Student in an Organized Health Care Education/Training Program; Emergency Provider Emergency Medicine; Visit Provider Psychiatry & Neurology Psychiatry | DX: F32.2 Major depressive disorder, single episode, severe without psychotic features (principal) | CPT/HCPCS: 99232 ==

== ENCOUNTER 2024-08-01 20:56 | Inpatient (IN) | payer OTHER, SELFPAY ==
[2024-08-01 20:20] VITALS: BP 115/62; PULSE 96; RESP 20; TEMP 36.7; O2SAT 95
[2024-08-01 21:17] VITALS: BMI 46.0
[2024-08-01] MEDS: Acetaminophen 325 MG TABLET 650 MG PO (22:26)
[2024-08-01] MEDS: clonazePAM 0.5 MG TABLET PO (22:27)
[2024-08-01] MEDS: traZODone HCL 50 MG TABLET PO (22:27)
[2024-08-01] MEDS: Gabapentin 300 MG CAPSULE PO (23:14)
[2024-08-01] MEDS: traMADoL HCL 50 MG TABLET 25 MG PO (23:18)
[2024-08-01 23:27] LABS: Glucose, Whole Blood 123 mg/dL (60-115)
--- NOTE | 2024-08-01 23:42 | PC.ADMIT ---
Patient arrived on unit 08/01/24 at 2019, She is a transfer from [facility], S/P intentional OD on Olanzapine, required intubation, Psych: MDD, Medical: HTN, Diabetes, Obesity, Hx partial small bowel obstruction, She is A&O(4), pleasant, cooperative, multiple IV bruises, multiple scars lower extremities, reddened buttock, bed bound, reports using walker but has not ambulated in a week, She is a CV, Daughter Marilu Mcnamara HCP, VS 115/62, HR96, r20, [id number]%@RA, 98.1f, reported back pain 10:10, given Gabapentin 300mgPO, Ultram 25mgPO and Tylenol 650mgPO
[2024-08-02] MEDS: Omeprazole 20 MG CAPSULE.DR PO (06:16)
[2024-08-02 06:29] LABS: Glucose, Whole Blood 134 mg/dL (60-115)
[2024-08-02 07:18] LABS: Estimated Average Glucose 143 mg/dL; Hemoglobin A1C 159.6053 umol/L; Hemoglobin A1c % 6.6 % (<6.0); Total Hemoglobin (HGBA1C) 3306.6958 umol/L
[2024-08-02 07:30] LABS: Alanine Aminotransferase 188 U/L (0-31); Albumin Level 3.5 g/dL (3.5-5.0); Alkaline Phosphatase 73 U/L (39-117); Anion Gap 15 (12-20); Aspartate Amino Transferase 90 U/L (5-31); Bilirubin Total 0.6 mg/dL (0.0-1.0); Blood Urea Nitrogen 7 mg/dL (9-16); Calcium 8.9 mg/dL (8.4-10.2); Carbon Dioxide 24 mmol/L (22-29); Chloride 105 mmol/L (96-108); Cholesterol 180 mg/dL (<200); Creatinine Clr Calc Pharmacy 143.8; Estimated Glomerular Filt Rate > 60; Glucose Random 128 mg/dL (60-115); HDL Cholesterol 44 mg/dL (>40); LDL Cholesterol Calculated 112 mg/dL (<100); Potassium 3.7 mmol/L (3.3-5.1); Sodium 140 mmol/L (135-145); Total Protein 6.5 g/dL (6.5-8.0); Triglycerides 122 mg/dL (<150)
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
[2024-08-02 07:44] LABS: TSH reflex Free T4 0.55 uIU/mL (0.32-4.0)
[2024-08-02 08:55] VITALS: BP 117/63; PULSE 99; RESP 18; TEMP 36.9; O2SAT 93
[2024-08-02] MEDS: Albuterol Sulfate 90 MCG 8 GM INHALER 2 PUFF INHALE (08:58)
[2024-08-02] MEDS: Clotrimazole 1 % Cream 15 GM TUBE 1 APPL TOPICAL ×2 (08:59→20:36)
[2024-08-02] MEDS: lisinopriL 2.5 MG TABLET PO (08:59)
[2024-08-02] MEDS: Brexpiprazole 1 MG TABLET 1.5 MG PO (08:59)
[2024-08-02] MEDS: Metoprolol Tartrate 25 MG TABLET PO ×2 (08:59→20:41)
[2024-08-02] MEDS: Acetaminophen 325 MG TABLET 650 MG PO ×2 (09:00→20:37)
[2024-08-02] MEDS: clonazePAM 0.5 MG TABLET PO (09:00)
[2024-08-02] MEDS: Gabapentin 300 MG CAPSULE PO ×3 (09:00→20:39)
[2024-08-02] MEDS: Apixaban 5 MG TABLET PO ×2 (09:00→20:40)
[2024-08-02] MEDS: DULoxetine HCl 60 MG CAPSULE.DR PO ×2 (09:00→20:39)
[2024-08-02] MEDS: busPIRone HCl 10 MG TABLET PO ×2 (09:00→20:40)
[2024-08-02] MEDS: traMADoL HCL 50 MG TABLET 25 MG PO ×2 (09:01→20:39)
[2024-08-02 11:13] LABS: Glucose, Whole Blood 177 mg/dL (60-115)
[2024-08-02] MEDS: Insulin Lispro 100 UNIT/ML 3 ML VIAL SUBCUT (11:41)
[2024-08-02] MEDS: Salmeterol Xinafoate 50 MCG BLST.W.DEV 1 PUFF INHALE ×2 (11:41→20:37)
[2024-08-02 16:32] LABS: Glucose, Whole Blood 118 mg/dL (60-115)
[2024-08-02 20:00] VITALS: BP 136/76; PULSE 97; RESP 18; TEMP 36.3; O2SAT 95
[2024-08-02 20:32] LABS: Glucose, Whole Blood 148 mg/dL (60-115)
[2024-08-02 20:41] VITALS: BP 136/76; PULSE 97
[2024-08-02] MEDS: traZODone HCL 50 MG TABLET PO (20:41)
[2024-08-03] MEDS: Omeprazole 20 MG CAPSULE.DR PO (06:26)
[2024-08-03 08:00] VITALS: BP 127/83; PULSE 95; RESP 18; TEMP 36.7; O2SAT 95
[2024-08-03 08:31] LABS: Glucose, Whole Blood 145 mg/dL (60-115)
[2024-08-03 08:31] LABS: Glucose, Whole Blood 133 mg/dL (60-115)
[2024-08-03 09:04] VITALS: BP 127/63
[2024-08-03] MEDS: lisinopriL 2.5 MG TABLET PO (09:04)
[2024-08-03] MEDS: traMADoL HCL 50 MG TABLET 25 MG PO ×3 (09:04→22:44)
[2024-08-03] MEDS: busPIRone HCl 10 MG TABLET PO ×2 (09:04→21:03)
[2024-08-03] MEDS: Brexpiprazole 1 MG TABLET 1.5 MG PO (09:05)
[2024-08-03] MEDS: DULoxetine HCl 60 MG CAPSULE.DR PO ×2 (09:06→21:03)
[2024-08-03] MEDS: Apixaban 5 MG TABLET PO ×2 (09:06→21:03)
[2024-08-03] MEDS: Acetaminophen 325 MG TABLET 650 MG PO (09:06)
[2024-08-03 09:07] VITALS: BP 127/63; PULSE 95
[2024-08-03] MEDS: Metoprolol Tartrate 25 MG TABLET PO ×2 (09:07→21:04)
[2024-08-03] MEDS: Gabapentin 300 MG CAPSULE PO ×3 (09:07→21:04)
[2024-08-03] MEDS: Clotrimazole 1 % Cream 15 GM TUBE 1 APPL TOPICAL ×2 (09:41→21:03)
[2024-08-03] MEDS: Salmeterol Xinafoate 50 MCG BLST.W.DEV 1 PUFF INHALE ×2 (09:41→21:03)
--- NOTE | 2024-08-03 09:44 | PC.NURSE ---
Addendum entered by Nieves Gomes RN 08/03/24 18:35: Pt is 2 x assist with Zina lift. Pt and daughter made advertising copywriter aware that pt is MRSA + but no record of history of MRSA in file. Original Note: 9:45am pt reporting pain lower back, 10/10 pain. Pt reports nothing really helps . Butrance patch effective.
[2024-08-03] MEDS: hydrOXYzine HCL 25 MG TABLET PO ×2 (09:54→16:41)
[2024-08-03] MEDS: Nicotine 21 MG PATCH.TD24 TRANSDERMA (09:54)
[2024-08-03 11:05] LABS: Glucose, Whole Blood 123 mg/dL (60-115)
[2024-08-03 16:26] LABS: Glucose, Whole Blood 146 mg/dL (60-115)
--- NOTE | 2024-08-03 16:37 | HO.PSYCHPN ---
Subjective Subjective Date of Service: 08/03/24 Reason For Visit: Decompensated Subjective Notes: Conditional Voluntary Medical Problems Affecting Mental Status: Yes Interim History: Main concern is severe back pain which goes down into her legs. This is chronic for which she takes suboxone patch weekly. Her own patches are in the pharmacy. Some sleep disturbance. Eating OK. Medication Compliance: Yes Side effects from medications: No Attending Groups: Intermittent Review of Systems Acute medical concerns: Yes pain Medical Review of Systems: unchanged Mental Status Exam Mental Status Exam Patient Appearance: Well Grooomed Patient Orientation: Person, Place, Time and Situation Level of Consciousness: Alert Patient Behavior: Appropriate Mood Description: Depressed Affect Description: Depressed Patient Cognition Impaired: No Ability to Follow Directions: Good Speech Pattern: Clear Memory Description: Intact Hallucinations: None Delusions: Not Present Thought Process: Intact Thought Content: positive for Goal Oriented Depressive Symptoms: Insomnia, Increased Fatigue and Back Pain Judgement: Good Diagnostics Vital Signs (24Hr): Vital Signs - 24 hr 08/02/24 20:00 08/02/24 20:41 08/03/24 08:00 Temperature 97.3 F 98.1 F Pulse Rate 97 97 95 Respiratory Rate 18 18 Blood Pressure 136/76 136/76 127/83 Pulse Oximetry 95 95 Oxygen Delivery Method Room Air Room Air 08/03/24 09:04 08/03/24 09:07 Temperature Pulse Rate 95 Respiratory Rate Blood Pressure 127/63 127/63 Pulse Oximetry Oxygen Delivery Method BMI result Body Mass Index 46.0 Labs 08/02/24 07:00 Labs: Laboratory Results - last 48 hr 08/01/24 08/02/24 08/02/24 23:23 06:21 07:00 Sodium 140 Potassium 3.7 Chloride 105 Carbon Dioxide 24 Anion Gap 15 BUN 7 L Creatinine 0.62 Estim Creat Clear Calc 143.8 Estimated GFR > 60 POC Glucose 123 H 134 H Random Glucose 128 H Estimat Average Glucose 143 Hemoglobin A1c % 6.6 H Calcium 8.9 Total Bilirubin 0.6 AST 90 H ALT 188 H Alkaline Phosphatase 73 Total Protein 6.5 Albumin 3.5 Triglycerides 122 Cholesterol 180 LDL Cholesterol, Calc 112 H HDL Cholesterol 44 TSH 0.55 08/02/24 08/02/24 08/02/24 11:09 16:27 20:28 Sodium Potassium Chloride Carbon Dioxide Anion Gap BUN Creatinine Estim Creat Clear Calc Estimated GFR POC Glucose 177 H 118 H 148 H Random Glucose Estimat Average Glucose Hemoglobin A1c % Calcium Total Bilirubin AST ALT Alkaline Phosphatase Total Protein Albumin Triglycerides Cholesterol LDL Cholesterol, Calc HDL Cholesterol TSH 08/03/24 08/03/24 08/03/24 06:28 08:27 11:00 Sodium Potassium Chloride Carbon Dioxide Anion Gap BUN Creatinine Estim Creat Clear Calc Estimated GFR POC Glucose 145 H 133 H 123 H Random Glucose Estimat Average Glucose Hemoglobin A1c % Calcium Total Bilirubin AST ALT Alkaline Phosphatase Total Protein Albumin Triglycerides Cholesterol LDL Cholesterol, Calc HDL Cholesterol TSH 08/03/24 16:23 Sodium Potassium Chloride Carbon Dioxide Anion Gap BUN Creatinine Estim Creat Clear Calc Estimated GFR POC Glucose 146 H Random Glucose Estimat Average Glucose Hemoglobin A1c % Calcium Total Bilirubin AST ALT Alkaline Phosphatase Total Protein Albumin Triglycerides Cholesterol LDL Cholesterol, Calc HDL Cholesterol TSH Medications Medications Current Medications Acetaminophen (Acetaminophen 325 Mg Tablet) 650 mg PO Q6H PRN PRN Reason: Headache/Pain, Scale 1-10 Last Admin: 08/03/24 09:06 Dose: 650 mg Al Hydroxide/Mg Hydroxide (Magnesium Hydrox/Alum Hydrox 30 Ml Oral.Susp) 30 ml PO Q6H PRN PRN Reason: Heartburn/Nausea Albuterol Sulfate (Albuterol Sulfate 90 Mcg 8 Gm Inhaler) 2 puff INHALE QID PRN PRN Reason: wheezing Last Admin: 08/02/24 08:58 Dose: 2 puff Apixaban (Apixaban 5 Mg Tablet) 5 mg PO BID [facility] Last Admin: 08/03/24 09:06 Dose: 5 mg Brexpiprazole (Brexpiprazole 1 Mg Tablet) 1.5 mg PO DAILY [facility] Last Admin: 08/03/24 09:05 Dose: 1.5 mg Buspirone HCl (Buspirone Hcl 10 Mg Tablet) 10 mg PO BID [facility] Last Admin: 08/03/24 09:04 Dose: 10 mg Clonazepam (Clonazepam 0.5 Mg Tablet) 0.5 mg PO BID PRN PRN Reason: moderate anxiety Last Admin: 08/02/24 09:00 Dose: 0.5 mg Clotrimazole (Clotrimazole 1 % Cream 15 Gm Tube) 1 appl TOPICAL BID [facility]; Protocol Last Admin: 08/03/24 09:41 Dose: 1 appl Duloxetine HCl (Duloxetine Hcl 60 Mg Capsule.Dr) 60 mg PO BID [facility] Last Admin: 08/03/24 09:06 Dose: 60 mg Gabapentin (Gabapentin 300 Mg Capsule) 300 mg PO TID [facility] Last Admin: 08/03/24 09:07 Dose: 300 mg Hydroxyzine HCl (Hydroxyzine Hcl 25 Mg Tablet) 25 mg PO Q6H PRN PRN Reason: mild anxiety Last Admin: 08/03/24 09:54 Dose: 25 mg Insulin Human Lispro (Insulin Lispro 100 Unit/Ml 3 Ml Vial) 0 unit SUBCUT QIDACHS [facility]; Protocol Last Admin: 08/03/24 08:55 Dose: Not Given Lisinopril (Lisinopril 2.5 Mg Tablet) 2.5 mg PO DAILY [facility]; Protocol Last Admin: 08/03/24 09:04 Dose: 2.5 mg Magnesium Hydroxide (Milk Of Magnesia 30 Ml Oral.Susp) 30 ml PO DAILY PRN PRN Reason: Constipation Metoprolol Tartrate (Metoprolol Tartrate 25 Mg Tablet) 25 mg PO BID [facility]; Protocol Last Admin: 08/03/24 09:07 Dose: 25 mg Nicotine (Nicotine 21 Mg Patch.Td24) 21 mg TRANSDERMA DAILY PRN PRN Reason: smoking cessation Last Admin: 08/03/24 09:54 Dose: 21 mg Nicotine Polacrilex (Nicotine Polacrilex 2 Mg Gum) 4 mg BUCCAL Q2H PRN PRN Reason: Nicotine Cravings Non-Formulary Medication (Umeclidinium-Vilanterol [Anoro Ellipta]) 1 each INHALE DAILY [facility] Omeprazole (Omeprazole 20 Mg Capsule.Dr) 20 mg PO DAILY@0630 [facility] Last Admin: 08/03/24 06:26 Dose: 20 mg Salmeterol Xinafoate (Salmeterol Xinafoate 50 Mcg Blst.W.Dev) 1 puff INHALE RBID [facility] Last Admin: 08/03/24 09:41 Dose: 1 puff Tramadol HCl (Tramadol Hcl 50 Mg Tablet) 25 mg PO Q6H PRN PRN Reason: severe pain Last Admin: 08/03/24 09:04 Dose: 25 mg Trazodone HCl (Trazodone Hcl 50 Mg Tablet) 50 mg PO BEDTIME MRX1 PRN PRN Reason: Insomnia Last Admin: 08/02/24 20:41 Dose: 50 mg Allergies Allergies Allergy/AdvReac Type Severity Reaction Status Date / Time bupropion Allergy Unknown Verified 07/10/24 11:18 codeine Allergy Unknown Verified 07/10/24 11:18 diclofenac Allergy Unknown Verified 07/10/24 11:18 divalproex sodium Allergy Unknown Verified 07/10/24 11:18 [From Depakote] doxepin [From Silenor] Allergy Unknown Verified 07/10/24 11:18 famotidine Allergy Unknown Verified 07/10/24 11:18 meloxicam Allergy Unknown Verified 07/10/24 11:18 naproxen Allergy Unknown Verified 07/10/24 11:18 nortriptyline Allergy Unknown Verified 07/10/24 11:18 oxycodone Allergy Unknown Verified 07/10/24 11:18 sertraline Allergy Unknown Verified 07/10/24 11:18 topiramate Allergy Unknown Verified 07/10/24 11:18 Assessment & Plan Assessment & Plan (1) Major depression, chronic: Status: Acute Code(s): F32.9 - Major depressive disorder, single episode, unspecified (2) Intentional olanzapine overdose: Status: Acute Code(s): T43.592A - Poisoning by other antipsychotics and neuroleptics, intentional self-harm, initial encounter Plan Admit on a voluntary status. Will need PT consult given deconditioning. 15 minutes checks. Patient is unsure about current med regimen but noted above and as per patient is on Rexulti, Lamictal, duloxetine, Klonopin, BuSpar on and gabapentin pre-admission. As per [facility] was being prescribed Klonopin 1 mg 3 times per day, gabapentin 800 mg, Suboxone 20 micro Jake patch weekly. Current med regimen is Rexulti 1.5 mg, buspirone 10 mg twice daily, Klonopin 0.5 mg 2 times per day as needed, Cymbalta 60 mg twice daily and gabapentin 300 mg twice daily. Has not received lamotrigine since admission to the Medical floor. Has a well established psychiatrist she has been working with for many years. Patient would like treatment team to work with psychiatrist around medication regimen and changes. In context of same will not make any medication changes 08/03/24: buprenorphine patch ordered for 10 back pain. Patient stabilized on this in the community Reason for continued inpatient stay Substantial Risk for: harm to self and inability to function Time Spent With Patient Time: Total time managing care of this patient today ____ minutes.
[2024-08-03] MEDS: BUPRENORPHINE 1 EACH TOPICAL (17:57)
[2024-08-03 20:00] VITALS: BP 126/58; PULSE 96; RESP 18; TEMP 36.6; O2SAT 96
[2024-08-03] MEDS: traZODone HCL 50 MG TABLET PO (21:05)
[2024-08-03] MEDS: clonazePAM 0.5 MG TABLET PO (21:05)
[2024-08-03 21:35] LABS: Glucose, Whole Blood 131 mg/dL (60-115)
[2024-08-04] MEDS: Omeprazole 20 MG CAPSULE.DR PO (05:47)
[2024-08-04 06:16] LABS: Glucose, Whole Blood 125 mg/dL (60-115)
[2024-08-04] MEDS: traMADoL HCL 50 MG TABLET 25 MG PO ×2 (06:49→19:07)
[2024-08-04 08:00] VITALS: BP 144/80; PULSE 98; RESP 20; TEMP 36.8; O2SAT 96
--- NOTE | 2024-08-04 09:04 | HO.PSYCHPN ---
Subjective Subjective Date of Service: 08/04/24 Reason For Visit: Decompensated Subjective Notes: Conditional Voluntary Interim History: Pt slept most of the night. She reports feeling anxious about her physical deconditioning and inability to ambulate on her own. She reports in the past she used a walker but was able to transfer on her own but not now. She has been working with PT. She is on buprenorphine for pain. She was started on tramadol, but reports this not helpful. Will stop to avoid polypharmacy with opioid medications. Buprenorphine also has high affinity for opioid receptors and may make other opioid medications less effective. She denies SI/HI. She has been visible on the unit. Review of Systems Review of Systems Denies any shortness of breath, chest pain, dizziness, lightheadedness, abdominal pain or discomfort, nausea vomiting or diarrhea Mental Status Exam Mental Status Exam Narrative: Appearance: MO, sitting in recliner, somewhat anxious looking, in NAD Behavior: mildly guarded Psychomotor: no tremors noted, no agitation or retardation noted Speech: clear, normal rate/rhythm/volume, spontaneous TP: mostly linear TC: worried about physical health Mood: anxious Affect: congruent SI: adamantly denies HI: none VH/AH: none Delusions: none Insight/judgment: fair x 2. Memory/cog: alert, oriented to place, month, year, situation. Diagnostics Vital Signs (24Hr): Vital Signs - 24 hr 08/03/24 09:07 08/03/24 20:00 Temperature 97.8 F Pulse Rate 95 96 Respiratory Rate 18 Blood Pressure 127/63 126/58 L Pulse Oximetry 96 Oxygen Delivery Method Room Air BMI result Body Mass Index 46.0 Labs 08/04/24 11:26 08/04/24 11:26 Labs: Laboratory Results - last 48 hr 08/02/24 08/02/24 08/02/24 11:09 16:27 20:28 POC Glucose 177 H 118 H 148 H 08/03/24 08/03/24 08/03/24 06:28 08:27 11:00 POC Glucose 145 H 133 H 123 H 08/03/24 08/03/24 08/04/24 16:23 21:01 06:10 POC Glucose 146 H 131 H 125 H Medications Medications Current Medications Acetaminophen (Acetaminophen 325 Mg Tablet) 650 mg PO Q6H PRN PRN Reason: Headache/Pain, Scale 1-10 Last Admin: 08/03/24 09:06 Dose: 650 mg Al Hydroxide/Mg Hydroxide (Magnesium Hydrox/Alum Hydrox 30 Ml Oral.Susp) 30 ml PO Q6H PRN PRN Reason: Heartburn/Nausea Albuterol Sulfate (Albuterol Sulfate 90 Mcg 8 Gm Inhaler) 2 puff INHALE QID PRN PRN Reason: wheezing Last Admin: 08/02/24 08:58 Dose: 2 puff Apixaban (Apixaban 5 Mg Tablet) 5 mg PO BID [facility] Last Admin: 08/03/24 21:03 Dose: 5 mg Brexpiprazole (Brexpiprazole 1 Mg Tablet) 1.5 mg PO DAILY [facility] Last Admin: 08/03/24 09:05 Dose: 1.5 mg Buspirone HCl (Buspirone Hcl 10 Mg Tablet) 10 mg PO BID [facility] Last Admin: 08/03/24 21:03 Dose: 10 mg Clonazepam (Clonazepam 0.5 Mg Tablet) 0.5 mg PO BID PRN PRN Reason: moderate anxiety Last Admin: 08/03/24 21:05 Dose: 0.5 mg Clotrimazole (Clotrimazole 1 % Cream 15 Gm Tube) 1 appl TOPICAL BID [facility]; Protocol Last Admin: 08/03/24 21:03 Dose: 1 appl Duloxetine HCl (Duloxetine Hcl 60 Mg Capsule.Dr) 60 mg PO BID [facility] Last Admin: 08/03/24 21:03 Dose: 60 mg Gabapentin (Gabapentin 300 Mg Capsule) 300 mg PO TID [facility] Last Admin: 08/03/24 21:04 Dose: 300 mg Hydroxyzine HCl (Hydroxyzine Hcl 25 Mg Tablet) 25 mg PO Q6H PRN PRN Reason: mild anxiety Last Admin: 08/03/24 16:41 Dose: 25 mg Insulin Human Lispro (Insulin Lispro 100 Unit/Ml 3 Ml Vial) 0 unit SUBCUT QIDACHS [facility]; Protocol Last Admin: 08/03/24 21:04 Dose: Not Given Lisinopril (Lisinopril 2.5 Mg Tablet) 2.5 mg PO DAILY [facility]; Protocol Last Admin: 08/03/24 09:04 Dose: 2.5 mg Magnesium Hydroxide (Milk Of Magnesia 30 Ml Oral.Susp) 30 ml PO DAILY PRN PRN Reason: Constipation Metoprolol Tartrate (Metoprolol Tartrate 25 Mg Tablet) 25 mg PO BID [facility]; Protocol Last Admin: 08/03/24 21:04 Dose: 25 mg Nicotine (Nicotine 21 Mg Patch.Td24) 21 mg TRANSDERMA DAILY PRN PRN Reason: smoking cessation Last Admin: 08/03/24 09:54 Dose: 21 mg Nicotine Polacrilex (Nicotine Polacrilex 2 Mg Gum) 4 mg BUCCAL Q2H PRN PRN Reason: Nicotine Cravings Non-Formulary Medication (Umeclidinium-Vilanterol [Anoro Ellipta]) 1 each INHALE DAILY [facility] Pt Own(Buprenorphine 20 Mcg/Hour Patch Weekly) 1 patch TOPICAL Q7D [facility] Last Admin: 08/03/24 17:57 Dose: 1 patch Omeprazole (Omeprazole 20 Mg Capsule.Dr) 20 mg PO DAILY@0630 [facility] Last Admin: 08/04/24 05:47 Dose: 20 mg Salmeterol Xinafoate (Salmeterol Xinafoate 50 Mcg Blst.W.Dev) 1 puff INHALE RBID [facility] Last Admin: 08/03/24 21:03 Dose: 1 puff Tramadol HCl (Tramadol Hcl 50 Mg Tablet) 25 mg PO Q6H PRN PRN Reason: severe pain Last Admin: 08/04/24 06:49 Dose: 25 mg Trazodone HCl (Trazodone Hcl 50 Mg Tablet) 50 mg PO BEDTIME MRX1 PRN PRN Reason: Insomnia Last Admin: 08/03/24 21:05 Dose: 50 mg Allergies Allergies Allergy/AdvReac Type Severity Reaction Status Date / Time bupropion Allergy Unknown Verified 07/10/24 11:18 codeine Allergy Unknown Verified 07/10/24 11:18 diclofenac Allergy Unknown Verified 07/10/24 11:18 divalproex sodium Allergy Unknown Verified 07/10/24 11:18 [From Depakote] doxepin [From Silenor] Allergy Unknown Verified 07/10/24 11:18 famotidine Allergy Unknown Verified 07/10/24 11:18 meloxicam Allergy Unknown Verified 07/10/24 11:18 naproxen Allergy Unknown Verified 07/10/24 11:18 nortriptyline Allergy Unknown Verified 07/10/24 11:18 oxycodone Allergy Unknown Verified 07/10/24 11:18 sertraline Allergy Unknown Verified 07/10/24 11:18 topiramate Allergy Unknown Verified 07/10/24 11:18 Assessment & Plan Assessment & Plan (1) Major depression, chronic: Status: Acute Code(s): F32.9 - Major depressive disorder, single episode, unspecified (2) Intentional olanzapine overdose: Status: Acute Code(s): T43.592A - Poisoning by other antipsychotics and neuroleptics, intentional self-harm, initial encounter Plan Admit on a voluntary status. Will need PT consult given deconditioning. 15 minutes checks. Patient is unsure about current med regimen but noted above and as per patient is on Rexulti, Lamictal, duloxetine, Klonopin, BuSpar on and gabapentin pre-admission. As per [facility] was being prescribed Klonopin 1 mg 3 times per day, gabapentin 800 mg, Suboxone 20 micro Jake patch weekly. Current med regimen is Rexulti 1.5 mg, buspirone 10 mg twice daily, Klonopin 0.5 mg 2 times per day as needed, Cymbalta 60 mg twice daily and gabapentin 300 mg twice daily. Has not received lamotrigine since admission to the Medical floor. Has a well established psychiatrist she has been working with for many years. Patient would like treatment team to work with psychiatrist around medication regimen and changes. In context of same will not make any medication changes 08/03/24: buprenorphine patch ordered for 12/26 back pain. Patient stabilized on this in the community 08/04 continue tx. reports current medication for mood have been helpful. Reason for continued inpatient stay Substantial Risk for: inability to function Time Spent With Patient Time: Total time managing care of this patient today ____ minutes.
[2024-08-04 10:03] VITALS: BP 144/80; PULSE 98
[2024-08-04] MEDS: Metoprolol Tartrate 25 MG TABLET PO ×2 (10:03→20:47)
[2024-08-04] MEDS: Brexpiprazole 1 MG TABLET 1.5 MG PO (10:03)
[2024-08-04] MEDS: Apixaban 5 MG TABLET PO ×2 (10:04→20:48)
[2024-08-04] MEDS: busPIRone HCl 10 MG TABLET PO ×2 (10:04→20:47)
[2024-08-04] MEDS: DULoxetine HCl 60 MG CAPSULE.DR PO ×2 (10:04→20:49)
[2024-08-04] MEDS: Gabapentin 300 MG CAPSULE PO ×3 (10:04→20:49)
[2024-08-04 10:05] VITALS: BP 144/80
[2024-08-04] MEDS: lisinopriL 2.5 MG TABLET PO (10:05)
[2024-08-04] MEDS: Nicotine 21 MG PATCH.TD24 TRANSDERMA (10:12)
[2024-08-04] MEDS: Salmeterol Xinafoate 50 MCG BLST.W.DEV 1 PUFF INHALE ×2 (10:12→20:46)
[2024-08-04] MEDS: Albuterol Sulfate 90 MCG 8 GM INHALER 2 PUFF INHALE (10:17)
[2024-08-04] MEDS: Clotrimazole 1 % Cream 15 GM TUBE 1 APPL TOPICAL ×2 (10:19→20:46)
[2024-08-04 11:29] LABS: MANUAL DIFF FLAG NO
[2024-08-04 11:31] LABS: Basophils Absolute Auto 0.1 X10*3/uL (0.0-0.2); Basophils Percent Auto 0.8 % (0-2); Eosinophils Absolute Auto 0.3 X10*3/uL (0.0-0.4); Eosinophils Percent Auto 2.7 % (0-4); Hematocrit 43.4 % (37.0-47.0); Hemoglobin 14.5 g/dl (12.0-16.0); Imm Gran Abs Auto 0.03 X10*3/uL (0.00-0.03); Imm Gran Pct Auto 0.3 % (0.0-0.4); Lymphocytes Absolute Auto 2.5 X10*3/uL (1.2-4.9); Lymphocytes Percent Auto 24.2 % (20-40); Mean Corpuscular HGB Conc 33.4 g/dl (31.0-35.0); Mean Corpuscular Hemoglobin 33.5 pg (27.0-33.0); Mean Corpuscular Volume 100.2 fL (80.0-98.0); Mean Platelet Volume 8.7 fL (9.4-12.3); Monocytes Absolute Auto 0.9 X10*3/uL (0.1-1.2); Monocytes Percent Auto 8.4 % (2-11); Neutrophils Absolute Auto 6.4 x10*3/uL (2.0-8.3); Neutrophils Percent Auto 63.6 % (45-73); Platelet Count 356 X10*3/uL (160-400); Red Blood Count 4.33 X10*6/uL (4.20-5.50); Red Cell Distribution Width 13.5 % (11.0-16.0); White Blood Count 10.1 X10*3/uL (4.8-10.8)
[2024-08-04 11:33] VITALS: BP 144/80
[2024-08-04 11:48] LABS: Ammonia 37 umol/L (13-55)
[2024-08-04 11:52] LABS: Alanine Aminotransferase 158 U/L (0-31); Albumin Level 4.1 g/dL (3.5-5.0); Alkaline Phosphatase 82 U/L (39-117); Anion Gap 15 (12-20); Aspartate Amino Transferase 65 U/L (5-31); Bilirubin Total 0.5 mg/dL (0.0-1.0); Blood Urea Nitrogen 11 mg/dL (9-16); Calcium 9.4 mg/dL (8.4-10.2); Carbon Dioxide 21 mmol/L (22-29); Chloride 104 mmol/L (96-108); Creatinine Clr Calc Pharmacy 117.3; Estimated Glomerular Filt Rate > 60; Glucose Random 153 mg/dL (60-115); Sodium 136 mmol/L (135-145); Total Protein 7.6 g/dL (6.5-8.0)
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
[2024-08-04 12:26] LABS: Folate 13.4 ng/mL (> or = 4.0); Vitamin B12 405 pg/mL (200-900)
--- NOTE | 2024-08-04 13:15 | PM.EVENT ---
Event Note Date of Service: 08/04/24 Event Note: Patient is reporting loose stools, denies any abdominal pain or discomfort. Abdominal exam benign. We will obtain stool for C diff Time Spent With Patient Time: Total time managing care of this patient today ____ minutes.
[2024-08-04] MEDS: Ondansetron ODT 4 MG TAB.RAPDIS TRANSLINGU (18:23)
[2024-08-04] MEDS: Acetaminophen 325 MG TABLET 650 MG PO (19:08)
[2024-08-04 19:56] LABS: Glucose, Whole Blood 128 mg/dL (60-115)
[2024-08-04 20:00] VITALS: BP 106/58; PULSE 96; RESP 20; TEMP 36.5; O2SAT 95
[2024-08-04 20:47] VITALS: BP 106/58; PULSE 96
[2024-08-04] MEDS: traZODone HCL 50 MG TABLET PO (20:48)
[2024-08-05] MEDS: Omeprazole 20 MG CAPSULE.DR PO (06:32)
[2024-08-05 07:05] LABS: Glucose, Whole Blood 120 mg/dL (60-115)
[2024-08-05 08:00] VITALS: BP 151/86; PULSE 75; TEMP 36.7; O2SAT 98
[2024-08-05 08:20] VITALS: BP 151/86; PULSE 101
[2024-08-05] MEDS: Metoprolol Tartrate 25 MG TABLET PO ×2 (08:20→20:40)
[2024-08-05] MEDS: lisinopriL 2.5 MG TABLET PO (08:21)
[2024-08-05] MEDS: busPIRone HCl 10 MG TABLET PO ×2 (08:21→20:41)
[2024-08-05] MEDS: Apixaban 5 MG TABLET PO ×2 (08:21→20:41)
[2024-08-05] MEDS: Gabapentin 300 MG CAPSULE PO ×3 (08:21→20:40)
[2024-08-05] MEDS: Brexpiprazole 1 MG TABLET 1.5 MG PO (08:22)
[2024-08-05] MEDS: DULoxetine HCl 60 MG CAPSULE.DR PO ×2 (08:22→20:41)
[2024-08-05] MEDS: Salmeterol Xinafoate 50 MCG BLST.W.DEV 1 PUFF INHALE ×2 (08:23→20:39)
[2024-08-05 09:46] VITALS: BP 151/86; PULSE 101
--- NOTE | 2024-08-05 10:26 | MHC.OT.ID ---
[address] [phone] F: [phone] Occupational Therapy Inpatient Daily Note Patient Name: Zeenat Mcnamara Start Time: End Time: Visit Duration: Billable Time: Pain Score: Pain Location: Self-Care Feeding: Grooming: Washing: Dressing: Toileting: Functional Mobility Bed Mobility: Transfers: Ambulation: Therapeutic Activities IADL/Homecare: Balance: s/p suicide attempt, denies si, contracts for safety Therapeutic Exercise: Cognition: Assessment Assessment: Plan Plan of Care: D/C Today: Electronically Signed By: Laura Reyes OTR/L Reviewed/agree with student documentation: Therapist:
[2024-08-05] MEDS: Clotrimazole 1 % Cream 15 GM TUBE 1 APPL TOPICAL ×2 (10:41→20:39)
[2024-08-05 11:36] LABS: Glucose, Whole Blood 121 mg/dL (60-115)
[2024-08-05] MEDS: clonazePAM 0.5 MG TABLET PO (14:07)
[2024-08-05] MEDS: Acetaminophen 325 MG TABLET 650 MG PO ×2 (14:13→22:59)
--- NOTE | 2024-08-05 14:16 | HO.PSYCHPN ---
Subjective Subjective Date of Service: 08/05/24 Reason For Visit: Decompensated Subjective Notes: Conditional Voluntary Interim History: Pt slept through the night. She continues to denied suicidal or homicidal ideation. She does report feeling anxious about her health and mobility. She does not want to go to [facility]. She reports she hopes to return back home. No behavioral concerns. She reports she has been on current medication for sometime. She thinks these combination of medications work, that OD was situational to how her health was deteriorating. Medication Compliance: Yes Review of Systems Review of Systems Denies any shortness of breath, chest pain, dizziness, lightheadedness, abdominal pain or discomfort, nausea vomiting or diarrhea Mental Status Exam Mental Status Exam Narrative: Appearance: MO, sitting in recliner, somewhat anxious looking, in NAD Behavior: mildly guarded Psychomotor: no tremors noted, no agitation or retardation noted Speech: clear, normal rate/rhythm/volume, spontaneous TP: mostly linear TC: worried about physical health Mood: anxious Affect: congruent SI: adamantly denies HI: none VH/AH: none Delusions: none Insight/judgment: fair x 2. Memory/cog: alert, oriented to place, month, year, situation. Diagnostics Vital Signs (24Hr): Vital Signs - 24 hr 08/04/24 20:00 08/04/24 20:47 08/05/24 08:00 Temperature 97.7 F 98.1 F Pulse Rate 96 96 75 Respiratory Rate 20 Blood Pressure 106/58 L 106/58 L 151/86 H Pulse Oximetry 95 98 Oxygen Delivery Method Room Air Room Air 08/05/24 08:20 08/05/24 09:46 Temperature Pulse Rate 101 H 101 H Respiratory Rate Blood Pressure 151/86 H 151/86 H Pulse Oximetry Oxygen Delivery Method BMI result Body Mass Index 46.0 Labs 08/04/24 11:26 08/04/24 11:26 Labs: Laboratory Results - last 48 hr 08/03/24 08/03/24 08/04/24 16:23 21:01 06:10 WBC RBC Hgb Hct MCV MCH MCHC RDW Plt Count MPV Immature Gran % (Auto) Neut % (Auto) Lymph % (Auto) [place] % (Auto) Eos % (Auto) Baso % (Auto) Lymph # (Auto) [place] # (Auto) Eos # (Auto) Baso # (Auto) Abs Immat Gran (auto) Absolute Neuts (auto) Absolute Nucleated RBC Nucleated RBC % (auto) Sodium Potassium Chloride Carbon Dioxide Anion Gap BUN Creatinine Estim Creat Clear Calc Estimated GFR POC Glucose 146 H 131 H 125 H Random Glucose Calcium Total Bilirubin AST ALT Alkaline Phosphatase Ammonia Total Protein Albumin Vitamin B12 Folate 08/04/24 08/04/24 08/05/24 11:26 19:48 06:31 WBC 10.1 RBC 4.33 Hgb 14.5 Hct 43.4 MCV 100.2 H MCH 33.5 H MCHC 33.4 RDW 13.5 Plt Count 356 MPV 8.7 L Immature Gran % (Auto) 0.3 Neut % (Auto) 63.6 Lymph % (Auto) 24.2 [place] % (Auto) 8.4 Eos % (Auto) 2.7 Baso % (Auto) 0.8 Lymph # (Auto) 2.5 [place] # (Auto) 0.9 Eos # (Auto) 0.3 Baso # (Auto) 0.1 Abs Immat Gran (auto) 0.03 Absolute Neuts (auto) 6.4 Absolute Nucleated RBC 0.000 Nucleated RBC % (auto) 0.0 Sodium 136 Potassium 4.0 Chloride 104 Carbon Dioxide 21 L Anion Gap 15 BUN 11 Creatinine 0.76 Estim Creat Clear Calc 117.3 Estimated GFR > 60 POC Glucose 128 H 120 H Random Glucose 153 H Calcium 9.4 Total Bilirubin 0.5 AST 65 H ALT 158 H Alkaline Phosphatase 82 Ammonia 37 Total Protein 7.6 Albumin 4.1 Vitamin B12 405 Folate 13.4 08/05/24 11:32 WBC RBC Hgb Hct MCV MCH MCHC RDW Plt Count MPV Immature Gran % (Auto) Neut % (Auto) Lymph % (Auto) [place] % (Auto) Eos % (Auto) Baso % (Auto) Lymph # (Auto) [place] # (Auto) Eos # (Auto) Baso # (Auto) Abs Immat Gran (auto) Absolute Neuts (auto) Absolute Nucleated RBC Nucleated RBC % (auto) Sodium Potassium Chloride Carbon Dioxide Anion Gap BUN Creatinine Estim Creat Clear Calc Estimated GFR POC Glucose 121 H Random Glucose Calcium Total Bilirubin AST ALT Alkaline Phosphatase Ammonia Total Protein Albumin Vitamin B12 Folate Medications Medications Current Medications Acetaminophen (Acetaminophen 325 Mg Tablet) 650 mg PO Q6H PRN PRN Reason: Headache/Pain, Scale 1-10 Last Admin: 08/05/24 14:13 Dose: 650 mg Al Hydroxide/Mg Hydroxide (Magnesium Hydrox/Alum Hydrox 30 Ml Oral.Susp) 30 ml PO Q6H PRN PRN Reason: Heartburn/Nausea Albuterol Sulfate (Albuterol Sulfate 90 Mcg 8 Gm Inhaler) 2 puff INHALE QID PRN PRN Reason: wheezing Last Admin: 08/04/24 10:17 Dose: 2 puff Apixaban (Apixaban 5 Mg Tablet) 5 mg PO BID [facility] Last Admin: 08/05/24 08:21 Dose: 5 mg Brexpiprazole (Brexpiprazole 1 Mg Tablet) 1.5 mg PO DAILY [facility] Last Admin: 08/05/24 08:22 Dose: 1.5 mg Buspirone HCl (Buspirone Hcl 10 Mg Tablet) 10 mg PO BID [facility] Last Admin: 08/05/24 08:21 Dose: 10 mg Clonazepam (Clonazepam 0.5 Mg Tablet) 0.5 mg PO BID PRN PRN Reason: moderate anxiety Last Admin: 08/05/24 14:07 Dose: 0.5 mg Clotrimazole (Clotrimazole 1 % Cream 15 Gm Tube) 1 appl TOPICAL BID [facility]; Protocol Last Admin: 08/05/24 10:41 Dose: 1 appl Duloxetine HCl (Duloxetine Hcl 60 Mg Capsule.Dr) 60 mg PO BID [facility] Last Admin: 08/05/24 08:22 Dose: 60 mg Gabapentin (Gabapentin 300 Mg Capsule) 300 mg PO TID [facility] Last Admin: 08/05/24 14:07 Dose: 300 mg Hydroxyzine HCl (Hydroxyzine Hcl 25 Mg Tablet) 25 mg PO Q6H PRN PRN Reason: mild anxiety Last Admin: 08/03/24 16:41 Dose: 25 mg Insulin Human Lispro (Insulin Lispro 100 Unit/Ml 3 Ml Vial) 0 unit SUBCUT QIDACHS [facility]; Protocol Last Admin: 08/05/24 12:33 Dose: Not Given Lisinopril (Lisinopril 2.5 Mg Tablet) 2.5 mg PO DAILY [facility]; Protocol Last Admin: 08/05/24 08:21 Dose: 2.5 mg Magnesium Hydroxide (Milk Of Magnesia 30 Ml Oral.Susp) 30 ml PO DAILY PRN PRN Reason: Constipation Metoprolol Tartrate (Metoprolol Tartrate 25 Mg Tablet) 25 mg PO BID [facility]; Protocol Last Admin: 08/05/24 08:20 Dose: 25 mg Nicotine (Nicotine 21 Mg Patch.Td24) 21 mg TRANSDERMA DAILY PRN PRN Reason: smoking cessation Last Admin: 08/04/24 10:12 Dose: 21 mg Nicotine Polacrilex (Nicotine Polacrilex 2 Mg Gum) 4 mg BUCCAL Q2H PRN PRN Reason: Nicotine Cravings Non-Formulary Medication (Umeclidinium-Vilanterol [Anoro Ellipta]) 1 each INHALE DAILY [facility] Pt Own(Buprenorphine 20 Mcg/Hour Patch Weekly) 1 patch TOPICAL Q7D [facility] Last Admin: 08/03/24 17:57 Dose: 1 patch Omeprazole (Omeprazole 20 Mg Capsule.Dr) 20 mg PO DAILY@0630 [facility] Last Admin: 08/05/24 06:32 Dose: 20 mg Salmeterol Xinafoate (Salmeterol Xinafoate 50 Mcg Blst.W.Dev) 1 puff INHALE RBID [facility] Last Admin: 08/05/24 08:23 Dose: 1 puff Trazodone HCl (Trazodone Hcl 50 Mg Tablet) 50 mg PO BEDTIME MRX1 PRN PRN Reason: Insomnia Last Admin: 08/04/24 20:48 Dose: 50 mg Allergies Allergies Allergy/AdvReac Type Severity Reaction Status Date / Time bupropion Allergy Unknown Verified 07/10/24 11:18 codeine Allergy Unknown Verified 07/10/24 11:18 diclofenac Allergy Unknown Verified 07/10/24 11:18 divalproex sodium Allergy Unknown Verified 07/10/24 11:18 [From Depakote] doxepin [From Silenor] Allergy Unknown Verified 07/10/24 11:18 famotidine Allergy Unknown Verified 07/10/24 11:18 meloxicam Allergy Unknown Verified 07/10/24 11:18 naproxen Allergy Unknown Verified 07/10/24 11:18 nortriptyline Allergy Unknown Verified 07/10/24 11:18 oxycodone Allergy Unknown Verified 07/10/24 11:18 sertraline Allergy Unknown Verified 07/10/24 11:18 topiramate Allergy Unknown Verified 07/10/24 11:18 Assessment & Plan Assessment & Plan (1) Major depression, chronic: Status: Acute Code(s): F32.9 - Major depressive disorder, single episode, unspecified (2) Intentional olanzapine overdose: Status: Acute Code(s): T43.592A - Poisoning by other antipsychotics and neuroleptics, intentional self-harm, initial encounter Plan Admit on a voluntary status. Will need PT consult given deconditioning. 15 minutes checks. Patient is unsure about current med regimen but noted above and as per patient is on Rexulti, Lamictal, duloxetine, Klonopin, BuSpar on and gabapentin pre-admission. As per [place] [facility] was being prescribed Klonopin 1 mg 3 times per day, gabapentin 800 mg, Suboxone 20 micro Jake patch weekly. Current med regimen is Rexulti 1.5 mg, buspirone 10 mg twice daily, Klonopin 0.5 mg 2 times per day as needed, Cymbalta 60 mg twice daily and gabapentin 300 mg twice daily. Has not received lamotrigine since admission to the Medical floor. Has a well established psychiatrist she has been working with for many years. Patient would like treatment team to work with psychiatrist around medication regimen and changes. In context of same will not make any medication changes 08/03/24: buprenorphine patch ordered for 12/26 back pain. Patient stabilized on this in the community 08/04 continue tx. reports current medication for mood have been helpful. 08/05 continue tx. Reason for continued inpatient stay Substantial Risk for: inability to function Time Spent With Patient Time: Total time managing care of this patient today ____ minutes.
[2024-08-05 16:33] LABS: Glucose, Whole Blood 110 mg/dL (60-115)
[2024-08-05] MEDS: traMADoL HCL 50 MG TABLET 25 MG PO ×2 (19:00→22:59)
[2024-08-05 20:00] VITALS: BP 125/63; PULSE 95; RESP 20; TEMP 36.8; O2SAT 97
[2024-08-05] MEDS: traZODone HCL 50 MG TABLET PO ×2 (20:39→23:00)
[2024-08-05 20:40] VITALS: BP 125/63; PULSE 95
[2024-08-05 20:51] LABS: Glucose, Whole Blood 121 mg/dL (60-115)
[2024-08-06] MEDS: Omeprazole 20 MG CAPSULE.DR PO (06:38)
[2024-08-06 06:56] LABS: Glucose, Whole Blood 144 mg/dL (60-115)
[2024-08-06] MEDS: Insulin Lispro 100 UNIT/ML 3 ML VIAL SUBCUT ×2 (07:46→16:52)
[2024-08-06 08:00] VITALS: BP 130/71; PULSE 104; RESP 16; TEMP 36.9; O2SAT 96
[2024-08-06 08:20] LABS: CDiff Gene PCR NEGATIVE (Negative)
[2024-08-06] MEDS: Salmeterol Xinafoate 50 MCG BLST.W.DEV 1 PUFF INHALE ×2 (08:29→20:30)
[2024-08-06] MEDS: Apixaban 5 MG TABLET PO ×2 (08:30→20:30)
[2024-08-06] MEDS: Metoprolol Tartrate 25 MG TABLET PO ×2 (08:30→20:48)
[2024-08-06] MEDS: busPIRone HCl 10 MG TABLET PO ×2 (08:34→20:30)
[2024-08-06] MEDS: DULoxetine HCl 60 MG CAPSULE.DR PO ×2 (08:34→20:30)
[2024-08-06] MEDS: Brexpiprazole 1 MG TABLET 1.5 MG PO (08:34)
[2024-08-06] MEDS: lisinopriL 2.5 MG TABLET PO (08:34)
[2024-08-06] MEDS: Gabapentin 300 MG CAPSULE PO ×3 (08:34→20:30)
--- NOTE | 2024-08-06 11:09 | P.PNPSI_ITS ---
Subjective Subjective Date of Service: 08/06/24 Reason For Visit: Decompensated Subjective Notes: Conditional Voluntary Interim History: pt slept through the night. She reports being in a lot of pain and this is what triggers SI. She does denied any SI thoughts, plan or intent. She reports that she has been at pain management clinic, she is allergic to most opioid meds. This is the reason she on buprenorphine. She reports sleep is fair due to pain. She is working with OT/PT for mobility. Diagnostics Vital Signs (24Hr): Vital Signs - 24 hr 08/05/24 20:00 08/05/24 20:40 08/06/24 08:00 Temperature 98.2 F 98.4 F Pulse Rate 95 95 104 H Respiratory Rate 20 16 Blood Pressure 125/63 125/63 130/71 Pulse Oximetry 97 96 Oxygen Delivery Method Room Air Room Air BMI result Body Mass Index 46.0 Labs 08/04/24 11:26 08/04/24 11:26 Labs: Laboratory Results - last 48 hr 08/04/24 08/04/24 08/05/24 11:26 19:48 06:31 WBC 10.1 RBC 4.33 Hgb 14.5 Hct 43.4 MCV 100.2 H MCH 33.5 H MCHC 33.4 RDW 13.5 Plt Count 356 MPV 8.7 L Immature Gran % (Auto) 0.3 Neut % (Auto) 63.6 Lymph % (Auto) 24.2 [place] % (Auto) 8.4 Eos % (Auto) 2.7 Baso % (Auto) 0.8 Lymph # (Auto) 2.5 [place] # (Auto) 0.9 Eos # (Auto) 0.3 Baso # (Auto) 0.1 Abs Immat Gran (auto) 0.03 Absolute Neuts (auto) 6.4 Absolute Nucleated RBC 0.000 Nucleated RBC % (auto) 0.0 Sodium 136 Potassium 4.0 Chloride 104 Carbon Dioxide 21 L Anion Gap 15 BUN 11 Creatinine 0.76 Estim Creat Clear Calc 117.3 Estimated GFR > 60 POC Glucose 128 H 120 H Random Glucose 153 H Calcium 9.4 Total Bilirubin 0.5 AST 65 H ALT 158 H Alkaline Phosphatase 82 Ammonia 37 Total Protein 7.6 Albumin 4.1 Vitamin B12 405 Folate 13.4 C. difficile Tox B Gene 08/05/24 08/05/24 08/05/24 11:32 16:29 20:36 WBC RBC Hgb Hct MCV MCH MCHC RDW Plt Count MPV Immature Gran % (Auto) Neut % (Auto) Lymph % (Auto) [place] % (Auto) Eos % (Auto) Baso % (Auto) Lymph # (Auto) [place] # (Auto) Eos # (Auto) Baso # (Auto) Abs Immat Gran (auto) Absolute Neuts (auto) Absolute Nucleated RBC Nucleated RBC % (auto) Sodium Potassium Chloride Carbon Dioxide Anion Gap BUN Creatinine Estim Creat Clear Calc Estimated GFR POC Glucose 121 H 110 121 H Random Glucose Calcium Total Bilirubin AST ALT Alkaline Phosphatase Ammonia Total Protein Albumin Vitamin B12 Folate C. difficile Tox B Gene 08/06/24 08/06/24 06:40 06:50 WBC RBC Hgb Hct MCV MCH MCHC RDW Plt Count MPV Immature Gran % (Auto) Neut % (Auto) Lymph % (Auto) [place] % (Auto) Eos % (Auto) Baso % (Auto) Lymph # (Auto) [place] # (Auto) Eos # (Auto) Baso # (Auto) Abs Immat Gran (auto) Absolute Neuts (auto) Absolute Nucleated RBC Nucleated RBC % (auto) Sodium Potassium Chloride Carbon Dioxide Anion Gap BUN Creatinine Estim Creat Clear Calc Estimated GFR POC Glucose 144 H Random Glucose Calcium Total Bilirubin AST ALT Alkaline Phosphatase Ammonia Total Protein Albumin Vitamin B12 Folate C. difficile Tox B Gene NEGATIVE Medications Medications Current Medications Acetaminophen (Acetaminophen 325 Mg Tablet) 650 mg PO Q6H PRN PRN Reason: Headache/Pain, Scale 1-10 Last Admin: 08/05/24 22:59 Dose: 650 mg Al Hydroxide/Mg Hydroxide (Magnesium Hydrox/Alum Hydrox 30 Ml Oral.Susp) 30 ml PO Q6H PRN PRN Reason: Heartburn/Nausea Albuterol Sulfate (Albuterol Sulfate 90 Mcg 8 Gm Inhaler) 2 puff INHALE QID PRN PRN Reason: wheezing Last Admin: 08/04/24 10:17 Dose: 2 puff Apixaban (Apixaban 5 Mg Tablet) 5 mg PO BID [facility] Last Admin: 08/06/24 08:30 Dose: 5 mg Brexpiprazole (Brexpiprazole 1 Mg Tablet) 1.5 mg PO DAILY [facility] Last Admin: 08/06/24 08:34 Dose: 1.5 mg Buspirone HCl (Buspirone Hcl 10 Mg Tablet) 10 mg PO BID [facility] Last Admin: 08/06/24 08:34 Dose: 10 mg Clonazepam (Clonazepam 0.5 Mg Tablet) 0.5 mg PO BID PRN PRN Reason: moderate anxiety Last Admin: 08/05/24 14:07 Dose: 0.5 mg Clotrimazole (Clotrimazole 1 % Cream 15 Gm Tube) 1 appl TOPICAL BID [facility]; Protocol Last Admin: 08/05/24 20:39 Dose: 1 appl Duloxetine HCl (Duloxetine Hcl 60 Mg Capsule.) 60 mg PO BID [facility] Last Admin: 08/06/24 08:34 Dose: 60 mg Gabapentin (Gabapentin 300 Mg Capsule) 300 mg PO TID [facility] Last Admin: 08/06/24 08:34 Dose: 300 mg Hydroxyzine HCl (Hydroxyzine Hcl 25 Mg Tablet) 25 mg PO Q6H PRN PRN Reason: mild anxiety Last Admin: 08/03/24 16:41 Dose: 25 mg Insulin Human Lispro (Insulin Lispro 100 Unit/Ml 3 Ml Vial) 0 unit SUBCUT QIDACHS [facility]; Protocol Last Admin: 08/06/24 07:46 Dose: 2 unit Lisinopril (Lisinopril 2.5 Mg Tablet) 2.5 mg PO DAILY [facility]; Protocol Last Admin: 08/06/24 08:34 Dose: 2.5 mg Magnesium Hydroxide (Milk Of Magnesia 30 Ml Oral.Susp) 30 ml PO DAILY PRN PRN Reason: Constipation Metoprolol Tartrate (Metoprolol Tartrate 25 Mg Tablet) 25 mg PO BID [facility]; Protocol Last Admin: 08/06/24 08:30 Dose: 25 mg Nicotine (Nicotine 21 Mg Patch.Td24) 21 mg TRANSDERMA DAILY PRN PRN Reason: smoking cessation Last Admin: 08/04/24 10:12 Dose: 21 mg Nicotine Polacrilex (Nicotine Polacrilex 2 Mg Gum) 4 mg BUCCAL Q2H PRN PRN Reason: Nicotine Cravings Non-Formulary Medication (Umeclidinium-Vilanterol [Anoro Ellipta]) 1 each INHALE DAILY [facility] Pt Own(Buprenorphine 20 Mcg/Hour Patch Weekly) 1 patch TOPICAL Q7D [facility] Last Admin: 08/03/24 17:57 Dose: 1 patch Omeprazole (Omeprazole 20 Mg Capsule.) 20 mg PO DAILY@0630 [facility] Last Admin: 08/06/24 06:38 Dose: 20 mg Salmeterol Xinafoate (Salmeterol Xinafoate 50 Mcg Blst.W.Dev) 1 puff INHALE RBID [facility] Last Admin: 08/06/24 08:29 Dose: 1 puff Tramadol HCl (Tramadol Hcl 50 Mg Tablet) 25 mg PO Q6H PRN PRN Reason: severe pain (pain scale 7-10) Last Admin: 08/05/24 22:59 Dose: 25 mg Trazodone HCl (Trazodone Hcl 50 Mg Tablet) 50 mg PO BEDTIME MRX1 PRN PRN Reason: Insomnia Last Admin: 08/05/24 23:00 Dose: 50 mg Allergies Allergies Allergy/AdvReac Type Severity Reaction Status Date / Time bupropion Allergy Unknown Verified 07/10/24 11:18 codeine Allergy Unknown Verified 07/10/24 11:18 diclofenac Allergy Unknown Verified 07/10/24 11:18 divalproex sodium Allergy Unknown Verified 07/10/24 11:18 [From Depakote] doxepin [From Silenor] Allergy Unknown Verified 07/10/24 11:18 famotidine Allergy Unknown Verified 07/10/24 11:18 meloxicam Allergy Unknown Verified 07/10/24 11:18 naproxen Allergy Unknown Verified 07/10/24 11:18 nortriptyline Allergy Unknown Verified 07/10/24 11:18 oxycodone Allergy Unknown Verified 07/10/24 11:18 sertraline Allergy Unknown Verified 07/10/24 11:18 topiramate Allergy Unknown Verified 07/10/24 11:18 Assessment & Plan Assessment & Plan (1) Major depression, chronic: Status: Acute Code(s): F32.9 - Major depressive disorder, single episode, unspecified (2) Intentional olanzapine overdose: Status: Acute Code(s): T43.592A - Poisoning by other antipsychotics and neuroleptics, intentional self- harm, initial encounter Plan Admit on a voluntary status. Will need PT consult given deconditioning. 15 minutes checks. Patient is unsure about current med regimen but noted above and as per patient is on Rexulti, Lamictal, duloxetine, Klonopin, BuSpar on and gabapentin pre-admission. As per [facility] was being prescribed Klonopin 1 mg 3 times per day, gabapentin 800 mg, Suboxone 20 micro Jake patch weekly. Current med regimen is Rexulti 1.5 mg, buspirone 10 mg twice daily, Klonopin 0.5 mg 2 times per day as needed, Cymbalta 60 mg twice daily and gabapentin 300 mg twice daily. Has not received lamotrigine since admission to the Medical floor. Has a well established psychiatrist she has been working with for many years. Patient would like treatment team to work with psychiatrist around medication regimen and changes. In context of same will not make any medication changes 08/03/24: buprenorphine patch ordered for 12/26 back pain. Patient stabilized on this in the community 08/04 continue tx. reports current medication for mood have been helpful. 08/05 continue tx. 08/06 continue tx. Reason for continued inpatient stay Substantial Risk for: inability to function Time Spent With Patient Time: Total time managing care of this patient today ____ minutes.
[2024-08-06 11:13] LABS: Glucose, Whole Blood 115 mg/dL (60-115)
[2024-08-06] MEDS: traMADoL HCL 50 MG TABLET 25 MG PO ×2 (13:03→20:37)
[2024-08-06] MEDS: Clotrimazole 1 % Cream 15 GM TUBE 1 APPL TOPICAL ×2 (13:07→20:30)
[2024-08-06 16:10] LABS: Glucose, Whole Blood 179 mg/dL (60-115)
--- NOTE | 2024-08-06 17:04 | PC.NURSE ---
Spoke with daughter to bring in her teds and her Anora inhalor
[2024-08-06 20:00] VITALS: BP 133/63; PULSE 106; RESP 16; TEMP 36.4; O2SAT 97
[2024-08-06 20:48] VITALS: BP 133/63; PULSE 106
[2024-08-06 20:58] LABS: Glucose, Whole Blood 118 mg/dL (60-115)
[2024-08-07] MEDS: Omeprazole 20 MG CAPSULE.DR PO (06:27)
[2024-08-07 06:37] LABS: Glucose, Whole Blood 127 mg/dL (60-115)
[2024-08-07 08:00] VITALS: BP 117/78; PULSE 98; RESP 16; TEMP 36.3; O2SAT 95
[2024-08-07] MEDS: Brexpiprazole 1 MG TABLET 1.5 MG PO (08:21)
[2024-08-07] MEDS: Salmeterol Xinafoate 50 MCG BLST.W.DEV 1 PUFF INHALE ×2 (08:21→20:32)
[2024-08-07] MEDS: PT OWN (Umeclidinium-Vilanterol [Anoro Ellipta] 62.5-25 mcg/actuation bl 1 EACH INHALE (08:21)
[2024-08-07] MEDS: Gabapentin 300 MG CAPSULE PO ×2 (08:21→15:11)
[2024-08-07] MEDS: Metoprolol Tartrate 25 MG TABLET PO ×2 (08:22→20:32)
[2024-08-07] MEDS: lisinopriL 2.5 MG TABLET PO (08:22)
[2024-08-07] MEDS: DULoxetine HCl 60 MG CAPSULE.DR PO ×2 (08:22→20:33)
[2024-08-07] MEDS: Apixaban 5 MG TABLET PO ×2 (08:22→20:32)
[2024-08-07] MEDS: busPIRone HCl 10 MG TABLET PO ×2 (08:22→20:32)
[2024-08-07] MEDS: traMADoL HCL 50 MG TABLET 25 MG PO ×3 (08:27→20:40)
--- NOTE | 2024-08-07 10:52 | HO.PM.IMPN ---
Subjective Subjective Date of Service: 08/07/24 Interval History: 58 year old female with PMH chronic hypoxic and hypercapnic respiratory failure on 2 L due to COPD, HTN, chronic back pain, opiate dependence, mood disorder presented with altered mental status after intentional olanzapine overdose. She had Acute toxic metabolic encephalopathy on presentation due to intentional olanzapine overdose due to mood disorder with suicide ideation which required intubation in ICU for airway protection. On 07/11/2024 she vomited large amount of brown emesis. She likely aspirated, she was successfully weaned off the ventilator and was transferred to telemetry. Course complicated by a small bowel obstruction versus ileus, she was on TPN for a period of time. She is admitted to [facility] for continued care for mood disorder with intentional overdose. On exam today she is awake and alert, she reports feeling anxious as she is going to start using the commode. She is sitting in a regular wheelchair today. She has bilateral lower extremity edema, she is wearing her juxtaposed stockings. Appears euvolemic on exam denies any shortness of breath, her lungs are clear. She is calm and cooperative with care. She is alert and answers questions appropriately. Not reporting any pain today Review of Systems Denies any shortness of breath, chest pain, dizziness, lightheadedness, abdominal pain or discomfort, nausea vomiting or diarrhea Physical Exam Vital Signs: Vital Signs: Last Vital Signs Temp 97.5 F 08/06/24 20:00 Pulse 106 H 08/06/24 20:48 Resp 16 08/06/24 20:00 BP 133/63 08/06/24 20:48 Pulse Ox 97 08/06/24 20:00 O2 Del Method Room Air 08/06/24 20:00 BMI result Body Mass Index 46.0 CONST: Alert and oriented, in NAD. Well nourished HEENT: Normocephalic, atraumatic, MMM RESP: Lungs clear, RRR even and regular HEART:,RRR, S1, S2. 1+ edema GI:Abdomen Soft NT, ND. + BS times four :Deferred SKIN: Warm dry and intact, no visible lesions or rashes NEURO:CN II-XII Intact bilaterally, Sensation intact. Speech clear PSYCH: Normal affect Objective Data Active Medications Acetaminophen (Acetaminophen 325 Mg Tablet) 650 mg PO Q6H PRN PRN Reason: Headache/Pain, Scale 1-10 Last Admin: 08/05/24 22:59 Dose: 650 mg Documented By: CHUY Al Hydroxide/Mg Hydroxide (Magnesium Hydrox/Alum Hydrox 30 Ml Oral.Susp) 30 ml PO Q6H PRN PRN Reason: Heartburn/Nausea Albuterol Sulfate (Albuterol Sulfate 90 Mcg 8 Gm Inhaler) 2 puff INHALE QID PRN PRN Reason: wheezing Last Admin: 08/04/24 10:17 Dose: 2 puff Documented By: LUDY Apixaban (Apixaban 5 Mg Tablet) 5 mg PO BID [facility] Last Admin: 08/07/24 08:22 Dose: 5 mg Documented By: LA Brexpiprazole (Brexpiprazole 1 Mg Tablet) 1.5 mg PO DAILY [facility] Last Admin: 08/07/24 08:21 Dose: 1.5 mg Documented By: LA Buspirone HCl (Buspirone Hcl 10 Mg Tablet) 10 mg PO BID [facility] Last Admin: 08/07/24 08:22 Dose: 10 mg Documented By: LA Clonazepam (Clonazepam 0.5 Mg Tablet) 0.5 mg PO BID PRN PRN Reason: moderate anxiety Last Admin: 08/05/24 14:07 Dose: 0.5 mg Documented By: RICK Clotrimazole (Clotrimazole 1 % Cream 15 Gm Tube) 1 appl TOPICAL BID [facility]; Protocol Last Admin: 08/06/24 20:30 Dose: 1 appl Documented By: CAM Duloxetine HCl (Duloxetine Hcl 60 Mg Capsule.) 60 mg PO BID [facility] Last Admin: 08/07/24 08:22 Dose: 60 mg Documented By: LA Gabapentin (Gabapentin 300 Mg Capsule) 300 mg PO TID [facility] Last Admin: 08/07/24 08:21 Dose: 300 mg Documented By: LA Hydroxyzine HCl (Hydroxyzine Hcl 25 Mg Tablet) 25 mg PO Q6H PRN PRN Reason: mild anxiety Last Admin: 08/03/24 16:41 Dose: 25 mg Documented By: OPAL Insulin Human Lispro (Insulin Lispro 100 Unit/Ml 3 Ml Vial) 0 unit SUBCUT QIDACHS [facility]; Protocol Last Admin: 08/07/24 08:20 Dose: Not Given Documented By: LA Non-Admin Reason: No Insulin Coverage Lisinopril (Lisinopril 2.5 Mg Tablet) 2.5 mg PO DAILY [facility]; Protocol Last Admin: 08/07/24 08:22 Dose: 2.5 mg Documented By: LA Magnesium Hydroxide (Milk Of Magnesia 30 Ml Oral.Susp) 30 ml PO DAILY PRN PRN Reason: Constipation Metoprolol Tartrate (Metoprolol Tartrate 25 Mg Tablet) 25 mg PO BID [facility]; Protocol Last Admin: 08/07/24 08:22 Dose: 25 mg Documented By: LA Nicotine (Nicotine 21 Mg Patch.Td24) 21 mg TRANSDERMA DAILY PRN PRN Reason: smoking cessation Last Admin: 08/04/24 10:12 Dose: 21 mg Documented By: LUDY Nicotine Polacrilex (Nicotine Polacrilex 2 Mg Gum) 4 mg BUCCAL Q2H PRN PRN Reason: Nicotine Cravings Pt Own (Umeclidinium -Vilanterol [Anoro Ellipta] 62.5-25 Mcg /Actuation Bl 1 each INHALE RDAILY [facility] Last Admin: 08/07/24 08:21 Dose: 1 each Documented By: LA Pt Own(Buprenorphine 20 Mcg/Hour Patch Weekly) 1 patch TOPICAL Q7D [facility] Last Admin: 08/03/24 17:57 Dose: 1 patch Documented By: OPAL Omeprazole (Omeprazole 20 Mg Capsule.Dr) 20 mg PO DAILY@0630 [facility] Last Admin: 08/07/24 06:27 Dose: 20 mg Documented By: CAM Salmeterol Xinafoate (Salmeterol Xinafoate 50 Mcg Blst.W.Dev) 1 puff INHALE RBID [facility] Last Admin: 08/07/24 08:21 Dose: 1 puff Documented By: LA Tramadol HCl (Tramadol Hcl 50 Mg Tablet) 25 mg PO Q6H PRN PRN Reason: severe pain (pain scale 7-10) Last Admin: 08/07/24 08:27 Dose: 25 mg Documented By: LA Trazodone HCl (Trazodone Hcl 50 Mg Tablet) 50 mg PO BEDTIME MRX1 PRN PRN Reason: Insomnia Last Admin: 08/05/24 23:00 Dose: 50 mg Documented By: CHUY Labs 08/04/24 11:26 08/04/24 11:26 Labs: Laboratory Results - last 24 hr 08/06/24 08/06/24 08/06/24 11:09 16:07 20:29 POC Glucose 115 179 H 118 H 08/07/24 06:26 POC Glucose 127 H Assessment and Plan (1) Edema: Status: Acute Plan 58 year old female with PMH chronic hypoxic and hypercapnic respiratory failure on 2 L due to COPD, HTN, chronic back pain, opiate dependence, mood disorder presented with altered mental status after intentional olanzapine overdose. She had Acute toxic metabolic encephalopathy on presentation due to intentional olanzapine overdose due to mood disorder with suicide ideation which required intubation in ICU for airway protection. She is admitted to [facility] for continued care for mood disorder with intentional overdose. Mood disorder with intentional overdose. Care per psychiatric team. Chronic pain/Opiate dependance Continue Rexulti, Lamictal, Tizanidine, Gabapentin, Cymbalta, Buprenophine patch for chronic pain. Has been seen in the past by pain management Started Cymbalta. Tramadol as needed, recommend tapering this and avoiding further narcotic escalation. Not complaining of pain today SP Sepsis and acute hypoxic respiratory failure due to aspiration pneumonia (sepsis resolved) Completed antibiotics Stable today with no evidence of hypoxia Continue Albuterol as needed Hypertension/HLD Continue Metoprolol and Lisinopril and atorvastatin. Follow labs. Renal function stable. Upon review Blood pressures are stable- She is asymptomatic. Wearing Juxtapose stockings. Restart Lasix New onset Type 2 DM: Continue Sliding scale coverage HgA1c 6.6 on 08/02/2024 Consistent Carb diet History of PE Continue Eliquis at 5 bid, restarted 07/28/2024 H&H Stable Transaminitis Improving. Continue to follow weekly labs Quality Stroke Does the patient have a stroke diagnosis?: No VTE Prior VTE?: Yes VTE Risk Level:: Medical - moderate - high VTE Device Contraindication: Treatment Not Indicated VTE Drug Contraindication: N/A - Med Ordered
[2024-08-07 10:54] VITALS: BP 133/63; PULSE 106
[2024-08-07 11:31] LABS: Glucose, Whole Blood 101 mg/dL (60-115)
[2024-08-07] MEDS: Furosemide 20 MG TABLET PO (12:55)
[2024-08-07] MEDS: Clotrimazole 1 % Cream 15 GM TUBE 1 APPL TOPICAL ×2 (12:59→20:33)
--- NOTE | 2024-08-07 16:44 | HO.PSYCHPN ---
Subjective Subjective Date of Service: 08/07/24 Reason For Visit: Decompensated Subjective Notes: Conditional Voluntary Interim History: Pt reports she had some difficulty sleeping due to pain. gabapentin increased back to 800mg po TID. She denies SI/HI. However, she is frustrated and saddened about chronic pain and worsening of medical condition affecting her quality of life. She has been eating well. She reports she is anxious. Review of Systems Review of Systems Denies any shortness of breath, chest pain, dizziness, lightheadedness, abdominal pain or discomfort, nausea vomiting or diarrhea Mental Status Exam Mental Status Exam Narrative: Appearance: MO, sitting in recliner, somewhat anxious looking, in NAD Behavior: mildly guarded Psychomotor: no tremors noted, no agitation or retardation noted Speech: clear, normal rate/rhythm/volume, spontaneous TP: mostly linear TC: worried about physical health Mood: anxious Affect: congruent SI: adamantly denies HI: none VH/AH: none Delusions: none Insight/judgment: fair x 2. Memory/cog: alert, oriented to place, month, year, situation. Diagnostics Vital Signs (24Hr): Vital Signs - 24 hr 08/06/24 20:00 08/06/24 20:48 08/07/24 08:00 Temperature 97.5 F 97.3 F Pulse Rate 106 H 106 H 98 Respiratory Rate 16 16 Blood Pressure 133/63 133/63 117/78 Pulse Oximetry 97 95 Oxygen Delivery Method Room Air Room Air 08/07/24 10:54 Temperature Pulse Rate 106 H Respiratory Rate Blood Pressure 133/63 Pulse Oximetry Oxygen Delivery Method BMI result Body Mass Index 46.0 Labs 08/08/24 05:40 08/08/24 05:40 Labs: Laboratory Results - last 48 hr 08/05/24 08/06/24 08/06/24 20:36 06:40 06:50 POC Glucose 121 H 144 H C. difficile Tox B Gene NEGATIVE 08/06/24 08/06/24 08/06/24 11:09 16:07 20:29 POC Glucose 115 179 H 118 H C. difficile Tox B Gene 08/07/24 08/07/24 06:26 11:27 POC Glucose 127 H 101 C. difficile Tox B Gene Medications Medications Current Medications Acetaminophen (Acetaminophen 325 Mg Tablet) 650 mg PO Q6H PRN PRN Reason: Headache/Pain, Scale 1-10 Last Admin: 05/20/25 22:59 Dose: 650 mg Al Hydroxide/Mg Hydroxide (Magnesium Hydrox/Alum Hydrox 30 Ml Oral.Susp) 30 ml PO Q6H PRN PRN Reason: Heartburn/Nausea Albuterol Sulfate (Albuterol Sulfate 90 Mcg 8 Gm Inhaler) 2 puff INHALE QID PRN PRN Reason: wheezing Last Admin: 08/04/24 10:17 Dose: 2 puff Apixaban (Apixaban 5 Mg Tablet) 5 mg PO BID [facility] Last Admin: 08/07/24 08:22 Dose: 5 mg Brexpiprazole (Brexpiprazole 1 Mg Tablet) 1.5 mg PO DAILY [facility] Last Admin: 08/07/24 08:21 Dose: 1.5 mg Buspirone HCl (Buspirone Hcl 10 Mg Tablet) 10 mg PO BID [facility] Last Admin: 08/07/24 08:22 Dose: 10 mg Clonazepam (Clonazepam 0.5 Mg Tablet) 0.5 mg PO BID PRN PRN Reason: moderate anxiety Last Admin: 08/05/24 14:07 Dose: 0.5 mg Clotrimazole (Clotrimazole 1 % Cream 15 Gm Tube) 1 appl TOPICAL BID [facility]; Protocol Last Admin: 08/07/24 12:59 Dose: 1 appl Duloxetine HCl (Duloxetine Hcl 60 Mg Capsule.Dr) 60 mg PO BID [facility] Last Admin: 08/07/24 08:22 Dose: 60 mg Furosemide (Furosemide 20 Mg Tablet) 20 mg PO DAILY [facility]; Protocol Last Admin: 08/07/24 12:55 Dose: 20 mg Gabapentin (Gabapentin 300 Mg Capsule) 300 mg PO TID [facility] Last Admin: 08/07/24 15:11 Dose: 300 mg Hydroxyzine HCl (Hydroxyzine Hcl 25 Mg Tablet) 25 mg PO Q6H PRN PRN Reason: mild anxiety Last Admin: 08/03/24 16:41 Dose: 25 mg Insulin Human Lispro (Insulin Lispro 100 Unit/Ml 3 Ml Vial) 0 unit SUBCUT QIDACHS [facility]; Protocol Last Admin: 08/07/24 12:41 Dose: Not Given Lisinopril (Lisinopril 2.5 Mg Tablet) 2.5 mg PO DAILY [facility]; Protocol Last Admin: 08/07/24 08:22 Dose: 2.5 mg Magnesium Hydroxide (Milk Of Magnesia 30 Ml Oral.Susp) 30 ml PO DAILY PRN PRN Reason: Constipation Metoprolol Tartrate (Metoprolol Tartrate 25 Mg Tablet) 25 mg PO BID [facility]; Protocol Last Admin: 08/07/24 08:22 Dose: 25 mg Nicotine (Nicotine 21 Mg Patch.Td24) 21 mg TRANSDERMA DAILY PRN PRN Reason: smoking cessation Last Admin: 08/04/24 10:12 Dose: 21 mg Nicotine Polacrilex (Nicotine Polacrilex 2 Mg Gum) 4 mg BUCCAL Q2H PRN PRN Reason: Nicotine Cravings Pt Own (Umeclidinium -Vilanterol [Anoro Ellipta] 62.5-25 Mcg /Actuation Bl 1 each INHALE RDAILY [facility] Last Admin: 08/07/24 08:21 Dose: 1 each Pt Own(Buprenorphine 20 Mcg/Hour Patch Weekly) 1 patch TOPICAL Q7D [facility] Last Admin: 08/03/24 17:57 Dose: 1 patch Omeprazole (Omeprazole 20 Mg Capsule.Dr) 20 mg PO DAILY@0630 [facility] Last Admin: 08/07/24 06:27 Dose: 20 mg Salmeterol Xinafoate (Salmeterol Xinafoate 50 Mcg Blst.W.Dev) 1 puff INHALE RBID [facility] Last Admin: 08/07/24 08:21 Dose: 1 puff Tramadol HCl (Tramadol Hcl 50 Mg Tablet) 25 mg PO Q6H PRN PRN Reason: severe pain (pain scale 7-10) Last Admin: 08/07/24 15:11 Dose: 25 mg Trazodone HCl (Trazodone Hcl 50 Mg Tablet) 50 mg PO BEDTIME MRX1 PRN PRN Reason: Insomnia Last Admin: 08/05/24 23:00 Dose: 50 mg Allergies Allergies Allergy/AdvReac Type Severity Reaction Status Date / Time bupropion Allergy Unknown Verified 07/10/24 11:18 codeine Allergy Unknown Verified 07/10/24 11:18 diclofenac Allergy Unknown Verified 07/10/24 11:18 divalproex sodium Allergy Unknown Verified 07/10/24 11:18 [From Depakote] doxepin [From Silenor] Allergy Unknown Verified 07/10/24 11:18 famotidine Allergy Unknown Verified 07/10/24 11:18 meloxicam Allergy Unknown Verified 07/10/24 11:18 naproxen Allergy Unknown Verified 07/10/24 11:18 nortriptyline Allergy Unknown Verified 07/10/24 11:18 oxycodone Allergy Unknown Verified 07/10/24 11:18 sertraline Allergy Unknown Verified 07/10/24 11:18 topiramate Allergy Unknown Verified 07/10/24 11:18 Assessment & Plan Assessment & Plan (1) Major depression, chronic: Status: Acute Code(s): F32.9 - Major depressive disorder, single episode, unspecified (2) Intentional olanzapine overdose: Status: Acute Code(s): T43.592A - Poisoning by other antipsychotics and neuroleptics, intentional self-harm, initial encounter Plan Admit on a voluntary status. Will need PT consult given deconditioning. 15 minutes checks. Patient is unsure about current med regimen but noted above and as per patient is on Rexulti, Lamictal, duloxetine, Klonopin, BuSpar on and gabapentin pre-admission. As per [facility] was being prescribed Klonopin 1 mg 3 times per day, gabapentin 800 mg, Suboxone 20 micro Jake patch weekly. Current med regimen is Rexulti 1.5 mg, buspirone 10 mg twice daily, Klonopin 0.5 mg 2 times per day as needed, Cymbalta 60 mg twice daily and gabapentin 300 mg twice daily. Has not received lamotrigine since admission to the Medical floor. Has a well established psychiatrist she has been working with for many years. Patient would like treatment team to work with psychiatrist around medication regimen and changes. In context of same will not make any medication changes 08/03/24: buprenorphine patch ordered for 12/26 back pain. Patient stabilized on this in the community 08/04 continue tx. reports current medication for mood have been helpful. 08/05 continue tx. 08/06 continue tx. 08/07 continue tx. increased gabapentin 800mg po TID. Reason for continued inpatient stay Substantial Risk for: inability to function Time Spent With Patient Time: Total time managing care of this patient today ____ minutes.
[2024-08-07 16:57] LABS: Glucose, Whole Blood 122 mg/dL (60-115)
[2024-08-07 20:30] VITALS: BP 122/72; PULSE 110; RESP 16; TEMP 36.2; O2SAT 96
[2024-08-07 20:32] VITALS: BP 122/72; PULSE 110
[2024-08-07] MEDS: Gabapentin 400 MG CAPSULE 800 MG PO (20:33)
[2024-08-07 21:02] LABS: Glucose, Whole Blood 150 mg/dL (60-115)
[2024-08-08 05:49] LABS: Hematocrit 34.9 % (37.0-47.0); Mean Corpuscular HGB Conc 34.4 g/dl (31.0-35.0); Mean Corpuscular Hemoglobin 33.5 pg (27.0-33.0); Mean Corpuscular Volume 97.5 fL (80.0-98.0); Mean Platelet Volume 8.7 fL (9.4-12.3); Platelet Count 249 X10*3/uL (160-400); Red Blood Count 3.58 X10*6/uL (4.20-5.50); Red Cell Distribution Width 13.2 % (11.0-16.0); White Blood Count 7.4 X10*3/uL (4.8-10.8)
[2024-08-08 05:58] LABS: Anion Gap 15 (12-20); Blood Urea Nitrogen 12 mg/dL (9-16); Carbon Dioxide 23 mmol/L (22-29); Chloride 105 mmol/L (96-108); Creatinine Clr Calc Pharmacy 139.3; Estimated Glomerular Filt Rate > 60; Glucose Random 120 mg/dL (60-115); Potassium 4.3 mmol/L (3.3-5.1); Sodium 139 mmol/L (135-145)
[2024-08-08] MEDS: Omeprazole 20 MG CAPSULE.DR PO (06:13)
[2024-08-08 06:20] LABS: Glucose, Whole Blood 114 mg/dL (60-115)
[2024-08-08 07:50] VITALS: BP 126/62; PULSE 106; RESP 20; TEMP 36.3; O2SAT 97
[2024-08-08] MEDS: Furosemide 20 MG TABLET PO (08:10)
[2024-08-08] MEDS: Brexpiprazole 1 MG TABLET 1.5 MG PO (08:10)
[2024-08-08] MEDS: PT OWN (Umeclidinium-Vilanterol [Anoro Ellipta] 62.5-25 mcg/actuation bl 1 EACH INHALE (08:10)
[2024-08-08] MEDS: lisinopriL 2.5 MG TABLET PO (08:10)
[2024-08-08] MEDS: Gabapentin 400 MG CAPSULE 800 MG PO ×3 (08:10→20:48)
[2024-08-08] MEDS: busPIRone HCl 10 MG TABLET PO ×2 (08:10→20:48)
[2024-08-08] MEDS: Metoprolol Tartrate 25 MG TABLET PO ×2 (08:10→20:49)
[2024-08-08] MEDS: Apixaban 5 MG TABLET PO ×2 (08:10→20:49)
[2024-08-08] MEDS: DULoxetine HCl 60 MG CAPSULE.DR PO ×2 (08:10→20:48)
[2024-08-08] MEDS: Salmeterol Xinafoate 50 MCG BLST.W.DEV 1 PUFF INHALE ×2 (08:15→21:10)
[2024-08-08] MEDS: Loperamide HCl 2 MG CAPSULE PO (10:43)
[2024-08-08] MEDS: Clotrimazole 1 % Cream 15 GM TUBE 1 APPL TOPICAL (10:44)
[2024-08-08 10:53] VITALS: BP 126/62; PULSE 106; O2SAT 97
--- NOTE | 2024-08-08 11:08 | HO.PSYCHPN ---
Subjective Subjective Date of Service: 08/08/24 Reason For Visit: Decompensated Subjective Notes: Conditional Voluntary Interim History: Pt reports she had some difficulty sleeping due to pain. gabapentin increased back to 800mg po TID- reports is helping. She denies SI/HI. However, she is frustrated and saddened about chronic pain and worsening of medical condition affecting her quality of life. She has been eating well. She reports she is anxious. loose stools- given loperamide Review of Systems Review of Systems Denies any shortness of breath, chest pain, dizziness, lightheadedness, abdominal pain or discomfort, nausea vomiting or diarrhea Mental Status Exam Mental Status Exam Narrative: Appearance: MO, sitting in recliner, somewhat anxious looking, in NAD Behavior: mildly guarded Psychomotor: no tremors noted, no agitation or retardation noted Speech: clear, normal rate/rhythm/volume, spontaneous TP: mostly linear TC: worried about physical health Mood: anxious Affect: congruent SI: adamantly denies HI: none VH/AH: none Delusions: none Insight/judgment: fair x 2. Memory/cog: alert, oriented to place, month, year, situation. Diagnostics Vital Signs (24Hr): Vital Signs - 24 hr 08/07/24 20:30 08/07/24 20:32 08/08/24 07:50 Temperature 97.1 F 97.3 F Pulse Rate 110 H 110 H 106 H Respiratory Rate 16 20 Blood Pressure 122/72 122/72 126/62 Pulse Oximetry 96 97 Oxygen Delivery Method Room Air Room Air 08/08/24 10:53 Temperature Pulse Rate 106 H Respiratory Rate Blood Pressure 126/62 Pulse Oximetry 97 Oxygen Delivery Method BMI result Body Mass Index 46.0 Labs 08/08/24 05:40 08/08/24 05:40 Labs: Laboratory Results - last 48 hr 08/06/24 08/06/24 08/06/24 11:09 16:07 20:29 WBC RBC Hgb Hct MCV MCH MCHC RDW Plt Count MPV Absolute Nucleated RBC Nucleated RBC % (auto) Sodium Potassium Chloride Carbon Dioxide Anion Gap BUN Creatinine Estim Creat Clear Calc Estimated GFR POC Glucose 115 179 H 118 H Random Glucose Calcium 08/07/24 08/07/24 08/07/24 06:26 11:27 16:54 WBC RBC Hgb Hct MCV MCH MCHC RDW Plt Count MPV Absolute Nucleated RBC Nucleated RBC % (auto) Sodium Potassium Chloride Carbon Dioxide Anion Gap BUN Creatinine Estim Creat Clear Calc Estimated GFR POC Glucose 127 H 101 122 H Random Glucose Calcium 08/07/24 08/08/24 08/08/24 20:54 05:40 06:16 WBC 7.4 RBC 3.58 L Hgb 12.0 Hct 34.9 L MCV 97.5 MCH 33.5 H MCHC 34.4 RDW 13.2 Plt Count 249 D MPV 8.7 L Absolute Nucleated RBC 0.000 Nucleated RBC % (auto) 0.0 Sodium 139 Potassium 4.3 Chloride 105 Carbon Dioxide 23 Anion Gap 15 BUN 12 Creatinine 0.64 Estim Creat Clear Calc 139.3 Estimated GFR > 60 POC Glucose 150 H 114 Random Glucose 120 H Calcium 9.0 Medications Medications Current Medications Acetaminophen (Acetaminophen 325 Mg Tablet) 650 mg PO Q6H PRN PRN Reason: Headache/Pain, Scale 1-10 Last Admin: 08/05/24 22:59 Dose: 650 mg Al Hydroxide/Mg Hydroxide (Magnesium Hydrox/Alum Hydrox 30 Ml Oral.Susp) 30 ml PO Q6H PRN PRN Reason: Heartburn/Nausea Albuterol Sulfate (Albuterol Sulfate 90 Mcg 8 Gm Inhaler) 2 puff INHALE QID PRN PRN Reason: wheezing Last Admin: 08/04/24 10:17 Dose: 2 puff Apixaban (Apixaban 5 Mg Tablet) 5 mg PO BID [facility] Last Admin: 08/08/24 08:10 Dose: 5 mg Brexpiprazole (Brexpiprazole 1 Mg Tablet) 1.5 mg PO DAILY [facility] Last Admin: 08/08/24 08:10 Dose: 1.5 mg Buspirone HCl (Buspirone Hcl 10 Mg Tablet) 10 mg PO BID [facility] Last Admin: 08/08/24 08:10 Dose: 10 mg Clonazepam (Clonazepam 0.5 Mg Tablet) 0.5 mg PO BID PRN PRN Reason: moderate anxiety Last Admin: 08/05/24 14:07 Dose: 0.5 mg Clotrimazole (Clotrimazole 1 % Cream 15 Gm Tube) 1 appl TOPICAL BID [facility]; Protocol Last Admin: 08/08/24 10:44 Dose: 1 appl Duloxetine HCl (Duloxetine Hcl 60 Mg Capsule.Dr) 60 mg PO BID [facility] Last Admin: 08/08/24 08:10 Dose: 60 mg Furosemide (Furosemide 20 Mg Tablet) 20 mg PO DAILY [facility]; Protocol Last Admin: 08/08/24 08:10 Dose: 20 mg Gabapentin (Gabapentin 400 Mg Capsule) 800 mg PO TID [facility] Last Admin: 08/08/24 08:10 Dose: 800 mg Hydroxyzine HCl (Hydroxyzine Hcl 25 Mg Tablet) 25 mg PO Q6H PRN PRN Reason: mild anxiety Last Admin: 08/03/24 16:41 Dose: 25 mg Insulin Human Lispro (Insulin Lispro 100 Unit/Ml 3 Ml Vial) 0 unit SUBCUT QIDACHS [facility]; Protocol Last Admin: 08/08/24 07:52 Dose: Not Given Lisinopril (Lisinopril 2.5 Mg Tablet) 2.5 mg PO DAILY [facility]; Protocol Last Admin: 08/08/24 08:10 Dose: 2.5 mg Loperamide HCl (Loperamide Hcl 2 Mg Capsule) 2 mg PO Q4H PRN PRN Reason: Loose Stool Last Admin: 08/08/24 10:43 Dose: 2 mg Magnesium Hydroxide (Milk Of Magnesia 30 Ml Oral.Susp) 30 ml PO DAILY PRN PRN Reason: Constipation Metoprolol Tartrate (Metoprolol Tartrate 25 Mg Tablet) 25 mg PO BID [facility]; Protocol Last Admin: 08/08/24 08:10 Dose: 25 mg Nicotine (Nicotine 21 Mg Patch.Td24) 21 mg TRANSDERMA DAILY PRN PRN Reason: smoking cessation Last Admin: 08/04/24 10:12 Dose: 21 mg Nicotine Polacrilex (Nicotine Polacrilex 2 Mg Gum) 4 mg BUCCAL Q2H PRN PRN Reason: Nicotine Cravings Pt Own (Umeclidinium -Vilanterol [Anoro Ellipta] 62.5-25 Mcg /Actuation Bl 1 each INHALE RDAILY [facility] Last Admin: 08/08/24 08:10 Dose: 1 each Pt Own(Buprenorphine 20 Mcg/Hour Patch Weekly) 1 patch TOPICAL Q7D [facility] Last Admin: 08/03/24 17:57 Dose: 1 patch Omeprazole (Omeprazole 20 Mg Capsule.Dr) 20 mg PO DAILY@0630 [facility] Last Admin: 08/08/24 06:13 Dose: 20 mg Salmeterol Xinafoate (Salmeterol Xinafoate 50 Mcg Blst.W.Dev) 1 puff INHALE RBID ROBI Last Admin: 08/08/24 08:15 Dose: 1 puff Tramadol HCl (Tramadol Hcl 50 Mg Tablet) 25 mg PO Q6H PRN PRN Reason: severe pain (pain scale 7-10) Last Admin: 08/07/24 20:40 Dose: 25 mg Trazodone HCl (Trazodone Hcl 50 Mg Tablet) 50 mg PO BEDTIME MRX1 PRN PRN Reason: Insomnia Last Admin: 08/05/24 23:00 Dose: 50 mg Allergies Allergies Allergy/AdvReac Type Severity Reaction Status Date / Time bupropion Allergy Unknown Verified 07/10/24 11:18 codeine Allergy Unknown Verified 07/10/24 11:18 diclofenac Allergy Unknown Verified 07/10/24 11:18 divalproex sodium Allergy Unknown Verified 07/10/24 11:18 [From Depakote] doxepin [From Silenor] Allergy Unknown Verified 07/10/24 11:18 famotidine Allergy Unknown Verified 07/10/24 11:18 meloxicam Allergy Unknown Verified 07/10/24 11:18 naproxen Allergy Unknown Verified 07/10/24 11:18 nortriptyline Allergy Unknown Verified 07/10/24 11:18 oxycodone Allergy Unknown Verified 07/10/24 11:18 sertraline Allergy Unknown Verified 07/10/24 11:18 topiramate Allergy Unknown Verified 07/10/24 11:18 Assessment & Plan Assessment & Plan (1) Major depression, chronic: Status: Acute Code(s): F32.9 - Major depressive disorder, single episode, unspecified (2) Intentional olanzapine overdose: Status: Acute Code(s): T43.592A - Poisoning by other antipsychotics and neuroleptics, intentional self-harm, initial encounter Plan Admit on a voluntary status. Will need PT consult given deconditioning. 15 minutes checks. Patient is unsure about current med regimen but noted above and as per patient is on Rexulti, Lamictal, duloxetine, Klonopin, BuSpar on and gabapentin pre-admission. As per [facility] was being prescribed Klonopin 1 mg 3 times per day, gabapentin 800 mg, Suboxone 20 micro Jake patch weekly. Current med regimen is Rexulti 1.5 mg, buspirone 10 mg twice daily, Klonopin 0.5 mg 2 times per day as needed, Cymbalta 60 mg twice daily and gabapentin 300 mg twice daily. Has not received lamotrigine since admission to the Medical floor. Has a well established psychiatrist she has been working with for many years. Patient would like treatment team to work with psychiatrist around medication regimen and changes. In context of same will not make any medication changes 08/03/24: buprenorphine patch ordered for 12/26 back pain. Patient stabilized on this in the community 08/04 continue tx. reports current medication for mood have been helpful. 08/05 continue tx. 08/06 continue tx. 08/07 continue tx. increased gabapentin 800mg po TID. 08/08 continue tx. loose stools, given loperamide Reason for continued inpatient stay Substantial Risk for: inability to function Time Spent With Patient Time: Total time managing care of this patient today ____ minutes.
[2024-08-08 11:23] LABS: Glucose, Whole Blood 124 mg/dL (60-115)
[2024-08-08 16:36] LABS: Glucose, Whole Blood 108 mg/dL (60-115)
[2024-08-08 20:00] VITALS: BP 130/64; PULSE 99; RESP 18; TEMP 36.4; O2SAT 94
[2024-08-08] MEDS: Acetaminophen 325 MG TABLET 650 MG PO (20:59)
[2024-08-08] MEDS: hydrOXYzine HCL 25 MG TABLET PO (21:01)
[2024-08-08 21:07] LABS: Glucose, Whole Blood 116 mg/dL (60-115)
[2024-08-09 06:50] LABS: Glucose, Whole Blood 111 mg/dL (60-115)
[2024-08-09] MEDS: Omeprazole 20 MG CAPSULE.DR PO (07:01)
[2024-08-09 07:15] LABS: Glucose, Whole Blood 140 mg/dL (60-115)
--- NOTE | 2024-08-09 07:20 | PC.NURSE ---
0650 PT had xlarge watery stool no temp 97.4 will monitor
[2024-08-09 08:00] VITALS: BP 132/72; PULSE 103; RESP 20; TEMP 36.6; O2SAT 97
[2024-08-09] MEDS: Gabapentin 400 MG CAPSULE 800 MG PO ×3 (08:43→20:42)
[2024-08-09] MEDS: DULoxetine HCl 60 MG CAPSULE.DR PO ×2 (08:43→20:43)
[2024-08-09] MEDS: lisinopriL 2.5 MG TABLET PO (08:43)
[2024-08-09] MEDS: Apixaban 5 MG TABLET PO ×2 (08:43→20:43)
[2024-08-09] MEDS: Loperamide HCl 2 MG CAPSULE PO (08:44)
[2024-08-09] MEDS: Metoprolol Tartrate 25 MG TABLET PO ×2 (08:44→20:43)
[2024-08-09] MEDS: Furosemide 20 MG TABLET PO (08:44)
[2024-08-09] MEDS: Brexpiprazole 1 MG TABLET 1.5 MG PO (08:44)
[2024-08-09] MEDS: Salmeterol Xinafoate 50 MCG BLST.W.DEV 1 PUFF INHALE ×2 (08:45→22:22)
[2024-08-09] MEDS: PT OWN (Umeclidinium-Vilanterol [Anoro Ellipta] 62.5-25 mcg/actuation bl 1 EACH INHALE (08:45)
--- NOTE | 2024-08-09 10:00 | HO.PSYCHPN ---
Subjective Subjective Date of Service: 08/09/24 Reason For Visit: Decompensated Interim History: Patient seen. Reports she is OK, a little bit better today. Observed in the common area eating. She reports her medications are working. Complains of chronic pain. Remains depressed. Denies SI. Medication Compliance: Yes Side effects from medications: No Review of Systems Review of Systems Denies any shortness of breath, chest pain, dizziness, lightheadedness, abdominal pain or discomfort, nausea vomiting or diarrhea Mental Status Exam Mental Status Exam Narrative: Appearance: MO, sitting in recliner, somewhat anxious looking, in NAD Behavior: mildly guarded Psychomotor: no tremors noted, no agitation or retardation noted Speech: clear, normal rate/rhythm/volume, spontaneous TP: mostly linear TC: worried about physical health Mood: anxious Affect: congruent SI: adamantly denies HI: none VH/AH: none Delusions: none Insight/judgment: fair x 2. Memory/cog: alert, oriented to place, month, year, situation. Patient Appearance: Well Grooomed Patient Orientation: Person, Place, Time and Situation Level of Consciousness: Alert Patient Behavior: Appropriate Mood Description: Depressed Affect Description: Depressed Patient Cognition Impaired: No Ability to Follow Directions: Good Speech Pattern: Clear Memory Description: Intact Diagnostics Vital Signs (24Hr): Vital Signs - 24 hr 08/08/24 10:53 08/08/24 20:00 Temperature 97.6 F Pulse Rate 106 H 99 Respiratory Rate 18 Blood Pressure 126/62 130/64 Pulse Oximetry 97 94 Oxygen Delivery Method Room Air BMI result Body Mass Index 46.0 Labs 08/08/24 05:40 08/08/24 05:40 Labs: Laboratory Results - last 48 hr 08/07/24 08/07/24 08/07/24 11:27 16:54 20:54 WBC RBC Hgb Hct MCV MCH MCHC RDW Plt Count MPV Absolute Nucleated RBC Nucleated RBC % (auto) Sodium Potassium Chloride Carbon Dioxide Anion Gap BUN Creatinine Estim Creat Clear Calc Estimated GFR POC Glucose 101 122 H 150 H Random Glucose Calcium 08/08/24 08/08/24 08/08/24 05:40 06:16 11:19 WBC 7.4 RBC 3.58 L Hgb 12.0 Hct 34.9 L MCV 97.5 MCH 33.5 H MCHC 34.4 RDW 13.2 Plt Count 249 D MPV 8.7 L Absolute Nucleated RBC 0.000 Nucleated RBC % (auto) 0.0 Sodium 139 Potassium 4.3 Chloride 105 Carbon Dioxide 23 Anion Gap 15 BUN 12 Creatinine 0.64 Estim Creat Clear Calc 139.3 Estimated GFR > 60 POC Glucose 114 124 H Random Glucose 120 H Calcium 9.0 08/08/24 08/08/24 08/09/24 16:32 20:58 06:31 WBC RBC Hgb Hct MCV MCH MCHC RDW Plt Count MPV Absolute Nucleated RBC Nucleated RBC % (auto) Sodium Potassium Chloride Carbon Dioxide Anion Gap BUN Creatinine Estim Creat Clear Calc Estimated GFR POC Glucose 108 116 H 111 Random Glucose Calcium 08/09/24 07:10 WBC RBC Hgb Hct MCV MCH MCHC RDW Plt Count MPV Absolute Nucleated RBC Nucleated RBC % (auto) Sodium Potassium Chloride Carbon Dioxide Anion Gap BUN Creatinine Estim Creat Clear Calc Estimated GFR POC Glucose 140 H Random Glucose Calcium Medications Medications Current Medications Acetaminophen (Acetaminophen 325 Mg Tablet) 650 mg PO Q6H PRN PRN Reason: Headache/Pain, Scale 1-10 Last Admin: 08/08/24 20:59 Dose: 650 mg Al Hydroxide/Mg Hydroxide (Magnesium Hydrox/Alum Hydrox 30 Ml Oral.Susp) 30 ml PO Q6H PRN PRN Reason: Heartburn/Nausea Albuterol Sulfate (Albuterol Sulfate 90 Mcg 8 Gm Inhaler) 2 puff INHALE QID PRN PRN Reason: wheezing Last Admin: 08/04/24 10:17 Dose: 2 puff Apixaban (Apixaban 5 Mg Tablet) 5 mg PO BID [facility] Last Admin: 08/09/24 08:43 Dose: 5 mg Brexpiprazole (Brexpiprazole 1 Mg Tablet) 1.5 mg PO DAILY [facility] Last Admin: 08/09/24 08:44 Dose: 1.5 mg Buspirone HCl (Buspirone Hcl 10 Mg Tablet) 10 mg PO BID [facility] Last Admin: 08/08/24 20:48 Dose: 10 mg Clonazepam (Clonazepam 0.5 Mg Tablet) 0.5 mg PO BID PRN PRN Reason: moderate anxiety Last Admin: 08/05/24 14:07 Dose: 0.5 mg Clotrimazole (Clotrimazole 1 % Cream 15 Gm Tube) 1 appl TOPICAL BID PRN; Protocol PRN Reason: rash Duloxetine HCl (Duloxetine Hcl 60 Mg Capsule.) 60 mg PO BID [facility] Last Admin: 08/09/24 08:43 Dose: 60 mg Furosemide (Furosemide 20 Mg Tablet) 20 mg PO DAILY [facility]; Protocol Last Admin: 08/09/24 08:44 Dose: 20 mg Gabapentin (Gabapentin 400 Mg Capsule) 800 mg PO TID [facility] Last Admin: 08/09/24 08:43 Dose: 800 mg Hydroxyzine HCl (Hydroxyzine Hcl 25 Mg Tablet) 25 mg PO Q6H PRN PRN Reason: mild anxiety Last Admin: 08/08/24 21:01 Dose: 25 mg Insulin Human Lispro (Insulin Lispro 100 Unit/Ml 3 Ml Vial) 0 unit SUBCUT QIDACHS [facility]; Protocol Last Admin: 08/09/24 07:14 Dose: Not Given Lisinopril (Lisinopril 2.5 Mg Tablet) 2.5 mg PO DAILY [facility]; Protocol Last Admin: 08/09/24 08:43 Dose: 2.5 mg Loperamide HCl (Loperamide Hcl 2 Mg Capsule) 2 mg PO Q4H PRN PRN Reason: Loose Stool Last Admin: 08/09/24 08:44 Dose: 2 mg Magnesium Hydroxide (Milk Of Magnesia 30 Ml Oral.Susp) 30 ml PO DAILY PRN PRN Reason: Constipation Metoprolol Tartrate (Metoprolol Tartrate 25 Mg Tablet) 25 mg PO BID [facility]; Protocol Last Admin: 08/09/24 08:44 Dose: 25 mg Nicotine (Nicotine 21 Mg Patch.Td24) 21 mg TRANSDERMA DAILY PRN PRN Reason: smoking cessation Last Admin: 08/04/24 10:12 Dose: 21 mg Nicotine Polacrilex (Nicotine Polacrilex 2 Mg Gum) 4 mg BUCCAL Q2H PRN PRN Reason: Nicotine Cravings Pt Own (Umeclidinium -Vilanterol [Anoro Ellipta] 62.5-25 Mcg /Actuation Bl 1 each INHALE RDAILY [facility] Last Admin: 08/09/24 08:45 Dose: 1 each Pt Own(Buprenorphine 20 Mcg/Hour Patch Weekly) 1 patch TOPICAL Q7D [facility] Last Admin: 08/03/24 17:57 Dose: 1 patch Omeprazole (Omeprazole 20 Mg Capsule.) 20 mg PO DAILY@0630 [facility] Last Admin: 08/09/24 07:01 Dose: 20 mg Salmeterol Xinafoate (Salmeterol Xinafoate 50 Mcg Blst.W.Dev) 1 puff INHALE RBID ROBI Last Admin: 08/09/24 08:45 Dose: 1 puff Tramadol HCl (Tramadol Hcl 50 Mg Tablet) 25 mg PO Q6H PRN PRN Reason: severe pain (pain scale 7-10) Last Admin: 08/07/24 20:40 Dose: 25 mg Trazodone HCl (Trazodone Hcl 50 Mg Tablet) 50 mg PO BEDTIME MRX1 PRN PRN Reason: Insomnia Last Admin: 08/05/24 23:00 Dose: 50 mg Allergies Allergies Allergy/AdvReac Type Severity Reaction Status Date / Time bupropion Allergy Unknown Verified 07/10/24 11:18 codeine Allergy Unknown Verified 07/10/24 11:18 diclofenac Allergy Unknown Verified 07/10/24 11:18 divalproex sodium Allergy Unknown Verified 07/10/24 11:18 [From Depakote] doxepin [From Silenor] Allergy Unknown Verified 07/10/24 11:18 famotidine Allergy Unknown Verified 07/10/24 11:18 meloxicam Allergy Unknown Verified 07/10/24 11:18 naproxen Allergy Unknown Verified 07/10/24 11:18 nortriptyline Allergy Unknown Verified 07/10/24 11:18 oxycodone Allergy Unknown Verified 07/10/24 11:18 sertraline Allergy Unknown Verified 07/10/24 11:18 topiramate Allergy Unknown Verified 07/10/24 11:18 Assessment & Plan Assessment & Plan (1) Major depression, chronic: Status: Resolved Code(s): F32.9 - Major depressive disorder, single episode, unspecified (2) Intentional olanzapine overdose: Status: Resolved Code(s): T43.592A - Poisoning by other antipsychotics and neuroleptics, intentional self-harm, initial encounter Plan Admit on a voluntary status. Will need PT consult given deconditioning. 15 minutes checks. Patient is unsure about current med regimen but noted above and as per patient is on Rexulti, Lamictal, duloxetine, Klonopin, BuSpar on and gabapentin pre-admission. As per [facility] was being prescribed Klonopin 1 mg 3 times per day, gabapentin 800 mg, Suboxone 20 micro Jake patch weekly. Current med regimen is Rexulti 1.5 mg, buspirone 10 mg twice daily, Klonopin 0.5 mg 2 times per day as needed, Cymbalta 60 mg twice daily and gabapentin 300 mg twice daily. Has not received lamotrigine since admission to the Medical floor. Has a well established psychiatrist she has been working with for many years. Patient would like treatment team to work with psychiatrist around medication regimen and changes. In context of same will not make any medication changes 08/03/24: buprenorphine patch ordered for 12/26 back pain. Patient stabilized on this in the community 08/04 continue tx. reports current medication for mood have been helpful. 08/05 continue tx. 08/06 continue tx. 08/07 continue tx. increased gabapentin 800mg po TID. 08/08 continue tx. loose stools, given loperamide 08/09: continue current management and treatment plan. Reason for continued inpatient stay Substantial Risk for: harm to self, inability to function, rapid decompensation and med/psych decompensation Time Spent With Patient Time: Total time managing care of this patient today ____ minutes.
[2024-08-09] MEDS: busPIRone HCl 10 MG TABLET PO ×2 (10:04→20:43)
[2024-08-09 10:11] VITALS: BP 132/72; PULSE 103; RESP 20; TEMP 36.6
[2024-08-09 11:23] LABS: Glucose, Whole Blood 105 mg/dL (60-115)
[2024-08-09 16:19] LABS: Glucose, Whole Blood 95 mg/dL (60-115)
[2024-08-09 20:00] VITALS: BP 124/60; PULSE 105; RESP 20; TEMP 36.4; O2SAT 93
[2024-08-09 20:30] LABS: Glucose, Whole Blood 132 mg/dL (60-115)
[2024-08-09 20:43] VITALS: BP 124/60; PULSE 105
[2024-08-09] MEDS: traMADoL HCL 50 MG TABLET 25 MG PO (20:46)
[2024-08-09] MEDS: clonazePAM 0.5 MG TABLET PO (22:32)
[2024-08-09] MEDS: Acetaminophen 325 MG TABLET 650 MG PO (22:32)
[2024-08-10] MEDS: Omeprazole 20 MG CAPSULE.DR PO (06:25)
[2024-08-10] MEDS: Loperamide HCl 2 MG CAPSULE PO (06:42)
[2024-08-10] MEDS: Acetaminophen 325 MG TABLET 650 MG PO ×2 (06:48→18:36)
[2024-08-10 06:57] LABS: Glucose, Whole Blood 121 mg/dL (60-115)
[2024-08-10 08:00] VITALS: BP 128/79; PULSE 99; RESP 20; TEMP 36.5; O2SAT 97
[2024-08-10] MEDS: lisinopriL 2.5 MG TABLET PO (08:48)
[2024-08-10] MEDS: Metoprolol Tartrate 25 MG TABLET PO ×2 (08:49→21:54)
[2024-08-10] MEDS: Brexpiprazole 1 MG TABLET 1.5 MG PO (08:49)
[2024-08-10] MEDS: Furosemide 20 MG TABLET PO (08:49)
[2024-08-10] MEDS: busPIRone HCl 10 MG TABLET PO ×2 (08:49→21:55)
[2024-08-10] MEDS: Gabapentin 400 MG CAPSULE 800 MG PO ×3 (08:50→21:53)
[2024-08-10] MEDS: DULoxetine HCl 60 MG CAPSULE.DR PO ×2 (08:50→21:54)
[2024-08-10] MEDS: PT OWN (Umeclidinium-Vilanterol [Anoro Ellipta] 62.5-25 mcg/actuation bl 1 EACH INHALE (08:52)
[2024-08-10] MEDS: Apixaban 5 MG TABLET PO ×2 (08:53→21:54)
[2024-08-10] MEDS: Salmeterol Xinafoate 50 MCG BLST.W.DEV 1 PUFF INHALE ×2 (08:53→21:52)
[2024-08-10 11:02] LABS: Glucose, Whole Blood 111 mg/dL (60-115)
--- NOTE | 2024-08-10 14:41 | HO.PSYCHPN ---
Subjective Subjective Date of Service: 08/10/24 Reason For Visit: Decompensated Interim History: Patient seen. Reports she is OK, a little bit better since coming into the hospital. She complains of chronic back pain. She uses Capsaicin and Ice for her back and requests both. Denies SI. chronic pain. Remains depressed. Review of Systems Review of Systems Denies any shortness of breath, chest pain, dizziness, lightheadedness, abdominal pain or discomfort, nausea vomiting or diarrhea Mental Status Exam Mental Status Exam Narrative: Appearance: MO, sitting in recliner, somewhat anxious looking, in NAD Behavior: mildly guarded Psychomotor: no tremors noted, no agitation or retardation noted Speech: clear, normal rate/rhythm/volume, spontaneous TP: mostly linear TC: worried about physical health Mood: anxious Affect: congruent SI: adamantly denies HI: none VH/AH: none Delusions: none Insight/judgment: fair x 2. Memory/cog: alert, oriented to place, month, year, situation. Patient Appearance: Well Grooomed Patient Orientation: Person, Place, Time and Situation Level of Consciousness: Alert Patient Behavior: Appropriate Mood Description: Depressed Affect Description: Depressed Patient Cognition Impaired: No Ability to Follow Directions: Good Speech Pattern: Clear Memory Description: Intact Diagnostics Vital Signs (24Hr): Vital Signs - 24 hr 08/09/24 20:00 08/09/24 20:43 08/10/24 08:00 Temperature 97.6 F 97.7 F Pulse Rate 105 H 105 H 99 Respiratory Rate 20 20 Blood Pressure 124/60 124/60 128/79 Pulse Oximetry 93 97 Oxygen Delivery Method Room Air Room Air BMI result Body Mass Index 46.0 Labs 08/08/24 05:40 08/08/24 05:40 Labs: Laboratory Results - last 48 hr 08/08/24 08/08/24 08/09/24 16:32 20:58 06:31 POC Glucose 108 116 H 111 08/09/24 08/09/24 08/09/24 07:10 11:20 16:14 POC Glucose 140 H 105 95 08/09/24 08/10/24 08/10/24 20:21 06:28 10:58 POC Glucose 132 H 121 H 111 Medications Medications Current Medications Acetaminophen (Acetaminophen 325 Mg Tablet) 650 mg PO Q6H PRN PRN Reason: Headache/Pain, Scale 1-10 Last Admin: 08/10/24 06:48 Dose: 650 mg Al Hydroxide/Mg Hydroxide (Magnesium Hydrox/Alum Hydrox 30 Ml Oral.Susp) 30 ml PO Q6H PRN PRN Reason: Heartburn/Nausea Albuterol Sulfate (Albuterol Sulfate 90 Mcg 8 Gm Inhaler) 2 puff INHALE QID PRN PRN Reason: wheezing Last Admin: 08/04/24 10:17 Dose: 2 puff Apixaban (Apixaban 5 Mg Tablet) 5 mg PO BID [facility] Last Admin: 08/10/24 08:53 Dose: 5 mg Brexpiprazole (Brexpiprazole 1 Mg Tablet) 1.5 mg PO DAILY [facility] Last Admin: 08/10/24 08:49 Dose: 1.5 mg Buspirone HCl (Buspirone Hcl 10 Mg Tablet) 10 mg PO BID [facility] Last Admin: 08/10/24 08:49 Dose: 10 mg Capsaicin (Capsaicin 0.025% Cream 60 Gm Tube) 1 appl TOPICAL TID PRN; Protocol PRN Reason: back pain Clonazepam (Clonazepam 0.5 Mg Tablet) 0.5 mg PO BID PRN PRN Reason: moderate anxiety Last Admin: 08/09/24 22:32 Dose: 0.5 mg Clotrimazole (Clotrimazole 1 % Cream 15 Gm Tube) 1 appl TOPICAL BID PRN; Protocol PRN Reason: rash Duloxetine HCl (Duloxetine Hcl 60 Mg Capsule.Dr) 60 mg PO BID [facility] Last Admin: 08/10/24 08:50 Dose: 60 mg Furosemide (Furosemide 20 Mg Tablet) 20 mg PO DAILY [facility]; Protocol Last Admin: 08/10/24 08:49 Dose: 20 mg Gabapentin (Gabapentin 400 Mg Capsule) 800 mg PO TID [facility] Last Admin: 08/10/24 08:50 Dose: 800 mg Hydroxyzine HCl (Hydroxyzine Hcl 25 Mg Tablet) 25 mg PO Q6H PRN PRN Reason: mild anxiety Last Admin: 08/08/24 21:01 Dose: 25 mg Insulin Human Lispro (Insulin Lispro 100 Unit/Ml 3 Ml Vial) 0 unit SUBCUT QIDACHS [facility]; Protocol Last Admin: 08/10/24 13:10 Dose: Not Given Lisinopril (Lisinopril 2.5 Mg Tablet) 2.5 mg PO DAILY [facility]; Protocol Last Admin: 08/10/24 08:48 Dose: 2.5 mg Loperamide HCl (Loperamide Hcl 2 Mg Capsule) 2 mg PO Q4H PRN PRN Reason: Loose Stool Last Admin: 08/10/24 06:42 Dose: 2 mg Magnesium Hydroxide (Milk Of Magnesia 30 Ml Oral.Susp) 30 ml PO DAILY PRN PRN Reason: Constipation Metoprolol Tartrate (Metoprolol Tartrate 25 Mg Tablet) 25 mg PO BID [facility]; Protocol Last Admin: 08/10/24 08:49 Dose: 25 mg Nicotine (Nicotine 21 Mg Patch.Td24) 21 mg TRANSDERMA DAILY PRN PRN Reason: smoking cessation Last Admin: 08/04/24 10:12 Dose: 21 mg Nicotine Polacrilex (Nicotine Polacrilex 2 Mg Gum) 4 mg BUCCAL Q2H PRN PRN Reason: Nicotine Cravings Pt Own (Umeclidinium -Vilanterol [Anoro Ellipta] 62.5-25 Mcg /Actuation Bl 1 each INHALE RDAILY [facility] Last Admin: 08/10/24 08:52 Dose: 1 each Pt Own(Buprenorphine 20 Mcg/Hour Patch Weekly) 1 patch TOPICAL Q7D [facility] Last Admin: 08/03/24 17:57 Dose: 1 patch Omeprazole (Omeprazole 20 Mg Capsule.Dr) 20 mg PO DAILY@0630 [facility] Last Admin: 08/10/24 06:25 Dose: 20 mg Salmeterol Xinafoate (Salmeterol Xinafoate 50 Mcg Blst.W.Dev) 1 puff INHALE RBID [facility] Last Admin: 08/10/24 08:53 Dose: 1 puff Tramadol HCl (Tramadol Hcl 50 Mg Tablet) 25 mg PO Q6H PRN PRN Reason: severe pain (pain scale 7-10) Last Admin: 08/09/24 20:46 Dose: 25 mg Trazodone HCl (Trazodone Hcl 50 Mg Tablet) 50 mg PO BEDTIME MRX1 PRN PRN Reason: Insomnia Last Admin: 08/05/24 23:00 Dose: 50 mg Allergies Allergies Allergy/AdvReac Type Severity Reaction Status Date / Time bupropion Allergy Unknown Verified 07/10/24 11:18 codeine Allergy Unknown Verified 07/10/24 11:18 diclofenac Allergy Unknown Verified 07/10/24 11:18 divalproex sodium Allergy Unknown Verified 07/10/24 11:18 [From Depakote] doxepin [From Silenor] Allergy Unknown Verified 07/10/24 11:18 famotidine Allergy Unknown Verified 07/10/24 11:18 meloxicam Allergy Unknown Verified 07/10/24 11:18 naproxen Allergy Unknown Verified 07/10/24 11:18 nortriptyline Allergy Unknown Verified 07/10/24 11:18 oxycodone Allergy Unknown Verified 07/10/24 11:18 sertraline Allergy Unknown Verified 07/10/24 11:18 topiramate Allergy Unknown Verified 07/10/24 11:18 Assessment & Plan Assessment & Plan (1) Major depression, chronic: Status: Resolved Code(s): F32.9 - Major depressive disorder, single episode, unspecified (2) Intentional olanzapine overdose: Status: Resolved Code(s): T43.592A - Poisoning by other antipsychotics and neuroleptics, intentional self-harm, initial encounter Plan Admit on a voluntary status. Will need PT consult given deconditioning. 15 minutes checks. Patient is unsure about current med regimen but noted above and as per patient is on Rexulti, Lamictal, duloxetine, Klonopin, BuSpar on and gabapentin pre-admission. As per [facility] was being prescribed Klonopin 1 mg 3 times per day, gabapentin 800 mg, Suboxone 20 micro Jake patch weekly. Current med regimen is Rexulti 1.5 mg, buspirone 10 mg twice daily, Klonopin 0.5 mg 2 times per day as needed, Cymbalta 60 mg twice daily and gabapentin 300 mg twice daily. Has not received lamotrigine since admission to the Medical floor. Has a well established psychiatrist she has been working with for many years. Patient would like treatment team to work with psychiatrist around medication regimen and changes. In context of same will not make any medication changes 08/03/24: buprenorphine patch ordered for 12/26 back pain. Patient stabilized on this in the community 08/04 continue tx. reports current medication for mood have been helpful. 08/05 continue tx. 08/06 continue tx. 08/07 continue tx. increased gabapentin 800mg po TID. 08/08 continue tx. loose stools, given loperamide 08/09: continue current management and treatment plan. 08/10: Capsaicin and ice for back pain. continue current management and treatment plan. Reason for continued inpatient stay Substantial Risk for: harm to self, inability to function and rapid decompensation Time Spent With Patient Time: Total time managing care of this patient today ____ minutes.
[2024-08-10 16:33] LABS: Glucose, Whole Blood 118 mg/dL (60-115)
[2024-08-10] MEDS: BUPRENORPHINE 1 EACH TOPICAL (18:25)
[2024-08-10] MEDS: traMADoL HCL 50 MG TABLET 25 MG PO (18:36)
[2024-08-10 20:00] VITALS: BP 125/58; PULSE 100; RESP 18; TEMP 36.6; O2SAT 95
[2024-08-10 20:04] LABS: Glucose, Whole Blood 148 mg/dL (60-115)
[2024-08-10 21:54] VITALS: BP 125/58; PULSE 100
[2024-08-10] MEDS: traZODone HCL 50 MG TABLET PO (21:55)
[2024-08-11] MEDS: Omeprazole 20 MG CAPSULE.DR PO (06:34)
[2024-08-11 06:45] LABS: Glucose, Whole Blood 132 mg/dL (60-115)
[2024-08-11 08:25] VITALS: BP 119/67; PULSE 105; RESP 18; TEMP 36.4; O2SAT 97
[2024-08-11] MEDS: Apixaban 5 MG TABLET PO ×2 (08:27→20:59)
[2024-08-11] MEDS: Furosemide 20 MG TABLET PO (08:27)
[2024-08-11] MEDS: lisinopriL 2.5 MG TABLET PO (08:27)
[2024-08-11] MEDS: Gabapentin 400 MG CAPSULE 800 MG PO ×3 (08:27→20:57)
[2024-08-11] MEDS: busPIRone HCl 10 MG TABLET PO ×2 (08:27→20:58)
[2024-08-11] MEDS: Metoprolol Tartrate 25 MG TABLET PO ×2 (08:27→20:58)
[2024-08-11] MEDS: DULoxetine HCl 60 MG CAPSULE.DR PO ×2 (08:28→20:57)
[2024-08-11] MEDS: Brexpiprazole 1 MG TABLET 1.5 MG PO (08:30)
[2024-08-11] MEDS: PT OWN (Umeclidinium-Vilanterol [Anoro Ellipta] 62.5-25 mcg/actuation bl 1 EACH INHALE (08:32)
[2024-08-11] MEDS: Salmeterol Xinafoate 50 MCG BLST.W.DEV 1 PUFF INHALE ×2 (08:36→20:57)
[2024-08-11] MEDS: Capsaicin 0.025% Cream 60 GM TUBE 1 APPL TOPICAL ×2 (09:12→15:55)
--- NOTE | 2024-08-11 09:34 | P.PNPSI_ITS ---
Subjective Subjective Date of Service: 08/11/24 Reason For Visit: Decompensated Interim History: Patient seen. Reports she got her capsaicin and it helped with her back pain and is thankful for that. Mood is better. Denies SI. chronic pain. Remains depressed. Review of Systems Review of Systems Denies any shortness of breath, chest pain, dizziness, lightheadedness, abdominal pain or discomfort, nausea vomiting or diarrhea Mental Status Exam Mental Status Exam Narrative: Appearance: MO, sitting in recliner, somewhat anxious looking, in NAD Behavior: mildly guarded Psychomotor: no tremors noted, no agitation or retardation noted Speech: clear, normal rate/rhythm/volume, spontaneous TP: mostly linear TC: worried about physical health Mood: anxious Affect: congruent SI: adamantly denies HI: none VH/AH: none Delusions: none Insight/judgment: fair x 2. Memory/cog: alert, oriented to place, month, year, situation. Patient Appearance: Well Grooomed Patient Orientation: Person, Place, Time and Situation Level of Consciousness: Alert Patient Behavior: Appropriate Mood Description: Depressed Affect Description: Depressed Patient Cognition Impaired: No Ability to Follow Directions: Good Speech Pattern: Clear Memory Description: Intact Diagnostics Vital Signs (24Hr): Vital Signs - 24 hr 08/10/24 20:00 08/10/24 21:54 08/11/24 08:25 Temperature 97.9 F 97.5 F Pulse Rate 100 100 105 H Respiratory Rate 18 18 Blood Pressure 125/58 L 125/58 L 119/67 Pulse Oximetry 95 97 Oxygen Delivery Method Room Air Room Air BMI result Body Mass Index 46.0 Labs 08/08/24 05:40 08/08/24 05:40 Labs: Laboratory Results - last 48 hr 08/09/24 08/09/24 08/09/24 11:20 16:14 20:21 POC Glucose 105 95 132 H 08/10/24 08/10/24 08/10/24 06:28 10:58 16:22 POC Glucose 121 H 111 118 H 08/10/24 08/11/24 20:00 06:33 POC Glucose 148 H 132 H Medications Medications Current Medications Acetaminophen (Acetaminophen 325 Mg Tablet) 650 mg PO Q6H PRN PRN Reason: Headache/Pain, Scale 1-10 Last Admin: 08/10/24 18:36 Dose: 650 mg Al Hydroxide/Mg Hydroxide (Magnesium Hydrox/Alum Hydrox 30 Ml Oral.Susp) 30 ml PO Q6H PRN PRN Reason: Heartburn/Nausea Albuterol Sulfate (Albuterol Sulfate 90 Mcg 8 Gm Inhaler) 2 puff INHALE QID PRN PRN Reason: wheezing Last Admin: 08/04/24 10:17 Dose: 2 puff Apixaban (Apixaban 5 Mg Tablet) 5 mg PO BID [facility] Last Admin: 08/11/24 08:27 Dose: 5 mg Brexpiprazole (Brexpiprazole 1 Mg Tablet) 1.5 mg PO DAILY [facility] Last Admin: 08/11/24 08:30 Dose: 1.5 mg Buspirone HCl (Buspirone Hcl 10 Mg Tablet) 10 mg PO BID [facility] Last Admin: 08/11/24 08:27 Dose: 10 mg Capsaicin (Capsaicin 0.025% Cream 60 Gm Tube) 1 appl TOPICAL TID PRN; Protocol PRN Reason: back pain Last Admin: 08/11/24 09:12 Dose: 1 appl Clonazepam (Clonazepam 0.5 Mg Tablet) 0.5 mg PO BID PRN PRN Reason: moderate anxiety Last Admin: 08/09/24 22:32 Dose: 0.5 mg Clotrimazole (Clotrimazole 1 % Cream 15 Gm Tube) 1 appl TOPICAL BID PRN; Protocol PRN Reason: rash Duloxetine HCl (Duloxetine Hcl 60 Mg Capsule.Dr) 60 mg PO BID [facility] Last Admin: 08/11/24 08:28 Dose: 60 mg Furosemide (Furosemide 20 Mg Tablet) 20 mg PO DAILY [facility]; Protocol Last Admin: 08/11/24 08:27 Dose: 20 mg Gabapentin (Gabapentin 400 Mg Capsule) 800 mg PO TID [facility] Last Admin: 08/11/24 08:27 Dose: 800 mg Hydroxyzine HCl (Hydroxyzine Hcl 25 Mg Tablet) 25 mg PO Q6H PRN PRN Reason: mild anxiety Last Admin: 08/08/24 21:01 Dose: 25 mg Insulin Human Lispro (Insulin Lispro 100 Unit/Ml 3 Ml Vial) 0 unit SUBCUT QIDACHS [facility]; Protocol Last Admin: 08/11/24 07:36 Dose: Not Given Lisinopril (Lisinopril 2.5 Mg Tablet) 2.5 mg PO DAILY [facility]; Protocol Last Admin: 05/26/25 08:27 Dose: 2.5 mg Loperamide HCl (Loperamide Hcl 2 Mg Capsule) 2 mg PO Q4H PRN PRN Reason: Loose Stool Last Admin: 08/10/24 06:42 Dose: 2 mg Magnesium Hydroxide (Milk Of Magnesia 30 Ml Oral.Susp) 30 ml PO DAILY PRN PRN Reason: Constipation Metoprolol Tartrate (Metoprolol Tartrate 25 Mg Tablet) 25 mg PO BID [facility]; Protocol Last Admin: 08/11/24 08:27 Dose: 25 mg Nicotine (Nicotine 21 Mg Patch.Td24) 21 mg TRANSDERMA DAILY PRN PRN Reason: smoking cessation Last Admin: 08/04/24 10:12 Dose: 21 mg Nicotine Polacrilex (Nicotine Polacrilex 2 Mg Gum) 4 mg BUCCAL Q2H PRN PRN Reason: Nicotine Cravings Pt Own (Umeclidinium -Vilanterol [Anoro Ellipta] 62.5-25 Mcg /Actuation Bl 1 each INHALE RDAILY [facility] Last Admin: 08/11/24 08:32 Dose: 1 each Pt Own(Buprenorphine 20 Mcg/Hour Patch Weekly) 1 patch TOPICAL Q7D [facility] Last Admin: 08/10/24 18:25 Dose: 1 patch Omeprazole (Omeprazole 20 Mg Capsule.Dr) 20 mg PO DAILY@0630 [facility] Last Admin: 08/11/24 06:34 Dose: 20 mg Salmeterol Xinafoate (Salmeterol Xinafoate 50 Mcg Blst.W.Dev) 1 puff INHALE RBID [facility] Last Admin: 08/11/24 08:36 Dose: 1 puff Tramadol HCl (Tramadol Hcl 50 Mg Tablet) 25 mg PO Q6H PRN PRN Reason: severe pain (pain scale 7-10) Last Admin: 08/10/24 18:36 Dose: 25 mg Trazodone HCl (Trazodone Hcl 50 Mg Tablet) 50 mg PO BEDTIME MRX1 PRN PRN Reason: Insomnia Last Admin: 08/10/24 21:55 Dose: 50 mg Allergies Allergies Allergy/AdvReac Type Severity Reaction Status Date / Time bupropion Allergy Unknown Verified 07/10/24 11:18 codeine Allergy Unknown Verified 07/10/24 11:18 diclofenac Allergy Unknown Verified 07/10/24 11:18 divalproex sodium Allergy Unknown Verified 07/10/24 11:18 [From Depakote] doxepin [From Silenor] Allergy Unknown Verified 07/10/24 11:18 famotidine Allergy Unknown Verified 07/10/24 11:18 meloxicam Allergy Unknown Verified 07/10/24 11:18 naproxen Allergy Unknown Verified 07/10/24 11:18 nortriptyline Allergy Unknown Verified 07/10/24 11:18 oxycodone Allergy Unknown Verified 07/10/24 11:18 sertraline Allergy Unknown Verified 07/10/24 11:18 topiramate Allergy Unknown Verified 07/10/24 11:18 Assessment & Plan Assessment & Plan (1) Major depression, chronic: Status: Resolved Code(s): F32.9 - Major depressive disorder, single episode, unspecified (2) Intentional olanzapine overdose: Status: Resolved Code(s): T43.592A - Poisoning by other antipsychotics and neuroleptics, intentional self- harm, initial encounter Plan Admit on a voluntary status. Will need PT consult given deconditioning. 15 minutes checks. Patient is unsure about current med regimen but noted above and as per patient is on Rexulti, Lamictal, duloxetine, Klonopin, BuSpar on and gabapentin pre-admission. As per [facility] was being prescribed Klonopin 1 mg 3 times per day, gabapentin 800 mg, Suboxone 20 micro Jake patch weekly. Current med regimen is Rexulti 1.5 mg, buspirone 10 mg twice daily, Klonopin 0.5 mg 2 times per day as needed, Cymbalta 60 mg twice daily and gabapentin 300 mg twice daily. Has not received lamotrigine since admission to the Medical floor. Has a well established psychiatrist she has been working with for many years. Patient would like treatment team to work with psychiatrist around medication regimen and changes. In context of same will not make any medication changes 08/03/24: buprenorphine patch ordered for 12/26 back pain. Patient stabilized on this in the community 08/04 continue tx. reports current medication for mood have been helpful. 08/05 continue tx. 08/06 continue tx. 08/07 continue tx. increased gabapentin 800mg po TID. 08/08 continue tx. loose stools, given loperamide 08/09: continue current management and treatment plan. 08/10: Capsaicin and ice for back pain. continue current management and treatment plan. 08/11: continue current management and treatment plan. Reason for continued inpatient stay Substantial Risk for: harm to self and rapid decompensation Time Spent With Patient Time: Total time managing care of this patient today ____ minutes.
--- NOTE | 2024-08-11 10:04 | PC.NURSE ---
This nurse spoke with patients daughter this morning regarding needing a refill of pt's Anoro inhaler brought in.
[2024-08-11 11:28] LABS: Glucose, Whole Blood 100 mg/dL (60-115)
[2024-08-11] MEDS: traMADoL HCL 50 MG TABLET 25 MG PO (15:01)
[2024-08-11 16:19] LABS: Glucose, Whole Blood 114 mg/dL (60-115)
[2024-08-11 19:49] LABS: Glucose, Whole Blood 132 mg/dL (60-115)
[2024-08-11 20:00] VITALS: BP 123/62; PULSE 102; RESP 18; TEMP 36.6; O2SAT 94
[2024-08-11] MEDS: traZODone HCL 50 MG TABLET PO (20:57)
[2024-08-11 20:58] VITALS: BP 123/62; PULSE 102
[2024-08-12] MEDS: Loperamide HCl 2 MG CAPSULE PO ×2 (06:23→09:24)
[2024-08-12] MEDS: Omeprazole 20 MG CAPSULE.DR PO (06:23)
[2024-08-12 08:05] LABS: Glucose, Whole Blood 133 mg/dL (60-115)
[2024-08-12 08:38] VITALS: BP 139/60; PULSE 106; RESP 18; TEMP 36.6; O2SAT 98
[2024-08-12] MEDS: Brexpiprazole 1 MG TABLET 1.5 MG PO (09:21)
[2024-08-12] MEDS: Salmeterol Xinafoate 50 MCG BLST.W.DEV 1 PUFF INHALE (09:21)
[2024-08-12] MEDS: Apixaban 5 MG TABLET PO (09:23)
[2024-08-12] MEDS: busPIRone HCl 10 MG TABLET PO (09:23)
[2024-08-12] MEDS: lisinopriL 2.5 MG TABLET PO (09:23)
[2024-08-12] MEDS: Gabapentin 400 MG CAPSULE 800 MG PO (09:23)
[2024-08-12] MEDS: DULoxetine HCl 60 MG CAPSULE.DR PO (09:24)
[2024-08-12] MEDS: Metoprolol Tartrate 25 MG TABLET PO (09:25)
[2024-08-12] MEDS: Furosemide 20 MG TABLET PO (09:25)
--- NOTE | 2024-08-12 09:46 | P.DS_ITS ---
DS: Providers Provider Date of Service: 08/12/24 Date of admission: 08/01/24 20:56 Date of discharge: 08/12/24 Primary care physician: Unknown Physician DS: Diagnosis Discharge Diagnosis (1) Major depression, chronic: Status: Resolved (2) Intentional olanzapine overdose: Status: Resolved DS: Medications Discharge Medications Home Medications: Home Medications ?Medication ?Instructions ?Recorded ?Confirmed albuterol sulfate 90 mcg/actuation 2 puff inhalation QID PRN wheezing 08/01/24 08/01/24 aerosol inhaler (Ventolin HFA) apixaban 5 mg tablet (Eliquis) 5 mg PO BID 08/01/24 08/01/24 atorvastatin 20 mg tablet 20 mg PO QAM 08/01/24 08/01/24 brexpiprazole 1 mg tablet (Rexulti) 1.5 mg PO DAILY 08/01/24 08/01/24 buprenorphine 20 mcg/hour weekly 1 patch topical QWEEK 08/01/24 08/01/24 transdermal patch buspirone 10 mg tablet 10 mg PO BID 08/01/24 08/01/24 clonazepam 1 mg tablet 1 mg PO TID 08/01/24 08/01/24 clotrimazole 1 % topical cream 1 appl topical BID 08/01/24 08/01/24 duloxetine 60 mg capsule,delayed 60 mg PO BID 08/01/24 08/01/24 release furosemide 20 mg tablet 20 mg PO DAILY 08/01/24 08/01/24 gabapentin 800 mg tablet 800 mg PO TID 08/01/24 08/01/24 insulin lispro 100 unit/mL See Protocol subcut QIDACHS 08/01/24 08/01/24 subcutaneous solution (Humalog U-100 Insulin) lamotrigine 150 mg tablet 150 mg PO BID 08/01/24 08/01/24 lisinopril 5 mg tablet 5 mg PO QAM 08/01/24 08/01/24 metoprolol succinate 25 mg 100 mg PO DAILY 08/01/24 08/01/24 tablet,extended release 24 hr omeprazole 20 mg capsule,delayed 20 mg PO DAILY 08/01/24 08/01/24 release oxybutynin chloride 10 mg 10 mg PO DAILY 08/01/24 08/01/24 tablet,extended release 24 hr tizanidine 4 mg tablet 4 mg PO Q6H 08/01/24 08/01/24 umeclidinium 62.5 mcg-vilanterol 1 ea inhalation DAILY 08/01/24 08/01/24 25 mcg/actuation powdr for inhalation (Anoro Ellipta) Data Data Completed and Pending Completed studies during hospitalization [Text1]: 08/05/24 08/05/24 08/05/24 11:32 16:29 20:36 WBC RBC Hgb Hct MCV MCH MCHC RDW Plt Count MPV Absolute Nucleated RBC Nucleated RBC % (auto) Sodium Potassium Chloride Carbon Dioxide Anion Gap BUN Creatinine Estim Creat Clear Calc Estimated GFR POC Glucose 121 H 110 121 H Random Glucose Calcium C. difficile Tox B Gene 08/06/24 08/06/24 08/06/24 06:40 06:50 11:09 WBC RBC Hgb Hct MCV MCH MCHC RDW Plt Count MPV Absolute Nucleated RBC Nucleated RBC % (auto) Sodium Potassium Chloride Carbon Dioxide Anion Gap BUN Creatinine Estim Creat Clear Calc Estimated GFR POC Glucose 144 H 115 Random Glucose Calcium C. difficile Tox B Gene NEGATIVE 08/06/24 08/06/24 08/07/24 16:07 20:29 06:26 WBC RBC Hgb Hct MCV MCH MCHC RDW Plt Count MPV Absolute Nucleated RBC Nucleated RBC % (auto) Sodium Potassium Chloride Carbon Dioxide Anion Gap BUN Creatinine Estim Creat Clear Calc Estimated GFR POC Glucose 179 H 118 H 127 H Random Glucose Calcium C. difficile Tox B Gene 08/07/24 08/07/24 08/07/24 11:27 16:54 20:54 WBC RBC Hgb Hct MCV MCH MCHC RDW Plt Count MPV Absolute Nucleated RBC Nucleated RBC % (auto) Sodium Potassium Chloride Carbon Dioxide Anion Gap BUN Creatinine Estim Creat Clear Calc Estimated GFR POC Glucose 101 122 H 150 H Random Glucose Calcium C. difficile Tox B Gene 08/08/24 08/08/24 08/08/24 05:40 06:16 11:19 WBC 7.4 RBC 3.58 L Hgb 12.0 Hct 34.9 L MCV 97.5 MCH 33.5 H MCHC 34.4 RDW 13.2 Plt Count 249 D MPV 8.7 L Absolute Nucleated RBC 0.000 Nucleated RBC % (auto) 0.0 Sodium 139 Potassium 4.3 Chloride 105 Carbon Dioxide 23 Anion Gap 15 BUN 12 Creatinine 0.64 Estim Creat Clear Calc 139.3 Estimated GFR > 60 POC Glucose 114 124 H Random Glucose 120 H Calcium 9.0 C. difficile Tox B Gene 08/08/24 08/08/24 08/09/24 16:32 20:58 06:31 WBC RBC Hgb Hct MCV MCH MCHC RDW Plt Count MPV Absolute Nucleated RBC Nucleated RBC % (auto) Sodium Potassium Chloride Carbon Dioxide Anion Gap BUN Creatinine Estim Creat Clear Calc Estimated GFR POC Glucose 108 116 H 111 Random Glucose Calcium C. difficile Tox B Gene 08/09/24 08/09/24 08/09/24 07:10 11:20 16:14 WBC RBC Hgb Hct MCV MCH MCHC RDW Plt Count MPV Absolute Nucleated RBC Nucleated RBC % (auto) Sodium Potassium Chloride Carbon Dioxide Anion Gap BUN Creatinine Estim Creat Clear Calc Estimated GFR POC Glucose 140 H 105 95 Random Glucose Calcium C. difficile Tox B Gene 08/09/24 08/10/24 08/10/24 20:21 06:28 10:58 WBC RBC Hgb Hct MCV MCH MCHC RDW Plt Count MPV Absolute Nucleated RBC Nucleated RBC % (auto) Sodium Potassium Chloride Carbon Dioxide Anion Gap BUN Creatinine Estim Creat Clear Calc Estimated GFR POC Glucose 132 H 121 H 111 Random Glucose Calcium C. difficile Tox B Gene 08/10/24 08/10/24 08/11/24 16:22 20:00 06:33 WBC RBC Hgb Hct MCV MCH MCHC RDW Plt Count MPV Absolute Nucleated RBC Nucleated RBC % (auto) Sodium Potassium Chloride Carbon Dioxide Anion Gap BUN Creatinine Estim Creat Clear Calc Estimated GFR POC Glucose 118 H 148 H 132 H Random Glucose Calcium C. difficile Tox B Gene 08/11/24 08/11/24 08/11/24 11:24 16:15 19:44 WBC RBC Hgb Hct MCV MCH MCHC RDW Plt Count MPV Absolute Nucleated RBC Nucleated RBC % (auto) Sodium Potassium Chloride Carbon Dioxide Anion Gap BUN Creatinine Estim Creat Clear Calc Estimated GFR POC Glucose 100 114 132 H Random Glucose Calcium C. difficile Tox B Gene 08/12/24 06:26 WBC RBC Hgb Hct MCV MCH MCHC RDW Plt Count MPV Absolute Nucleated RBC Nucleated RBC % (auto) Sodium Potassium Chloride Carbon Dioxide Anion Gap BUN Creatinine Estim Creat Clear Calc Estimated GFR POC Glucose 133 H Random Glucose Calcium C. difficile Tox B Gene DS: Summary Hospital Course Hospital Course: 58-year-old female with a PMH significant for?PE on Eliquis, chronic hypercarbic respiratory failure on home 2 L O2 at night, HTN, chronic back pain, fibromyalgia, venous insufficiency, current smoker with 40 year pack hx, opioid use disorder on buprenorphine, anxiety and depression who presents to the ED for evaluation of altered mental status after presumed intentional olanzapine overdose. Pt is acutely altered and agitated at time of interview and exam. HPI is instead obtained from chart and provider review. Pt was found by family this morning at 09:00 with altered mental status, difficulty speaking, with her walker knocked over and laying sideways in bed. EMS arrived and initially called a stroke alert upon presentation to the ED out of concern for right-sided facial droop and difficulty speaking. Daughter reports pt ran out of clonazepam approximately 1 week ago due to overuse. Daughter had a prescription for olanzapine which she was not using, so provided to the pt with 2-3 tablets per day for the past 5 days to alleviate pt's anxiety. This morning daughter noticed her mother had left a suicide note and the olanzapine bottle was empty. She estimates the pt could have taken 15-20 tablets of olanzapine sometime last night. ED clinician contacted poison control Center who requested lactic acid and suggested pt being admitted for 24 hour cardiac monitoring. In the ED pt's vitals stable and WNL, satting at 96% on RA.. Labs were significant for lactic acid 3.0 with repeat 3.3, otherwise grossly unremarkable and around baseline for pt. No leukocytosis. Stable H&H. No significant electrolyte abnormalities. Renal and hepatic function WNL. Troponin negative. BNP 11. Lipid panel WNL. CXR showed mild interstitial lung edema vs multifocal pneumonia with nodular lesion of right lower hemithorax, consider benign vs malignant. CT of head without intracranial hemorrhage or acute brain abnormality. EKG x3 showing normal sinus rhythm without significant ischemic changes and QTc WNL. Pt was treated in the ED with DuoNebs, Mag sulfate, IVF, nicotine, diazepam, ceftriaxone, and azithromycin. Pt is admitted to the hospital for treatment and further evaluation of acute metabolic encephalopathy in the setting of increasing depression with suicide attempt from intentional olanzapine overdose HOSPITAL COURSE On the unit, pt was admitted on a CV. Pt reported suicide attempt was triggered by chronic pain. She denied suicidal or homicidal ideation. Pt reported ongoing pain for which she has been going to pain management clinic. She reports allergic reactions to most opioid medications like oxycodone and codeine. She is currently on buprenorphine and gabapentin. She's had cortisol shots with limited therapeutic effect. Her mobility has decreased since she has been in bed while in the hospital. She worked with PT and OT to work on ability to transfer on her own, which she was able to do to. She declined referral to STR. She agreed to continue home PT/OT. Pt reports she has been on cymbalta and rexulti for depression for a long time. She has also been on clonazepam for a long time as well. This medication had been decreased from 1mg po TID to 0.5mg po TID. She denied hx of psychosis or signs suggestive of hypomania or bradford. She did report hx of trauma. She did not have concerns in terms of her medications and agreed to continue them. Her affect was for the most part constricted and anxious at times. She was looking forward to return home. She denied SI/HI throughout this admission. There were no incidences of disruptive behaviors nor need for restraints. Pt will continue with [employer]/ [facility] services. Medications are in locked box. Status at Discharge Cognitive/behavioral status at discharge: Pt with calmer affect. No SI/HI. No VH/AH. Sleep limited by night time pain. Appetite is good. Future oriented looking forward to return home and see family. No aggression towards self or others. Functional status at discharge: wheelchair bound Overall status at discharge: patient is progressing back to baseline Time Spent with Patient Time attestation: Total time managing care of this patient today ____ minutes. Discharge Plan Discharge Anticipated Discharge Date/Time: 08/12/24 10:01 Patient Disposition: Home, Self-Care Discharge Diagnosis: MDD, recurrent, moderate Referrals: [facility] [Other] - 08/19/24 11:00 am (Your next appointment with your PCP is scheduled for 08/19/24 at 11AM. ) [facility] [Other] - 08/21/24 1:15 pm (Your next appointment with Dr Frazier at [facility] is scheduled for 08/21/24 at 1:15PM by phone. ) [facility] [Other] - 08/13/24 (You have been referred to [facility] for correction, PT/OT. They will contact you following discharge. ) Discharge Medications: New trazodone 50 mg Tablet 50 mg PO BEDTIME PRN (Reason: Insomnia) Qty: 30 0RF clonazepam 0.5 mg Tablet 0.5 mg PO TID PRN (Reason: moderate anxiety) Qty: 90 0RF buspirone 10 mg Tablet 10 mg PO BID Qty: 60 0RF Serevent Diskus 50 mcg/dose Blister With Device 1 inh inhalation RBID Qty: 60 0RF capsaicin 0.025 % Cream 1 appl topical TID PRN (Reason: back pain) Qty: 25 0RF Protocol: Apply to: Apply to: back albuterol sulfate [Ventolin HFA] 90 mcg/actuation Hfa Aerosol Inhaler 2 puff inhalation QID PRN (Reason: wheezing) Qty: 6.7 0RF lisinopril 2.5 mg Tablet 2.5 mg PO DAILY Qty: 30 0RF Protocol: Hold for SBP< HOLD for SBP < : 90 metoprolol tartrate 25 mg Tablet 25 mg PO BID Qty: 60 0RF Protocol: Hold for SBP/HR < HOLD for SBP < : 90 HOLD for HR < : 60 duloxetine 60 mg Capsule,Delayed Release(Dr/Ec) 60 mg PO BID Qty: 60 0RF buprenorphine 20 mcg/hour Patch Weekly 1 patch topical Q7D Qty: 0 0RF Eliquis 5 mg Tablet 5 mg PO BID Qty: 60 0RF Rexulti 1 mg Tablet 1.5 mg PO DAILY Qty: 45 0RF Continued lamotrigine 150 mg tablet 150 mg PO BID atorvastatin 20 mg tablet 20 mg PO QAM oxybutynin chloride 10 mg tablet extended release 24hr 10 mg PO DAILY Anoro Ellipta 62.5-25 mcg/actuation blister with device 1 ea INHALATION DAILY omeprazole 20 mg capsule,delayed release(DR/EC) 20 mg PO DAILY furosemide 20 mg tablet 20 mg PO DAILY insulin lispro [Humalog U-100 Insulin] 100 unit/mL Solution See Protocol SUBCUT QIDACHS Protocol: Insulin Correction Scale Less than or equal to 110 ---- Give (units): 0 111 to 150 Give (units): 0 151 to 200 Give (units): 2 201 to 250 Give (units): 4 251 to 300 Give (units): 6 301 to 350 Give (units): 8 Greater than 350 Give (units): 10 Call MD if Blood Glucose > : 350 gabapentin 800 mg tablet 800 mg PO TID Qty: 90 0RF Discontinued tizanidine 4 mg tablet 4 mg PO Q6H clonazepam 1 mg tablet 1 mg PO TID buspirone 10 mg tablet 10 mg PO BID albuterol sulfate [Ventolin HFA] 90 mcg/actuation HFA aerosol inhaler 2 puff INHALATION QID PRN (Reason: wheezing) clotrimazole 1 % cream 1 appl topical BID buprenorphine 20 mcg/hour patch weekly 1 patch topical QWEEK Eliquis 5 mg tablet 5 mg PO BID Rexulti 1 mg tablet 1.5 mg PO DAILY duloxetine 60 mg capsule,delayed release(DR/EC) 60 mg PO BID lisinopril 5 mg tablet 5 mg PO QAM metoprolol succinate 25 mg tablet extended release 24 hr 100 mg PO DAILY Discharge Orders: Discharge Order (Routine); Ordered 08/12/24 Ordered By: Shawanda Li Diet: Diabetic diet Activity on Discharge: As tolerated Stand Alone Forms: Patient Portal Discharge page Print Language: Chilean Care Plan Goals: 1. Maintain mood 2. No SI/HI Health Concerns: Follow up with PCP for routine care Plan of Treatment: 1. Take medications as prescribed 2. Go to nearest ED or call 911 in event of emergency Assessment: Pt with anxious affect. No SI/HI. No psychosis or delusions. Sleeping and eating fairly well. No aggression towards self or others.
[2024-08-12 11:36] LABS: Glucose, Whole Blood 122 mg/dL (60-115)
[2024-08-12] MEDS: Naloxone HCl Nasal TAKE HOME 4 MG SPRAY 8 MG NOSTRILALT (13:40)
== END 2024-08-12 13:51 | disposition home or self-care (01) | DRG 751 ==
PROVIDERS: Nurse Practitioner Family; Social Worker; Admitting Provider Psychiatry & Neurology Psychiatry; Visit Provider Psychiatry & Neurology Psychiatry
DX: F33.1 Major depressive disorder, recurrent, moderate (principal); J96.12 Chronic respiratory failure with hypercapnia; R45.851 Suicidal ideations; Z99.81 Dependence on supplemental oxygen; F17.210 Nicotine dependence, cigarettes, uncomplicated; Z59.02 Unsheltered homelessness; J44.9 Chronic obstructive pulmonary disease, unspecified; Z71.6 Tobacco abuse counseling; F11.20 Opioid dependence, uncomplicated; G89.29 Other chronic pain; Z91.51 Personal history of suicidal behavior; Z86.711 Personal history of pulmonary embolism; Z79.4 Long term (current) use of insulin; Z79.01 Long term (current) use of anticoagulants; Z79.899 Other long term (current) drug therapy
CPT/HCPCS: 36415; 80048; 80053; 80061; 82140; 82607; 82746; 82947; 83036; 84443; 85025; 85027; 87493; 97110; 97116; 97162; 97166; 97530

== ENCOUNTER → 2024-08-01 20:56 | Outpatient (BNV) | payer MEDICAID, SELFPAY | PROVIDERS: Admitting Provider Psychiatry & Neurology Psychiatry; Visit Provider Nurse Practitioner Family | DX: T43.592A Poisoning by other antipsychotics and neuroleptics, intentional self-harm, initial encounter (principal) | CPT/HCPCS: 99499 ==

== ENCOUNTER → 2024-08-01 20:56 | Outpatient (BNV) | payer OTHER, SELFPAY | PROVIDERS: Admitting Provider Psychiatry & Neurology Psychiatry; Visit Provider Psychiatry & Neurology Psychiatry | DX: F32.2 Major depressive disorder, single episode, severe without psychotic features (principal); T43.592A Poisoning by other antipsychotics and neuroleptics, intentional self-harm, initial encounter | CPT/HCPCS: 99231; 99232 ==

== ENCOUNTER 2025-02-20 09:56 | Outpatient (REF) | payer MEDICAID, SELFPAY ==
--- NOTE | ~2025-02-20 | XR_ITS ---
EXAMINATION: XR SACROILIAC JOINTS CLINICAL INFORMATION: M53.3 - Sacrococcygeal disorders, not elsewhere classified COMPARISON: None available. TECHNIQUE: 3 views of the sacroiliac joints FINDINGS: Extensive hardware is seen through the visible portions of the lumbar spine extending to S1 with posterior pedicle screws and rods and interbody cages. Right SI joint demonstrates mild degenerative irregularity with subchondral sclerosis along the iliac side greater than the sacral side. There is also vacuum phenomena. The left SI joint demonstrates vacuum phenomena with minimal subchondral sclerosis on the iliac side No sacral abnormality is evident otherwise. XR/XR sacroiliac joint min 3V IMPRESSION: Moderate right and mild left degenerative changes involving the SI joints. Electronically signed by: Jose Garces MD 02/20/2025 11:44 AM NARENDRA CRAIN
--- NOTE | ~2025-02-20 | XR_ITS ---
Examination: CR Xr Lumbar Spine 4v Min Technique: AP, lateral, lateral spot, bilateral oblique views of the lumbar spine INDICATION: M51.369 - Other intervertebral disc degeneration, lumbar region Prior: CT abdomen and pelvis 07/11/2024 FINDINGS: There are 5 nonrib-bearing lumbar segments. There is mild dextroscoliosis. Posterior pedicle screws and rods extending cephalad to the [id number], into the thoracic spine. There is a threaded component on the right at S1 that has migrated posteriorly, unchanged from the prior. The threaded calf on the left is also minimally tilted, unchanged. There are interbody cages at L3-4, L4-5, and L5-S1. There is osseous fusion between L2-3, L3-4 and L5-S1. Bony bridging is not clearly evident between L4-5 vertebral bodies. However, there is bridging bone across the facets on the right. XR/XR lumbar spine 4V min Impression: Extensive postoperative changes, as described above. Electronically signed by: Jose Garces MD 02/20/2025 11:53 AM NARENDRA CRAIN
--- OUTSIDE RECORDS SUMMARY | 2025-02-20 13:26 | XMS_ITS | Clinical Summary ---
Author Organization [facility] Address [address] [place] [id number] Phone Care Team Providers Care [facility] Technical Lead Senior Developer Name Role Phone Zeenat Lyons MD Primary Care Provider [phone] Social History Tobacco Use Types Packs/Day Years Used Date Smoking Tobacco: Never Assessed Education Answer Date Recorded Are you interested in more education? Not on sulema e 07/15/2022 Are you concerned about learning? Not on file 07/15/2022 No 07/15/2022 No 07/15/2022 Digital Access Answer Date Recorded No 08/14/2022 No 08/14/2022 No 08/14/2022 Reliable internet access at home? Not on file 08/14/2022 Device with a working camera? Not on file Comments Unknown Sex and Gender Information Value Date Recorded Sex Assigned at Not on file Legal Sex Female 2:57 PM EDT Gender Identity Not on file Sexual Orientation Not on file Plan of Treatment Health Maintenance Due Date Last Done Comments Adult Td,Tdap Booster 1964 LIPID PANEL 1964 DEPRESSION SCREENING 1976 SMOKING Hx and SMOKELESS TOB ACCO SCREENING 1977 HEPATITIS C SCREENING 1982 HIV ONE-TIME SCREENING (18-6 5 YEARS) 1982 PAP SMEAR 1985 MAMMOGRAM 2004 COLOGUARD 2009 COLONOSCOPY 2009 COLORECTAL CANCER SCREENING 2009 FIT TEST 2009 FOBT 2009 SIGMOIDOSCOPY 2009 VIRTUAL COLONOSCOPY 2009 PNEUMOCOCCAL VACCINES (50+ y ears) (1 of 1 - PCV) 2014 ZOSTER VACCINES (1 of 2) 2014 INFLUENZA VACCINE (#1) 2024 COVID-19 VACCINE (1 - 2024-2 6 season) 2024 RSV VACCINE (1 - 1-dose 75+ series) 10/06/2039 HEPATITIS A VACCINES Aged Out No long er eligible based on patient's age to complete this topic HIB VACCINES Aged Out No longer eligi ble based on patient's age to complete this topic MENINGOCOCCAL VACCINES (ACWY) Aged Out No longer eligible based on patient's age to complete this topic MENINGOCOCCAL VACCINES (B) Aged Out N o longer eligible based on patient's age to complete this topic Medical Devices Not on file Insurance [facility] [employer] [facility] [employer] [facility] [employer] [facility] [employer] Care Teams [employer] Technical Lead Senior Developer Relationship Specialty Start Date End Date Zeenat Lyons MD [email or web address] PCP - General Family Medicine 06/09/22 Additional Source Comments The information contained in this document represents components of the legal health record. It is not the complete legal health record.[facility]
== END 2025-02-20 09:57 | disposition home or self-care (01) ==
LOC: HO.XRAY 09:56
PROVIDERS: PCP Physician Assistant; Visit Provider Nurse Practitioner Family
DX: M51.369 Other intervertebral disc degeneration, lumbar region without mention of lumbar back pain or lower extremity pain (principal); M47.817 Spondylosis without myelopathy or radiculopathy, lumbosacral region; M62.838 Other muscle spasm; G89.4 Chronic pain syndrome; M53.3 Sacrococcygeal disorders, not elsewhere classified; E66.01 Morbid (severe) obesity due to excess calories; Z68.42 Body mass index [BMI] 45.0-49.9, adult
CPT/HCPCS: 72110; 72202; 99212

== ENCOUNTER 2025-02-20 09:56 | Outpatient (AMB) | payer MEDICAID, SELFPAY ==
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
[2025-02-20 10:07] VITALS: BP 119/68; PULSE 94; O2SAT 96; BMI 48.7
== END 2025-02-20 10:42 | disposition home or self-care (01) ==
PROVIDERS: PCP Physician Assistant; Visit Provider Nurse Practitioner Family
DX: M54.41 Lumbago with sciatica, right side (principal); M54.42 Lumbago with sciatica, left side; G89.29 Other chronic pain; M62.838 Other muscle spasm; M51.369 Other intervertebral disc degeneration, lumbar region without mention of lumbar back pain or lower extremity pain; G89.4 Chronic pain syndrome; M47.817 Spondylosis without myelopathy or radiculopathy, lumbosacral region; M53.3 Sacrococcygeal disorders, not elsewhere classified; E66.01 Morbid (severe) obesity due to excess calories; Z68.42 Body mass index [BMI] 45.0-49.9, adult
CPT/HCPCS: 99204

== ENCOUNTER → 2025-02-20 11:01 | Outpatient (BNV) | payer MEDICAID, SELFPAY | PROVIDERS: PCP Physician Assistant; Visit Provider Radiology Diagnostic Radiology | DX: M51.369 Other intervertebral disc degeneration, lumbar region without mention of lumbar back pain or lower extremity pain (principal); M53.3 Sacrococcygeal disorders, not elsewhere classified | CPT/HCPCS: 72110; 72202 ==